=== PATIENT | male | born 1935 | race Caucasian/White ===

== ENCOUNTER 2016-09-28 10:00 | Observation (INO) ==
[2016-09-28] MEDS ORDERED: Ipratropium/Albuterol Neb 3 ML IH ONE (10:07)
[2016-09-28] MEDS ORDERED: methylPREDNISolone 125 MG/2 ML VIAL IVP ONE (10:07)
--- NOTE | 2016-09-28 10:34 | Emergency Department Note ---
Disposition Clinical Impression: Fall Qualifiers: Encounter type: initial encounter Qualified Code(s): W19.XXXA - Unspecified fall, initial encounter COPD (chronic obstructive pulmonary disease) Qualifiers: COPD type: COPD with acute exacerbation Qualified Code(s): J44.1 - Chronic obstructive pulmonary disease with (acute) exacerbation Disposition: Admitted As Inpatient Condition: Good Forms: ED Satisfaction Letter Fall HPI - General Chief Complaint: ED Fall Stated Complaint: Fall-Right Side Injuries Time Seen by Provider: 09/28/16 10:06 Source: patient, EMS Mode of arrival: EMS Limitations: no limitations Nursing Notes Reviewed: Yes Vital Signs Reviewed: Yes - History of Present Illness HPI Narrative: Patient presents emergency room after having mechanical fall at outside provider 's office. He was going in to be seen by his PCP Dr. Santos today. While walking into the office he fell and hit his head and right shoulder. He is a chronic pain in his right hip over the last several months after a fall previously. Family is concerned because he has had increased work of breathing productive cough and increasing falls at home. That is whether going into the office today. Patient denies any chest pain shortness of breath headache vision changes nausea vomiting or diarrhea, fevers or chills prior to the event today. He was just walking and and tripped over his own feet Pt Subjective Complaint: fall Onset (ago): Just [employer] HELPER Fall From: standing Fall Witnessed: yes Place Fall Occurred: street Loss of Consciousness: none Prolonged Down Time?: no Symptoms Prior to Fall: none Context: tripped/slipped Location of injury: head Location of injury - extremities: Right: shoulder Severity: moderate Severity scale (1-10): 6 Quality: aching Associated symptoms (after fall): Reports: denies - Related Data Previous Rx's Medication Instructions Recorded Amoxicillin/Clavulanate [Augmentin] 875 mg PO BIDWM #14 tablet 07/14/16 Allergies Allergy/AdvReac Type Severity Reaction Status Date / Time Erythromycin Base Allergy Hives Verified 04/19/15 13:35 All systems ED: reviewed and negative except as stated. Constitutional: Denies: fever, chills Cardiovascular: Reports: dyspnea on exertion. Denies: chest pain, palpitations , orthopnea Respiratory: Denies: cough Gastrointestinal: Denies: abdominal pain, nausea, vomiting, diarrhea Genitourinary: Denies: frequency Musculoskeletal: Reports: neck pain. Denies: back pain, joint swelling Integumentary: Denies: rash, abrasion, lesions Psychiatric: Denies: anxiety Fall PMH - Past Medical History Medical history: Reports: arthritis, COPD, diabetes, GERD, seizures, TIA Surgical history: Reports: other Psychiatric history: Reports: no psych history - Social History Smoking Status: Former smoker Alcohol use: Reports: none Drug use: Reports: none Physical Exam - General Limitations: no limitations General appearance: alert, in distress - Head Head exam: atraumatic, normocephalic, normal inspection - Neck Neck exam: Present: normal inspection, full ROM, trachea midline. Absent: tenderness, meningismus, lymphadenopathy - Chest Chest inspection: Present: normal inspection, symmetric chest wall rise. Absent : tenderness - Respiratory Respiratory exam: Present: normal lung sounds bilaterally, wheezes. Absent: respiratory distress - Cardiovascular Cardiovascular exam: Present: regular rate, normal rhythm, normal heart sounds - Abdominal Exam Abdominal exam: Present: soft, Non-Tender. Absent: tenderness, distention, guarding, rebound, rigidity, Escalera's sign, Rovsing's sign, tenderness at McBurney's Point, mass, bruit, pulsatile mass - Extremities Exam Extremities exam: Present: normal inspection, full ROM. Absent: tenderness, pedal edema - Back Exam Back exam: Present: normal inspection, full ROM. Absent: tenderness, CVA tenderness (R), CVA tenderness (L) - Neurological Exam Neurological exam: Present: alert, oriented X3, CN II-XII intact. Absent: normal gait (Limping gait no ataxia) - Psychiatric Psychiatric exam: Present: normal affect, normal mood - Skin Skin exam: Present: warm, dry, intact, normal color Course Course Narrative: Patient seen and examined the time of arrival. See history of present illness. 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 Patient was walking into his primary care office today for evaluation of increasing falls at home cough congestion and COPD exacerbation. While walking and he tripped over his own feet falling forward hitting his head right shoulder and right hip on the ground. Patient is on aspirin. Patient was brought over by EMS in a c-collar. Appropriate ATLS protocol was followed on presentation secondary to the fall. The head is atraumatic on presentation. His c-collar removed he has no midline tenderness is alert oriented 3 is no distractible injuries. Patient moves his neck without any difficulty side to side and up and down. Patient is nexus criteria negative. There is no gross deformity to the bilateral shoulders or upper extremities. Lungs are clear heart is regular patient speaking in full sentences. Abdomen soft nontender nondistended. No guarding or rigidity no peritoneal symptoms. Patient is good palpable pulses in the radial DP and PT distributions. There is no gross deformity to the pelvis. Patient has tenderness on the right hip over the greater trochanter. He does have appropriate straight leg raising at this time. Patient's lungs do have an adnexal Tory wheezing and poor aeration posteriorly. 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 He has had a productive cough over the last week and half. Family said that he was treated for an upper respiratory infection approximately month and half ago and never felt like he got better. Patient does use 3 L of oxygen at home as well as inhalers for symptom control. Family is concerned for decompensation secondary to COPD emphysema and hospital pneumonia. Patient also has mechanical fall today from standing height and is on aspirin. CT of the head and cervical spine ordered. Imaging of the right shoulder as well as a chest x-ray and pelvic plain films to address any right- sided hip pain. Patient does not require any pain medications time. Glucola evaluation and possible admission process to be completed for COPD exacerbation - Reevaluation(s) Reevaluation #1: Patient has stable laboratory workup. Mild elevation in his creatinine. No other acute findings at this time. Patient's chest x-ray and pelvis films are negative for acute pathology. CT of the right hip will be over this time for definitive evaluation of his chronic hip pain. CT head is negative for acute pathology. Cervical spine is also negative for bony abnormality. Patient and I has was the family discussed in great detail his medical history and presentation here. There are concerned about progression of his COPD along with persistently worsening inability to take care of himself at home. Family' s been trying to take care of him but is having increasing falls and increasing weakness. Patient was to be evaluated by his PCP today. Because of the recent fall as well as the chronic underlying medical conditions and what appears to be failed outpatient treatment course patient will be discussed with the hospitalist for admission and physical therapy evaluation as possible placement into a rehabilitation facility. Patient's family part of this in a comfortable this plan. Admission process to be completed at this time. Time: 12:11 Reevaluation #2: Patient discussed with the hospitalist Dr. Doran. Detailed review the patient 's presentation symptoms most likely progression of poorly controlled outpatient medical conditions. Patient to be brought to the hospital for evaluation of physical exam and rehabilitation evaluation. Patient has no clinical distress at this time. A 1.5 cm superficial laceration was closed with skin glue on the right elbow no gross signs of 4 measured no gross contamination at this time. See procedure note tetanus booster ordered at this time as well skin glue applied to the superficial surface after detailed evaluation copious irrigation of the right elbow. Time: 12:29 Vital Signs Temperature 97.4 F L 09/28/16 10:01 Pulse Rate 97 09/28/16 10:01 Respiratory Rate 20 09/28/16 10:01 Blood Pressure 109/66 09/28/16 10:01 O2 Sat by Pulse Oximetry 100 09/28/16 10:01 Temperature 97.4 F L 09/28/16 10:01 Pulse Rate 97 09/28/16 10:01 Respiratory Rate 20 09/28/16 10:01 Blood Pressure 109/66 09/28/16 10:01 O2 Sat by Pulse Oximetry 100 09/28/16 10:10 Oxygen Delivery Oxygen Delivery Nasal Cannula Procedures - Laceration Laceration 1 Site: upper extremity Side (If applicable): right Description: linear Depth: simple, single layer Pre-repair: wound explored, irrigated extensively, deep structures intact Skin layer closed with: karli Number of sutures/karli: 3 Fall - MDM Narrative Medical decision making narrative: Mechanical fall, COPD, - Medical Records Medical records reviewed: Yes I reviewed the patient's medical records. - Lab Data Lab results reviewed: Yes I reviewed the patient's lab results. - Radiology Data Radiology results reviewed: Yes I reviewed the patient's radiology results. - EKG Data EKG attestation: Yes I reviewed and interpreted this EKG. EKG shows normal: sinus rhythm, axis, intervals, QRS complexes, ST-T waves Rate: normal Rhythm: NSR Lannon/QRS: normal When compared to previous EKG there are: no significant changes Critical Care Time Critical Care Time: Yes Total Critical Care Time: 45 Attestation: Independent of procedures and other medical management.
--- NOTE | 2016-09-28 10:37 | Emergency Department Note ---
START Narrative - START START: I examined this patient and my medical decision-making was reviewed with the VARNISH FILTERER/PA/Advanced Practice Nurse/Resident Physician. I agree with the documented findings, disposition and treatment plan as described except to the extent set forth below. ED attending: Patient's emergency medicine resident Dr. VASQUEZ. Please see copy of this note for H&P evaluation and management and ED disposition. We both had independent [id number] time in contact with this patient. Briefly: 81-year-old male medical assist by EMS mechanical fall. History of falls. Patient injured his right shoulder and right hip. History of prior hip replacement. He also hit his head. Is not on any blood thinners however he is on aspirin. He has been having cough and some weakness as well. Patient is getting CT the head neck is getting an x-ray the shoulder and hip pinning a chest x-ray EKG and blood work. Disposition pending. Patient stable.
[2016-09-28 10:41] LABS: Hematocrit 33.9 % (37.5-50.1); Hemoglobin 11.4 g/dL (12.9-16.9); Mean Corpuscular HGB Conc 33.6 g/dL (31.6-35.5); Mean Corpuscular Hemoglobin 29.4 pg (28.0-33.3); Mean Corpuscular Volume 87.4 fL (83.0-100.0); Mean Platelet Volume 9.6 fL (9.4-12.4); Platelet Count 104 K/mcL (140-400); Red Blood Count 3.88 M/mcL (4.19-5.50); Red Cell Distribution Width 12.8 % (11.5-14.5)
[2016-09-28 10:46] LABS: INR 1.2; Prothrombin Time 12.7 Seconds (9.4-12.1)
[2016-09-28 10:48] LABS: Activated Partial Thrombo Time 31.3 Seconds (26.0-36.0)
[2016-09-28 10:53] LABS: Calcium 8.2 mg/dL (8.6-10.8)
[2016-09-28 10:54] LABS: Potassium 5.1 mEq/L (3.5-4.5)
[2016-09-28 11:02] LABS: Lymphocytes # 1.5 K/mcL (0.6-4.6); Monocytes # 0.1 K/mcL (0.0-1.3); Neutrophils # 1.3 K/mcL (1.6-8.9); Reactive Lymphocytes Present (Not Present)
[2016-09-28 11:03] LABS: Platelet Estimate Decreased (Normal)
[2016-09-28] MEDS ORDERED: Naloxone 0.4 MG/ML INJ IVP ONE (11:42)
[2016-09-28] MEDS ORDERED: Tdap (Boostrix) Vaccine 0.5 ML SYRINGE IM ONE (12:26)
[2016-09-28] MEDS ORDERED: Naloxone 0.4 MG/ML INJ IVP PRN (14:34)
[2016-09-28] MEDS ORDERED: Ondansetron 4 MG/2 ML VIAL IVP PRN (14:37)
[2016-09-28] MEDS ORDERED: MOM Conc 10 ML UD.LIQ PO PRN (14:37)
[2016-09-28] MEDS ORDERED: Acetaminophen 325 MG TABLET PO PRN (14:37)
[2016-09-28] MEDS ORDERED: Albuterol 2.5 MG/3 ML NEBULIZER IH PRN (14:39)
[2016-09-28] MEDS ORDERED: ALPRAZolam 0.5 MG TABLET PO PRN (14:39)
--- NOTE | 2016-09-28 14:48 | Internal Med History&Physical ---
<Rhianna Bone - Last Filed: 09/28/16 17:23> Date of Encounter: 09/28/16 Time of Encounter: 14:20 Assessment and Plan (1) Dehydration Current visit: Yes Status: Acute Pt reports poor oral intake over the last few days and states that he hasn't been drinking enough water because he hasn't felt well x 4 days. Given his history of Alzheimer's for the last 7 years this could be the cause of his poor oral intake. Oral mucosa dry, conjunctiva pale, sodium 134, potassium 5.2, BUN 27 and creatinine 1.41. Pt has not been here for labs since 2014, but renal function was WNL at that time. Fall today most likely from dizziness from hypovolemia/ dehydration. IVF 0.9NS at 75ml/hour Increase po intake Consult nutrition to assist with increasing po fluid/nutrition intake Repeat labs in a.m Monitor labs (2) Dizziness Current visit: Yes Status: Acute PT has been dizzy for last [address] in ER negative for intracranial abnormality. Will keep pt on fall precautions and up with assistance. (3) Frequent falls Current visit: Yes Pt has had increasing falls over the last day. Today's fall is of unknown origin. Pt denies cp, sob, but states that he has been dizzy for 24 hours Reverse dehydration Monitor labs Fall precautions pt/ot (4) Decreased oral intake Current visit: Yes Status: Chronic could be secondary to progression of alzheimer speech therapy consult. nutrition cx (5) Diabetes mellitus Current visit: Yes Status: Chronic Type II DM controlled with diet and sliding scale coverage. Will continue. Accucheck [facility] Qualifiers: Diabetes mellitus type: type 2 Diabetes mellitus complication status: with neurologic complications Diabetes mellitus complication detail: with unspecified neuropathy Diabetes mellitus terminal gauger insulin use: without skilled nursing use Qualified Code(s): E11.40 - Type 2 diabetes mellitus with diabetic neuropathy, unspecified (6) COPD (chronic obstructive pulmonary disease) Current visit: Yes Status: Chronic Pt has had increased wheezing this week. REports dry, hacky cough, but is not worse than normal. He is using his inhalers appropriately. Afebrile, Chest xray today shows no acute pulmonary disease identified, but chronic bronchial wall thickening is noted, no fracture or pneumothorax. Pt did expel some dk maroon colored sputum while he has been here. Pt has wheezing anteriorly, lungs diminished posteriorly. Sputum specimen/culture Duoneb q4hr Albuterol nebulizer q2h prn Continue Symbicort Qualifiers: COPD type: COPD with acute exacerbation Qualified Code(s): J44.1 - Chronic obstructive pulmonary disease with (acute) exacerbation (7) HTN (hypertension) Current visit: Yes Status: Suspected Pt has been hypotensive, most likely due to dehydration. Will hold home bp meds until normotensive and dehydration corrected. Qualifiers: Hypertension type: essential hypertension Qualified Code(s): I10 - Essential (primary) hypertension (8) Alzheimer's dementia Current visit: Yes Status: Chronic Pt diagnosed with Alzheimer's. Will start on Namenda 5mg po bid. Pt did answer questions appropriately, but slowly and attempted to cover up his slight confusion, but did get questions answered correctly. Qualifiers: Alzheimer's disease onset: unspecified onset Dementia behavioral disturbance: without behavioral disturbance Qualified Code(s): G30.9 - Alzheimer's disease, unspecified; F02.80 - Dementia in other diseases classified elsewhere without behavioral disturbance (9) Chronic respiratory failure Current visit: Yes Status: Chronic Stable at this time. Pt wears 3L 02 via n/c at home all day, will continue here. Qualifiers: Respiratory failure complication: unspecified whether with hypoxia or hypercapnia Qualified Code(s): J96.10 - Chronic respiratory failure, unspecified whether with hypoxia or hypercapnia Internal Medicine - H&P: HPI Chief complaint: Fall today, wheezing x 2 days Admitted From: Home Plans for Post Hospital Care: Home History of present illness: Mr. Quinn is a 81 year old male with history of COPD, HTN, DM, Alzheimer's and anxiety. Pt was going to Dr Santos's office and fell before getting into the office, injuring R shoulder and R hip. R hip pain is chronic and began hurting worse on Saturday, so pt was being seen for that today, as well as increased wheezing and dizziness. Family reports dizziness and increased falls over the last 24 hours. No chest pain, sob, dizziness, or syncope. All imaging in the ED negative for fractures. Chest xray negtive for acute pulmonary disease, but showed chronic bronchial wall thickening, no rib fractures or pneumothorax. Pt has no visible injury to either area, however did have a lac to R elbow that was closed with karli in the ED. Family noted that pt's feet become discolored when he is seated with his knees bent and feet on the floor. Pt resting in bed during exam and feet are pink and warm with +1 pedal pulses manjinder. Pt reports poor oral intake recently and states that he is to see Dr Jain for evaluation and possible dilation of the esophagus. Pt uses home 02 at 3L and he did have somewhat of a productive cough with dk brown/maroon colored sputum while here. Past Med Surg Social Fam HX - Past Medical History Medical history: arthritis, COPD, diabetes, GERD, seizures, TIA Psychiatric history: no psych history - Past Surgical History Surgical History: other - Social History Smoking Status: Former smoker Smokeless Tobacco Status: No Alcohol use: none Drug use: none - Family History Mother History Unknown: Yes Father Living Status: Age at : 68 Cause of : Leukemia Internal Medicine - H&P: Meds Albuterol Sulfate [Ventolin Hfa] 2 puff IH Q4H PRN 09/28/16 [History] Alprazolam [Xanax 0.5 MG Tablet] 0.5 mg PO QID PRN 09/28/16 [History] Amitriptyline [Elavil] 100 mg PO HS 09/28/16 [History] Aspirin [Lo-Dose Aspirin EC] 81 mg PO DAILY 09/28/16 [History] Fluticasone/Salmeterol [Advair Hfa 230-21 Mcg Inhaler] 1 puff IH BID 09/28/16 [ History] Gabapentin [Gabapentin] 600 mg PO QID 09/28/16 [History] Ipratropium/Albuterol Neb [Duoneb] 3 ml IH Q6HR 09/28/16 [History] Lisinopril [Zestril] 10 mg PO BID 09/28/16 [History] Oxycodone HCl/Acetaminophen [Endocet 5-325 Tablet] 1 tab PO Q4H PRN 09/28/16 [ History] PredniSONE [PredniSONE] 5 mg PO DAILY 09/28/16 [History] Pregabalin [Lyrica] 75 mg PO BID 09/28/16 [History] Allergies Erythromycin Base Allergy (Verified 04/19/15 13:35) Hives All Systems PM: A 10-system review of systems was performed and is negative for pertinent findings except as documented above in the HPI. - Constitutional Constitutional: falls, no chills, no fever(s), no weakness - Cardiovascular Cardiovascular ROS IM: no chest pain, no diaphoresis, no edema, no lightheadedness, no palpitations, no syncope - Respiratory Respiratory: cough, wheezing, no chest congestion, no pain with cough - Gastrointestinal Gastrointestinal: early satiety, no diarrhea, no nausea, no vomiting Additional comments: states "If he eats too much he can't drink, if he drinks too much he can't eat." This is why they are seeing Dr Jain. - Genitourinary Genitourinary ROS male: no dysuria, no urinary frequency, no urinary hesitancy, no urinary urgency - Musculoskeletal Musculoskeletal ROS IM: back pain, numbness, tingling - Integumentary Additional comments: lac to R elbow, closed with karli, covered with kerlix and non-adherent dressing. - Neurological Neurological ROS: dizziness - Constitutional Vitals: Temp Pulse Resp BP Pulse Ox 97.4 F L 85 20 110/70 92 L 09/28/16 14:31 09/28/16 14:31 09/28/16 14:31 09/28/16 14:31 09/28/16 14:31 General appearance: Present: A&O X 3, no acute distress - Head Head exam: Present: atraumatic, normal inspection - Eye Eye exam: Present: conjuntiva pink Pupils: Present: PERRL - ENT ENT exam: Present: mucous membranes dry - Neck Neck exam general surgery: Absent: lymphadenopathy, tenderness - Respiratory Respiratory exam: Present: decreased breath sounds, wheezes. Absent: respiratory distress Additional comments: Lungs clear posteriorly, exp wheezing heard ant in upper lung gustafson. - Cardiovascular Cardiovascular exam: Present: RRR, +S1, +S2 - GI/Abdominal GI/Abdominal exam: Present: normal bowel sounds, soft. Absent: tenderness - Rectal Rectal exam: Present: deferred - Extremities Exam Extremities exam: Present: cyanotic, full ROM, warm, radial pulses palpable and symetrical. Absent: pedal edema, tenderness Additional comments: Pt BLE pink and warm while extended in front of him in the bed, however when he has feet on floor, feet become cyanotic. - Back Exam Back exam: Present: full ROM, paraspinal tenderness - Neurological Exam Neurological exam: Present: alert, oriented X3, no focal deficits, strengths equal and symetr throughout Internal Med - H&P Results - Labs CBC & Chem 7: 09/28/16 10:24 09/28/16 10:24 <Leslie Maharaj - Last Filed: 09/28/16 17:47> Date of Encounter: 09/28/16 Internal Medicine - H&P: HPI History of present illness: Mr. Quinn is a 81 year old male All Systems PM: A 10-system review of systems was performed and is negative for pertinent findings except as documented above in the HPI. - Constitutional Vitals: Temp Pulse Resp BP Pulse Ox 97.4 F L 85 20 110/70 92 L 09/28/16 14:31 09/28/16 14:31 09/28/16 14:31 09/28/16 14:31 09/28/16 14:31 Internal Med - H&P Results - Labs CBC & Chem 7: 09/28/16 10:24 09/28/16 10:24 Labs: Cardiac Enzymes 09/28/16 Range/Units 16:13 Troponin I 0.02 (0-0.03) ng/mL Urine 09/28/16 Range/Units 16:40 Urine Color Yellow (Yellow) Urine Clarity Clear (Clear) Urine pH 6.0 (5.0-8.0) pH Units Ur Specific [place] 1.017 (1.010-1.025) Urine Protein Trace (Neg-Trace) mg/dL Urine Glucose (UA) Normal (Normal) mg/dL - Attending Attestation I examined this patient and reviewed laboratory, imaging and all diagnostic data. My medical decision-making was reviewed with DELROY Bone. I agree with the documented findings, disposition and treatment plan as described above. 81- year-old male who comes after falling at our parking lot, on his way to his PCP office. Patient seems to have showed no internal memory problems during my history taking and upon questioning he and his family reports being diagnosed of Alzheimer's dementia 7 years ago. She has a bracelet monitor that triggers when he leaves house for more than 20 minutes. She reports having poor oral intake on and off for the past months and that once he was told that he might need a PEG tube which he refuses. Examination: pt looks dehydrated, chest is CTAB, dry skin and oral mucosa. a/p 1. Dehydration from poor oral intake. 2. Decrease oral intake likely from progression of Alzheimer. 3. frequent falls 4. [place] dementia Speech, PT and OT consults. IV fluid hydration.
[2016-09-28] MEDS ORDERED: D5% in Water 1,000 ML IV PRN (14:49)
[2016-09-28] MEDS ORDERED: *HR* Dextrose 50 % in Water (Syg) 50 ML SYRINGE IVP PRN (14:49)
[2016-09-28] MEDS ORDERED: Dextrose Gel 15 GM PO PRN ×2 (14:49)
[2016-09-28] MEDS: Ipratropium/Albuterol Neb 3 ML IH SCH ×2 (16:00→20:01)
[2016-09-28] MEDS: GuaiFENesin/Dextromethorphan TABLET PO SCH ×2 (16:13→20:07)
[2016-09-28] MEDS: Gabapentin 300 MG CAPSULE PO SCH ×2 (16:13→20:08)
[2016-09-28] MEDS: 0.9 % Sodium Chloride 1,000 ML IVC SCH (16:13)
[2016-09-28 16:59] LABS: Bilirubin,Urine Negative (Negative); Blood,Urine Negative (Negative); Clarity,Urine Clear (Clear); Color,Urine Yellow (Yellow); Glucose,Urine (UA) Normal (Normal); Ketones,Urine Negative (Negative); Leukocyte Esterase,Urine Negative (Negative); Nitrite,Urine Negative (Negative); Protein,Urine Trace mg/dL (Neg-Trace); Specific Gravity,Urine 1.017 (1.010-1.025); Urobilinogen,Urine Normal (Normal)
[2016-09-28 17:00] LABS: Bacteria,Urine None Seen per hpf (None-Few); Hyaline Casts,Urine None Seen per lpf (None-Few); RBC,Urine 0-3 per hpf (0-3); Squamous Epithelial Cell,Urine Many per lpf (None-Few); WBC,Urine 0-3 per hpf (0-3)
[2016-09-28] MEDS: Insulin LISPRO 300 UNITS/3 ML VIAL SQ SCH (17:49)
[2016-09-28] MEDS: Budesonide/Formoterol 160/4.5 MDI IH SCH (20:01)
[2016-09-28] MEDS: *HR* OxyCODONE/APAP 5/325 TABLET PO PRN (20:07)
[2016-09-28] MEDS ORDERED: Insulin LISPRO 300 UNITS/3 ML VIAL SQ SCH (21:00)
[2016-09-29] MEDS: Ipratropium/Albuterol Neb 3 ML IH SCH ×5 (00:42→12:02)
[2016-09-29 04:14] LABS: Hemoglobin 10.6 g/dL (12.9-16.9); Immature Granulocytes % 0.8 % (0-4)
[2016-09-29 04:15] LABS: Hematocrit 31.9 % (37.5-50.1); Lymphocytes # 0.3 K/mcL (0.6-4.6); Lymphocytes % 24.1 %; Mean Corpuscular HGB Conc 33.2 g/dL (31.6-35.5); Mean Corpuscular Hemoglobin 29.2 pg (28.0-33.3); Mean Corpuscular Volume 87.9 fL (83.0-100.0); Mean Platelet Volume 9.8 fL (9.4-12.4); Monocytes # 0.1 K/mcL (0.0-1.3); Monocytes % 7.5 %; Neutrophils # 0.9 K/mcL (1.6-8.9); Red Blood Count 3.63 M/mcL (4.19-5.50); Red Cell Distribution Width 12.6 % (11.5-14.5); Segmented Neutrophils % 67.6 %
[2016-09-29 04:18] LABS: Platelet Count 99 K/mcL (140-400)
[2016-09-29 04:27] LABS: BUN/Creatinine Ratio 26 (6-26); Blood Urea Nitrogen 25 mg/dL (8-26); Calcium 8.3 mg/dL (8.6-10.8); Carbon Dioxide 24 mEq/L (19-29); Chloride 101 mEq/L (98-109); Glucose 214 mg/dL (70-99); Osmolality,Calculated 293 (280-300); Potassium 4.8 mEq/L (3.5-4.5); Sodium 136 mEq/L (136-145); eGFR For African Americans > 60 (> 60); eGFR For Non-African Americans > 60 (> 60)
[2016-09-29 04:48] LABS: Platelet Estimate Slight Decrease (Normal)
[2016-09-29] MEDS: 0.9 % Sodium Chloride 1,000 ML IVC SCH (05:30)
[2016-09-29] MEDS: GuaiFENesin/Dextromethorphan TABLET PO SCH (07:34)
[2016-09-29] MEDS: *HR* OxyCODONE/APAP 5/325 TABLET PO PRN ×4 (07:34→15:45)
[2016-09-29] MEDS: Insulin LISPRO 300 UNITS/3 ML VIAL SQ SCH ×2 (07:34→12:12)
[2016-09-29] MEDS: Gabapentin 300 MG CAPSULE PO SCH ×2 (07:34→12:11)
[2016-09-29] MEDS: Budesonide/Formoterol 160/4.5 MDI IH SCH (08:00)
[2016-09-29] MEDS ORDERED: Pantoprazole 40 MG VIAL IVP SCH (09:00)
[2016-09-29] MEDS ORDERED: predniSONE 5 MG TABLET PO SCH (09:00)
[2016-09-29] MEDS ORDERED: Aspirin Enteric Coated 81 MG Tablet PO SCH (09:00)
[2016-09-29 11:51] VITALS: BP 133/67
--- NOTE | 2016-09-29 13:31 | Arterial Study Report ---
LE Arterial Physiologic Study Patient Name:Declan Quinn Order Number:[id number] Procedure Date:09/28/2016 Date:1935ge:81 yrs Gender:Male Lt BP:145 / mmHg Rt.BP:148 / mmHgHeart Rate: Location:[facility] Room #: 3B12 [employer] Supervisor:Vijaya Jara Referring MD:Rhianna Bone CNP graphic manager:Toney Santos MD Reading MD:Kj Bernardo MD Primary Indications:Cyanosis of feet Risk Factors Yes/No Hypertension Diabetes Hx of TIA Smoker Previous Impressions: 1) Bilateral lower extremities waveform demonstrates normal hemodynamics. 2) bilateral Ankle Brachial Index is normal. 3) Overall Impression: Arterial hemodynamics are well maintained at rest. Findings LE Arterial Physiologic Exam: PVR: Right: The PVR waveforms are normal in the right ankle. Left: The PVR waveforms are normal in the left ankle. Segmental Pressures Side Location Pressure Index Result Right Posterior Tibial 150 1.01 Normal Right Dorsalis Pedis 168 1.14 Normal Left Posterior Tibial 186 1.26 Normal Left Dorsalis Pedis 176 1.19 Normal Ankle Brachial Index Right Systolic Diastolic GAYATRI Brachial 148 1.14 Dorsalis Pedis 168 1.14 Posterior Tibial 150 1.01 Left Systolic Diastolic GAYATRI Brachial 145 1.26 Dorsalis Pedis 176 1.19 Posterior Tibial 186 1.26 Updated by Kj Bernardo MD on 09/29/2016 1:26:17 PM with Status of Final electronically signed on 09/29/2016 1:26:29 PM with status of Final
--- NOTE | 2016-09-29 15:00 | Discharge Summary ---
Date of Encounter: 09/29/16 Time of Encounter: 14:52 - Discharge Diagnosis (1) Fall Priority: Primary Status: Acute Qualifiers: Encounter type: initial encounter Qualified Code(s): W19.XXXA - Unspecified fall, initial encounter (2) Alzheimer's dementia Priority: Secondary Status: Chronic Qualifiers: Alzheimer's disease onset: late-onset Dementia behavioral disturbance: without behavioral disturbance Qualified Code(s): G30.1 - Alzheimer's disease with late onset; F02.80 - Dementia in other diseases classified elsewhere without behavioral disturbance (3) COPD (chronic obstructive pulmonary disease) Priority: Secondary Status: Chronic Qualifiers: COPD type: COPD with acute exacerbation Qualified Code(s): J44.1 - Chronic obstructive pulmonary disease with (acute) exacerbation (4) Chronic respiratory failure Priority: Secondary Status: Chronic Qualifiers: Respiratory failure complication: hypoxia Qualified Code(s): J96.11 - Chronic respiratory failure with hypoxia (5) Diabetes mellitus Priority: Secondary Status: Chronic Qualifiers: Diabetes mellitus type: type 2 Diabetes mellitus complication status: with neurologic complications Diabetes mellitus complication detail: with unspecified neuropathy Diabetes mellitus ferry terminal agent insulin use: without half-way use Qualified Code(s): E11.40 - Type 2 diabetes mellitus with diabetic neuropathy, unspecified (6) HTN (hypertension) Priority: Secondary Status: Chronic Qualifiers: Hypertension type: essential hypertension Qualified Code(s): I10 - Essential (primary) hypertension - Discharge Medications Home Medications: Albuterol Sulfate [Ventolin Hfa] 2 puff IH Q4H PRN 09/28/16 [History] Alprazolam [Xanax 0.5 MG Tablet] 0.5 mg PO QID PRN 09/28/16 [History] Aspirin [Lo-Dose Aspirin EC] 81 mg PO DAILY 09/28/16 [History] Fluticasone/Salmeterol [Advair Hfa 230-21 Mcg Inhaler] 1 puff IH BID 09/28/16 [ History] Gabapentin 600 mg PO QID 09/28/16 [History] Ipratropium/Albuterol Neb [Duoneb] 3 ml IH Q6HR 09/28/16 [History] PredniSONE 5 mg PO DAILY 09/28/16 [History] Pregabalin [Lyrica] 75 mg PO BID 09/28/16 [History] Amitriptyline [Elavil] 50 mg PO HS #20 09/29/16 [Rx] Lisinopril [Zestril] 10 mg PO DAILY #20 09/29/16 [Rx] Oxycodone HCl/Acetaminophen [Endocet 5-325 Tablet] 1 tab PO Q6H PRN #20 [Rx] Allergies/Adverse Reactions: Allergies Erythromycin Base Allergy (Verified 04/19/15 13:35) Hives Procedures/tests Complete & Pending: Procedures Performed prior 72 hours Category Date Time Status GAYATRI [EV ankle brachial index] Routine Y 09/28/16 15:42 Completed Date of admission: 09/28/16 12:19 Primary care physician: Toney Santos Jr, MD Consults: 09/28/16 15:34 Consult to Nutrition [CONS] Routine Comment: Consulting Provider: NUTRITION Reason for Dietary Consult: Supplemental Nutrition Consult to Occupational Therapy [CONS] Routine Comment: Evaluate, develop and implement POC Consult to Physical Therapy [CONS] Routine Comment: Evaluate, develop and implement POC 09/28/16 15:39 Consult to Heavy Mobile Equipment Operator [CONS] Routine Reason for SW Consult: planning discharge Consult to Speech Therapy [CONS] Routine Comment: Evaluate, develop and implement POC Reason for Consult: swallow eval, difficulty swallowing Call Completed: No 09/28/16 15:45 Consult to Heavy Mobile Equipment Operator [CONS] Routine Reason for SW Consult: discharge planning Discharging clinician: Jess Lindsay Anticipated date of discharge: 09/29/16 - Patient Status Disposition: Home Health Service Condition: Good Functional capacity at discharge: uses cane/walker Overall status at discharge: patient is progressing back to baseline - Discharge Instructions Instructions: Fall Prevention (DC) Follow Up With: Toney Santso Jr, MD [Primary Care Provider] - Additional Instructions: F/up with Pulmonology as scheduled - Diet and Activity Activity: as per physical therapy, wear oxygen at all times Diet: diabetic diet, low fat, low cholesterol, low salt diet Hospital course: Mr. Quinn is a 81 year old male with history of dementia and COPD was admitted after sustaining a fall at his doctor's office yesterday morning. On speaking with the patient and his family, patient apparently felt slightly dizzy and was about to fall down while at the doctor's office as he was not wearing his oxygen as he was supposed to. He reported right elbow and right hip pain and imaging studies done in the emergency room showed no injury/trauma/ fracture stools,, right elbow or right hip. He had a minor laceration on his right elbow, and received karli for this. He was noted to have some dehydration and acute kidney injury and was started on IV hydration and his serum creatinine returned back to normal today. Patient voices no complaints today and is wanting to be discharged home. I had an extensive discussion with his daughter Enoch, with who patient and his reside, and patient has everything in place for safe return back home. Physical therapy evaluation recommended placement in extended care facility, however patient and family are totally against the idea due to previous bad experiences with other family members and his daughter insists that she can appropriately care for him at home. A referral is being made for home health services and patient is otherwise medically stable for discharge home at this time. - Time Spent with Patient Total time spent providing and/or coordinating discharge services: Greater than 30 minutes (45 min) - Constitutional Vitals: Temp Pulse Resp BP Pulse Ox 97.4 F L 89 18 133/67 98 09/29/16 11:49 09/29/16 11:49 09/29/16 12:03 09/29/16 11:49 09/29/16 12:03 General appearance: Present: A&O X 2, answers questions appropriately ( stuttered speech, some confusion at baseline) - Respiratory Respiratory exam: Present: decreased breath sounds (slightly decreased air entry B/L), CTAB. Absent: accessory muscle use, rales, rhonchi, wheezes - Cardiovascular Cardiovascular exam: Present: RRR, +S1, +S2. Absent: diastolic murmur, gallop, rubs, systolic murmur
--- NOTE | 2016-09-29 15:12 | Physician Discharge Referral ---
Home Health/Hosp Referral Info Transfer to: Home Health Attending Provider: Jess Lindsay Provider in Charge Post Discharge: PCP - Diagnosis (1) Fall Priority: Primary Status: Acute (2) Alzheimer's dementia Priority: Secondary Status: Chronic (3) COPD (chronic obstructive pulmonary disease) Priority: Secondary Status: Chronic (4) Chronic respiratory failure Priority: Secondary Status: Chronic (5) Diabetes mellitus Priority: Secondary Status: Chronic (6) HTN (hypertension) Priority: Secondary Status: Chronic - Respiratory Orders Oxygen / L per min (2-3L/min) Smoking Cessation: Smoking cessation has been advised. For more information, call the [place] Tobacco Quit Line at 5-980-NKIT-NOW. - Diet/Nutrition Diet/Nutrition Orders: Cardiac, No Concentrated Sweets (diabetic) - Activity Activity Orders: Ambulate - Services Needed Following services are medically necessary services: Nursing, Physical Therapy, Occupational Therapy - Transfer Medications Home Medications: Albuterol Sulfate [Ventolin Hfa] 2 puff IH Q4H PRN 09/28/16 [History] Alprazolam [Xanax 0.5 MG Tablet] 0.5 mg PO QID PRN 09/28/16 [History] Aspirin [Lo-Dose Aspirin EC] 81 mg PO DAILY 09/28/16 [History] Fluticasone/Salmeterol [Advair Hfa 230-21 Mcg Inhaler] 1 puff IH BID 09/28/16 [ History] Gabapentin 600 mg PO QID 09/28/16 [History] Ipratropium/Albuterol Neb [Duoneb] 3 ml IH Q6HR 09/28/16 [History] PredniSONE 5 mg PO DAILY 09/28/16 [History] Pregabalin [Lyrica] 75 mg PO BID 09/28/16 [History] Amitriptyline [Elavil] 50 mg PO HS #20 09/29/16 [Rx] Lisinopril [Zestril] 10 mg PO DAILY #20 09/29/16 [Rx] Oxycodone HCl/Acetaminophen [Endocet 5-325 Tablet] 1 tab PO Q6H PRN #20 [Rx] Allergies/Adverse Reactions: Allergies Erythromycin Base Allergy (Verified 04/19/15 13:35) Hives Certification: Further, I certify that my clinical findings support that this patient is homebound (i.e. absences from home require considerable and taxing effort and are for medical reasons or catholic services or infrequently or short duration when for other reasons) because: Homebound Reason: Patient requires assistance of a person or device to safely leave home, Severity of cardiac or pulmonary status limits activity tolerance Attestation: My signature below is to certify that this patient is under my care and that I, or nurse practitioner, or a physician's household personal assistant working with me, has a face-to -face encounter with this patient.
--- NOTE | 2016-10-01 13:01 | Electrocardiograph Report ---
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
== END 2016-09-29 15:46 | disposition home health service (06) ==
LOC: 3BNU 10:00 → EMEROO 10:00 → SUATTDRO 12:19 → 3BNU 13:55
PROVIDERS: ADMIT Internal Medicine; ATTEND Internal Medicine

== ENCOUNTER 2017-06-27 08:17 | Inpatient (IN) ==
--- NOTE | 2017-06-27 08:30 | Emergency Department Note ---
Disposition Clinical Impression: Pneumonia Qualifiers: Pneumonia type: due to unspecified organism Laterality: left Lung location: unspecified part of lung Qualified Code(s): J18.9 - Pneumonia, unspecified organism Fatigue Qualifiers: Fatigue type: unspecified Qualified Code(s): R53.83 - Other fatigue Closed head injury Qualifiers: Encounter type: initial encounter Qualified Code(s): S09.90XA - Unspecified injury of head, initial encounter Leukocytosis Qualifiers: Leukocytosis type: unspecified Qualified Code(s): D72.829 - Elevated white blood cell count, unspecified Disposition: Admitted As Inpatient Condition: Good Referrals: Toney Santos Jr, MD [Primary Care Provider] - Forms: ED Satisfaction Letter General Adult HPI - General Chief complaint: ED Weakness Stated complaint: fall, gen. weakness Time Seen by Provider: 06/27/17 08:27 Source: patient, family Limitations: no limitations Nursing Notes Reviewed: Yes Vital Signs Reviewed: Yes - History of Present Illness HPI Narrative: 81-year-old male with a past medical history of COPD, Alzheimer's dementia, diabetes, hypertension. He presents with generalized fatigue over the last week. He also presents with numerous falls. 3 of the falls were this morning. He does report hitting his head. He says that he is falling because he is so weak. He denies syncope. He reports that he remembers the entire incident. Said the first one his legs got tangled up in his blankets and he rolled off the bed. The second one he was sitting on the commode and try to get off and just was too weak and fell. He also reports during a another time this morning he did develop left-sided chest pain in his left shoulder. It lasted for approximately 1 minute and then went away. He denies a history of cardiac disease and denies any current symptoms aside from generalized fatigue. He denies any blood in his stool. He denies any change in his bowel or bladder habits. He has had a chronic cough for the last few weeks and has been on antibiotics for bronchitis. Radiation: non-radiation Pain Scale: 0 Improves with: nothing Worsens with: nothing Associated symptoms: Reports: denies other symptoms Treatments Prior to Arrival: none - Related Data Home Medications Medication Instructions Recorded Confirmed ALPRAZolam [Xanax 0.5 MG Tablet] 0.5 mg PO QID PRN 09/28/16 09/28/16 Albuterol Sulfate [Ventolin Hfa] 2 puff IH Q4H PRN 09/28/16 09/28/16 Aspirin [Lo-Dose Aspirin EC] 81 mg PO DAILY 09/28/16 09/28/16 Fluticasone/Salmeterol [Advair Hfa 1 puff IH BID 09/28/16 09/28/16 230-21 Mcg Inhaler] Gabapentin 600 mg PO QID 09/28/16 09/28/16 Ipratropium/Albuterol Neb [Duoneb] 3 ml IH Q6HR 09/28/16 09/28/16 Pregabalin [Lyrica] 75 mg PO BID 09/28/16 09/28/16 predniSONE [PredniSONE] 5 mg PO DAILY 09/28/16 09/28/16 Insulin DETEMIR [Levemir Flextouch] 15 - 20 unit SQ HS PRN 06/27/17 06/27/17 Insulin LISPRO [Humalog Kwikpen 0 unit SQ TID PRN 06/27/17 06/27/17 U-100] Levalbuterol Neb [Xopenex Neb] 0.63 mg IH Q4H PRN 06/27/17 06/27/17 Lisinopril [Zestril] 10 mg PO BID 06/27/17 06/27/17 Previous Rx's Medication Instructions Recorded Amitriptyline [Elavil] 50 mg PO HS #20 09/29/16 Oxycodone HCl/Acetaminophen 1 tab PO Q6H PRN #20 09/29/16 [Endocet 5-325 Tablet] Allergies Allergy/AdvReac Type Severity Reaction Status Date / Time Erythromycin Base Allergy Hives Verified 06/27/17 10:46 All systems ED: reviewed and negative except as stated. Constitutional: Denies: fever ENT ED: Denies: throat pain Cardiovascular: Reports: chest pain Respiratory: Reports: cough Gastrointestinal: Reports: abdominal pain, nausea Musculoskeletal: Denies: back pain Integumentary: Denies: rash Neurological: Denies: headache Endocrine: Reports: fatigue Hematological/Lymphatic: Denies: easy bleeding Past Medical History - Past Medical History Medical history: Reports: diabetes, GERD, arthritis, seizures, TIA, COPD Surgical history: Reports: other Psychiatric history: Reports: no psych history - Social History Smoking Status: Former smoker Smokeless Tobacco Status: No Alcohol use: Reports: none Drug use: Reports: none Physical Exam - General Limitations: no limitations General appearance: alert, in no apparent distress - Head Head exam: atraumatic - Eye Eye exam: Present: normal appearance, PERRL - ENT ENT exam: normal exam, other (Edentulous) - Neck Neck exam: Present: normal inspection. Absent: tenderness - Chest Chest inspection: Present: normal inspection - Respiratory Respiratory exam: Present: normal lung sounds bilaterally. Absent: respiratory distress - Cardiovascular Cardiovascular exam: Present: regular rate, normal rhythm - Abdominal Exam Abdominal exam: Present: soft, Non-Tender - Extremities Exam Extremities exam: Present: normal inspection - Back Exam Back exam: Present: normal inspection - Neurological Exam Neurological exam: Present: alert, other (Oriented to place and self.). Absent : motor sensory deficit - Psychiatric Psychiatric exam: Present: normal affect, normal mood - Skin Skin exam: Present: warm, dry Course Course Narrative: D-dimer initially elevated so obtained a CTA. It did not demonstrate a pulmonary embolism or dissection but it did show a left sided upper and lower lobe pneumonia. His white blood cell count is elevated. He is chronically on oxygen at home. He is not febrile. He will be admitted with IV antibiotics Vital Signs Temperature 97.5 F L 06/27/17 08:20 Pulse Rate 82 06/27/17 08:20 Respiratory Rate 20 06/27/17 08:20 Blood Pressure 173/95 06/27/17 08:20 O2 Sat by Pulse Oximetry 95 06/27/17 08:20 Temperature 97.5 F L 06/27/17 08:20 Pulse Rate 105 06/27/17 11:28 Respiratory Rate 18 06/27/17 11:28 Blood Pressure 174/92 06/27/17 11:28 O2 Sat by Pulse Oximetry 95 06/27/17 11:28 Oxygen Delivery Oxygen Delivery Nasal Cannula Medical Decision Making - Medical Records Medical records reviewed: Yes I reviewed the patient's medical records. - Lab Data Lab results reviewed: Yes I reviewed the patient's lab results. Result diagrams: 06/27/17 08:58 06/27/17 08:58 Lab Results 06/27/17 06/27/17 06/27/17 Range/Units 08:58 08:58 08:58 WBC 12.4 H (4.3-11.1) K/mcL RBC 3.97 L (4.19-5.50) M/mcL Hgb 10.7 L (12.9-16.9) g/dL Hct 33.1 L (37.5-50.1) % MCV 83.4 (83.0-100.0) fL MCH 27.0 L (28.0-33.3) pg MCHC 32.3 (31.6-35.5) g/dL RDW 13.4 (11.5-14.5) % Plt Count 301 (140-400) K/mcL MPV 8.3 L (9.4-12.4) fL Immature Gran % 0.2 (0-4) % Seg Neutrophils % 78.6 % Lymphocytes % 13.4 % Monocytes % 7.0 % Eosinophils % 0.6 % Basophils % 0.2 % Neutrophils # 9.8 H (1.6-8.9) K/mcL Lymphocytes # 1.7 (0.6-4.6) K/mcL Monocytes # 0.9 (0.0-1.3) K/mcL Eosinophils # 0.1 (0.0-0.6) K/mcL Basophils # 0.0 (0.0-0.2) K/mcL D-Dimer 1993 H (0-500) ng/mLFEU Sodium 144 (136-145) mEq/L Potassium 3.5 (3.5-4.5) mEq/L Chloride 101 (98-109) mEq/L Carbon Dioxide 34 H (19-29) mEq/L BUN 14 (8-26) mg/dL Creatinine 0.87 (0.72-1.25) mg/dL Est GFR ( Amer) > 60 (> 60) Est GFR (Non-Af Amer) > 60 (> 60) BUN/Creatinine Ratio 16 (6-26) Glucose 92 (70-99) mg/dL Calculated Osmolality 298 (280-300) Lactic Acid (0.5-2.2) mmol/L Calcium 9.3 (8.6-10.8) mg/dL Total Bilirubin 0.4 (0.2-1.2) mg/dL Direct Bilirubin 0.2 (0.0-0.5) mg/dL Indirect Bilirubin 0.2 (0.0-1.2) mg/dL AST 19 (5-34) Units/L ALT 22 (0-55) Units/L Alkaline Phosphatase 169 H (38-126) Units/L Troponin I (0-0.03) ng/mL Serum Total Protein 7.8 (6.0-8.3) g/dL Albumin 2.6 L (3.5-5.0) g/dL Globulin 5.2 H (2.4-3.5) g/dL Albumin/Globulin Ratio 0.5 L (1.1-2.2) TSH 0.741 (0.350-4.840) mcIU/mL Urine Color (Yellow) Urine Clarity (Clear) Urine pH (5.0-8.0) pH Units Ur Specific Vincent (1.010-1.025) Urine Protein (Neg-Trace) mg/dL Urine Glucose (UA) (Normal) mg/dL Urine Ketones (Negative) mg/dL Urine Blood (Negative) Urine Nitrite (Negative) Urine Bilirubin (Negative) Urine Urobilinogen (Normal) mg/dL Ur Leukocyte Esterase (Negative) Urine Microscopic RBC (0-3) per hpf Urine Microscopic WBC (0-3) per hpf Ur Squamous Epith Cells (None-Few) per lpf Urine Bacteria (None-Few) per hpf Hyaline Casts (None-Few) per lpf Ur Culture Indicated? (NO) 06/27/17 06/27/17 06/27/17 Range/Units 08:58 08:58 12:00 WBC (4.3-11.1) K/mcL RBC (4.19-5.50) M/mcL Hgb (12.9-16.9) g/dL Hct (37.5-50.1) % MCV (83.0-100.0) fL MCH (28.0-33.3) pg MCHC (31.6-35.5) g/dL RDW (11.5-14.5) % Plt Count (140-400) K/mcL MPV (9.4-12.4) fL Immature Gran % (0-4) % Seg Neutrophils % % Lymphocytes % % Monocytes % % Eosinophils % % Basophils % % Neutrophils # (1.6-8.9) K/mcL Lymphocytes # (0.6-4.6) K/mcL Monocytes # (0.0-1.3) K/mcL Eosinophils # (0.0-0.6) K/mcL Basophils # (0.0-0.2) K/mcL D-Dimer (0-500) ng/mLFEU Sodium (136-145) mEq/L Potassium (3.5-4.5) mEq/L Chloride (98-109) mEq/L Carbon Dioxide (19-29) mEq/L BUN (8-26) mg/dL Creatinine (0.72-1.25) mg/dL Est GFR ( Amer) (> 60) Est GFR (Non-Af Amer) (> 60) BUN/Creatinine Ratio (6-26) Glucose (70-99) mg/dL Calculated Osmolality (280-300) Lactic Acid 1.0 (0.5-2.2) mmol/L Calcium (8.6-10.8) mg/dL Total Bilirubin (0.2-1.2) mg/dL Direct Bilirubin (0.0-0.5) mg/dL Indirect Bilirubin (0.0-1.2) mg/dL AST (5-34) Units/L ALT (0-55) Units/L Alkaline Phosphatase (38-126) Units/L Troponin I 0.05 H* (0-0.03) ng/mL Serum Total Protein (6.0-8.3) g/dL Albumin (3.5-5.0) g/dL Globulin (2.4-3.5) g/dL Albumin/Globulin Ratio (1.1-2.2) TSH (0.350-4.840) mcIU/mL Urine Color Yellow (Yellow) Urine Clarity Clear (Clear) Urine pH 6.5 (5.0-8.0) pH Units Ur Specific Vincent 1.021 (1.010-1.025) Urine Protein Trace (Neg-Trace) mg/dL Urine Glucose (UA) 250 H (Normal) mg/dL Urine Ketones Negative (Negative) mg/dL Urine Blood Negative (Negative) Urine Nitrite Negative (Negative) Urine Bilirubin Negative (Negative) Urine Urobilinogen Normal (Normal) mg/dL Ur Leukocyte Esterase Negative (Negative) Urine Microscopic RBC 0-3 (0-3) per hpf Urine Microscopic WBC 0-3 (0-3) per hpf Ur Squamous Epith Cells Moderate H (None-Few) per lpf Urine Bacteria None Seen (None-Few) per hpf Hyaline Casts None Seen (None-Few) per lpf Ur Culture Indicated? NO (NO) - Radiology Data Radiology results reviewed: Yes I reviewed the patient's radiology results. - EKG Data EKG #1 EKG attestation: Yes I reviewed and interpreted this EKG. EKG shows normal: sinus rhythm Rate: normal Rhythm: NSR Ione/QRS: normal When compared to previous EKG there are: no significant changes Interpretation: no acute changes
[2017-06-27 09:03] LABS: Basophils % 0.2 %; Eosinophils # 0.1 K/mcL (0.0-0.6); Eosinophils % 0.6 %; Hematocrit 33.1 % (37.5-50.1); Hemoglobin 10.7 g/dL (12.9-16.9); Immature Granulocytes % 0.2 % (0-4); Lymphocytes # 1.7 K/mcL (0.6-4.6); Lymphocytes % 13.4 %; Mean Corpuscular HGB Conc 32.3 g/dL (31.6-35.5); Mean Corpuscular Volume 83.4 fL (83.0-100.0); Mean Platelet Volume 8.3 fL (9.4-12.4); Monocytes # 0.9 K/mcL (0.0-1.3); Neutrophils # 9.8 K/mcL (1.6-8.9); Platelet Count 301 K/mcL (140-400); Red Blood Count 3.97 M/mcL (4.19-5.50); Red Cell Distribution Width 13.4 % (11.5-14.5); Segmented Neutrophils % 78.6 %
--- NOTE | 2017-06-27 09:14 | Emergency Department Note ---
START Narrative - START START: I examined this patient and my medical decision-making was reviewed with the emergency medicine resident. I agree with the documented findings, disposition and treatment plan as described except to the extent set forth below. Patient seen with emergency medicine resident Dr. Agus Olivarez, Please see a copy of his note for details of the H&P, ED evaluation, management and disposition. I have independently evaluated the patient and confirmed appropriate portions of the history and physical exam. Briefly: 81-year-old male history of Alzheimer's presents with 3 what appears to be mechanical falls this morning once getting out of bed once getting a commode and the other just walking. He spell and weaker than usual per family members. He is not on blood thinners. Patient does have a tender abdomen but no external signs of trauma. He is afebrile with stable vital signs. CBC is within normal limits no anemia. Patient had screening labs EKG CT of the head C -spine and noncontrast the abdominal pelvic area. Admission anticipated, 30 minutes of critical care services provided for this patient, disposition pending.
[2017-06-27 09:21] LABS: Alanine Aminotransferase 22 Units/L (0-55); Albumin 2.6 g/dL (3.5-5.0); Albumin/Globulin Ratio 0.5 (1.1-2.2); Alkaline Phosphatase 169 Units/L (38-126); Aspartate Amino Transferase 19 Units/L (5-34); BUN/Creatinine Ratio 16 (6-26); Bilirubin,Direct 0.2 mg/dL (0.0-0.5); Bilirubin,Indirect 0.2 mg/dL (0.0-1.2); Bilirubin,Total 0.4 mg/dL (0.2-1.2); Blood Urea Nitrogen 14 mg/dL (8-26); Calcium 9.3 mg/dL (8.6-10.8); Carbon Dioxide 34 mEq/L (19-29); Chloride 101 mEq/L (98-109); Globulin 5.2 g/dL (2.4-3.5); Glucose 92 mg/dL (70-99); Osmolality,Calculated 298 (280-300); Potassium 3.5 mEq/L (3.5-4.5); Sodium 144 mEq/L (136-145); Total Protein 7.8 g/dL (6.0-8.3); eGFR For African Americans > 60 (> 60); eGFR For Non-African Americans > 60 (> 60)
[2017-06-27 09:42] LABS: Thyroid Stimulating Hormone 0.741 mcIU/mL (0.350-4.840)
[2017-06-27] MEDS ORDERED: Aspirin 325 MG TABLET PO ONE (12:09)
[2017-06-27] MEDS ORDERED: Vancomycin (wt based) 1,000 MG VIAL IV ONE (12:10)
[2017-06-27] MEDS ORDERED: Piperacillin/Tazobactam 3.375 GM in D5% in Water (Mini-Bag+) 100 ML IVPB ONE (12:10)
[2017-06-27 12:13] LABS: Bilirubin,Urine Negative (Negative); Blood,Urine Negative (Negative); Clarity,Urine Clear (Clear); Color,Urine Yellow (Yellow); Glucose,Urine (UA) 250 mg/dL (Normal); Ketones,Urine Negative (Negative); Leukocyte Esterase,Urine Negative (Negative); Nitrite,Urine Negative (Negative); PH,Urine 6.5 pH Units (5.0-8.0); Protein,Urine Trace mg/dL (Neg-Trace); Specific Gravity,Urine 1.021 (1.010-1.025); Urobilinogen,Urine Normal (Normal)
[2017-06-27 12:14] LABS: Bacteria,Urine None Seen per hpf (None-Few); Hyaline Casts,Urine None Seen per lpf (None-Few); RBC,Urine 0-3 per hpf (0-3); Squamous Epithelial Cell,Urine Moderate per lpf (None-Few); WBC,Urine 0-3 per hpf (0-3)
[2017-06-27] MEDS ORDERED: Vancomycin 1,000 MG in D5% in Water 250 ML IVPB ONE (13:00)
[2017-06-27] MEDS ORDERED: *HR* OxyCODONE/APAP 5/325 TABLET PO ONE (13:33)
[2017-06-27] MEDS ORDERED: Gabapentin 400 MG CAPSULE PO ONE (13:33)
[2017-06-27] MEDS ORDERED: Cyanocobalamin (B-12) 1,000 MCG/ML VIAL IM ONE (14:37)
--- NOTE | 2017-06-27 14:50 | Event Note ---
Date of Encounter: 06/27/17 Time of Encounter: 14:48 Patient seen and examined with nurse practitioner. Patient has been having cough and shortness of breath and fever for the past 2 weeks. Imaging shows evidence of pneumonia. Patient has been on antibiotics for 2 weeks which was started 3 weeks ago for acute bronchitis. Suspect drug resistance. No recent hospitalization within the past 3 months. We will start the patient on Zosyn and Levaquin. Check sputum culture. Oxygen requirements are the same as baseline. Full code
[2017-06-27] MEDS: Levofloxacin 750 MG/150 ML 750 MG/150 ML BAG IVPB SCH (15:57)
[2017-06-27] MEDS: Folic Acid 1 MG TABLET PO SCH (16:00)
[2017-06-27] MEDS ORDERED: Naloxone 0.4 MG/ML INJ IVP PRN (16:25)
[2017-06-27] MEDS ORDERED: Acetaminophen 325 MG TABLET PO PRN (16:25)
[2017-06-27] MEDS ORDERED: *HR* HYDROcodone/Acet 5/325 mg TABLET PO PRN (16:25)
[2017-06-27] MEDS ORDERED: Ondansetron 4 MG/2 ML VIAL IVP PRN (16:25)
[2017-06-27] MEDS ORDERED: Levalbuterol Neb 0.63 MG/3 ML IH PRN (16:41)
[2017-06-27] MEDS ORDERED: *HR* Dextrose 50 % in Water (Syg) 50 ML SYRINGE IVP PRN (16:42)
[2017-06-27] MEDS ORDERED: D5% in Water 1,000 ML IVC PRN (16:42)
[2017-06-27] MEDS ORDERED: Dextrose Gel 15 GM PO PRN ×2 (16:42)
--- NOTE | 2017-06-27 16:48 | Internal Med History&Physical ---
Date of Encounter: 06/27/17 Time of Encounter: 14:00 Assessment and Plan (1) Sepsis Current visit: Yes Status: Acute Pt. meets sepsis protocol with WBC of 12.4, HR of 11 bpm, and unresolved pneumonia. 1L fluid bolus of 0.9 NS to be followed by 100 mL/HR. Blood cultures x 2. Sputum culture. IVPB Zosyn 3.375 gm Q8 daily and IVPB levaquin 750 mg daily for infection coverage. Continuous cardiac telemetry. Supplemental O2 w/ titration and SpO2 monitoring. Initial lactic acid 1.0. Legionella and strep pneumoniae antigens ordered. Will add routine lactic acid. Monitor f/u labs and patient for signs of increasing infection, cardiac, and/or respiratory distress. Will adjust abx based on culture results if necessary. Pt. at high risk for further morbidity and infection based on unresolved pneumonia, current sx, and risk factors. Inpatient. Qualifiers: Sepsis type: sepsis due to unspecified organism Qualified Code(s): A41.9 - Sepsis, unspecified organism (2) Pneumonia Current visit: Yes Status: Acute Acute, unresolved pneumonia. Pt reports dx 3-4 weeks ago as outpatient and was placed on PO abx with no resolve. IVPB vancomycin and Zosyn administered in the ED. Will continue IVPB Zosyn 3.375 gm Q8 and add levaquin 750 mg daily. Discontinue vancomycin. Will add Diflucan 100 mg by mouth daily due to patient' s report of yeast infection in his lungs when he takes Levaquin. Blood cultures x2. Sputum culture ordered. Legionella and strep pneumoniae antigens ordered. Supplemental O2 w/titration and SpO2 monitoring. DuoNeb every 6 scheduled. Solu-Medrol 40 mg every 8. Will adjust abx coverage if necessary based on culture results. Qualifiers: Pneumonia type: due to unspecified organism Laterality: left Lung location: unspecified part of lung Qualified Code(s): J18.9 - Pneumonia, unspecified organism (3) Elevated troponin Current visit: Yes Status: Acute Acutely elevated initial troponin of 0.05 most likely reactive d/t current unresolved pneumonia. Will trend troponins x2. Continuous cardiac telemetry. Monitor pt. closely for signs of increasing cardiac and/or respiratory distress. (4) Fatigue Current visit: Yes Status: Acute Pt. reports acute fatigue and weakness over the past three weeks most likely r/ t unresolved pneumonia status. Falls/safety precautions. Qualifiers: Fatigue type: unspecified Qualified Code(s): R53.83 - Other fatigue (5) Dehydration Current visit: Yes Status: Acute Acute dehydration d/t current unresolved pneumonia status. Pt. reports reduction in appetite. 1L bolus of 0.9 NS to be followed by 100 mL/HR. Monitor f /u labs. (6) Diabetes Current visit: Yes Status: Chronic Hx of chronic diabetes controlled with insulin. BG checks ACHS. Low-dose correction insulin sliding scale with hypoglycemic protocol. A1c in a.m. labs. ADA diet. 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 IVP Zofran Q6 PRN for nausea. IVP Protonix 40 mg BID. Qualifiers: Esophagitis presence: esophagitis presence not specified Qualified Code(s) : K21.9 - Gastro-esophageal reflux disease without esophagitis (8) COPD (chronic obstructive pulmonary disease) Current visit: Yes Status: Chronic Hx of chronic COPD. Stable. Will continue patient's inhalers. Add DuoNebs Q6 scheduled. Solu-Medrol IVP 40 mg every 8. Supplemental O2 with titration and SpO2 monitoring. Qualifiers: COPD type: emphysema Emphysema type: unspecified Qualified Code(s): J43.9 - Emphysema, unspecified (9) HTN (hypertension) Current visit: Yes Status: Chronic Hx of chronic HTN. Monitor pt. and VS. Continue lisinopril. Qualifiers: Hypertension type: essential hypertension Qualified Code(s): I10 - Essential (primary) hypertension (10) DVT prophylaxis Current visit: Yes Status: Acute Bilateral SCDs on LEs for DVT prophylaxis. Pharmacologic DVT prophylaxis contraindicated d/t current drop in Hgb/Hct. Will assess for bleeding w/fecal hemoccult. Internal Medicine - H&P: HPI Chief complaint: Pneumonia Admitted From: Emergency Dept Plans for Post Hospital Care: Home History of present illness: Mr. Quinn is a 81 year old male with medical hx of COPD, Alzheimer's, diabetes controlled with insulin, hypertension, GERD, arthritis, and TIAs presents from the ED with chief complaint of unresolved pneumonia and falls and weakness. States he has been experiencing generalized weakness for 1 week which has led to several falls, to which were last night and to of which were this morning. Denies syncope. Also reports left-sided chest pain today for less than 1 minute which resolved. Patient states he was seen on outpatient basis for diagnosis of pneumonia 3-4 weeks ago and prescribed by mouth antibiotics which have not worked. Patient also reports gastric pain and diarrhea over this time period. She reports cough, weakness, diarrhea, chest pain, abdominal pain, shortness of breath, and falls but denies fever, chills, nausea, vomiting, headache, palpitations, unusual bleeding, changes in vision, numbness, tingling, pre-syncope, or syncope. Past Med Surg Social Fam HX - Past Medical History Source: patient, old records reviewed, obtained from family Medical history: arthritis, COPD, diabetes, GERD, seizures (Many years ago), TIA (Many years ago) Psychiatric history: no psych history - Past Surgical History Surgical History: other - Social History Smoking Status: Former smoker Packs per day: 1 PPD - Quit 60 years ago Smokeless Tobacco Status: No Alcohol use: none Drug use: none Current living situation: Home, With Family Activity Level: Independent ambulation, Uses cane/walker Recent Out of Country Travel Within the Last 8 Weeks: No Exposure or Possible Exposure to Illness During Travel: No - Family History Father Race: Family Member Ethnicity: Non- Living Status: Age at : 78 Cause of : Leukemia Hx Family Cancer: Yes (Leukemia) Mother Race: Family Member Ethnicity: Non- Living Status: Age at : 79 Cause of : Gangrene/Sepsis Brother Race: Family Member Ethnicity: Non- Living Status: Age at : 72 Cause of : Esophageal cancer Hx Family Cancer: Yes (Esophageal) Sister Race: Family Member Ethnicity: Non- Living Status: Age at : 79 Cause of : Pancreatic cancer Hx Family Cancer: Yes (Pancreatic) Internal Medicine - H&P: Meds ALPRAZolam [Xanax 0.5 MG Tablet] 0.5 mg PO QID PRN 09/28/16 [History] Albuterol Sulfate [Ventolin Hfa] 2 puff IH Q4H PRN 09/28/16 [History] Aspirin [Lo-Dose Aspirin EC] 81 mg PO DAILY 09/28/16 [History] Fluticasone/Salmeterol [Advair Hfa 230-21 Mcg Inhaler] 1 puff IH BID 09/28/16 [ History] Gabapentin 600 mg PO QID 09/28/16 [History] Ipratropium/Albuterol Neb [Duoneb] 3 ml IH Q6HR 09/28/16 [History] Pregabalin [Lyrica] 75 mg PO BID 09/28/16 [History] predniSONE [PredniSONE] 5 mg PO DAILY 09/28/16 [History] Amitriptyline [Elavil] 50 mg PO HS #20 09/29/16 [Rx] Oxycodone HCl/Acetaminophen [Endocet 5-325 Tablet] 1 tab PO Q6H PRN #20 [Rx] Insulin DETEMIR [Levemir Flextouch] 15 - 20 unit SQ HS PRN 06/27/17 [History] Insulin LISPRO [Humalog Kwikpen U-100] 0 unit SQ TID PRN 06/27/17 [History] Levalbuterol Neb [Xopenex Neb] 0.63 mg IH Q4H PRN 06/27/17 [History] Lisinopril [Zestril] 10 mg PO BID 06/27/17 [History] 3 Allergy/AdvReac Type Severity Reaction Status Date / Time Erythromycin Base Allergy Hives Verified 06/27/17 10:46 All Systems PM: A 10-system review of systems was performed and is negative for pertinent findings except as documented above in the HPI. - Constitutional Constitutional: as per HPI, weakness, no chills, no fever(s), no night sweats - EENT Eyes: no change in vision, no discharge, no pain, no photophobia Ears: no ear discharge, no ear pain, no tinnitus Nose, mouth and throat: no dysphagia, no nasal discharge, no neck pain, no sore throat - Breasts Breasts: as per HPI - Cardiovascular Cardiovascular ROS IM: as per HPI, chest pain, dyspnea, dyspnea on exertion - Respiratory Respiratory: as per HPI, cough, dyspnea, dyspnea on exertion - Gastrointestinal Gastrointestinal: as per HPI, abdominal pain, diarrhea - Genitourinary Genitourinary ROS male: as per HPI - Musculoskeletal Musculoskeletal ROS IM: no numbness, no tingling - Integumentary Integumentary IM: no rash, no unusual bruising - Neurological Neurological ROS: no confusion, no convulsions, no focal weakness, no numbness, no tingling, no tremor(s) - Psychiatric Psychiatric: as per HPI - Endocrine Endocrine IM: as per HPI - Hematologic/Lymphatic Hematologic/Lymphatic: no easy bruising - Allergic/Immunologic Allergic/Immunologic: as per HPI - Constitutional Vitals: Temp Pulse Resp BP Pulse Ox 97.9 F 111 19 144/99 93 06/27/17 15:03 06/27/17 15:03 06/27/17 15:03 06/27/17 15:03 06/27/17 15:03 General appearance: Present: cooperative, A&O X 3, pleasant, no acute distress, answers questions appropriately - Head Head exam: Present: atraumatic, normal inspection, normocephalic - Eye Eye exam: Present: PERRL, conjuntiva pink, sclera anicteric Pupils: Present: PERRL - ENT ENT exam: Present: normal exam, normal external ear exam - Neck Neck exam general surgery: Present: normal inspection, supple, trachea midline. Absent: lymphadenopathy - Respiratory Respiratory exam: Present: CTAB. Absent: accessory muscle use, rales, rhonchi, wheezes - Cardiovascular Cardiovascular exam: Present: tachycardia - GI/Abdominal GI/Abdominal exam: Present: normal bowel sounds, soft, no peritoneal signs. Absent: distended, tenderness - Rectal Rectal exam: Present: deferred - Additional comments: exam deferred. - Extremities Exam Extremities exam: Present: warm, radial pulses palpable and symmetrical. Absent : calf tenderness, cyanotic, pedal edema - Back Exam Back exam: Present: normal inspection - Neurological Exam Neurological exam: Present: CN II-XII intact, oriented X3, no focal deficits. Absent: pronater drift, facial droop, speech deficit - Psychiatric Psychiatric exam: Present: normal affect, normal mood - Skin Skin exam: Present: dry, intact Internal Med - H&P Results - Labs CBC & Chem 7: 06/27/17 08:58 06/27/17 08:58 - EKG Data EKG shows normal: sinus rhythm Rate: tachycardia - EKG Data Prior EKG available for review: yes EKG comments: 06/27/17 16:56 EKG dated 09/28/16 shows sinus rhythm with occasional ventricular premature complexes. EKG dated 06/27/17 sinus tachycardia with occasional ventricular premature complexes, minimal voltage criteria for LVH (consider normal variant), nonspecific ST and T-wave abnormality. - Diagnostic Studies Chest x-ray Additional comments: Impressions Chest X-Ray 06/27/17 08:40 IMPRESSION: Diffuse interstitial lung disease, with basilar predominance. Though these changes may all be chronic in nature, it is difficult to exclude superimposed bronchiolitis or interstitial pneumonitis. No focal consolidation, pneumothorax or overt edema. D/ / Elia Bo MD / Elia Bo MD Interpreting Provider: Elia Bo MD CT scan - abdomen Additional comments: Impressions Abdomen/Pelvis CT 06/27/17 08:40 IMPRESSION: No acute findings are seen to the abdomen or pelvis. Small bilateral pleural effusions. Mild patchy airspace opacities predominately dependently to the lower lobes bilaterally may be on the basis of atelectasis or multifocal infiltrates. Aspiration pneumonitis could have a similar appearance. Mild colonic diverticulosis without evidence for diverticulitis. D/ / 06/27/2017 09:44:52 Chase Manuel MD / yasmine Interpreting Provider: Chase Manuel MD CT scan - head Additional comments: Impressions Head CT 06/27/17 08:41 IMPRESSION: No acute intracranial hemorrhage. No CT evidence of acute cortical infarct. 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 Multiple chronic lacunar infarcts within bilateral basal ganglia, and left cerebellum. D/ / 06/27/2017 09:39:04 Ranjit Johnson MD / yasmine Interpreting Provider: aRnjit Johnson MD Other Images Additional comments: Impressions Cervical Spine CT 06/27/17 08:44 IMPRESSION: 1. No acute fracture or subluxation of the cervical spine. 2. Multilevel degenerative change and solid bony fusion at C5, C6, and C7. 3. Airspace opacity in the left upper lobe is new since the prior CT scan and could represent pneumonia. D/ / Juan R Dupree MD / Juan R Dupree MD Interpreting Provider: Juan R Dupree MD Chest CTA 06/27/17 10:05 IMPRESSION: New pulmonary opacities within left upper lobe and left lower lobe, with scattered nonspecific pulmonary nodules bilaterally. Findings could represent pneumonia and infectious process, and background of extensive emphysema. However, follow-up chest CT is recommended in 6 weeks after treatment to ensure resolution, exclude pulmonary malignancy as pulmonary neoplasm could have similar appearance. Moderate bilateral pleural effusions. Reflux of contrast into the IVC and hepatic veins suggestive of component of heart failure. Mediastinal lymphadenopathy, which can be re-evaluated with follow-up chest CT. D/ / 06/27/2017 11:52:46 Ranjit Johnson MD / hardeep Interpreting Provider: Ranjit Johnson MD
[2017-06-27] MEDS: Insulin LISPRO 300 UNITS/3 ML VIAL SQ SCH ×2 (17:05→21:10)
[2017-06-27] MEDS ORDERED: 0.9 % Sodium Chloride 1,000 ML IVC ONE (17:10)
[2017-06-27] MEDS: Fluconazole 100 MG TABLET PO SCH (17:55)
[2017-06-27] MEDS: Piperacillin/Tazobactam 3.375 GM in D5% in Water (Mini-Bag+) 100 ML IVPB SCH ×2 (17:55→23:53)
[2017-06-27] MEDS: 0.9 % Sodium Chloride 1,000 ML IVC SCH (19:04)
[2017-06-27] MEDS: ALPRAZolam 0.5 MG TABLET PO PRN ×2 (19:47→23:53)
[2017-06-27] MEDS ORDERED: Pregabalin 75 MG CAPSULE PO SCH (21:00)
[2017-06-27] MEDS ORDERED: Pantoprazole 40 MG VIAL IVP SCH (21:00)
[2017-06-27] MEDS: Gabapentin 300 MG CAPSULE PO SCH (21:09)
[2017-06-27] MEDS ORDERED: Budesonide/Formoterol 160/4.5 MDI IH SCH (22:00)
[2017-06-27] MEDS ORDERED: Ipratropium/Albuterol Neb 3 ML IH SCH (22:00)
[2017-06-27] MEDS: *HR* OxyCODONE/APAP 5/325 TABLET PO PRN (22:01)
[2017-06-27] MEDS: MethylPREDNISolone 40 MG/ML VIAL IVP SCH (23:53)
[2017-06-28] MEDS ORDERED: Albuterol 2.5 MG/3 ML NEBULIZER IH SCH (04:00)
[2017-06-28] MEDS: 0.9 % Sodium Chloride 1,000 ML IVC SCH ×2 (04:23→15:33)
[2017-06-28 05:42] LABS: Basophils % 0.2 %; Eosinophils % 0.2 %; Hematocrit 31.8 % (37.5-50.1); Immature Granulocytes % 0.6 % (0-4); Lymphocytes # 0.5 K/mcL (0.6-4.6); Lymphocytes % 6.6 %; Mean Corpuscular HGB Conc 31.4 g/dL (31.6-35.5); Mean Corpuscular Hemoglobin 26.8 pg (28.0-33.3); Mean Corpuscular Volume 85.3 fL (83.0-100.0); Mean Platelet Volume 8.5 fL (9.4-12.4); Monocytes # 0.1 K/mcL (0.0-1.3); Monocytes % 1.2 %; Neutrophils # 7.5 K/mcL (1.6-8.9); Platelet Count 303 K/mcL (140-400); Red Blood Count 3.73 M/mcL (4.19-5.50); Red Cell Distribution Width 13.3 % (11.5-14.5); Segmented Neutrophils % 91.2 %
[2017-06-28 05:47] LABS: INR 1.4; Prothrombin Time 15.5 Seconds (9.4-12.1)
[2017-06-28] MEDS: *HR* OxyCODONE/APAP 5/325 TABLET PO PRN ×3 (05:49→22:29)
[2017-06-28 05:50] LABS: Activated Partial Thrombo Time 28.5 Seconds (26.0-36.0)
[2017-06-28 05:51] LABS: Hemoglobin A1C 5.8 %
[2017-06-28 05:55] LABS: Alanine Aminotransferase 19 Units/L (0-55); Albumin 2.3 g/dL (3.5-5.0); Albumin/Globulin Ratio 0.5 (1.1-2.2); Alkaline Phosphatase 132 Units/L (38-126); Aspartate Amino Transferase 17 Units/L (5-34); BUN/Creatinine Ratio 12 (6-26); Bilirubin,Total 0.5 mg/dL (0.2-1.2); Blood Urea Nitrogen 10 mg/dL (8-26); Calcium 8.6 mg/dL (8.6-10.8); Carbon Dioxide 31 mEq/L (19-29); Chloride 101 mEq/L (98-109); Chol/HDL Ratio 4.5 (0-4.9); Cholesterol 126 mg/dL (< 200); Globulin 4.7 g/dL (2.4-3.5); Glucose 197 mg/dL (70-99); HDL Cholesterol 28 mg/dL (40-59); LDL Cholesterol,Calculated 78 mg/dL (0-99); Magnesium 1.2 mg/dL (1.6-2.6); Osmolality,Calculated 297 (280-300); Potassium 4.2 mEq/L (3.5-4.5); Sodium 141 mEq/L (136-145); Triglycerides 98 mg/dL (< 150); eGFR For African Americans > 60 (> 60); eGFR For Non-African Americans > 60 (> 60)
[2017-06-28] MEDS ORDERED: *HR* OxyCODONE/APAP 5/325 TABLET PO PRN (08:01)
[2017-06-28] MEDS: Insulin LISPRO 300 UNITS/3 ML VIAL SQ SCH ×4 (08:14→21:05)
[2017-06-28] MEDS: MethylPREDNISolone 40 MG/ML VIAL IVP SCH ×2 (08:15→15:34)
[2017-06-28] MEDS ORDERED: Piperacillin/Tazobactam 3.375 GM in D5% in Water 100 ML IVPB ONE (08:30)
[2017-06-28] MEDS: Piperacillin/Tazobactam 3.375 GM in D5% in Water (Mini-Bag+) 100 ML IVPB SCH (08:35)
[2017-06-28] MEDS ORDERED: Piperacillin/Tazobactam 3.375 GM in D5% in Water (Mini-Bag+) 100 ML IVPB ONE (09:00)
--- NOTE | 2017-06-28 09:31 | Internal Med Progress Note ---
Date of Encounter: 06/28/17 Time of Encounter: 09:15 - Assessment and plan (1) COPD (chronic obstructive pulmonary disease) Current Visit: Yes Status: Acute Assessment and plan: COPDE Possibly secondary to pneumonia. Wheezing at time of review Continue solumedrol, duonebs, antibiotics Change to prednisone from a.m O2 at home dose Qualifiers: COPD type: emphysema Emphysema type: unspecified Qualified Code(s): J43.9 - Emphysema, unspecified (2) Diabetes mellitus Current Visit: Yes Status: Chronic Assessment and plan: Controlled. A1c 5.8. Continue current insulin regimen. FingerSticks before meals at bedtime. Qualifiers: Diabetes mellitus type: type 2 Diabetes mellitus complication status: with neurologic complications Diabetes mellitus complication detail: with unspecified neuropathy Diabetes mellitus shelter insulin use: without supervisor intermediates use Qualified Code(s): E11.40 - Type 2 diabetes mellitus with diabetic neuropathy, unspecified (3) HTN (hypertension) Current Visit: Yes Status: Chronic Assessment and plan: Controlled. Continue home medications. Qualifiers: Hypertension type: essential hypertension Qualified Code(s): I10 - Essential (primary) hypertension (4) Alzheimer's dementia Current Visit: Yes Status: Chronic Assessment and plan: PTOT recommends home health Continue home meds High risk for delirium Qualifiers: Alzheimer's disease onset: late-onset Dementia behavioral disturbance: without behavioral disturbance Qualified Code(s): G30.1 - Alzheimer's disease with late onset; F02.80 - Dementia in other diseases classified elsewhere without behavioral disturbance (5) Chronic respiratory failure Current Visit: Yes Status: Chronic Assessment and plan: Continue O2 by MI Qualifiers: Respiratory failure complication: hypoxia Qualified Code(s): J96.11 - Chronic respiratory failure with hypoxia (6) Pneumonia Current Visit: Yes Status: Acute Assessment and plan: Follow sputum culture Legionella and strep negative Continue Levaquin and Zosyn NO recent hospitalization, low risk for MRSA Continue duonebs Qualifiers: Pneumonia type: due to unspecified organism Laterality: left Lung location: unspecified part of lung Qualified Code(s): J18.9 - Pneumonia, unspecified organism (7) GERD (gastroesophageal reflux disease) Current Visit: Yes Status: Chronic Assessment and plan: Continue home meds Qualifiers: Esophagitis presence: esophagitis presence not specified Qualified Code(s) : K21.9 - Gastro-esophageal reflux disease without esophagitis (8) Sepsis Current Visit: Yes Status: Acute Assessment and plan: Afebrile, tachycardia improved, leukocytosis resolved Continue management as in pneumonia Qualifiers: Sepsis type: sepsis due to unspecified organism Qualified Code(s): A41.9 - Sepsis, unspecified organism (9) Elevated troponin Current Visit: Yes Status: Acute Assessment and plan: Adynamic - Subjective Interval history: Seen and evaluated at bedside He is fixated on having his medications certain way He otherwise reports that he is feeling some clinical improvement. - Constitutional Vitals: Temp Pulse Resp BP Pulse Ox 98.4 F 103 16 163/76 93 06/28/17 07:11 06/28/17 07:11 06/28/17 07:11 06/28/17 07:11 06/28/17 07:11 General appearance: Present: cooperative, A&O X 3, pleasant, no acute distress, answers questions appropriately - Head Head exam: Present: atraumatic, normocephalic - Eye Eye exam: Present: PERRL, conjuntiva pink, sclera anicteric Pupils: Present: PERRL - Neck Neck exam general surgery: Present: supple, trachea midline. Absent: lymphadenopathy - Respiratory Respiratory exam: Present: wheezes. Absent: accessory muscle use, rales, rhonchi - Cardiovascular Cardiovascular exam: Present: RRR, +S1, +S2. Absent: diastolic murmur, gallop, rubs, systolic murmur - GI/Abdominal GI/Abdominal exam: Present: normal bowel sounds, soft, no peritoneal signs. Absent: distended, tenderness - Extremities Exam Extremities exam: Present: warm, radial pulses palpable and symmetrical. Absent : calf tenderness, cyanotic, pedal edema - Neurological Exam Neurological exam: Present: alert, CN II-XII intact, oriented X3, no focal deficits. Absent: pronater drift, facial droop, speech deficit - Skin Skin exam: Present: dry, intact Internal Medicine: Result - Labs CBC & Chem 7: 06/28/17 05:29 06/28/17 05:29 Labs: Short CBC 06/28/17 Range/Units 05:29 WBC 8.2 (4.3-11.1) K/mcL Hgb 10.0 L (12.9-16.9) g/dL Hct 31.8 L (37.5-50.1) % Plt Count 303 (140-400) K/mcL Neutrophils # 7.5 (1.6-8.9) K/mcL BMP 06/28/17 05:29 Sodium 141 Potassium 4.2 Chloride 101 Carbon Dioxide 31 H BUN 10 Creatinine 0.86 Glucose 197 H Calcium 8.6 Cardiac Enzymes 06/27/17 06/27/17 06/28/17 Range/Units 17:23 23:05 05:29 Troponin I 0.06 H* 0.04 H* 0.04 H* (0-0.03) ng/mL Liver Function 06/28/17 Range/Units 05:29 Total Bilirubin 0.5 (0.2-1.2) mg/dL AST 17 (5-34) Units/L ALT 19 (0-55) Units/L Alkaline Phosphatase 132 H (38-126) Units/L Albumin 2.3 L (3.5-5.0) g/dL - ABG Interpretation ABG results: PT/INR, D-dimer PT 15.5 Seconds (9.4-12.1) H 06/28/17 05:29 D-Dimer 1993 ng/mLFEU (0-500) H 06/27/17 08:58 Consult Discharge Plan - Plan Referrals: Toney Santos Jr, MD [Primary Care Provider] -
[2017-06-28] MEDS: Ipratropium/Albuterol Neb 3 ML IH SCH ×3 (10:40→21:54)
[2017-06-28] MEDS: Folic Acid 1 MG TABLET PO SCH (11:07)
[2017-06-28] MEDS: Fluconazole 100 MG TABLET PO SCH (11:07)
[2017-06-28] MEDS: Aspirin Enteric Coated 81 MG Tablet PO SCH (11:07)
[2017-06-28] MEDS: Gabapentin 300 MG CAPSULE PO SCH ×3 (11:50→22:29)
[2017-06-28] MEDS: ALPRAZolam 0.5 MG TABLET PO PRN ×2 (13:15→22:39)
[2017-06-28] MEDS ORDERED: Piperacillin/Tazobactam 3.375 GM in D5% in Water 50 ML IVPB SCH (16:00)
[2017-06-28] MEDS: Levofloxacin 750 MG/150 ML 750 MG/150 ML BAG IVPB SCH (17:10)
[2017-06-28] MEDS: Insulin DETEMIR 100 UNIT/ML X5UNITS SQ SCH (21:02)
[2017-06-28] MEDS: Piperacillin/Tazobactam 3.375 GM in D5% in Water 50 ML IVPB SCH (21:04)
[2017-06-29] MEDS: MethylPREDNISolone 40 MG/ML VIAL IVP SCH ×2 (00:22→07:59)
[2017-06-29] MEDS: 0.9 % Sodium Chloride 1,000 ML IVC SCH (00:24)
[2017-06-29] MEDS: Ipratropium/Albuterol Neb 3 ML IH SCH ×4 (03:42→21:08)
[2017-06-29 04:38] LABS: Hemoglobin 8.6 g/dL (12.9-16.9); Immature Granulocytes % 0.8 % (0-4); Lymphocytes # 0.5 K/mcL (0.6-4.6); Lymphocytes % 5.1 %; Mean Corpuscular HGB Conc 31.9 g/dL (31.6-35.5); Mean Corpuscular Hemoglobin 26.7 pg (28.0-33.3); Mean Corpuscular Volume 83.9 fL (83.0-100.0); Monocytes # 0.2 K/mcL (0.0-1.3); Monocytes % 1.9 %; Neutrophils # 8.4 K/mcL (1.6-8.9); Platelet Count 286 K/mcL (140-400); Red Blood Count 3.22 M/mcL (4.19-5.50); Red Cell Distribution Width 13.2 % (11.5-14.5); Segmented Neutrophils % 92.2 %
[2017-06-29 04:53] LABS: Alanine Aminotransferase 19 Units/L (0-55); Albumin 2.1 g/dL (3.5-5.0); Albumin/Globulin Ratio 0.5 (1.1-2.2); Alkaline Phosphatase 103 Units/L (38-126); Aspartate Amino Transferase 17 Units/L (5-34); BUN/Creatinine Ratio 17 (6-26); Bilirubin,Total 0.3 mg/dL (0.2-1.2); Blood Urea Nitrogen 15 mg/dL (8-26); Calcium 8.4 mg/dL (8.6-10.8); Carbon Dioxide 29 mEq/L (19-29); Chloride 101 mEq/L (98-109); Glucose 169 mg/dL (70-99); Osmolality,Calculated 289 (280-300); Potassium 3.5 mEq/L (3.5-4.5); Sodium 137 mEq/L (136-145); Total Protein 6.1 g/dL (6.0-8.3); eGFR For African Americans > 60 (> 60); eGFR For Non-African Americans > 60 (> 60)
[2017-06-29] MEDS: Piperacillin/Tazobactam 3.375 GM in D5% in Water 50 ML IVPB SCH ×3 (05:21→20:16)
[2017-06-29] MEDS: *HR* Enoxaparin 40 MG/0.4 ML SYRINGE SQ SCH (05:25)
[2017-06-29] MEDS: Insulin LISPRO 300 UNITS/3 ML VIAL SQ SCH ×5 (07:58→22:34)
[2017-06-29] MEDS: Gabapentin 300 MG CAPSULE PO SCH ×4 (07:59→22:34)
[2017-06-29] MEDS: *HR* OxyCODONE/APAP 5/325 TABLET PO PRN ×3 (07:59→22:33)
[2017-06-29] MEDS: Aspirin Enteric Coated 81 MG Tablet PO SCH (08:00)
[2017-06-29] MEDS: Folic Acid 1 MG TABLET PO SCH (08:00)
--- NOTE | 2017-06-29 11:06 | Electrocardiograph Report ---
[place] [id number] Test Date: 2017-06-27 Pat Name: Declan Quinn Department: 103 Room: 2A12 Gender: M [employer]: : 1935 Requested By: Agus Olivarez Order Number: [id number] Reading MD: Jimena Lincoln Measurements Intervals [place] Rate: 105 P: 73 IN: 150 QRS: 46 QRSD: 97 T: 92 QT: 299 QTc: 360 Interpretive Statements SINUS TACHYCARDIA WITH OCCASIONAL VENTRICULAR PREMATURE COMPLEXES MINIMAL VOLTAGE CRITERIA FOR LVH, CONSIDER NORMAL VARIANT NONSPECIFIC ST & T-WAVE ABNORMALITY ABNORMAL RHYTHM ECG Electronically Signed On 06-29-2017 11:05:17 EDT by Jimena Lincoln
--- NOTE | 2017-06-29 11:23 | Internal Med Progress Note ---
Date of Encounter: 06/29/17 Time of Encounter: 11:23 - Assessment and plan (1) COPD (chronic obstructive pulmonary disease) Current Visit: Yes Status: Acute Assessment and plan: COPDE Possibly secondary to pneumonia. Wheezing at time of review Continue prednisone po O2 at home dose Qualifiers: COPD type: emphysema Emphysema type: unspecified Qualified Code(s): J43.9 - Emphysema, unspecified (2) Diabetes mellitus Current Visit: Yes Status: Chronic Assessment and plan: Controlled. A1c 5.8. Continue current insulin regimen. FingerSticks before meals at bedtime. Qualifiers: Diabetes mellitus type: type 2 Diabetes mellitus complication status: with neurologic complications Diabetes mellitus complication detail: with unspecified neuropathy Diabetes mellitus manager terminal insulin use: without long-term use Qualified Code(s): E11.40 - Type 2 diabetes mellitus with diabetic neuropathy, unspecified (3) HTN (hypertension) Current Visit: Yes Status: Chronic Assessment and plan: Controlled. Continue home medications. Qualifiers: Hypertension type: essential hypertension Qualified Code(s): I10 - Essential (primary) hypertension (4) Alzheimer's dementia Current Visit: Yes Status: Chronic Assessment and plan: PTOT recommends home health Continue home meds High risk for delirium Qualifiers: Alzheimer's disease onset: late-onset Dementia behavioral disturbance: without behavioral disturbance Qualified Code(s): G30.1 - Alzheimer's disease with late onset; F02.80 - Dementia in other diseases classified elsewhere without behavioral disturbance; F02.80 - Dementia in other diseases classified elsewhere without behavioral disturbance; F02.80 - Dementia in other diseases classified elsewhere without behavioral disturbance (5) Chronic respiratory failure Current Visit: Yes Status: Chronic Assessment and plan: Continue O2 by [place] Qualifiers: Respiratory failure complication: hypoxia Qualified Code(s): J96.11 - Chronic respiratory failure with hypoxia (6) Pneumonia Current Visit: Yes Status: Acute Assessment and plan: Follow sputum culture Legionella and strep negative Continue Levaquin and Zosyn NO recent hospitalization, low risk for MRSA Continue duonebs Qualifiers: Pneumonia type: due to unspecified organism Laterality: left Lung location: unspecified part of lung Qualified Code(s): J18.9 - Pneumonia, unspecified organism (7) GERD (gastroesophageal reflux disease) Current Visit: Yes Status: Chronic Assessment and plan: Continue home meds Qualifiers: Esophagitis presence: esophagitis presence not specified Qualified Code(s) : K21.9 - Gastro-esophageal reflux disease without esophagitis (8) Sepsis Current Visit: Yes Status: Acute Assessment and plan: Afebrile, tachycardia improved, leukocytosis resolved Continue management as in pneumonia Qualifiers: Sepsis type: sepsis due to unspecified organism Qualified Code(s): A41.9 - Sepsis, unspecified organism (9) Elevated troponin Current Visit: Yes Status: Acute Assessment and plan: Adynamic (10) Anemia Current Visit: Yes Status: Chronic Assessment and plan: chronic, Hb down-trending, possibly due to IVF D/C IVF Rpt HB a.m Possible D/C if stable Qualifiers: Anemia type: unspecified type Qualified Code(s): D64.9 - Anemia, unspecified - Subjective Interval history: Seen and evaluated at bedside No new complains Clinically improving, PTOT eval noted - Constitutional Vitals: Temp Pulse Resp BP Pulse Ox 97.7 F 103 18 158/82 92 06/29/17 10:36 06/29/17 10:36 06/29/17 10:36 06/29/17 10:36 06/29/17 10:36 General appearance: Present: cooperative, A&O X 3, pleasant, no acute distress, answers questions appropriately - Head Head exam: Present: atraumatic, normocephalic - Eye Eye exam: Present: PERRL, conjuntiva pink, sclera anicteric Pupils: Present: PERRL - Neck Neck exam general surgery: Present: supple, trachea midline. Absent: lymphadenopathy - Respiratory Respiratory exam: Present: CTAB. Absent: accessory muscle use, rales, rhonchi, wheezes - Cardiovascular Cardiovascular exam: Present: RRR, +S1, +S2. Absent: diastolic murmur, gallop, rubs, systolic murmur - GI/Abdominal GI/Abdominal exam: Present: normal bowel sounds, soft, no peritoneal signs. Absent: distended, tenderness - Extremities Exam Extremities exam: Present: warm, radial pulses palpable and symmetrical. Absent : calf tenderness, cyanotic, pedal edema - Neurological Exam Neurological exam: Present: alert, CN II-XII intact, oriented X3, no focal deficits. Absent: pronater drift, facial droop, speech deficit - Skin Skin exam: Present: dry, intact Internal Medicine: Result - Labs CBC & Chem 7: 06/29/17 04:06 06/29/17 04:06 Labs: Short CBC 06/29/17 Range/Units 04:06 WBC 9.2 (4.3-11.1) K/mcL Hgb 8.6 L (12.9-16.9) g/dL Hct 27.0 L (37.5-50.1) % Plt Count 286 (140-400) K/mcL Neutrophils # 8.4 (1.6-8.9) K/mcL BMP 06/29/17 04:06 Sodium 137 Potassium 3.5 Chloride 101 Carbon Dioxide 29 BUN 15 Creatinine 0.90 Glucose 169 H Calcium 8.4 L Cardiac Enzymes 06/28/17 Range/Units 12:52 Troponin I 0.02 (0-0.03) ng/mL Liver Function 06/29/17 Range/Units 04:06 Total Bilirubin 0.3 (0.2-1.2) mg/dL AST 17 (5-34) Units/L ALT 19 (0-55) Units/L Alkaline Phosphatase 103 (38-126) Units/L Albumin 2.1 L (3.5-5.0) g/dL - ABG Interpretation ABG results: PT/INR, D-dimer PT 15.5 Seconds (9.4-12.1) H 06/28/17 05:29 D-Dimer 1993 ng/mLFEU (0-500) H 06/27/17 08:58 - VTE Documentation of Mechanical Device: Intermittent pneumatic compression device Consult Discharge Plan - Plan Referrals: Toney Santos Jr, MD [Primary Care Provider] - (web request....)
[2017-06-29] MEDS: ALPRAZolam 0.5 MG TABLET PO PRN ×2 (14:33→22:33)
[2017-06-29] MEDS: Levofloxacin 750 MG/150 ML 750 MG/150 ML BAG IVPB SCH (15:45)
[2017-06-29] MEDS: Insulin DETEMIR 100 UNIT/ML X5UNITS SQ SCH (22:35)
[2017-06-30 03:44] LABS: Basophils % 0.1 %; Hematocrit 28.4 % (37.5-50.1); Immature Granulocytes % 1.1 % (0-4); Lymphocytes # 1.2 K/mcL (0.6-4.6); Mean Corpuscular HGB Conc 31.7 g/dL (31.6-35.5); Mean Corpuscular Hemoglobin 26.9 pg (28.0-33.3); Mean Platelet Volume 8.7 fL (9.4-12.4); Monocytes # 0.5 K/mcL (0.0-1.3); Monocytes % 4.5 %; Neutrophils # 10.2 K/mcL (1.6-8.9); Platelet Count 327 K/mcL (140-400); Red Blood Count 3.34 M/mcL (4.19-5.50); Red Cell Distribution Width 13.7 % (11.5-14.5); Segmented Neutrophils % 84.3 %
[2017-06-30 03:55] LABS: Alanine Aminotransferase 21 Units/L (0-55); Albumin 2.3 g/dL (3.5-5.0); Albumin/Globulin Ratio 0.6 (1.1-2.2); Alkaline Phosphatase 95 Units/L (38-126); Aspartate Amino Transferase 19 Units/L (5-34); BUN/Creatinine Ratio 24 (6-26); Bilirubin,Total 0.3 mg/dL (0.2-1.2); Blood Urea Nitrogen 22 mg/dL (8-26); Calcium 8.5 mg/dL (8.6-10.8); Carbon Dioxide 31 mEq/L (19-29); Chloride 102 mEq/L (98-109); Globulin 3.9 g/dL (2.4-3.5); Glucose 139 mg/dL (70-99); Osmolality,Calculated 296 (280-300); Potassium 3.7 mEq/L (3.5-4.5); Sodium 140 mEq/L (136-145); Total Protein 6.2 g/dL (6.0-8.3); eGFR For African Americans > 60 (> 60); eGFR For Non-African Americans > 60 (> 60)
[2017-06-30] MEDS: Ipratropium/Albuterol Neb 3 ML IH SCH ×2 (04:29→10:35)
[2017-06-30] MEDS: Piperacillin/Tazobactam 3.375 GM in D5% in Water 50 ML IVPB SCH (05:13)
[2017-06-30] MEDS: *HR* Enoxaparin 40 MG/0.4 ML SYRINGE SQ SCH (05:16)
[2017-06-30] MEDS ORDERED: 0.9 % Sodium Chloride 500 ML ONE (05:57)
[2017-06-30] MEDS: *HR* OxyCODONE/APAP 5/325 TABLET PO PRN ×2 (06:05→13:13)
[2017-06-30] MEDS: Aspirin Enteric Coated 81 MG Tablet PO SCH (07:55)
[2017-06-30] MEDS: Gabapentin 300 MG CAPSULE PO SCH ×2 (07:55→12:02)
[2017-06-30] MEDS: Folic Acid 1 MG TABLET PO SCH (07:55)
[2017-06-30] MEDS: Insulin LISPRO 300 UNITS/3 ML VIAL SQ SCH ×2 (07:56→12:02)
[2017-06-30] MEDS ORDERED: predniSONE 20 MG TABLET PO SCH (09:00)
--- NOTE | 2017-06-30 09:36 | Internal Med Progress Note ---
Date of Encounter: 06/30/17 Time of Encounter: 09:15 - Assessment and plan (1) COPD (chronic obstructive pulmonary disease) Current Visit: Yes Status: Acute Assessment and plan: COPDE Possibly secondary to pneumonia. Wheezing at time of review Continue prednisone po O2 at home dose Qualifiers: COPD type: emphysema Emphysema type: unspecified Qualified Code(s): J43.9 - Emphysema, unspecified (2) Diabetes mellitus Current Visit: Yes Status: Chronic Assessment and plan: Controlled. A1c 5.8. Continue current insulin regimen. FingerSticks before meals at bedtime. Qualifiers: Diabetes mellitus type: type 2 Diabetes mellitus complication status: with neurologic complications Diabetes mellitus complication detail: with unspecified neuropathy Diabetes mellitus terminologist insulin use: without fdc use Qualified Code(s): E11.40 - Type 2 diabetes mellitus with diabetic neuropathy, unspecified (3) HTN (hypertension) Current Visit: Yes Status: Chronic Assessment and plan: Controlled. Continue home medications. Qualifiers: Hypertension type: essential hypertension Qualified Code(s): I10 - Essential (primary) hypertension (4) Alzheimer's dementia Current Visit: Yes Status: Chronic Assessment and plan: PTOT recommends home health Continue home meds High risk for delirium Qualifiers: Alzheimer's disease onset: late-onset Dementia behavioral disturbance: without behavioral disturbance Qualified Code(s): G30.1 - Alzheimer's disease with late onset; F02.80 - Dementia in other diseases classified elsewhere without behavioral disturbance; F02.80 - Dementia in other diseases classified elsewhere without behavioral disturbance; F02.80 - Dementia in other diseases classified elsewhere without behavioral disturbance (5) Chronic respiratory failure Current Visit: Yes Status: Chronic Assessment and plan: Continue O2 by [place] Qualifiers: Respiratory failure complication: hypoxia Qualified Code(s): J96.11 - Chronic respiratory failure with hypoxia (6) Pneumonia Current Visit: Yes Status: Acute Assessment and plan: Follow sputum culture Legionella and strep negative change to po levaquin NO recent hospitalization, low risk for MRSA Continue duonebs Qualifiers: Pneumonia type: due to unspecified organism Laterality: left Lung location: unspecified part of lung Qualified Code(s): J18.9 - Pneumonia, unspecified organism (7) GERD (gastroesophageal reflux disease) Current Visit: Yes Status: Chronic Assessment and plan: Continue home meds Qualifiers: Esophagitis presence: esophagitis presence not specified Qualified Code(s) : K21.9 - Gastro-esophageal reflux disease without esophagitis (8) Sepsis Current Visit: Yes Status: Resolved Assessment and plan: Afebrile, tachycardia improved, leukocytosis resolved Continue management as in pneumonia Qualifiers: Sepsis type: sepsis due to unspecified organism Qualified Code(s): A41.9 - Sepsis, unspecified organism (9) Elevated troponin Current Visit: Yes Status: Acute Assessment and plan: Adynamic (10) Anemia Current Visit: Yes Status: Chronic Assessment and plan: chronic, Hb down-trending, possibly due to IVF Hb stable Qualifiers: Anemia type: unspecified type Qualified Code(s): D64.9 - Anemia, unspecified (11) Leukocytosis Current Visit: Yes Status: Acute Assessment and plan: Possibly due to steroids Repeat CBC am Qualifiers: Leukocytosis type: unspecified Qualified Code(s): D72.829 - Elevated white blood cell count, unspecified - Subjective Interval history: Seen and evaluated at bedside No new complains Clinically improving, PTOT eval noted, for HH He has some leukocytosis this a.m, possibly due to steroids - Constitutional Vitals: Temp Pulse Resp BP Pulse Ox 99.4 F 96 17 155/80 96 06/30/17 06:49 06/30/17 06:49 06/30/17 06:49 06/30/17 06:49 06/30/17 06:49 General appearance: Present: cooperative, A&O X 3, pleasant, no acute distress, answers questions appropriately - Head Head exam: Present: atraumatic, normocephalic - Eye Eye exam: Present: PERRL, conjuntiva pink, sclera anicteric Pupils: Present: PERRL - Neck Neck exam general surgery: Present: supple, trachea midline. Absent: lymphadenopathy - Respiratory Respiratory exam: Present: CTAB. Absent: accessory muscle use, rales, rhonchi, wheezes - Cardiovascular Cardiovascular exam: Present: RRR, +S1, +S2. Absent: diastolic murmur, gallop, rubs, systolic murmur - GI/Abdominal GI/Abdominal exam: Present: normal bowel sounds, soft, no peritoneal signs. Absent: distended, tenderness - Extremities Exam Extremities exam: Present: warm, radial pulses palpable and symmetrical. Absent : calf tenderness, cyanotic, pedal edema - Neurological Exam Neurological exam: Present: alert, CN II-XII intact, oriented X3, no focal deficits. Absent: pronater drift, facial droop, speech deficit - Skin Skin exam: Present: dry, intact Internal Medicine: Result - Labs CBC & Chem 7: 06/30/17 03:10 06/30/17 03:10 Labs: Short CBC 06/30/17 Range/Units 03:10 WBC 12.1 H (4.3-11.1) K/mcL Hgb 9.0 L (12.9-16.9) g/dL Hct 28.4 L (37.5-50.1) % Plt Count 327 (140-400) K/mcL Neutrophils # 10.2 H (1.6-8.9) K/mcL BMP 06/30/17 03:10 Sodium 140 Potassium 3.7 Chloride 102 Carbon Dioxide 31 H BUN 22 Creatinine 0.93 Glucose 139 H Calcium 8.5 L Liver Function 06/30/17 Range/Units 03:10 Total Bilirubin 0.3 (0.2-1.2) mg/dL AST 19 (5-34) Units/L ALT 21 (0-55) Units/L Alkaline Phosphatase 95 (38-126) Units/L Albumin 2.3 L (3.5-5.0) g/dL - ABG Interpretation ABG results: PT/INR, D-dimer PT 15.5 Seconds (9.4-12.1) H 06/28/17 05:29 D-Dimer 1993 ng/mLFEU (0-500) H 06/27/17 08:58 - VTE Documentation of Mechanical Device: Intermittent pneumatic compression device Consult Discharge Plan - Plan Referrals: Toney Santos Jr, MD [Primary Care Provider] - (web request....)
[2017-06-30 10:51] VITALS: BP 171/89
--- NOTE | 2017-06-30 14:20 | Discharge Summary ---
Date of Encounter: 06/30/17 Time of Encounter: 14:16 - Discharge Diagnosis (1) COPD (chronic obstructive pulmonary disease) Priority: Primary Status: Acute Qualifiers: COPD type: emphysema Emphysema type: unspecified Qualified Code(s): J43.9 - Emphysema, unspecified (2) Diabetes mellitus Priority: Secondary Status: Chronic Qualifiers: Diabetes mellitus type: type 2 Diabetes mellitus complication status: with neurologic complications Diabetes mellitus complication detail: with unspecified neuropathy Diabetes mellitus senior living insulin use: without senior living use Qualified Code(s): E11.40 - Type 2 diabetes mellitus with diabetic neuropathy, unspecified (3) HTN (hypertension) Priority: Secondary Status: Chronic Qualifiers: Hypertension type: essential hypertension Qualified Code(s): I10 - Essential (primary) hypertension (4) Alzheimer's dementia Priority: Secondary Status: Chronic Qualifiers: Alzheimer's disease onset: late-onset Dementia behavioral disturbance: without behavioral disturbance Qualified Code(s): G30.1 - Alzheimer's disease with late onset; F02.80 - Dementia in other diseases classified elsewhere without behavioral disturbance; F02.80 - Dementia in other diseases classified elsewhere without behavioral disturbance; F02.80 - Dementia in other diseases classified elsewhere without behavioral disturbance (5) Chronic respiratory failure Priority: Secondary Status: Chronic Qualifiers: Respiratory failure complication: hypoxia Qualified Code(s): J96.11 - Chronic respiratory failure with hypoxia (6) Pneumonia Priority: Primary Status: Acute Qualifiers: Pneumonia type: due to unspecified organism Laterality: left Lung location: unspecified part of lung Qualified Code(s): J18.9 - Pneumonia, unspecified organism (7) GERD (gastroesophageal reflux disease) Priority: Secondary Status: Chronic Qualifiers: Esophagitis presence: esophagitis presence not specified Qualified Code(s) : K21.9 - Gastro-esophageal reflux disease without esophagitis (8) Sepsis Priority: Primary Status: Resolved Qualifiers: Sepsis type: sepsis due to unspecified organism Qualified Code(s): A41.9 - Sepsis, unspecified organism (9) Elevated troponin Priority: Primary Status: Acute (10) Anemia Priority: Secondary Status: Chronic Qualifiers: Anemia type: unspecified type Qualified Code(s): D64.9 - Anemia, unspecified (11) Leukocytosis Priority: Primary Status: Acute Qualifiers: Leukocytosis type: unspecified Qualified Code(s): D72.829 - Elevated white blood cell count, unspecified - Discharge Medications Prescriptions: levoFLOXacin [Levaquin] 750 mg PO DAILY #4 tablet predniSONE [PredniSONE] See Taper PO DAILY #20 tablet Home Medications: ALPRAZolam [Xanax 0.5 MG Tablet] 0.5 mg PO QID PRN 09/28/16 [History] Albuterol Sulfate [Ventolin Hfa] 2 puff IH Q4H PRN 09/28/16 [History] Aspirin [Lo-Dose Aspirin EC] 81 mg PO DAILY 09/28/16 [History] Fluticasone/Salmeterol [Advair Hfa 230-21 Mcg Inhaler] 1 puff IH BID 09/28/16 [ History] Gabapentin 600 mg PO QID 09/28/16 [History] Ipratropium/Albuterol Neb [Duoneb] 3 ml IH Q6HR 09/28/16 [History] Pregabalin [Lyrica] 75 mg PO BID 09/28/16 [History] Amitriptyline [Elavil] 50 mg PO HS #20 09/29/16 [Rx] Oxycodone HCl/Acetaminophen [Endocet 5-325 Tablet] 1 tab PO Q6H PRN #20 [Rx] Insulin DETEMIR [Levemir Flextouch] 15 - 20 unit SQ HS PRN 06/27/17 [History] Insulin LISPRO [Humalog Kwikpen U-100] 0 unit SQ TID PRN 06/27/17 [History] Levalbuterol Neb [Xopenex Neb] 0.63 mg IH Q4H PRN 06/27/17 [History] Lisinopril [Zestril] 10 mg PO BID 06/27/17 [History] levoFLOXacin [Levaquin] 750 mg PO DAILY #4 tablet 06/30/17 [Rx] predniSONE [PredniSONE] See Taper PO DAILY #20 tablet 06/30/17 [Rx] Allergies/Adverse Reactions: 3 Allergy/AdvReac Type Severity Reaction Status Date / Time Erythromycin Base Allergy Hives Verified 06/27/17 10:46 Date of admission: 06/27/17 13:27 Primary care physician: Toney Santos Jr, MD Consults: 06/27/17 16:29 Consult to Occupational Therapy [CONS] Routine Comment: Evaluate, develop and implement POC Reason for Consult: Patient reports some weakness and has a hx of falls (4 within the past 24 hours). Please assess for strength, stability, safety, ambulation, and assistive needs for post-discharge planning. Consult to Staff Air Tactical Officer [CONS] Routine Reason for SW Consult: Please assess patient for possible home needs for post -discharge planning. 06/27/17 16:30 Consult to Physical Therapy [CONS] Routine Comment: Evaluate, develop and implement POC Reason for Consult: Patient reports some weakness and has a hx of falls (4 within the past 24 hours). Please assess for strength, stability, safety, ambulation, and assistive needs for post-discharge planning. 06/27/17 17:23 Consult to Nutrition [CONS] Routine Comment: Consulting Provider: NUTRITION Reason for Dietary Consult: PO Supplementation Discharging clinician: Grayson Iglesias Anticipated date of discharge: 06/30/17 - Patient Status Disposition: Home Health Service Condition: Good Functional capacity at discharge: independent ambulation Overall status at discharge: patient is progressing back to baseline - Discharge Instructions Follow Up With: Toney Santos Jr, MD [Primary Care Provider] - (web request....) - Diet and Activity Activity: resume usual activities as tolerated, wear oxygen at all times Diet: diabetic diet, low fat, low cholesterol, low salt diet Interval History: See below Hospital course: Mr. Quinn is a 81 year old male admitted for sepsis secondary to pneumonia, initial lactic acid 1.0. Legionella and strep pneumoniae antigens negative He has made clinical improvement and is clinically stable to be discharged home Blood and sputum cultures were negative He received Zosyn and Levaquin for 4 days He is discharged on oral levaquin and prednisone taper Patient was also deconditioned on arrival, PTO recommends home PT via home health, will refer HTN and DM are well controlled, continue home meds WBC initially resolved. but recurred possibl due to steroids, Follow up with PCP for repeat CBC to ensure leukocytosis resolution Patient is discharged with family - Time Spent with Patient Total time spent providing and/or coordinating discharge services: Greater than 30 minutes - Constitutional Vitals: Temp Pulse Resp BP Pulse Ox 97.5 F L 108 16 171/89 97 06/30/17 10:46 06/30/17 10:46 06/30/17 10:48 06/30/17 10:46 06/30/17 10:48 General appearance: Present: cooperative, A&O X 3, pleasant, no acute distress, answers questions appropriately - Head Head exam: Present: atraumatic, normocephalic - Eye Eye exam: Present: PERRL, conjuntiva pink, sclera anicteric Pupils: Present: PERRL - Neck Neck exam general surgery: Present: supple, trachea midline. Absent: lymphadenopathy - Respiratory Respiratory exam: Present: CTAB. Absent: accessory muscle use, rales, rhonchi, wheezes - Cardiovascular Cardiovascular exam: Present: RRR, +S1, +S2. Absent: diastolic murmur, gallop, rubs, systolic murmur - GI/Abdominal GI/Abdominal exam: Present: normal bowel sounds, soft, no peritoneal signs. Absent: distended, tenderness - Extremities Exam Extremities exam: Present: warm, radial pulses palpable and symmetrical. Absent : calf tenderness, cyanotic, pedal edema - Neurological Exam Neurological exam: Present: alert, CN II-XII intact, oriented X3, no focal deficits. Absent: pronater drift, facial droop, speech deficit - Skin Skin exam: Present: dry, intact - VTE Documentation of Mechanical Device: Intermittent pneumatic compression device
--- NOTE | 2017-06-30 14:25 | Physician Discharge Referral ---
Home Health/Hosp Referral Info Transfer to: Home Health Attending Provider: Kenyetta Iglesias Provider in Charge Post Discharge: PCP - Diagnosis (1) COPD (chronic obstructive pulmonary disease) Priority: Primary Status: Acute (2) Diabetes mellitus Priority: Secondary Status: Chronic (3) HTN (hypertension) Priority: Secondary Status: Chronic (4) Alzheimer's dementia Priority: Secondary Status: Chronic (5) Chronic respiratory failure Priority: Secondary Status: Chronic (6) Pneumonia Priority: Primary Status: Acute (7) GERD (gastroesophageal reflux disease) Priority: Secondary Status: Chronic (8) Sepsis Priority: Primary Status: Resolved (9) Elevated troponin Priority: Primary Status: Acute (10) Anemia Priority: Secondary Status: Chronic (11) Leukocytosis Priority: Primary Status: Acute - Respiratory Orders Oxygen / L per min (continuous) Smoking Cessation: Smoking cessation has been advised. For more information, call the [place] Tobacco Quit Line at 5-347-CCKR-NOW. - Diet/Nutrition Diet/Nutrition Orders: Cardiac, No Concentrated Sweets - Activity Activity Orders: Up ad toyin - Services Needed Following services are medically necessary services: Physical Therapy, Occupational Therapy - Transfer Medications Prescriptions: levoFLOXacin [Levaquin] 750 mg PO DAILY #4 tablet predniSONE [PredniSONE] See Taper PO DAILY #20 tablet Home Medications: ALPRAZolam [Xanax 0.5 MG Tablet] 0.5 mg PO QID PRN 09/28/16 [History] Albuterol Sulfate [Ventolin Hfa] 2 puff IH Q4H PRN 09/28/16 [History] Aspirin [Lo-Dose Aspirin EC] 81 mg PO DAILY 09/28/16 [History] Fluticasone/Salmeterol [Advair Hfa 230-21 Mcg Inhaler] 1 puff IH BID 09/28/16 [ History] Gabapentin 600 mg PO QID 09/28/16 [History] Ipratropium/Albuterol Neb [Duoneb] 3 ml IH Q6HR 09/28/16 [History] Pregabalin [Lyrica] 75 mg PO BID 09/28/16 [History] Amitriptyline [Elavil] 50 mg PO HS #20 09/29/16 [Rx] Oxycodone HCl/Acetaminophen [Endocet 5-325 Tablet] 1 tab PO Q6H PRN #20 [Rx] Insulin DETEMIR [Levemir Flextouch] 15 - 20 unit SQ HS PRN 06/27/17 [History] Insulin LISPRO [Humalog Kwikpen U-100] 0 unit SQ TID PRN 06/27/17 [History] Levalbuterol Neb [Xopenex Neb] 0.63 mg IH Q4H PRN 06/27/17 [History] Lisinopril [Zestril] 10 mg PO BID 06/27/17 [History] levoFLOXacin [Levaquin] 750 mg PO DAILY #4 tablet 06/30/17 [Rx] predniSONE [PredniSONE] See Taper PO DAILY #20 tablet 06/30/17 [Rx] Allergies/Adverse Reactions: 3 Allergy/AdvReac Type Severity Reaction Status Date / Time Erythromycin Base Allergy Hives Verified 06/27/17 10:46 Certification: Further, I certify that my clinical findings support that this patient is homebound (i.e. absences from home require considerable and taxing effort and are for medical reasons or synagogue services or infrequently or short duration when for other reasons) because: Homebound Reason: Severity of cardiac or pulmonary status limits activity tolerance Attestation: My signature below is to certify that this patient is under my care and that I, or nurse practitioner, or a physician's biology laboratory assistant working with me, has a face-to -face encounter with this patient.
[2017-06-30] MEDS ORDERED: levoFLOXacin 750 MG TABLET PO SCH (15:00)
== END 2017-06-30 15:04 | disposition home health service (06) | DRG 871 ==
LOC: EMEROO 08:17 → 2ANU 13:27
PROVIDERS: ADMIT Hospitalist; ATTEND Internal Medicine

== ENCOUNTER 2017-10-22 10:14 | Inpatient (IN) ==
[2017-10-22] MEDS ORDERED: methylPREDNISolone 125 MG/2 ML VIAL IVP ONE (10:38)
[2017-10-22] MEDS ORDERED: Ipratropium/Albuterol Neb 3 ML IH ONE (10:38)
[2017-10-22] MEDS ORDERED: Ipratropium/Albuterol Neb 3 ML ONE (10:40)
--- NOTE | 2017-10-22 10:51 | Emergency Department Note ---
Disposition Clinical Impression: COPD exacerbation Pneumonia Qualifiers: Pneumonia type: due to unspecified organism Laterality: left Lung location: lower lobe of lung Qualified Code(s): J18.1 - Lobar pneumonia, unspecified organism Sepsis Qualifiers: Sepsis type: sepsis due to unspecified organism Qualified Code(s): A41.9 - Sepsis, unspecified organism Disposition: Admitted As Inpatient Condition: Fair Time of Disposition: 12:11 SOB HPI - General Chief Complaint: ED Shortness of Breath/Dyspnea Stated Complaint: SOB Time Seen by Provider: 10/22/17 10:35 Source: patient, family Mode of arrival: wheelchair Limitations: no limitations Nursing Notes Reviewed: Yes Vital Signs Reviewed: Yes - History of Present Illness 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 No fevers. Pt Subjective Complaint: shortness of breath Onset (ago): day(s) Severity: severe Consistency/Duration: constant Improves with: bronchodilators Worsens with: coughing Known history of: COPD Associated symptoms: Reports: chest pain, cough, wheezing, sputum production Cough present: Yes Cough Description: Productive Cough Frequency: Intermittent - Related Data Home oxygen amount: 2 liters Home Medications Medication Instructions Recorded Confirmed ALPRAZolam [Xanax 0.5 MG Tablet] 0.5 mg PO QID PRN 09/28/16 10/22/17 Albuterol Sulfate [Ventolin Hfa] 2 puff IH Q4H PRN 09/28/16 10/22/17 Aspirin [Lo-Dose Aspirin EC] 81 mg PO DAILY 09/28/16 10/22/17 Gabapentin 600 mg PO QID 09/28/16 10/22/17 Ipratropium/Albuterol Neb [Duoneb] 3 ml IH Q6HR 09/28/16 10/22/17 Insulin DETEMIR [Levemir Flextouch] 15 - 20 unit SQ HS PRN 06/27/17 10/22/17 Insulin LISPRO [Humalog Kwikpen 0 unit SQ TID PRN 06/27/17 10/22/17 U-100] Levalbuterol Neb [Xopenex Neb] 0.63 mg IH Q4H PRN 06/27/17 10/22/17 Lisinopril [Zestril] 10 mg PO BID 06/27/17 10/22/17 Amitriptyline [Elavil] 100 mg PO HS 10/22/17 10/22/17 Previous Rx's Medication Instructions Recorded Oxycodone HCl/Acetaminophen 1 tab PO Q6H PRN #20 09/29/16 [Endocet 5-325 Tablet] Allergies Allergy/AdvReac Type Severity Reaction Status Date / Time Erythromycin Base Allergy Hives Verified 06/27/17 10:46 All systems ED: reviewed and negative except as stated. Constitutional: Reports: as per HPI Eyes: Reports: as per HPI ENT ED: Reports: as per HPI Cardiovascular: Reports: chest pain Respiratory: Reports: cough, dyspnea, wheezes, sputum production Gastrointestinal: Reports: as per HPI Genitourinary: Reports: as per HPI Musculoskeletal: Reports: other (Left lower extremity swelling, states this is chronic) Integumentary: Reports: as per HPI Neurological: Reports: as per HPI Psychiatric: Reports: as per HPI Endocrine: Reports: as per HPI Hematological/Lymphatic: Reports: as per HPI Allergic/Immunologic: Reports: as per HPI Past Medical History - Past Medical History Source: patient Medical history: Reports: arthritis, COPD, diabetes, GERD, seizures, TIA Surgical history: Reports: other Psychiatric history: Reports: no psych history - Social History Smoking Status: Former smoker Smokeless Tobacco Status: No Alcohol use: Reports: none Drug use: Reports: none Physical Exam - General Limitations: no limitations General appearance: alert, in distress - Head Head exam: atraumatic - Eye Eye exam: Present: normal appearance - ENT ENT exam: normal exam - Neck Neck exam: Present: normal inspection, full ROM - Chest Chest inspection: Present: normal inspection, symmetric chest wall rise - Respiratory Respiratory exam: Present: respiratory distress, wheezes, accessory muscle use, prolonged expiratory phase - Cardiovascular Cardiovascular exam: Present: tachycardia, normal heart sounds - Rectal Exam Rectal exam: Present: deferred - Extremities Exam Extremities exam: Present: other (Asymmetric left lower extremity swelling) - Neurological Exam Neurological exam: Present: alert, oriented X3, CN II-XII intact - Psychiatric Psychiatric exam: Present: normal affect, normal mood - Skin Skin exam: Present: warm, dry, intact Course Course Narrative: Patient with a known history of COPD presents with dyspnea. He appears in respiratory distress upon arrival. He is protecting his airway. Negative therapy and IV steroids initiated. He will be closely observed - Reevaluation(s) Reevaluation #1: Patient has a leukocytosis. He was initially tachycardic and tachypneic as well as hypoxic. He meets SIRS criteria. Additional sepsis pathway orders including timed lactate and blood cultures ordered at 11:55 Reevaluation #2: Patient has a mildly elevated troponin already taken aspirin today Vital Signs Temperature 98.9 F 10/22/17 10:29 Pulse Rate 127 10/22/17 10:29 Respiratory Rate 24 10/22/17 10:29 Blood Pressure 178/100 10/22/17 10:29 O2 Sat by Pulse Oximetry 85 10/22/17 10:29 Temperature 98.9 F 10/22/17 10:29 Pulse Rate 124 10/22/17 11:19 Respiratory Rate 20 10/22/17 11:19 Blood Pressure 112/70 10/22/17 11:19 O2 Sat by Pulse Oximetry 97 10/22/17 11:19 Oxygen Delivery Oxygen Delivery Nasal Cannula Shortness of Breath/Dyspnea - Lab Data Lab results reviewed: Yes I reviewed the patient's lab results. Result diagrams: 10/22/17 10:50 10/22/17 10:50 Lab Results 10/22/17 10/22/17 10/22/17 Range/Units 10:50 10:50 10:50 WBC 16.1 H (4.3-11.1) K/mcL RBC 4.21 (4.19-5.50) M/mcL Hgb 11.7 L (12.9-16.9) g/dL Hct 36.5 L (37.5-50.1) % MCV 86.7 (83.0-100.0) fL MCH 27.8 L (28.0-33.3) pg MCHC 32.1 (31.6-35.5) g/dL RDW 13.2 (11.5-14.5) % Plt Count 245 (140-400) K/mcL MPV 8.4 L (9.4-12.4) fL Immature Gran % 0.9 (0-4) % Seg Neutrophils % 77.1 % Lymphocytes % 12.2 % Monocytes % 5.7 % Eosinophils % 3.9 % Basophils % 0.2 % Neutrophils # 12.4 H (1.6-8.9) K/mcL Lymphocytes # 2.0 (0.6-4.6) K/mcL Monocytes # 0.9 (0.0-1.3) K/mcL Eosinophils # 0.6 (0.0-0.6) K/mcL Basophils # 0.0 (0.0-0.2) K/mcL PT 12.2 H (9.4-12.1) Seconds INR 1.1 Sodium 135 L (136-145) mEq/L Potassium 4.0 (3.5-5.1) mEq/L Chloride 99 (98-107) mEq/L Carbon Dioxide 32 H (23-29) mEq/L BUN 17 (8-23) mg/dL Creatinine 0.83 (0.70-1.30) mg/dL Est GFR ( Amer) > 60 (> 60) Est GFR (Non-Af Amer) > 60 (> 60) BUN/Creatinine Ratio 20 (6-26) Glucose 116 H (70-105) mg/dL Calculated Osmolality 283 (280-300) Lactic Acid (0.5-2.2) mmol/L Calcium 9.2 (8.6-10.3) mg/dL Total Bilirubin 0.4 (0.3-1.0) mg/dL Direct Bilirubin 0.1 (0.0-0.2) mg/dL Indirect Bilirubin 0.3 (0.0-1.2) mg/dL AST 10 L (13-39) Units/L ALT 12 (7-52) Units/L Alkaline Phosphatase 58 (34-104) Units/L Troponin I (< 0.04) ng/mL B-Natriuretic Peptide (Less than 100) pg/mL Serum Total Protein 7.0 (6.4-8.9) g/dL Albumin 3.5 (3.5-5.7) g/dL Globulin 3.5 (2.4-3.5) g/dL Albumin/Globulin Ratio 1.0 L (1.1-2.2) 10/22/17 10/22/17 10/22/17 Range/Units 10:50 10:50 12:16 WBC (4.3-11.1) K/mcL RBC (4.19-5.50) M/mcL Hgb (12.9-16.9) g/dL Hct (37.5-50.1) % MCV (83.0-100.0) fL MCH (28.0-33.3) pg MCHC (31.6-35.5) g/dL RDW (11.5-14.5) % Plt Count (140-400) K/mcL MPV (9.4-12.4) fL Immature Gran % (0-4) % Seg Neutrophils % % Lymphocytes % % Monocytes % % Eosinophils % % Basophils % % Neutrophils # (1.6-8.9) K/mcL Lymphocytes # (0.6-4.6) K/mcL Monocytes # (0.0-1.3) K/mcL Eosinophils # (0.0-0.6) K/mcL Basophils # (0.0-0.2) K/mcL PT (9.4-12.1) Seconds INR Sodium (136-145) mEq/L Potassium (3.5-5.1) mEq/L Chloride (98-107) mEq/L Carbon Dioxide (23-29) mEq/L BUN (8-23) mg/dL Creatinine (0.70-1.30) mg/dL Est GFR ( Amer) (> 60) Est GFR (Non-Af Amer) (> 60) BUN/Creatinine Ratio (6-26) Glucose (70-105) mg/dL Calculated Osmolality (280-300) Lactic Acid 1.9 (0.5-2.2) mmol/L Calcium (8.6-10.3) mg/dL Total Bilirubin (0.3-1.0) mg/dL Direct Bilirubin (0.0-0.2) mg/dL Indirect Bilirubin (0.0-1.2) mg/dL AST (13-39) Units/L ALT (7-52) Units/L Alkaline Phosphatase (34-104) Units/L Troponin I 0.05 H* (< 0.04) ng/mL B-Natriuretic Peptide 447 H (Less than 100) pg/mL Serum Total Protein (6.4-8.9) g/dL Albumin (3.5-5.7) g/dL Globulin (2.4-3.5) g/dL Albumin/Globulin Ratio (1.1-2.2) - Radiology Data Radiology results reviewed: Yes I reviewed the patient's radiology results. - EKG Data EKG attestation: Yes I reviewed and interpreted this EKG. EKG results narrative: Sinus tachycardia with short AR interval and PVCs left ventricular hypertrophy rate 126 AR 112 QRS 95 QT/QTC 276/350 study compared to previous dated 06/27/17 Critical Care Time Critical Care Time: Yes Total Critical Care Time: 30 Attestation: The high probability of a clinically significant, sudden or life threatening deterioration of the [] system(s) required my full and direct attention, intervention and personal management. The aggregate critical care time was [] minutes. This time is in addition to time spent performing reported procedures but includes the following: [] Data Review and interpretation [] Patient assessment and monitoring of vital signs [] Documentation [] Medication orders and management
[2017-10-22 11:00] LABS: Basophils % 0.2 %; Eosinophils # 0.6 K/mcL (0.0-0.6); Eosinophils % 3.9 %; Hematocrit 36.5 % (37.5-50.1); Hemoglobin 11.7 g/dL (12.9-16.9); Immature Granulocytes % 0.9 % (0-4); Lymphocytes % 12.2 %; Mean Corpuscular HGB Conc 32.1 g/dL (31.6-35.5); Mean Corpuscular Hemoglobin 27.8 pg (28.0-33.3); Mean Corpuscular Volume 86.7 fL (83.0-100.0); Mean Platelet Volume 8.4 fL (9.4-12.4); Monocytes # 0.9 K/mcL (0.0-1.3); Monocytes % 5.7 %; Neutrophils # 12.4 K/mcL (1.6-8.9); Platelet Count 245 K/mcL (140-400); Red Blood Count 4.21 M/mcL (4.19-5.50); Red Cell Distribution Width 13.2 % (11.5-14.5); Segmented Neutrophils % 77.1 %
[2017-10-22 11:14] LABS: Alanine Aminotransferase 12 Units/L (7-52); Albumin 3.5 g/dL (3.5-5.7); Alkaline Phosphatase 58 Units/L (34-104); Aspartate Amino Transferase 10 Units/L (13-39); BUN/Creatinine Ratio 20 (6-26); Bilirubin,Direct 0.1 mg/dL (0.0-0.2); Bilirubin,Indirect 0.3 mg/dL (0.0-1.2); Bilirubin,Total 0.4 mg/dL (0.3-1.0); Blood Urea Nitrogen 17 mg/dL (8-23); Calcium 9.2 mg/dL (8.6-10.3); Carbon Dioxide 32 mEq/L (23-29); Chloride 99 mEq/L (98-107); Globulin 3.5 g/dL (2.4-3.5); Glucose 116 mg/dL (70-105); INR 1.1; Osmolality,Calculated 283 (280-300); Prothrombin Time 12.2 Seconds (9.4-12.1); Sodium 135 mEq/L (136-145); eGFR For African Americans > 60 (> 60); eGFR For Non-African Americans > 60 (> 60)
[2017-10-22] MEDS ORDERED: cefTRIAXone 1,000 MG in Water for inj. (sterile) 20 ML 10 ML IVP ONE (12:06)
[2017-10-22] MEDS ORDERED: Azithromycin 500 MG in D5% in Water 250 ML IVPB ONE (12:06)
[2017-10-22] MEDS ORDERED: *HR* HYDROcodone/Acet 5/325 mg TABLET PO ONE (12:56)
[2017-10-22] MEDS ORDERED: *HR* OxyCODONE/APAP 5/325 TABLET PO PRN (14:29)
[2017-10-22] MEDS ORDERED: NON-FORMULARY MEDICATION 1 EACH EACH (Insulin Detemir [Levemir Flextouch] 15 UNIT) SQ PRN (14:29)
[2017-10-22] MEDS ORDERED: Levalbuterol Neb 0.63 MG/3 ML IH PRN (14:29)
[2017-10-22] MEDS ORDERED: *HR* Dextrose 50 % in Water (Syg) 50 ML SYRINGE IVP PRN (14:49)
[2017-10-22] MEDS ORDERED: D5% in Water 1,000 ML IVC PRN (14:49)
[2017-10-22] MEDS ORDERED: Dextrose Gel 15 GM/37.5 ML TUBE PO PRN ×2 (14:49)
[2017-10-22] MEDS ORDERED: Acetaminophen 325 MG TABLET PO PRN (14:50)
[2017-10-22] MEDS ORDERED: Naloxone 0.4 MG/ML INJ IVP PRN (14:50)
--- NOTE | 2017-10-22 15:35 | Internal Med History&Physical ---
<Grayson Copeland - Last Filed: 10/22/17 22:11> Date of Encounter: 10/22/17 Time of Encounter: 14:00 Assessment and Plan (1) Pneumonia Current visit: Yes Status: Acute Acute CAP. WBC 16.1 on admission. 1-V CXR today shows new small left pleural effusion with increasing basilar opacity reflecting atelectasis or pneumonia. CTA of chest shows persistent basilar subpleural opacity within the left lower lobe with new subpleural tree-in-bud opacities also noted within left lower lobe. This likely reflects an infectious or inflammatory process to include possibly aspiration pneumonia. IVPB azithromycin 500 mg daily and ceftriaxone 2,000 mg daily for infection coverage. Blood cultures 2. Sputum culture. Legionella and strep pneumoniae antigens ordered. Will adjust abx coverage based on culture results. Supplemental O2 w/titration and SpO2 monitoring. Xopenex IH Q4 PRN. Pt. discussed w/Dr. Mcdonald who agrees w/plan of care. Pt. is high risk for further morbidity d/t current sepsis criteria, pneumonia dx, current exacerbation of CHF and SOB/dyspnea, hx, and risk factors. Inpatient. Qualifiers: Pneumonia type: due to unspecified organism Laterality: left Lung location: lower lobe of lung Qualified Code(s): J18.1 - Lobar pneumonia, unspecified organism (2) Sepsis Current visit: Yes Status: Acute Acute sepsis criteria w/WBC of 16.1, HR of 127, RR of 24. Initial lactic acid 3.3. Pt. has small left pleural effusion on imaging, so fluid boluses contraindicated. 0.9 IV NS @ 100 mL/HR ordered. Timed lactic acids ordered. IVPB azithromycin and ceftriaxone ordered for infection coverage. Blood cultures x2 ordered. Sputum culture ordered. Continuous telemetry. Supplemental O2 w/titration and SpO2 monitoring. Pt., VS, and f/u labs to be monitored closely. Qualifiers: Sepsis type: sepsis due to unspecified organism Qualified Code(s): A41.9 - Sepsis, unspecified organism (3) Acute exacerbation of CHF (congestive heart failure) Current visit: Yes Status: Acute Acute exacerbation of CHF w/BNP of 447 on admission. Pt. 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 Denies use of lasix in past. 20 mg IVP lasix 20 mg BID ordered. Echocardiogram ordered. Continuous telemetry. Supplemental O2 w/titration and SpO2 monitoring. Monitor I&O and daily weight. Qualifiers: Heart failure type: unspecified Qualified Code(s): I50.9 - Heart failure, unspecified (4) SOB (shortness of breath) Current visit: Yes Status: Acute Acute on chronic SOB associated w/pts. COPD and emphysema. Supplemental O2 w/ titration and SpO2 monitoring. Prednisone PO 20 mg BIDWM for COPD. Continue pts. inhalers and Xopenex nebulizer tx Q4HR PRN. Concern for possible PE d/t rapid onset of worsening SOB. D-dimer ordered and was 1162. CTA of chest ordered to r/o PE which showed no CT evidence of PE. (5) Elevated troponin Current visit: Yes Status: Acute Acute on chronic elevated troponin. Pt. has hx of elevated troponins in 06/2017 ranging from 0.04 to 0.06. Currently 0.05 on admission, most likely reactive in nature d/t current combination of pneumonia complicated by acute exacerbation of CHF. Pt. reports chest pain w/cough or sneezing but denies CP at rest or w/ exertion. Will trend x2. Continuous cardiac telemetry. (6) COPD (chronic obstructive pulmonary disease) Current visit: Yes Status: Chronic Hx of chronic COPD. Stable. Supplemental O2 w/titration and SpO2 monitoring. Prednisone PO 20 mg BIDWM. Qualifiers: COPD type: emphysema Emphysema type: unspecified Qualified Code(s): J43.9 - Emphysema, unspecified (7) Diabetes Current visit: Yes Status: Chronic Hx of chronic DM controlled w/insulin. BG checks ACHS. A1c in a.m. labs. Will hold pts. PRN insulin and administer low-dose correction insulin sliding sacle w /hypoglycemic protocol. 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 IVP Protonix 40 mg daily. IVP Zofran 4 mg Q8 for N/V. Qualifiers: Esophagitis presence: esophagitis presence not specified Qualified Code(s) : K21.9 - Gastro-esophageal reflux disease without esophagitis (9) Arthritis Current visit: Yes Status: Chronic Hx of chronic arthritis. Stair-step pain medications for pain mgmt. (10) HTN (hypertension) Current visit: Yes Status: Chronic Hx of chronic HTN. Monitor pt. and VS. Continue pts. lisinopril. Qualifiers: Hypertension type: essential hypertension Qualified Code(s): I10 - Essential (primary) hypertension (11) Anemia Current visit: Yes Status: Chronic Hx of chronic anemia w/current Hgb of 11.7 and Hct of 36.5 on admission which is higher than pts. recent baseline. Pt. denies unusual bleeding. H/H in a.m. labs. Monitor pt. for signs of bleeding. Qualifiers: Anemia type: unspecified type Qualified Code(s): D64.9 - Anemia, unspecified (12) DVT prophylaxis Current visit: Yes Status: Acute Heparin 5,000 units SQ Q8 for DVT prophylaxis. Monitor pt. for signs of bleeding. Internal Medicine - H&P: HPI Chief complaint: SOB/Dyspnea Admitted From: Emergency Dept Plans for Post Hospital Care: Home History of present illness: Mr. Quinn is a 82 year old male with PMH of arthritis, emphysema/COPD, diabetes controlled with insulin, GERD, seizures, and TIAs presents from the ED with chief complaint of shortness of breath and dyspnea that became worse this morning. States pain began in right chest and moved to left chest. States he has cough w/sputum production but experiences chest pain w/coughing or sneezing. No alleviating factors. Pt. reports hx of COPD/emphysema w/chronic SOB. Pt. also reports hx of septal defect discovered at age 71. Pt. reports SOB/ dyspnea, cough, and weakness but denies recent illness or hospitalization, fever , chills, nausea, vomiting, palpitations, headache, changes in vision, unusual bleeding, abdominal pain, diarrhea, constipation, numbness, tingling, dizziness , lightheadedness, pre-syncope, or syncope. Past Med Surg Social Fam HX - Past Medical History Source: patient, old records reviewed, obtained from family Medical history: arthritis, COPD, diabetes, GERD, seizures, TIA Psychiatric history: no psych history - Past Surgical History Surgical History: orthopedic, other (Disc surgeries in neck and back), other ( Hemorrhoidectomy) - Social History Smoking Status: Former smoker Packs per day: 3 PPD - Reports quitting in 2004 Smokeless Tobacco Status: No Alcohol use: none Drug use: none Occupational status: retired Current living situation: Home, With Family Activity Level: Independent ambulation, Uses cane/walker Recent Out of Country Travel Within the Last 8 Weeks: No Exposure or Possible Exposure to Illness During Travel: No - Family History Father Adopted: No Race: Family Member Ethnicity: Non- Living Status: Age at : 68 Cause of : Leukemia Hx Family Cancer: Yes (Leukemia, Prostate) Mother Adopted: No Race: Family Member Ethnicity: Non- Living Status: Age at : 84 Cause of : Gas gangrene Hx Family Musculoskeletal Disorders: Yes (Gas gangrene) Brother Race: Family Member Ethnicity: Non- Living Status: Age at : 65 Cause of : Esophageal cancer Hx Family Cancer: Yes (Esophageal) Sister Race: Family Member Ethnicity: Non- Living Status: Age at : 70 Cause of : Kidney cancer Hx Family Cancer: Yes (Kidney) Hx Family Endocrine Disorder: Yes (Type 2 diabetes) Internal Medicine - H&P: Meds ALPRAZolam [Xanax 0.5 MG Tablet] 0.5 mg PO QID PRN 09/28/16 [History] Albuterol Sulfate [Ventolin Hfa] 2 puff IH Q4H PRN 09/28/16 [History] Aspirin [Lo-Dose Aspirin EC] 81 mg PO DAILY 09/28/16 [History] Gabapentin 600 mg PO QID 09/28/16 [History] Ipratropium/Albuterol Neb [Duoneb] 3 ml IH Q6HR 09/28/16 [History] Oxycodone HCl/Acetaminophen [Endocet 5-325 Tablet] 1 tab PO Q6H PRN #20 [Rx] Insulin DETEMIR [Levemir Flextouch] 15 - 20 unit SQ HS PRN 06/27/17 [History] Insulin LISPRO [Humalog Kwikpen U-100] 0 unit SQ TID PRN 06/27/17 [History] Levalbuterol Neb [Xopenex Neb] 0.63 mg IH Q4H PRN 06/27/17 [History] Lisinopril [Zestril] 10 mg PO BID 06/27/17 [History] Amitriptyline [Elavil] 100 mg PO HS 10/22/17 [History] 3 Allergy/AdvReac Type Severity Reaction Status Date / Time Erythromycin Base Allergy Hives Verified 06/27/17 10:46 All Systems PM: A 10-system review of systems was performed and is negative for pertinent findings except as documented above in the HPI. - Constitutional Constitutional: as per HPI, weakness, no chills, no fever(s), no night sweats - EENT Eyes: no change in vision, no discharge, no pain, no photophobia Ears: no ear discharge, no ear pain, no tinnitus Nose, mouth and throat: no dysphagia, no nasal discharge, no neck pain, no sore throat - Breasts Breasts: as per HPI - Cardiovascular Cardiovascular ROS IM: as per HPI, chest pain, dyspnea, dyspnea on exertion, no diaphoresis, no lightheadedness, no palpitations, no syncope - Respiratory Respiratory: as per HPI, cough, dyspnea, dyspnea on exertion, pain with cough, no wheezing, no excessive phlegm production - Gastrointestinal Gastrointestinal: no abdominal pain, no diarrhea, no hematemesis, no hematochezia, no melena, no nausea, no vomiting - Genitourinary Genitourinary ROS male: as per HPI - Musculoskeletal Musculoskeletal ROS IM: as per HPI, arthralgias, no numbness, no tingling - Integumentary Integumentary IM: no rash, no unusual bruising - Neurological Neurological ROS: no confusion, no convulsions, no focal weakness, no numbness, no tingling, no tremor(s) - Psychiatric Psychiatric: as per HPI - Endocrine Endocrine IM: as per HPI - Hematologic/Lymphatic Hematologic/Lymphatic: no easy bruising - Allergic/Immunologic Allergic/Immunologic: as per HPI - Constitutional Vitals: Temp Pulse Resp BP Pulse Ox 98.9 F 109 16 125/60 92 10/22/17 15:04 10/22/17 15:04 10/22/17 15:04 10/22/17 15:04 10/22/17 15:04 General appearance: Present: cooperative, A&O X 3, pleasant, no acute distress, answers questions appropriately - Head Head exam: Present: atraumatic, normocephalic - Eye Eye exam: Present: PERRL, conjuntiva pink, sclera anicteric Pupils: Present: PERRL - ENT ENT exam: Present: normal exam - Neck Neck exam general surgery: Present: supple, trachea midline. Absent: lymphadenopathy - Respiratory Respiratory exam: Present: decreased breath sounds - Cardiovascular Cardiovascular exam: Present: RRR, +S1, +S2. Absent: diastolic murmur, gallop, rubs, systolic murmur - GI/Abdominal GI/Abdominal exam: Present: normal bowel sounds, soft, no peritoneal signs. Absent: distended, tenderness - Rectal Rectal exam: Present: deferred - Additional comments: exam deferred. - Extremities Exam Extremities exam: Present: warm, radial pulses palpable and symmetrical. Absent : calf tenderness, cyanotic, pedal edema - Back Exam Back exam: Present: normal inspection - Neurological Exam Neurological exam: Present: CN II-XII intact, oriented X3, no focal deficits. Absent: pronater drift, facial droop, speech deficit - Psychiatric Psychiatric exam: Present: normal affect, normal mood - Skin Skin exam: Present: dry, intact Internal Med - H&P Results - Labs CBC & Chem 7: 10/22/17 10:50 10/22/17 10:50 - Diagnostic Studies Chest x-ray Additional comments: Impressions Chest X-Ray 10/22/17 10:38 IMPRESSION: New small left pleural effusion with increasing left basilar opacity either reflecting atelectasis or pneumonia. D/ / Latha Johnson MD / Latha Johnson MD Interpreting Provider: Latha Johnson MD <Ashley Mcdonald - Last Filed: 10/23/17 11:32> Date of Encounter: 10/23/17 Internal Medicine - H&P: HPI History of present illness: Mr. Quinn is a 82 year old male All Systems PM: A 10-system review of systems was performed and is negative for pertinent findings except as documented above in the HPI. - Constitutional Vitals: Temp Pulse Resp BP Pulse Ox 97.6 F 94 16 125/75 92 10/23/17 08:03 10/23/17 08:03 10/23/17 08:03 10/23/17 08:03 10/23/17 08:03 Internal Med - H&P Results - Labs CBC & Chem 7: 10/23/17 00:41 10/23/17 00:41 Labs: Short CBC 10/23/17 Range/Units 00:41 WBC 11.0 (4.3-11.1) K/mcL Hgb 10.5 L (12.9-16.9) g/dL Hct 33.0 L (37.5-50.1) % Plt Count 221 (140-400) K/mcL Neutrophils # 10.2 H (1.6-8.9) K/mcL BMP 10/23/17 00:41 Sodium 135 L Potassium 4.0 Chloride 97 L Carbon Dioxide 30 H BUN 24 H Creatinine 0.91 Glucose 284 H Calcium 8.9 Cardiac Enzymes 10/22/17 10/23/17 Range/Units 19:10 00:41 Troponin I 0.03 0.03 (< 0.04) ng/mL Liver Function 10/23/17 Range/Units 00:41 Total Bilirubin 0.2 L (0.3-1.0) mg/dL AST 7 L (13-39) Units/L ALT 10 (7-52) Units/L Alkaline Phosphatase 51 (34-104) Units/L Albumin 3.3 L (3.5-5.7) g/dL - Impressions ITS Impressions Chest CTA 10/22/17 19:05 IMPRESSION: 1. No CT evidence of a pulmonary embolism. 2. Atherosclerotic disease of the thoracic aorta, without evidence of aneurysm or dissection. 3. Interval improvement in appearance of bilateral pleural effusions with a small left pleural effusion remaining. 4. Complete interval resolution of previously identified left upper lobe pneumonia. 5. Persistent basilar subpleural opacity within the left lower lobe, with new subpleural tree-in-bud opacities also noted within the left lower lobe. This likely reflects an infectious or inflammatory process to include possible aspiration pneumonia. Suggest appropriate clinical treatment and short-term chest CT follow-up in 6-8 weeks to ensure resolution of these opacities and to exclude underlying pulmonary malignancy. 6. Stable mild subpleural atelectasis within the right lung. 7. Chronic severe emphysema. 8. Stable mild mediastinal and bilateral hilar lymphadenopathy. D/ / 10/22/2017 20:26:32 Refugio Toussaint MD / [facility] Interpreting Provider: Refugio Toussaint MD Echocardiogram 10/23/17 15:33 Impressions: LVEF 25%. Mildly dilated left ventricle. Severe global left ventricular systolic dysfunction. Mild left ventricular diastolic dysfunction. Normal right ventricular structure and function. Mild mitral regurgitation. Mild pulmonary hypertension. Left Ventricular Wall Motion: Rest Echo Findings The apex, apical inferior, mid inferior, basal inferior, apical anterior, mid anterior, basal anterior, apical septal, mid inferior septal, basal inferior septal, apical lateral, mid anterior lateral, basal anterior lateral, mid anterior septal, mid inferior lateral, basal anterior septal and basal inferior lateral otero were hypokinetic. Findings: Study Quality * Technically adequate exam. ECG Findings * Normal sinus rhythm. Left Ventricle * LVEF 25%. * Mildly dilated left ventricle. * Severe global left ventricular systolic dysfunction. * Mild left ventricular diastolic dysfunction. Right Ventricle * Normal right ventricular structure and function. Left Atrium * Mildly dilated left atrium. Right Atrium * Moderately dilated right atrium. Interatrial Septum * Interatrial septum not well evaluated. Aortic Valve * Aortic valve not well visualized. * No aortic regurgitation. * No aortic stenosis. Mitral Valve * Normal mitral valve structure. * Mild mitral regurgitation. * No mitral stenosis. Tricuspid Valve * Normal tricuspid valve structure and function. * Trace tricuspid regurgitation. * Mild pulmonary hypertension. Pulmonic Valve * Pulmonic valve is not well visualized. * No pulmonic regurgitation. Aorta * Normally sized aortic root. Pericardium * The pericardium appears normal. IVC * Normal IVC dimensions and inspiratory collapse. Pulmonary Artery * Normal visualized portions of the main pulmonary artery. - Attending Attestation I examined this patient and my medical decision-making was reviewed with the Resident Physician. I agree with the documented findings, disposition and treatment plan as described except to the extent set forth below.
[2017-10-22] MEDS: *HR* OxyCODONE/APAP 5/325 TABLET PO PRN (15:43)
[2017-10-22] MEDS ORDERED: Ondansetron 4 MG/2 ML VIAL IVP PRN (15:57)
[2017-10-22] MEDS ORDERED: Ipratropium/Albuterol Neb 3 ML IH SCH (16:00)
[2017-10-22] MEDS: predniSONE 20 MG TABLET PO SCH (17:43)
[2017-10-22] MEDS: Pantoprazole 40 MG VIAL IVP SCH (17:43)
[2017-10-22] MEDS: Gabapentin 300 MG CAPSULE PO SCH ×2 (17:43→22:29)
[2017-10-22] MEDS: Insulin LISPRO 300 UNITS/3 ML VIAL SQ SCH ×2 (17:43→22:30)
[2017-10-22] MEDS ORDERED: 0.9 % Sodium Chloride 1,000 ML IVC SCH (19:45)
--- NOTE | 2017-10-22 20:26 | Electrocardiograph Report ---
[facility] Test Date: 2017-10-22 Pat Name: Declan Quinn Department: 104 Room: 3B47 Gender: M Book Packer: : [id number] Requested By: Shade Brooks Order Number: [id number] Reading MD: Gina Obrien DO Measurements Intervals [place] Rate: 126 P: 58 CO: 112 QRS: 50 QRSD: 95 T: 92 QT: 276 QTc: 350 Interpretive Statements SINUS TACHYCARDIA WITH SHORT CO INTERVAL WITH FREQUENT VENTRICULAR PREMATURE COMPLEXES MINIMAL VOLTAGE CRITERIA FOR LVH, CONSIDER NORMAL VARIANT [MEETS CRITERIA IN ONE OF: R(aVL), S(V1), R(V5), R(V5/V6)+S(V1)] NONSPECIFIC ST & T-WAVE ABNORMALITY ABNORMAL RHYTHM ECG Electronically Signed On 10-22-2017 20:24:38 EST by Gina Obrien DO
[2017-10-22] MEDS: *HR* Heparin 5,000 UNIT/ML VIAL SQ SCH (22:30)
[2017-10-22] MEDS: Furosemide 20 MG/2 ML VIAL IVP SCH (22:30)
[2017-10-23] MEDS: 0.9 % Sodium Chloride 1,000 ML IVC SCH
[2017-10-23 01:14] LABS: Basophils % 0.1 %; Eosinophils % 0.1 %; Hemoglobin 10.5 g/dL (12.9-16.9); Immature Granulocytes % 0.7 % (0-4); Lymphocytes # 0.6 K/mcL (0.6-4.6); Mean Corpuscular HGB Conc 31.8 g/dL (31.6-35.5); Mean Corpuscular Hemoglobin 27.1 pg (28.0-33.3); Mean Corpuscular Volume 85.1 fL (83.0-100.0); Mean Platelet Volume 8.7 fL (9.4-12.4); Monocytes # 0.2 K/mcL (0.0-1.3); Monocytes % 1.5 %; Neutrophils # 10.2 K/mcL (1.6-8.9); Platelet Count 221 K/mcL (140-400); Red Blood Count 3.88 M/mcL (4.19-5.50); Segmented Neutrophils % 92.6 %
[2017-10-23 01:38] LABS: Alanine Aminotransferase 10 Units/L (7-52); Albumin 3.3 g/dL (3.5-5.7); Alkaline Phosphatase 51 Units/L (34-104); Aspartate Amino Transferase 7 Units/L (13-39); BUN/Creatinine Ratio 26 (6-26); Bilirubin,Total 0.2 mg/dL (0.3-1.0); Blood Urea Nitrogen 24 mg/dL (8-23); Calcium 8.9 mg/dL (8.6-10.3); Carbon Dioxide 30 mEq/L (23-29); Chloride 97 mEq/L (98-107); Chol/HDL Ratio 2.6 (0-4.9); Cholesterol 139 mg/dL (< 200); Globulin 3.2 g/dL (2.4-3.5); Glucose 284 mg/dL (70-105); HDL Cholesterol 53 mg/dL (40-59); LDL Cholesterol,Calculated 73 mg/dL (0-99); Magnesium 1.7 mg/dL (1.6-2.6); Osmolality,Calculated 294 (280-300); Sodium 135 mEq/L (136-145); Total Protein 6.5 g/dL (6.4-8.9); Triglycerides 63 mg/dL (< 150); eGFR For African Americans > 60 (> 60); eGFR For Non-African Americans > 60 (> 60)
[2017-10-23] MEDS: *HR* Heparin 5,000 UNIT/ML VIAL SQ SCH ×3 (05:47→21:12)
[2017-10-23] MEDS ORDERED: Perflutren Lipid Microsphere 2 ML VIAL ONE (07:43)
[2017-10-23] MEDS ORDERED: Perflutren Lipid Microsphere 1.3 ML in 0.9 % Sodium Chloride 8.7 ML IVP ONE (07:58)
[2017-10-23] MEDS: Insulin LISPRO 300 UNITS/3 ML VIAL SQ SCH ×4 (09:01→21:19)
[2017-10-23] MEDS: Furosemide 20 MG/2 ML VIAL IVP SCH ×2 (09:01→21:12)
[2017-10-23] MEDS: predniSONE 20 MG TABLET PO SCH ×2 (09:01→18:14)
[2017-10-23] MEDS: Gabapentin 300 MG CAPSULE PO SCH ×4 (09:01→21:11)
[2017-10-23] MEDS: Aspirin Enteric Coated 81 MG Tablet PO SCH (09:01)
[2017-10-23] MEDS: Pantoprazole 40 MG VIAL IVP SCH (09:02)
[2017-10-23 11:06] LABS: Hemoglobin A1C 6.3 %
[2017-10-23] MEDS: *HR* HYDROcodone/Acet 5/325 mg TABLET PO PRN ×2 (12:50→21:12)
[2017-10-23] MEDS: Azithromycin 500 MG in D5% in Water 250 ML IVPB SCH (15:40)
[2017-10-23] MEDS: cefTRIAXone 2,000 MG in Water for inj. (sterile) 20 ML 20 ML IVP SCH (15:40)
--- NOTE | 2017-10-23 23:38 | Internal Med Progress Note ---
Date of Encounter: 10/23/17 Time of Encounter: 17:00 - Assessment and plan (1) Pneumonia Current Visit: Yes Status: Acute Assessment and plan: Patient's white count was 16.1 on admission chest x-ray did show new left pleural effusion with increasing basal pacer the reflecting adequate ectasis or pneumonia. CTA chest shows persistent basilar subpleural pacer the within the left lower lobe with new subpleural tree-in-bud opacities also noted within the left lower lobe this likely reflects an infectious or inflammatory process to include possibly aspiration pneumonia. Continue with IV azithromycin and Rocephin blood cultures have been obtained we will obtain sputum culture lesion on strep pneumoniae antigens ordered awaiting results. Continue with oxygen Xopenex when necessary Qualifiers: Pneumonia type: due to unspecified organism Laterality: left Lung location: lower lobe of lung Qualified Code(s): J18.1 - Lobar pneumonia, unspecified organism (2) Acute exacerbation of CHF (congestive heart failure) Current Visit: Yes Status: Acute Assessment and plan: Patient denies any past history of CHF echo completed which does show an EF of 25%-initial BNP was 447-patient initiated on Lasix 20 mg IV twice a day Continuous telemetry monitoring Failure to maintain SPO2 greater than 92% Monitor intake and output daily weights Consult cardiology Qualifiers: Heart failure type: unspecified Qualified Code(s): I50.9 - Heart failure, unspecified (3) COPD exacerbation Current Visit: Yes Status: Acute Assessment and plan: Continuous with oxygen titrated maintain SPO2 greater than 92% [place] sewn 20 mg twice a day (4) Anemia Current Visit: Yes Status: Chronic Assessment and plan: History of chronic anemia hemoglobin stable at this time we will continue to monitor Qualifiers: Anemia type: unspecified type Qualified Code(s): D64.9 - Anemia, unspecified (5) Diabetes Current Visit: Yes Status: Chronic Assessment and plan: Accu-Cheks before meals at bedtime with sliding scale insulin-A she is on steroids Qualifiers: Diabetes mellitus type: type 2 Diabetes mellitus complication status: with unspecified complications Diabetes mellitus terminal operations manager insulin use: with senior care use Qualified Code(s): E11.8 - Type 2 diabetes mellitus with unspecified complications; Z79.4 - terminal operations manager (current) use of insulin; Z79.4 - terminal operations manager ( current) use of insulin; Z79.4 - terminal operations manager (current) use of insulin; Z79.4 - shelter (current) use of insulin (6) HTN (hypertension) Current Visit: Yes Status: Chronic Assessment and plan: Presently stable continue with home medications Qualifiers: Hypertension type: essential hypertension Qualified Code(s): I10 - Essential (primary) hypertension (7) Elevated troponin Current Visit: No Status: Acute Assessment and plan: Most likely demand ischemia from CHF exacerbation. We will continue to monitor (8) DVT prophylaxis Current Visit: Yes Status: Acute Assessment and plan: Heparin subcutaneous - Subjective Interval history: Patient examined and seen at bedside Patient denies any shortness of breath however this complaining of some pleuritic pain. Denies any cough or sputum production - Constitutional Vitals: Temp Pulse Resp BP Pulse Ox 97.6 F 91 14 128/76 99 10/23/17 20:16 10/23/17 20:16 10/23/17 20:16 10/23/17 20:16 10/23/17 20:16 General appearance: Present: cooperative, A&O X 3, pleasant, no acute distress, answers questions appropriately - Head Head exam: Present: atraumatic, normocephalic - Eye Eye exam: Present: PERRL, conjuntiva pink, sclera anicteric Pupils: Present: PERRL - Neck Neck exam general surgery: Present: supple, trachea midline. Absent: lymphadenopathy - Respiratory Respiratory exam: Present: CTAB. Absent: accessory muscle use, rales, rhonchi, wheezes - Cardiovascular Cardiovascular exam: Present: RRR, +S1, +S2. Absent: diastolic murmur, gallop, rubs, systolic murmur - GI/Abdominal GI/Abdominal exam: Present: normal bowel sounds, soft, no peritoneal signs. Absent: distended, tenderness - Extremities Exam Extremities exam: Present: warm, radial pulses palpable and symmetrical. Absent : calf tenderness, cyanotic, pedal edema - Neurological Exam Neurological exam: Present: CN II-XII intact, oriented X3, no focal deficits. Absent: pronater drift, facial droop, speech deficit - Skin Skin exam: Present: dry, intact Internal Medicine: Result - Labs CBC & Chem 7: 10/23/17 00:41 10/23/17 00:41 Labs: Short CBC 10/23/17 Range/Units 00:41 WBC 11.0 (4.3-11.1) K/mcL Hgb 10.5 L (12.9-16.9) g/dL Hct 33.0 L (37.5-50.1) % Plt Count 221 (140-400) K/mcL Neutrophils # 10.2 H (1.6-8.9) K/mcL BMP 10/23/17 00:41 Sodium 135 L Potassium 4.0 Chloride 97 L Carbon Dioxide 30 H BUN 24 H Creatinine 0.91 Glucose 284 H Calcium 8.9 Cardiac Enzymes 10/23/17 Range/Units 00:41 Troponin I 0.03 (< 0.04) ng/mL Liver Function 10/23/17 Range/Units 00:41 Total Bilirubin 0.2 L (0.3-1.0) mg/dL AST 7 L (13-39) Units/L ALT 10 (7-52) Units/L Alkaline Phosphatase 51 (34-104) Units/L Albumin 3.3 L (3.5-5.7) g/dL - ABG Interpretation ABG results: PT/INR, D-dimer PT 12.2 Seconds (9.4-12.1) H 10/22/17 10:50 D-Dimer 1162 ng/mLFEU (0-500) H 10/22/17 15:53 - Impressions Impressions Chest CTA 10/22/17 19:05 IMPRESSION: 1. No CT evidence of a pulmonary embolism. 2. Atherosclerotic disease of the thoracic aorta, without evidence of aneurysm or dissection. 3. Interval improvement in appearance of bilateral pleural effusions with a small left pleural effusion remaining. 4. Complete interval resolution of previously identified left upper lobe pneumonia. 5. Persistent basilar subpleural opacity within the left lower lobe, with new subpleural tree-in-bud opacities also noted within the left lower lobe. This likely reflects an infectious or inflammatory process to include possible aspiration pneumonia. Suggest appropriate clinical treatment and short-term chest CT follow-up in 6-8 weeks to ensure resolution of these opacities and to exclude underlying pulmonary malignancy. 6. Stable mild subpleural atelectasis within the right lung. 7. Chronic severe emphysema. 8. Stable mild mediastinal and bilateral hilar lymphadenopathy. D/ / 10/22/2017 20:26:32 Refugio Toussaint MD / [place] Interpreting Provider: Refugio Toussaint MD Echocardiogram 10/23/17 15:33 Impressions: LVEF 25%. Mildly dilated left ventricle. Severe global left ventricular systolic dysfunction. Mild left ventricular diastolic dysfunction. Normal right ventricular structure and function. Mild mitral regurgitation. Mild pulmonary hypertension. Left Ventricular Wall Motion: Rest Echo Findings The apex, apical inferior, mid inferior, basal inferior, apical anterior, mid anterior, basal anterior, apical septal, mid inferior septal, basal inferior septal, apical lateral, mid anterior lateral, basal anterior lateral, mid anterior septal, mid inferior lateral, basal anterior septal and basal inferior lateral otero were hypokinetic. Findings: Study Quality * Technically adequate exam. ECG Findings * Normal sinus rhythm. Left Ventricle * LVEF 25%. * Mildly dilated left ventricle. * Severe global left ventricular systolic dysfunction. * Mild left ventricular diastolic dysfunction. Right Ventricle * Normal right ventricular structure and function. Left Atrium * Mildly dilated left atrium. Right Atrium * Moderately dilated right atrium. Interatrial Septum * Interatrial septum not well evaluated. Aortic Valve * Aortic valve not well visualized. * No aortic regurgitation. * No aortic stenosis. Mitral Valve * Normal mitral valve structure. * Mild mitral regurgitation. * No mitral stenosis. Tricuspid Valve * Normal tricuspid valve structure and function. * Trace tricuspid regurgitation. * Mild pulmonary hypertension. Pulmonic Valve * Pulmonic valve is not well visualized. * No pulmonic regurgitation. Aorta * Normally sized aortic root. Pericardium * The pericardium appears normal. IVC * Normal IVC dimensions and inspiratory collapse. Pulmonary Artery * Normal visualized portions of the main pulmonary artery. Consult Discharge Plan - Plan Referrals: Toney Santos Jr, MD [Primary Care Provider] -
[2017-10-24] MEDS: *HR* HYDROcodone/Acet 5/325 mg TABLET PO PRN ×2 (05:05→14:29)
[2017-10-24] MEDS: *HR* Heparin 5,000 UNIT/ML VIAL SQ SCH ×3 (05:05→20:56)
[2017-10-24 05:59] LABS: Basophils % 0.2 %; Hematocrit 36.7 % (37.5-50.1); Immature Granulocytes % 1.1 % (0-4); Lymphocytes # 1.6 K/mcL (0.6-4.6); Lymphocytes % 8.5 %; Mean Corpuscular HGB Conc 32.7 g/dL (31.6-35.5); Mean Corpuscular Volume 85.5 fL (83.0-100.0); Mean Platelet Volume 8.9 fL (9.4-12.4); Monocytes # 0.8 K/mcL (0.0-1.3); Monocytes % 4.2 %; Platelet Count 259 K/mcL (140-400); Red Blood Count 4.29 M/mcL (4.19-5.50); Red Cell Distribution Width 13.2 % (11.5-14.5)
[2017-10-24 06:00] LABS: Neutrophils # 16.5 K/mcL (1.6-8.9)
[2017-10-24 06:25] LABS: Alanine Aminotransferase 12 Units/L (7-52); Albumin 3.6 g/dL (3.5-5.7); Alkaline Phosphatase 53 Units/L (34-104); Aspartate Amino Transferase 11 Units/L (13-39); BUN/Creatinine Ratio 40 (6-26); Bilirubin,Total 0.2 mg/dL (0.3-1.0); Blood Urea Nitrogen 31 mg/dL (8-23); Calcium 9.3 mg/dL (8.6-10.3); Carbon Dioxide 29 mEq/L (23-29); Chloride 100 mEq/L (98-107); Globulin 3.6 g/dL (2.4-3.5); Glucose 150 mg/dL (70-105); Osmolality,Calculated 295 (280-300); Potassium 4.3 mEq/L (3.5-5.1); Sodium 138 mEq/L (136-145); Total Protein 7.2 g/dL (6.4-8.9); eGFR For African Americans > 60 (> 60); eGFR For Non-African Americans > 60 (> 60)
[2017-10-24] MEDS: 0.9 % Sodium Chloride 1,000 ML IVC SCH (07:35)
[2017-10-24] MEDS: Insulin LISPRO 300 UNITS/3 ML VIAL SQ SCH ×4 (07:58→20:52)
[2017-10-24] MEDS: predniSONE 20 MG TABLET PO SCH ×2 (08:47→17:47)
[2017-10-24] MEDS: *HR* OxyCODONE/APAP 5/325 TABLET PO PRN ×2 (08:47→20:53)
[2017-10-24] MEDS: Gabapentin 300 MG CAPSULE PO SCH ×4 (08:47→20:52)
[2017-10-24] MEDS: Aspirin Enteric Coated 81 MG Tablet PO SCH (08:47)
[2017-10-24] MEDS: Pantoprazole 40 MG VIAL IVP SCH (08:48)
[2017-10-24] MEDS: Furosemide 20 MG/2 ML VIAL IVP SCH ×2 (08:48→20:53)
--- NOTE | 2017-10-24 09:02 | Cardiology Consult Note ---
<Cass Florentino Marilee - Last Filed: 10/24/17 09:35> Date of Encounter: 10/24/17 Time of Encounter: 08:30 Assessment and Plan (1) Cardiomyopathy Current Visit: Yes Status: Acute Chronicity and etiology unclear; family reports worsening shortness of breath/ activity intolerance for the past month. TTE 10/23/17: LVEF 25%, severe global LV systolic dysfunction, mild LVDD, mild MR , mild PH Last EF assessment 2014--poor quality study. Low normal EF (2009) on dobutamine stress echo, 45-50%--was found to be negative for ischemia. Risk factors for CAD: age, HTN, HLD, DMII, former tobacco use. Appears nearly euvolemic upon exam, also found to have CAP with leukocytosis upon admission. Continue ACEi, diuretic. Will add low dose BB. I&O's not accurate. Recommend LHC with possible PCI; alternatives, risks, and benefits discussed. At this time, he is unsure if he wants to proceed; however family wants to proceed with LHC. Will further discuss and review with Dr. Schmitz. Qualifiers: Cardiomyopathy type: unspecified Qualified Code(s): I42.9 - Cardiomyopathy , unspecified (2) Pneumonia Current Visit: Yes Status: Acute WBC trending up today, 19.2. On ATB for CAP. Mgmt per primary service. Qualifiers: Pneumonia type: due to unspecified organism Laterality: left Lung location: lower lobe of lung Qualified Code(s): J18.1 - Lobar pneumonia, unspecified organism Discussion w patient/family: The assessment and plan as outlined above was discussed with the patient and/or family members who expressed understanding and agreement. All questions were answered. Thank you for involving us in the care of your patient. Please call with any questions. History of Present Illness Consult date: 10/24/17 Requesting physician: Caryn Alegre Consult reason: Cardiomyopathy Chief complaint: Shortness of breath History of present illness: Mr. Quinn is a 82 year old male with PMHx significant for COPD on home o2, DMII, GERD, seizures, and TIA who presented to the ED with worsening shortness of breath. He was found to have PNA and started on IV ATB; leukocytosis and tachycardia also present upon admission. Cardiology consulted today for new cardiomyopathy, EF 25% per TTE. Past Med Surg Social Fam HX - Past Medical History Medical history: arthritis, COPD, diabetes, GERD, seizures, TIA Psychiatric history: no psych history - Past Surgical History Surgical History: orthopedic, other (Disc surgeries in neck and back), other ( Hemorrhoidectomy) - Social History Smoking Status: Former smoker Packs per day: 3 PPD - Reports quitting in 2004 Smokeless Tobacco Status: No Alcohol use: none Drug use: none - Family History Father Adopted: No Race: Family Member Ethnicity: Non- Living Status: Age at : 68 Cause of : Leukemia Hx Family Cardiac Disorders: No Hx Family Respiratory Disorders: No Hx Family Cancer: Yes (Leukemia, Prostate) Hx Family GI Disorders: No Hx Family Genitourinary Disorders: No Hx Family Endocrine Disorder: No Hx Family Musculoskeletal Disorders: No Hx Family Neuromuscular Disorders: No Hx Family Neurologic Disorders: No Hx Family HEENT Disorders: No Hx Family Autoimmune Disorders: No Hx Family Reproductive Disorders: No Hx Family Psychosocial Disorders: No Hx Family Medical Disorders: No Mother Adopted: No Race: Family Member Ethnicity: Non- Living Status: Age at : 84 Cause of : Gas gangrene Hx Family Cardiac Disorders: No Hx Family Respiratory Disorders: No Hx Family Cancer: No Hx Family GI Disorders: No Hx Family Genitourinary Disorders: Yes (gas gangrene) Hx Family Endocrine Disorder: No Hx Family Musculoskeletal Disorders: Yes (Gas gangrene) Hx Family Neuromuscular Disorders: No Hx Family Neurologic Disorders: No Hx Family HEENT Disorders: No Hx Family Autoimmune Disorders: No Hx Family Reproductive Disorders: No Hx Family Psychosocial Disorders: No Hx Family Medical Disorders: No Brother Race: Family Member Ethnicity: Non- Living Status: Age at : 65 Cause of : Esophageal cancer Hx Family Cardiac Disorders: No Hx Family Respiratory Disorders: No Hx Family Cancer: Yes (Esophageal) Hx Family GI Disorders: No Hx Family Genitourinary Disorders: No Hx Family Endocrine Disorder: No Hx Family Musculoskeletal Disorders: No Hx Family Neuromuscular Disorders: No Hx Family Neurologic Disorders: No Hx Family HEENT Disorders: No Hx Family Autoimmune Disorders: No Hx Family Reproductive Disorders: No Hx Family Psychosocial Disorders: No Hx Family Medical Disorders: No Sister Race: Family Member Ethnicity: Non- Living Status: Age at : 70 Cause of : Kidney cancer Hx Family Cardiac Disorders: No Hx Family Cancer: Yes (Kidney) Hx Family GI Disorders: No Hx Family Genitourinary Disorders: No Hx Family Endocrine Disorder: Yes (Type 2 diabetes) Hx Family Musculoskeletal Disorders: No Hx Family Neuromuscular Disorders: No Hx Family Neurologic Disorders: No Hx Family HEENT Disorders: No Hx Family Autoimmune Disorders: No Hx Family Reproductive Disorders: No Hx Family Psychosocial Disorders: No Hx Family Medical Disorders: No Medications and Allergies ALPRAZolam [Xanax 0.5 MG Tablet] 0.5 mg PO QID PRN 09/28/16 [History] Albuterol Sulfate [Ventolin Hfa] 2 puff IH Q4H PRN 09/28/16 [History] Aspirin [Lo-Dose Aspirin EC] 81 mg PO DAILY 09/28/16 [History] Gabapentin 600 mg PO QID 09/28/16 [History] Ipratropium/Albuterol Neb [Duoneb] 3 ml IH Q6HR 09/28/16 [History] Oxycodone HCl/Acetaminophen [Endocet 5-325 Tablet] 1 tab PO Q6H PRN #20 [Rx] Insulin DETEMIR [Levemir Flextouch] 15 - 20 unit SQ HS PRN 06/27/17 [History] Insulin LISPRO [Humalog Kwikpen U-100] 0 unit SQ TID PRN 06/27/17 [History] Levalbuterol Neb [Xopenex Neb] 0.63 mg IH Q4H PRN 06/27/17 [History] Lisinopril [Zestril] 10 mg PO BID 06/27/17 [History] Amitriptyline [Elavil] 100 mg PO HS 10/22/17 [History] 3 Allergy/AdvReac Type Severity Reaction Status Date / Time Erythromycin Base Allergy Hives Verified 06/27/17 10:46 All Systems Review: The remainder of the systems were reviewed and are negative - Cardiovascular Cardiovascular: as per HPI Physical Examination Vital Signs, Last 4 Hours Temp Pulse Resp BP Pulse Ox 10/24/17 07:37 97.9 F 82 16 147/73 97 General: Conversant HEENT: Atraumatic, Normocephaly Cardiac: Reg Rate and Rhythm Lungs: Other (Decreased, wheezing. ) Neuro: Alert and responsive Abdomen: Soft Skin: No rashes noted on visualized skin Musculoskeletal: No Chest Wall Tenderness Extremities: Other (bilateral LE discoloration, mild BLE edema. ) Results 10/24/17 05:30 10/24/17 05:30 Lab Results 10/24/17 10/24/17 05:30 05:30 WBC 19.2 H D Hgb 12.0 L D Hct 36.7 L Plt Count 259 Sodium 138 Potassium 4.3 Chloride 100 Carbon Dioxide 29 BUN 31 H Creatinine 0.77 Glucose 150 H Calcium 9.3 Total Bilirubin 0.2 L AST 11 L ALT 12 Alkaline Phosphatase 53 Active Medications Acetaminophen (Tylenol) 650 mg PO Q6HR PRN PRN Reason: Mild Pain/Fever Stop: 04/23/18 14:51 Hydrocodone Bitart/Acetaminophen ([place] 5-325 Mg) 1 tab PO Q6HR PRN PRN Reason: Moderate Pain Stop: 04/23/18 14:51 Last Admin: 10/24/17 05:05 Dose: 1 tab Alprazolam (Xanax) 0.5 mg PO QID PRN; Protocol PRN Reason: Anxiety Stop: 04/23/18 14:30 Amitriptyline HCl (Elavil) 100 mg PO HS TEO Stop: 04/23/18 21:01 Last Admin: 10/23/17 21:11 Dose: 100 mg Aspirin (Aspirin Ec) 81 mg PO DAILY TEO Stop: 04/24/18 09:01 Last Admin: 10/24/17 08:47 Dose: 81 mg Dextrose/Water (Dextrose 50% (Syg)) 25 ml IVP AD PRN PRN Reason: Hypoglycemia Stop: 04/23/18 14:50 Diphenhydramine HCl (Benadryl) 25 mg IVP Q6HR PRN PRN Reason: Itching Stop: 04/23/18 14:59 Furosemide (Lasix) 20 mg IVP BID TEO Stop: 04/23/18 21:01 Last Admin: 10/24/17 08:48 Dose: 20 mg Gabapentin (Neurontin) 600 mg PO QID TEO Stop: 04/23/18 17:01 Last Admin: 10/24/17 08:47 Dose: 600 mg Glucagon (Glucagen) 1 mg IM ONCE PRN PRN Reason: Hypoglycemia Stop: 04/23/18 14:50 Glucose (Gluctose) 15 gm PO ONCE PRN PRN Reason: Hypoglycemia Stop: 04/23/18 14:50 Glucose (Gluctose) 30 gm PO ONCE PRN PRN Reason: Hypoglycemia Stop: 04/23/18 14:50 Heparin Sodium (Porcine) (Heparin) 5,000 unit SQ Q8HCO [facility] Stop: 04/23/18 22:01 Last Admin: 10/24/17 05:05 Dose: 5,000 unit Dextrose (Dextrose 5%) 1,000 mls @ 100 mls/hr IVC .Q10H PRN PRN Reason: HYPOGLYCEMIA Stop: 04/23/18 14:50 Azithromycin 500 mg/ Dextrose 250 mls @ 252 mls/hr IVPB Q24H [facility] Stop: 04/24/18 15:01 Last Admin: 10/23/17 15:40 Dose: 252 mls/hr Ceftriaxone Sodium 2,000 mg/ (Sterile Water) 20 mls @ 600 mls/hr IVP Q24H [facility] Stop: 04/24/18 15:01 Last Admin: 10/23/17 15:40 Dose: 600 mls/hr Insulin Human Lispro (Humalog) 0 units SQ TIDAC [facility] PRN Reason: Protocol Stop: 04/23/18 16:31 Last Admin: 10/24/17 07:58 Dose: Not Given Insulin Human Lispro (Humalog) 0 units SQ HS [facility] PRN Reason: Protocol Stop: 04/23/18 21:01 Last Admin: 10/23/17 21:19 Dose: Not Given Levalbuterol HCl (Xopenex) 0.63 mg IH Q4H PRN PRN Reason: Dyspnea Stop: 04/23/18 14:30 Lisinopril (Zestril) 10 mg PO BID [facility] PRN Reason: Protocol Stop: 04/23/18 21:01 Last Admin: 10/24/17 08:48 Dose: 10 mg Naloxone HCl (Narcan) 0.4 mg IVP Q2MIN PRN PRN Reason: SEE COMMENTS Stop: 04/23/18 14:51 Ondansetron HCl (Zofran) 4 mg IVP Q8HR PRN; Protocol PRN Reason: Nausea And Vomiting Stop: 04/23/18 15:58 Oxycodone/Acetaminophen (Percocet 5/325) 1 each PO Q6H PRN PRN Reason: Severe Pain Stop: 04/23/18 14:30 Last Admin: 10/24/17 08:47 Dose: 1 each Pantoprazole Sodium (Protonix) 40 mg IVP DAILY TEO Stop: 04/23/18 16:01 Last Admin: 10/24/17 08:48 Dose: 40 mg Prednisone (Prednisone) 20 mg PO BIDWM TEO Stop: 04/23/18 17:01 Last Admin: 10/24/17 08:47 Dose: 20 mg - Imaging and Cardiology Echo: report reviewed Other Results: 12 hour tele: avg [id number]=[id number] ST. - EKG Interpretation EKG results cardiology: personally reviewed Consult Discharge Plan - Plan Referrals: Toney Santos Jr, MD [Primary Care Provider] - <Marin Schmitz - Last Filed: 10/24/17 15:20> Date of Encounter: 10/24/17 - Attending Attestation 82 YOM with severe COPD, on home oxygent presents with severe LV systolic dysfunction (EF 25%) with worsening MAZA, and exertional angina. He was found also to have signs of pneumonia which are improving. I have discussed with him and his family R/B/A of a [facility] and they agree to proceed. Describes having chest pain and worsening SOB over the last few years. Assessment and Plan Discussion w patient/family: The assessment and plan as outlined above was discussed with the patient and/or family members who expressed understanding and agreement. All questions were answered. Thank you for involving us in the care of your patient. Please call with any questions. History of Present Illness History of present illness: Mr. Quinn is a 82 year old male All Systems Review: The remainder of the systems were reviewed and are negative Physical Examination Vital Signs, Last 4 Hours Temp Pulse Resp BP Pulse Ox 10/24/17 15:02 98.4 F 99 18 123/70 100 10/24/17 14:23 88 18 146/78 99 10/24/17 14:08 88 18 136/78 96 10/24/17 13:53 84 18 138/77 100 10/24/17 13:41 98.0 F 89 17 144/78 99 Results 10/24/17 05:30 10/24/17 05:30 Lab Results 10/24/17 10/24/17 05:30 05:30 WBC 19.2 H D Hgb 12.0 L D Hct 36.7 L Plt Count 259 Sodium 138 Potassium 4.3 Chloride 100 Carbon Dioxide 29 BUN 31 H Creatinine 0.77 Glucose 150 H Calcium 9.3 Total Bilirubin 0.2 L AST 11 L ALT 12 Alkaline Phosphatase 53
[2017-10-24] MEDS ORDERED: Nitroglycerin 1,000 MCG/10 ML VIAL IV ONE (12:21)
[2017-10-24] MEDS ORDERED: Heparin 1,000 UNITS/500 mL 500 ML ONE (12:21)
[2017-10-24] MEDS ORDERED: *HR* Heparin 10,000 UNIT/10 ML VIAL ONE (12:21)
[2017-10-24] MEDS ORDERED: ISOVUE-370 200 ML INFUS..BTL IV ONE (12:21)
[2017-10-24] MEDS ORDERED: 0.9 % Sodium Chloride 1,000 ML ONE ×2 (12:21→12:25)
--- NOTE | 2017-10-24 12:48 | Pre-Sedation Evaluation ---
Pre-sedation evaluation - Pre-sedation checklist Date of procedure: 10/24/17 Procedure: [facility] Recent Vitals: Last Vital Signs Temp 98.0 F 10/24/17 11:07 Pulse 109 10/24/17 11:07 Resp 16 10/24/17 11:07 BP 137/69 10/24/17 11:07 Pulse Ox 95 10/24/17 11:07 H&P (including ROS) documented in medical record: Yes Previous reaction to sedatives/anesthetics: No Dietary Status: NPO after Midnight Airway Assessment: Patient can open mouth completely, TMJ function normal Dentition: dentures removed Possible difficult airway: No Plan of Care: Pt appropriate candidate for procedure/moderate/conscious sedation , Risks/benefits of procedure/sedation discussed w/ patient/family, If not NPO; Risk of intake outweiged by necessity to perform procedure
[2017-10-24] MEDS ORDERED: *HR* Midazolam HCl 2 MG/2 ML VIAL ONE (12:52)
--- NOTE | 2017-10-24 13:28 | Invasive Diagnostic Lab Proc ---
Name: Declan Quinn Date of Study: 10/24/2017 Date: 1935 Ht: 68.1in Medical Record#: [id number] Age: 82 Wt: 169.76lb Gender: Male BSA: 1.91 Order #: [id number] BMI: 25.73 Physicians Procedure Physician: Andrés Easton DO Referring MD: Referring MD: Staff Name Position Time In Shane Hernandez RT (R) Scrub 12:51 PM Les Roe RN Firmware Manager 12:51 PM Indications Indication Cardiomyopathy Procedures Performed Procedure L HRT ARTERY/VENTRICLE ANGIO Pre-Procedure Checklist Informed consent is complete signed and on chart. H&P is on chart. ID band is on and ID verified with patient. Patient NPO for procedure The procedure was described for the patient and questions were answered. Blood Pressure: 145/88 ECG is on chart. Rhythm: NSR Plan of Care Patient will tolerate the procedure without complications. Adequate level of comfort will be maintained. Hemodynamics will remain stable Patient will recover from procedure without complications. Respiratory function will be maintained. Cardiac rhythm will remain stable. Patient temperature will be maintained. Patient and/or family have verbalized understanding of the procedure. Patient Education Chief Complaint/Reason for Test: Cardiac Cath Developmental Category: Geriatric (65+ years) Developmentally Appropriate for Age: Yes Learning Barriers: None Education Needs: Procedure Education Method: Verbal Information Taught: Cardiac Cath Educational Evaluation: Able to repeat information Intravenous Access Time IV Size Location DC'd Fluid/Drip Rate Units RN 12:57 PM 20g 1 08/29" Patent On Arrival Rt Antecubital 0.9NaCl 25 ml/hr Lse Roe RN Allergies Erythromycin MACROLIDE ANTIBIOTIC Erythromycin Base ERYTHROMYICIN Macrolide (Erythromycin-Related) Vital Signs Time BP (mmHg) HR (bpm) O2 Sat. RR (bpm) LOC 12:44 PM / % 5 = Fully awake and oriented or at pre-proc level 12:44 PM / % 4 = Oriented but drowsy 01:00 PM / % 4 = Oriented but drowsy 12:50 PM 138 / 89 99 % 20 12:54 PM 145 / 88 95 100 % 23 01:00 PM 142 / 84 92 100 % 18 01:04 PM 140 / 82 93 100 % 17 01:09 PM 137 / 84 93 100 % 15 01:14 PM 139 / 82 92 100 % 19 Procedural Medications Time Medication Dose Units Method Given By 12:52 PM Oxygen 3 L/min nasal cannula Les Roe RN 12:53 PM Versed 1 mg Intravenous Les Roe RN 01:02 PM Lidocaine 2% 10 ml Subcutaneous Andrés Easton DO Norma Score Preprocedure Postprocedure Activity 2- Moves 4 extremities sustained head lift Activity 2- Moves 4 extremities sustained head lift Circulation 2- SBP +/= 20 points of pre-anesthetic level Circulation 2- SBP +/= 20 points of pre-anesthetic level Consciousness 2- Awake and alert oriented x 3 Consciousness 2- Awake and alert oriented x 3 O2 Saturation 2- Able to maintain O2 satruation of 92% on room air O2 Saturation 2- Able to maintain O2 satruation of 92% on room air Respiratory 2- Able to deep breathe and cough well Respiratory 2- Able to deep breathe and cough well Total Score 10 Total Score 10 Contrast Agent: Isovue Diagnostic Contrast: 60 ml Total Contrast: 60 ml Fluoro Dose: 176 mGy Procedure Log Time Note Enter By 12:44 PM Pt arrived to computer lab para professional 2 at 12:44 scoates 12:44 PM Physician arrived 12:44 scoates 12:44 PM Meet and greet completed scoates 12:44 PM Sign in performed according to hospital policy. scoates 12:44 PM Procedure start 12:44 scoates 12:44 PM Time: 12:44 Patient comfortable and pain free: Yes scoates 12:44 PM Time: 12:44LOC: 5 = Fully awake and oriented or at pre-proc level scoates 12:48 PM Vitals capture started with the following parameters, Patient=Adult, Interval=5 min, Initial Skfcvgdo=905 mmHg, Deflation Rate=5 mmHg, Cuff placed on Right Arm 12:50 PM HR=99 bpm, SDTJ=263/89 mmhg, Resp=20 B/min, Comment=sr 12:51 PM Case Delayed No, inpatient scoates 12:51 PM Hair removed from procedure site in procedure lab using clippers. Bilateral groin prepped with Chloraprep by Les Roe RN, then patient was draped. Skin intact. scoates 12:51 PM Patient charges- Angio tray pack, Navilyst 3mm J, Pulse Oximetry and ACIST tubing and transducer scoates 12:51 PM David, Shane RT (R) Position: Scrub Time in: 12:51 scoates 12:51 PM Les Roe RN Position: Firmware Manager Time in: 12:51 scoates 12:52 PM Time: 12:52 Oxygen on at 3 L/min per nasal cannula by Les Roe RN scoates 12:53 PM Clinical Presentation: No symptoms, no angina scoates 12:53 PM Time: 12:53 Versed 1 mg Intravenous Given by Les Roe RN scoates 12:54 PM HR=95 bpm, STZJ=992/88 mmhg, KeM3=015.0 %, Resp=23 B/min 12:56 PM Pressure channel 2 zeroed. 12:57 PM Clinical Presentation: No symptoms, no angina scoates 01:00 PM Time: 12:44LOC: 4 = Oriented but drowsy scoates 01:00 PM Time: 12:44 Patient comfortable and pain free: Yes scoates 01:00 PM HR=92 bpm, ICKH=287/84 mmhg, EeW8=206.0 %, Resp=18 B/min, Comment=sr 01:02 PM Time out performed according to hospital policy scoates 01:02 PM Time: 13:02 10 ml Lidocaine 2% to right groin Subcutaneous Given by Andrés Easton DO scoates 01:04 PM Micro-Introducer Kit utilized for sheath placement scoates 01:04 PM Access obtained by percutaneous puncture. 6Fr 10cm Terumo [place] sheath placed in right Femoral artery. [id number] scoates 01:04 PM 6Fr FR 4 catheter inserted over the wire DNC scoates 01:04 PM HR=93 bpm, MSWN=320/82 mmhg, EfJ3=857.0 %, Resp=17 B/min, Comment=sr 01:05 PM Catheter selectively placed in left ventricle scoates 01:05 PM Bolus angiogram of left Ventricle complete: hand injected for a total of 10 mls scoates 01:05 PM Recorded Pressure: LV, HR=93, Condition=Condition 1 (Left Ventricle) LV 137/6/10 01:06 PM Recorded Pressure: LV, Ao, HR=96, Condition=Condition 1 (Left Ventricle) LV 131/61/73, (Aorta) Ao 127/60/89 01:06 PM RCA angiography performed in multiple views. scoates 01:06 PM Catheter removed scoates 01:06 PM 6Fr FL 4 catheter inserted over the wire DNC scoates 01:07 PM Recorded Pressure: Ao, HR=94, Condition=Condition 1 (Aorta) Ao 126/61/86 01:07 PM Recorded Pressure: Ao, HR=96, Condition=Condition 1 (Aorta) Ao 135/69/97 01:08 PM LCA angiography performed in multiple views. scoates 01:09 PM HR=93 bpm, SHOM=399/84 mmhg, IkV3=945.0 %, Resp=15 B/min, Comment=sr 01:10 PM Bolus angiogram of right Femoral complete: hand injected for a total of 5 mls scoates 01:10 PM Procedure completed at 13:10 scoates 01:11 PM Did you address ARLEEN flow and Dominance? Yes scoates 01:11 PM Sign out completed: Radiation Dose 176 mGy Fluoro Time: 1.9 Isovue 370 - 200ml contrast 60 ml given by Andrés Easton DO. Complications: NoneCardiac Rehab Consult needed: NoConfirmed administered medications: Yes scoates 01:11 PM Isovue 370 - 200ml,1 Bottle(s) used. scoates 01:11 PM What is the NYHA Class? Class 2 scoates 01:14 PM Arterial sheath pulled, Angio-seal closure device used and was Successful [id number] S/N. scoates 01:14 PM Estimated Blood Loss: minimal scoates 01:14 PM Post ECG NSR scoates 01:14 PM HR=92 bpm, STRO=031/82 mmhg, HgZ4=277.0 %, Resp=19 B/min 01:14 PM Post Blood Pressure 137/84 scoates 01:14 PM 13:14 Post Pulses Bilateral DP & PT 1+ scoates 01:14 PM Information taught Cardiac Cath scoates 01:14 PM Education needs Procedure, Plan of Care, and Responsibilities of Patient in Care scoates 01:15 PM Time: 13:00LOC: 4 = Oriented but drowsy scoates 01:15 PM Learning barriers :None scoates 01:15 PM Education Methods Verbal scoates 01:15 PM Education evaluation Able to repeat information scoates 01:15 PM Site status No bleeding/hematoma - Rt Groin as reported by Shane Hernandez RT (R) at 13:15 scoates 01:15 PM Opsite applied scoates 01:15 PM Plavix, Effient or Brilinta given No scoates 01:17 PM Delay to floor No scoates 01:17 PM Family placed in consult room. scoates 01:17 PM Patient out of room: 13:17 scoates 01:18 PM Complications: None scoates 01:18 PM Fluoro Time: 1.9 scoates 01:18 PM Isovue 370 - 200ml contrast 60 ml given by Andrés Easton DO. scoates 01:18 PM Radiation Dose 176 mGy scoates 01:21 PM Report given to Renate LOPEZ Pt taken to 3B Room #47. 13:21 scoates 01:23 PM Coronary Dominance: right scoates Complications Complication None None Hemodynamics Pressures Site Systolic/A Wave Diastolic/V Wave Mean LV 137 6 10 LV 131 61 73 AO 127 60 89 AO 126 61 86 AO 135 69 97 Post Procedure Information Blood Pressure: 137/84 mmHg Rhythm: NSR Post procedural instructions were given Closure Device Time Device Success/Fail 10/24/2017 1:16:00 PM Angio-seal Evolution Successful Site Checks Time Location Status Staff Sheath In? Note 01:15 PM Rt Groin No bleeding/hematoma Shane Hernandez RT (R) Pulses Time Site Pre-Procedure Post-Procedure Note 10/24/2017 12:58:00 PM Bilateral DP & PT 1+ 1:14:00 PM Bilateral DP & PT 1+ Updated by Jill Craven RN on 10/24/2017 1:23:17 PM electronically signed on 10/24/2017 1:23:45 PM with status of Final
[2017-10-24] MEDS: cefTRIAXone 2,000 MG in Water for inj. (sterile) 20 ML 20 ML IVP SCH (14:29)
[2017-10-24] MEDS: Azithromycin 500 MG in D5% in Water 250 ML IVPB SCH (14:30)
--- NOTE | 2017-10-24 14:59 | Internal Med Progress Note ---
Date of Encounter: 10/24/17 Time of Encounter: 14:51 - Assessment and plan (1) Pneumonia Current Visit: Yes Status: Acute Assessment and plan: Patient's white count was 16.1 on admission chest x-ray did show new left pleural effusion with increasing basal opacity the reflecting atelectasis or pneumonia. CTA chest shows persistent basilar subpleural opacity within the left lower lobe with new subpleural tree-in-bud opacities also noted within the left lower lobe this likely reflects an infectious or inflammatory process to include possibly aspiration pneumonia. Continue with IV azithromycin and Rocephin blood cultures have been obtained we will obtain sputum culture lesion - strep pneumoniae antigens ordered awaiting results. Continue with oxygen Xopenex when necessary Oxygen as needed Qualifiers: Pneumonia type: due to unspecified organism Laterality: left Lung location: lower lobe of lung Qualified Code(s): J18.1 - Lobar pneumonia, unspecified organism (2) Acute exacerbation of CHF (congestive heart failure) Current Visit: Yes Status: Acute Assessment and plan: Patient denies any past history of CHF echo completed which does show an EF of 25%-initial BNP was 447-patient initiated on Lasix 20 mg IV twice a day Continuous telemetry monitoring Continue beta danielle and daisy oxygen to maintain SPO2 greater than 92% Monitor intake and output daily weights Consult cardiology- recommends cardiac catheterization-awaiting results Qualifiers: Heart failure type: unspecified Qualified Code(s): I50.9 - Heart failure, unspecified (3) COPD exacerbation Current Visit: Yes Status: Acute Assessment and plan: Continuous with oxygen titrated maintain SPO2 greater than 92% Prednisone 20 mg twice a day Bronchodilators (4) Anemia Current Visit: Yes Status: Chronic Assessment and plan: History of chronic anemia hemoglobin stable at this time we will continue to monitor Qualifiers: Anemia type: unspecified type Qualified Code(s): D64.9 - Anemia, unspecified (5) Diabetes Current Visit: Yes Status: Chronic Assessment and plan: Accu-Cheks before meals at bedtime with sliding scale insulin- on steroids-we will need to monitor and adjust insulin accordingly Qualifiers: Diabetes mellitus type: type 2 Diabetes mellitus complication status: with unspecified complications Diabetes mellitus fpc insulin use: with terminologist use Qualified Code(s): E11.8 - Type 2 diabetes mellitus with unspecified complications; Z79.4 - terminal computer operator (current) use of insulin; Z79.4 - terminal computer operator ( current) use of insulin; Z79.4 - terminal computer operator (current) use of insulin; Z79.4 - senior living (current) use of insulin (6) HTN (hypertension) Current Visit: Yes Status: Chronic Assessment and plan: Presently stable continue with home medications Qualifiers: Hypertension type: essential hypertension Qualified Code(s): I10 - Essential (primary) hypertension (7) Elevated troponin Current Visit: No Status: Acute Assessment and plan: Most likely demand ischemia from CHF exacerbation. -Evaluated by cardiology patient will undergo cardiac catheterization (8) DVT prophylaxis Current Visit: Yes Status: Acute Assessment and plan: Heparin subcutaneous - Time Spent With Patient less than 15 minutes - Subjective Interval history: Patient examined and seen at bedside Patient denies any shortness of breath however this complaining of some pleuritic pain. Denies any cough or sputum production. Seen by cardiology he is waiting to go for cardiac catheterization - Constitutional Vitals: Temp Pulse Resp BP Pulse Ox 98.0 F 89 17 144/78 99 10/24/17 13:41 10/24/17 13:41 10/24/17 13:41 10/24/17 13:41 10/24/17 13:41 General appearance: Present: cooperative, A&O X 3, pleasant, no acute distress, answers questions appropriately - Head Head exam: Present: atraumatic, normocephalic - Eye Eye exam: Present: PERRL, conjuntiva pink, sclera anicteric Pupils: Present: PERRL - Neck Neck exam general surgery: Present: supple, trachea midline. Absent: lymphadenopathy - Respiratory Respiratory exam: Present: CTAB. Absent: accessory muscle use, rales, rhonchi, wheezes - Cardiovascular Cardiovascular exam: Present: RRR, +S1, +S2. Absent: diastolic murmur, gallop, rubs, systolic murmur - GI/Abdominal GI/Abdominal exam: Present: normal bowel sounds, soft, no peritoneal signs. Absent: distended, tenderness - Extremities Exam Extremities exam: Present: warm, radial pulses palpable and symmetrical. Absent : calf tenderness, cyanotic, pedal edema - Neurological Exam Neurological exam: Present: CN II-XII intact, oriented X3, no focal deficits. Absent: pronater drift, facial droop, speech deficit - Skin Skin exam: Present: dry, intact Internal Medicine: Result - Labs CBC & Chem 7: 10/24/17 05:30 10/24/17 05:30 Labs: Short CBC 10/24/17 Range/Units 05:30 WBC 19.2 H D (4.3-11.1) K/mcL Hgb 12.0 L D (12.9-16.9) g/dL Hct 36.7 L (37.5-50.1) % Plt Count 259 (140-400) K/mcL Neutrophils # 16.5 H (1.6-8.9) K/mcL BMP 10/24/17 05:30 Sodium 138 Potassium 4.3 Chloride 100 Carbon Dioxide 29 BUN 31 H Creatinine 0.77 Glucose 150 H Calcium 9.3 Liver Function 10/24/17 Range/Units 05:30 Total Bilirubin 0.2 L (0.3-1.0) mg/dL AST 11 L (13-39) Units/L ALT 12 (7-52) Units/L Alkaline Phosphatase 53 (34-104) Units/L Albumin 3.6 (3.5-5.7) g/dL - ABG Interpretation ABG results: PT/INR, D-dimer PT 12.2 Seconds (9.4-12.1) H 10/22/17 10:50 D-Dimer 1162 ng/mLFEU (0-500) H 10/22/17 15:53 Consult Discharge Plan - Plan Referrals: Toney Santos Jr, MD [Primary Care Provider] -
[2017-10-25 05:13] LABS: Basophils % 0.2 %; Hematocrit 35.7 % (37.5-50.1); Hemoglobin 11.4 g/dL (12.9-16.9); Immature Granulocytes % 0.9 % (0-4); Lymphocytes # 1.8 K/mcL (0.6-4.6); Lymphocytes % 13.8 %; Mean Corpuscular HGB Conc 31.9 g/dL (31.6-35.5); Mean Corpuscular Hemoglobin 27.7 pg (28.0-33.3); Mean Corpuscular Volume 86.7 fL (83.0-100.0); Mean Platelet Volume 9.5 fL (9.4-12.4); Monocytes # 0.7 K/mcL (0.0-1.3); Monocytes % 5.7 %; Neutrophils # 10.1 K/mcL (1.6-8.9); Nucleated Red Blood Cells 0.2 /100 WBC (0); Platelet Count 279 K/mcL (140-400); Red Blood Count 4.12 M/mcL (4.19-5.50); Red Cell Distribution Width 13.2 % (11.5-14.5); Segmented Neutrophils % 79.4 %
[2017-10-25] MEDS: *HR* Heparin 5,000 UNIT/ML VIAL SQ SCH ×3 (05:24→22:09)
[2017-10-25 05:37] LABS: Alanine Aminotransferase 11 Units/L (7-52); Albumin 3.6 g/dL (3.5-5.7); Albumin/Globulin Ratio 1.1 (1.1-2.2); Alkaline Phosphatase 47 Units/L (34-104); Aspartate Amino Transferase 11 Units/L (13-39); BUN/Creatinine Ratio 37 (6-26); Bilirubin,Total 0.2 mg/dL (0.3-1.0); Blood Urea Nitrogen 34 mg/dL (8-23); Calcium 9.2 mg/dL (8.6-10.3); Carbon Dioxide 32 mEq/L (23-29); Chloride 97 mEq/L (98-107); Globulin 3.3 g/dL (2.4-3.5); Glucose 163 mg/dL (70-105); Osmolality,Calculated 293 (280-300); Potassium 3.9 mEq/L (3.5-5.1); Sodium 136 mEq/L (136-145); Total Protein 6.9 g/dL (6.4-8.9); eGFR For African Americans > 60 (> 60); eGFR For Non-African Americans > 60 (> 60)
[2017-10-25] MEDS: Insulin LISPRO 300 UNITS/3 ML VIAL SQ SCH ×4 (07:54→22:09)
[2017-10-25] MEDS: predniSONE 20 MG TABLET PO SCH ×2 (09:20→17:03)
[2017-10-25] MEDS: Pantoprazole 40 MG VIAL IVP SCH (09:20)
[2017-10-25] MEDS: Gabapentin 300 MG CAPSULE PO SCH ×4 (09:20→22:08)
[2017-10-25] MEDS: Aspirin Enteric Coated 81 MG Tablet PO SCH (09:20)
[2017-10-25] MEDS: Furosemide 20 MG/2 ML VIAL IVP SCH ×2 (09:20→22:09)
[2017-10-25] MEDS: *HR* OxyCODONE/APAP 5/325 TABLET PO PRN (09:24)
--- NOTE | 2017-10-25 11:03 | Cardiology Progress Note ---
Date of Encounter: 10/25/17 Time of Encounter: 10:30 Assessment and Plan (1) Cardiomyopathy Current Visit: Yes Status: Acute Non-ischemic cardiomyopathy, NYHA class III symptoms. TTE 10/23/17: LVEF 25%, severe global LV systolic dysfunction, mild LVDD, mild MR , mild PH LHC 10/24/17: coronary arteries are angiographically normal. Appears nearly euvolemic upon exam, also found to have CAP with leukocytosis upon admission. Continue ACEi, diuretic, will increase BB to improve BP/HR control. I&O's not accurate. Strict I&O's, daily weight. CHF guidelines discussed including importance of Na/ fluid restriction diet. No further inpatient recommendations from cardiology, will sign-off and coordinate outpt follow-up. Plan for 3 months of GDMT and repeat TTE, if remains reduced will need evaluation for ICD. Qualifiers: Cardiomyopathy type: other Qualified Code(s): I42.8 - Other cardiomyopathies (2) Pneumonia Current Visit: Yes Status: Acute WBC trending up today, 19.2. On ATB for CAP. Mgmt per primary service. Qualifiers: Pneumonia type: due to unspecified organism Laterality: left Lung location: lower lobe of lung Qualified Code(s): J18.1 - Lobar pneumonia, unspecified organism Discussion w patient/family: The assessment and plan as outlined above was discussed with the patient and/or family members who expressed understanding and agreement. All questions were answered. Thank you for involving us in the care of your patient. Please call with any questions. The patient was discussed and reviewed with Dr. Schmitz, Cardiology will sign- off. Subjective Principal diagnosis: PNA Interval history: Seen and examined. Denies any new symptoms overnight, denies chest pain. No issues with cath site. Objective Vital Signs, Last 4 Hours Temp Pulse Resp BP Pulse Ox 10/25/17 07:19 98.6 F 97 17 152/79 98 General: Conversant, No Apparent Distress HEENT: Atraumatic, Normocephaly, Mucus Membranes Moist Cardiac: Reg Rate and Rhythm, Normal S1 and S2 Lungs: Other (decreased) Neuro: Alert and responsive Abdomen: Soft Skin: No rashes noted on visualized skin Musculoskeletal: No Chest Wall Tenderness Extremities: No Edema, Normal Pulses Results 10/25/17 04:06 10/25/17 04:06 Lab Results 10/25/17 10/25/17 04:06 04:06 WBC 12.7 H Hgb 11.4 L Hct 35.7 L Plt Count 279 Sodium 136 Potassium 3.9 Chloride 97 L Carbon Dioxide 32 H BUN 34 H Creatinine 0.93 Glucose 163 H Calcium 9.2 Total Bilirubin 0.2 L AST 11 L ALT 11 Alkaline Phosphatase 47 Active Medications Acetaminophen (Tylenol) 650 mg PO Q6HR PRN PRN Reason: Mild Pain/Fever Stop: 04/23/18 14:51 Hydrocodone Bitart/Acetaminophen ([place] 5-325 Mg) 1 tab PO Q6HR PRN PRN Reason: Moderate Pain Stop: 04/23/18 14:51 Last Admin: 10/24/17 14:29 Dose: 1 tab Alprazolam (Xanax) 0.5 mg PO QID PRN; Protocol PRN Reason: Anxiety Stop: 04/23/18 14:30 Amitriptyline HCl (Elavil) 100 mg PO HS TEO Stop: 04/23/18 21:01 Last Admin: 10/24/17 20:53 Dose: 100 mg Aspirin (Aspirin Ec) 81 mg PO DAILY TEO Stop: 04/24/18 09:01 Last Admin: 10/25/17 09:20 Dose: 81 mg Carvedilol (Coreg) 3.125 mg PO BIDWM TEO PRN Reason: Protocol Stop: 04/25/18 10:01 Last Admin: 10/25/17 09:20 Dose: 3.125 mg Dextrose/Water (Dextrose 50% (Syg)) 25 ml IVP AD PRN PRN Reason: Hypoglycemia Stop: 04/23/18 14:50 Diphenhydramine HCl (Benadryl) 25 mg IVP Q6HR PRN PRN Reason: Itching Stop: 04/23/18 14:59 Furosemide (Lasix) 20 mg IVP BID TEO Stop: 04/23/18 21:01 Last Admin: 10/25/17 09:20 Dose: 20 mg Gabapentin (Neurontin) 600 mg PO QID TEO Stop: 04/23/18 17:01 Last Admin: 10/25/17 09:20 Dose: 600 mg Glucagon (Glucagen) 1 mg IM ONCE PRN PRN Reason: Hypoglycemia Stop: 04/23/18 14:50 Glucose (Gluctose) 15 gm PO ONCE PRN PRN Reason: Hypoglycemia Stop: 04/23/18 14:50 Glucose (Gluctose) 30 gm PO ONCE PRN PRN Reason: Hypoglycemia Stop: 04/23/18 14:50 Heparin Sodium (Porcine) (Heparin) 5,000 unit SQ Q8HCO [facility] Stop: 04/23/18 22:01 Last Admin: 10/25/17 05:24 Dose: Not Given Dextrose (Dextrose 5%) 1,000 mls @ 100 mls/hr IVC .Q10H PRN PRN Reason: HYPOGLYCEMIA Stop: 04/23/18 14:50 Azithromycin 500 mg/ Dextrose 250 mls @ 252 mls/hr IVPB Q24H [facility] Stop: 04/24/18 15:01 Last Infusion: 10/24/17 15:30 Dose: Infused Ceftriaxone Sodium 2,000 mg/ (Sterile Water) 20 mls @ 600 mls/hr IVP Q24H [facility] Stop: 04/24/18 15:01 Last Infusion: 10/24/17 14:35 Dose: Infused Insulin Human Lispro (Humalog) 0 units SQ TIDAC [facility] PRN Reason: Protocol Stop: 04/23/18 16:31 Last Admin: 10/25/17 07:54 Dose: Not Given Insulin Human Lispro (Humalog) 0 units SQ HS [facility] PRN Reason: Protocol Stop: 04/23/18 21:01 Last Admin: 10/24/17 20:52 Dose: Not Given Levalbuterol HCl (Xopenex) 0.63 mg IH Q4H PRN PRN Reason: Dyspnea Stop: 04/23/18 14:30 Lisinopril (Zestril) 10 mg PO BID [facility] PRN Reason: Protocol Stop: 04/23/18 21:01 Last Admin: 10/25/17 09:20 Dose: 10 mg Naloxone HCl (Narcan) 0.4 mg IVP Q2MIN PRN PRN Reason: SEE COMMENTS Stop: 04/23/18 14:51 Ondansetron HCl (Zofran) 4 mg IVP Q8HR PRN; Protocol PRN Reason: Nausea And Vomiting Stop: 04/23/18 15:58 Oxycodone/Acetaminophen (Percocet 5/325) 1 each PO Q6H PRN PRN Reason: Severe Pain Stop: 04/23/18 14:30 Last Admin: 10/25/17 09:24 Dose: 1 each Pantoprazole Sodium (Protonix) 40 mg IVP DAILY TEO Stop: 04/23/18 16:01 Last Admin: 10/25/17 09:20 Dose: 40 mg Prednisone (Prednisone) 20 mg PO BIDWM TEO Stop: 04/23/18 17:01 Last Admin: 10/25/17 09:20 Dose: 20 mg - Imaging and Cardiology Echo: report reviewed Cardiac cath: report reviewed Other Results: 12 hour tele: avg HR=98 SR. - EKG Interpretation EKG results cardiology: personally reviewed Consult Discharge Plan - Plan Referrals: Toney Santos Jr, MD [Primary Care Provider] -
[2017-10-25] MEDS: cefTRIAXone 2,000 MG in Water for inj. (sterile) 20 ML 20 ML IVP SCH (14:53)
[2017-10-25] MEDS: Azithromycin 500 MG in D5% in Water 250 ML IVPB SCH (14:54)
[2017-10-25 18:19] LABS: Bilirubin,Urine Negative (Negative); Blood,Urine Negative (Negative); Clarity,Urine Clear (Clear); Color,Urine Yellow (Yellow); Glucose,Urine (UA) 500 mg/dL (Normal); Ketones,Urine Negative (Negative); Leukocyte Esterase,Urine Negative (Negative); Nitrite,Urine Negative (Negative); PH,Urine 6.5 pH Units (5.0-8.0); Protein,Urine Negative (Neg-Trace); Specific Gravity,Urine 1.009 (1.010-1.025); Urobilinogen,Urine Normal (Normal)
--- NOTE | 2017-10-25 18:38 | Internal Med Progress Note ---
Date of Encounter: 10/25/17 Time of Encounter: 18:36 - Assessment and plan (1) Pneumonia Current Visit: Yes Status: Acute Assessment and plan: Patient's white count was 16.1 on admission chest x-ray did show new left pleural effusion with increasing basal opacity the reflecting atelectasis or pneumonia. CTA chest shows persistent basilar subpleural opacity within the left lower lobe with new subpleural tree-in-bud opacities also noted within the left lower lobe this likely reflects an infectious or inflammatory process to include possibly aspiration pneumonia. Continue with IV azithromycin and Rocephin blood cultures have been obtained we will obtain sputum culture negative - strep pneumoniae antigens are negative. Continue with oxygen Xopenex when necessary Oxygen as needed Qualifiers: Pneumonia type: due to unspecified organism Laterality: left Lung location: lower lobe of lung Qualified Code(s): J18.1 - Lobar pneumonia, unspecified organism (2) Acute exacerbation of CHF (congestive heart failure) Current Visit: Yes Status: Acute Assessment and plan: Patient denies any past history of CHF echo completed which does show an EF of 25%-initial BNP was 447-patient initiated on Lasix 20 mg IV twice a day Continuous telemetry monitoring Continue beta danielle and daisy oxygen to maintain SPO2 greater than 92% Monitor intake and output daily weights Consult cardiology- per cardiology note left heart catheter 10/24/17 coronary arteries are angiographically normal-cardiology recommends CHF teaching and the importance of sodium and fluid restriction diet Qualifiers: Heart failure type: unspecified Qualified Code(s): I50.9 - Heart failure, unspecified (3) COPD exacerbation Current Visit: Yes Status: Acute Assessment and plan: Presently stable -no wheezing Continuous with oxygen titrated maintain SPO2 greater than 92% Prednisone 20 mg twice a day Bronchodilators (4) Anemia Current Visit: Yes Status: Chronic Assessment and plan: History of chronic anemia hemoglobin stable at this time we will continue to monitor Qualifiers: Anemia type: unspecified type Qualified Code(s): D64.9 - Anemia, unspecified (5) Diabetes Current Visit: Yes Status: Chronic Assessment and plan: Accu-Cheks before meals at bedtime with sliding scale insulin- on steroids-we will need to monitor and adjust insulin accordingly Qualifiers: Diabetes mellitus type: type 2 Diabetes mellitus complication status: with unspecified complications Diabetes mellitus [facility] insulin use: with [facility] use Qualified Code(s): E11.8 - Type 2 diabetes mellitus with unspecified complications; Z79.4 - snf (current) use of insulin; Z79.4 - snf ( current) use of insulin; Z79.4 - snf (current) use of insulin; Z79.4 - snf (current) use of insulin (6) HTN (hypertension) Current Visit: Yes Status: Chronic Assessment and plan: Presently stable continue with home medications Qualifiers: Hypertension type: essential hypertension Qualified Code(s): I10 - Essential (primary) hypertension (7) Elevated troponin Current Visit: No Status: Acute Assessment and plan: Most likely demand ischemia from CHF exacerbation. (8) DVT prophylaxis Current Visit: Yes Status: Acute Assessment and plan: Heparin subcutaneous - Time Spent With Patient less than 15 minutes - Subjective Interval history: 1 patient having some difficulty speaking this morning he is stuttering and stumbling over his words. Nursing staff state that they did give him some pain medication which they think that has affected his speech. He also has been hallucinating , he thought he saw a mouse in his room. Obtained a stat CT which was negative, speech has been improving throughout the day however he continues to stumbling over words. He has no focal deficits cranial nerves II through XII are intact. I did check a urine which was negative for any UTI he is already on antibiotics. I will obtain a stat MRI rule out CVA - Constitutional Vitals: Temp Pulse Resp BP Pulse Ox 97.5 F L 113 20 145/91 97 10/25/17 16:19 10/25/17 16:19 10/25/17 16:19 10/25/17 16:19 10/25/17 16:19 General appearance: Present: cooperative, A&O X 3, pleasant, no acute distress, answers questions appropriately - Head Head exam: Present: atraumatic, normocephalic - Eye Eye exam: Present: PERRL, conjuntiva pink, sclera anicteric Pupils: Present: PERRL - Neck Neck exam general surgery: Present: supple, trachea midline. Absent: lymphadenopathy - Respiratory Respiratory exam: Present: CTAB. Absent: accessory muscle use, rales, rhonchi, wheezes - Cardiovascular Cardiovascular exam: Present: RRR, +S1, +S2. Absent: diastolic murmur, gallop, rubs, systolic murmur - GI/Abdominal GI/Abdominal exam: Present: normal bowel sounds, soft, no peritoneal signs. Absent: distended, tenderness - Extremities Exam Extremities exam: Present: warm, radial pulses palpable and symmetrical. Absent : calf tenderness, cyanotic, pedal edema - Neurological Exam Neurological exam: Present: CN II-XII intact, oriented X3, no focal deficits, speech deficit. Absent: pronater drift, facial droop - Expanded Neurological Exam Patient oriented to: Present: person, place, time Speech: Present: stutter Cranial Nerves: EOM's intact PM: Normal, gag reflex PM: Normal, nystagmus PM: Normal, tongue deviation PM: Normal Cerebellar function: finger to nose: Normal, heel to perez: Normal Neuro motor strength exam: LUE: 5, RUE: 5, LLE: 5, RLE: 5 Coma Scale Eye Opening: Spontaneous Coma Scale Motor Response: Obeys Commands Coma Scale Verbal Response: Oriented Coma Scale Total: 15 - Skin Skin exam: Present: dry, intact Internal Medicine: Result - Labs CBC & Chem 7: 10/25/17 04:06 10/25/17 04:06 Labs: Short CBC 10/25/17 Range/Units 04:06 WBC 12.7 H (4.3-11.1) K/mcL Hgb 11.4 L (12.9-16.9) g/dL Hct 35.7 L (37.5-50.1) % Plt Count 279 (140-400) K/mcL Neutrophils # 10.1 H (1.6-8.9) K/mcL BMP 10/25/17 04:06 Sodium 136 Potassium 3.9 Chloride 97 L Carbon Dioxide 32 H BUN 34 H Creatinine 0.93 Glucose 163 H Calcium 9.2 Liver Function 10/25/17 Range/Units 04:06 Total Bilirubin 0.2 L (0.3-1.0) mg/dL AST 11 L (13-39) Units/L ALT 11 (7-52) Units/L Alkaline Phosphatase 47 (34-104) Units/L Albumin 3.6 (3.5-5.7) g/dL Urine 10/25/17 Range/Units 16:23 Urine Color Yellow (Yellow) Urine Clarity Clear (Clear) Urine pH 6.5 (5.0-8.0) pH Units Ur Specific [place] 1.009 L (1.010-1.025) Urine Protein Negative (Neg-Trace) mg/dL Urine Glucose (UA) 500 H (Normal) mg/dL - ABG Interpretation ABG results: PT/INR, D-dimer PT 12.2 Seconds (9.4-12.1) H 10/22/17 10:50 D-Dimer 1162 ng/mLFEU (0-500) H 10/22/17 15:53 - Impressions Impressions Head CT 10/25/17 11:26 IMPRESSION: No acute intracranial abnormality. D/ / Alber Mckinley / Alber Mckinley Interpreting Provider: Alber Mckinley Consult Discharge Plan - Plan Referrals: Toney Santos Jr, MD [Primary Care Provider] -
[2017-10-25] MEDS ORDERED: *HR* Heparin 5,000 UNIT/ML VIAL IVP PRN ×2 (22:24)
[2017-10-25 22:47] LABS: INR 1.1; Prothrombin Time 11.8 Seconds (9.4-12.1)
[2017-10-25 22:50] LABS: Activated Partial Thrombo Time 25.4 Seconds (26.0-36.0)
[2017-10-25 22:55] LABS: Hematocrit 37.5 % (37.5-50.1); Mean Corpuscular Hemoglobin 27.2 pg (28.0-33.3); Mean Platelet Volume 8.7 fL (9.4-12.4); Platelet Count 319 K/mcL (140-400); Red Blood Count 4.41 M/mcL (4.19-5.50); Red Cell Distribution Width 13.1 % (11.5-14.5)
[2017-10-25] MEDS: Heparin 25,000 UNIT/500 ML D5W 25,000 UNIT/500 ML BAG IVC SCH (23:34)
--- NOTE | 2017-10-26 00:43 | Event Note ---
Date of Encounter: 10/25/17 Time of Encounter: 21:45 Notified by patient's nurse of ordered MRI results. MR of head/brain without/ with contrast resulted at 21:01 showed punctate foci of diffusion restriction in the high right frontal lobe and left occipital lobe consistent with punctate acute infarctions. Given bilateral distribution, findings raise the possibility for thromboembolic etiology. Parenchymal volume loss and sequela of mild chronic microvascular ischemic changes. Multiple bilateral lacunar infarctions. Since the previous MRI, there has been interval development of a chronic right frontal lobe infarction. Patient was assessed and found to have aphasia w/o left or right-sided neurological deficits. Pt. was able to communicate with some words and appeared to understand questions but was unable to provide full or coherent answers. Patient's daughter was upset at MRI results and wanted to discuss the findings with her mother who is currently taking daily cancer treatments here. Dr. Fish and myself went to discuss options for care with the family. Daughter's wishes were for transfer to [place], but her mother said no d/t the fact she would not be able to take the trips d/t chemotherapy. Decision was made by family to keep patient here at [facility]. Pt. had heart catheterization performed yesterday. Earlier in day, patient's daughter expressed concern in mentation changes in her father and asked if UA could be done to see if he had a UTI. UA results were negative. MRI was ordered d/t patient's AMS. Neurology consult ordered and discussed w/Dr. Oliveira w/recommendation for heparin drip to be started. Cardiology consult ordered and discussed w/Dr. Schmitz. NIHSS scale ordered w/timed neurological and neurovascular checks. KEREN ordered. Lipitor 80 mg PO ordered stat w/aspirin. NPO status ordered. Falls/safety precautions from earlier admission still to be followed. We will await recommendations from Neurology and Cardiology regarding the direction of care. Patient hemodynamically stable and was resting comfortably with family following our discussion to which they voiced their understanding and agreement with. Will continue to monitor patient closely for signs of neurological decline or distress.
[2017-10-26 06:15] LABS: Basophils % 0.1 %; Eosinophils % 0.2 %; Hematocrit 34.8 % (37.5-50.1); Hemoglobin 11.4 g/dL (12.9-16.9); Immature Granulocytes % 0.8 % (0-4); Lymphocytes # 2.8 K/mcL (0.6-4.6); Lymphocytes % 20.1 %; Mean Corpuscular HGB Conc 32.8 g/dL (31.6-35.5); Mean Corpuscular Hemoglobin 27.5 pg (28.0-33.3); Mean Corpuscular Volume 84.1 fL (83.0-100.0); Mean Platelet Volume 9.2 fL (9.4-12.4); Monocytes # 1.1 K/mcL (0.0-1.3); Monocytes % 7.8 %; Neutrophils # 9.9 K/mcL (1.6-8.9); Platelet Count 271 K/mcL (140-400); Red Blood Count 4.14 M/mcL (4.19-5.50); Red Cell Distribution Width 13.2 % (11.5-14.5)
[2017-10-26 06:32] LABS: Alanine Aminotransferase 13 Units/L (7-52); Albumin 3.4 g/dL (3.5-5.7); Alkaline Phosphatase 45 Units/L (34-104); Aspartate Amino Transferase 11 Units/L (13-39); BUN/Creatinine Ratio 33 (6-26); Bilirubin,Total 0.3 mg/dL (0.3-1.0); Blood Urea Nitrogen 27 mg/dL (8-23); Calcium 9.3 mg/dL (8.6-10.3); Carbon Dioxide 35 mEq/L (23-29); Chloride 98 mEq/L (98-107); Globulin 3.3 g/dL (2.4-3.5); Glucose 139 mg/dL (70-105); Magnesium 1.9 mg/dL (1.6-2.6); Osmolality,Calculated 295 (280-300); Potassium 3.6 mEq/L (3.5-5.1); Sodium 139 mEq/L (136-145); Total Protein 6.7 g/dL (6.4-8.9); eGFR For African Americans > 60 (> 60); eGFR For Non-African Americans > 60 (> 60)
[2017-10-26] MEDS: predniSONE 20 MG TABLET PO SCH ×2 (09:03→17:38)
[2017-10-26] MEDS: Insulin LISPRO 300 UNITS/3 ML VIAL SQ SCH ×4 (09:03→20:23)
[2017-10-26] MEDS: Gabapentin 300 MG CAPSULE PO SCH ×4 (09:04→20:20)
[2017-10-26] MEDS: Aspirin Enteric Coated 81 MG Tablet PO SCH (09:04)
--- NOTE | 2017-10-26 09:11 | Internal Med Progress Note ---
Date of Encounter: 10/26/17 Time of Encounter: 09:07 - Assessment and plan (1) Pneumonia Current Visit: Yes Status: Acute Qualifiers: Pneumonia type: due to unspecified organism Laterality: left Lung location: lower lobe of lung Qualified Code(s): J18.1 - Lobar pneumonia, unspecified organism (2) Acute exacerbation of CHF (congestive heart failure) Current Visit: Yes Status: Acute Qualifiers: Heart failure type: unspecified Qualified Code(s): I50.9 - Heart failure, unspecified (3) COPD exacerbation Current Visit: Yes Status: Acute (4) Anemia Current Visit: Yes Status: Chronic Qualifiers: Anemia type: unspecified type Qualified Code(s): D64.9 - Anemia, unspecified (5) Diabetes Current Visit: Yes Status: Chronic Qualifiers: Diabetes mellitus type: type 2 Diabetes mellitus complication status: with unspecified complications Diabetes mellitus [facility] use: with [facility] use Qualified Code(s): E11.8 - Type 2 diabetes mellitus with unspecified complications; Z79.4 - correction (current) use of insulin; Z79.4 - correction ( current) use of insulin; Z79.4 - correction (current) use of insulin; Z79.4 - correction (current) use of insulin (6) HTN (hypertension) Current Visit: Yes Status: Chronic Qualifiers: Hypertension type: essential hypertension Qualified Code(s): I10 - Essential (primary) hypertension (7) Elevated troponin Current Visit: No Status: Acute (8) DVT prophylaxis Current Visit: Yes Status: Acute - Subjective Interval history: 1 patient having some difficulty speaking this morning he is stuttering and stumbling over his words. Nursing staff state that they did give him some pain medication which they think that has affected his speech. He also has been hallucinating , he thought he saw a mouse in his room. Obtained a stat CT which was negative, speech has been improving throughout the day however he continues to stumbling over words. He has no focal deficits cranial nerves II through XII are intact. I did check a urine which was negative for any UTI he is already on antibiotics. I will obtain a stat MRI rule out CVA - Constitutional Vitals: Temp Pulse Resp BP Pulse Ox 98.7 F 91 16 156/76 98 10/26/17 08:15 10/26/17 08:15 10/26/17 08:15 10/26/17 08:15 10/26/17 08:15 General appearance: Present: cooperative, A&O X 3, pleasant, no acute distress, answers questions appropriately Internal Medicine: Result - Labs CBC & Chem 7: 10/26/17 05:31 10/26/17 05:31 Labs: Short CBC 10/25/17 10/26/17 Range/Units 22:49 05:31 WBC 15.4 H 13.9 H (4.3-11.1) K/mcL Hgb 12.0 L 11.4 L (12.9-16.9) g/dL Hct 37.5 34.8 L (37.5-50.1) % Plt Count 319 271 (140-400) K/mcL Neutrophils # 9.9 H (1.6-8.9) K/mcL BMP 10/26/17 05:31 Sodium 139 Potassium 3.6 Chloride 98 Carbon Dioxide 35 H BUN 27 H Creatinine 0.81 Glucose 139 H Calcium 9.3 Liver Function 10/26/17 Range/Units 05:31 Total Bilirubin 0.3 (0.3-1.0) mg/dL AST 11 L (13-39) Units/L ALT 13 (7-52) Units/L Alkaline Phosphatase 45 (34-104) Units/L Albumin 3.4 L (3.5-5.7) g/dL Urine 10/25/17 Range/Units 16:23 Urine Color Yellow (Yellow) Urine Clarity Clear (Clear) Urine pH 6.5 (5.0-8.0) pH Units Ur Specific [place] 1.009 L (1.010-1.025) Urine Protein Negative (Neg-Trace) mg/dL Urine Glucose (UA) 500 H (Normal) mg/dL - ABG Interpretation ABG results: PT/INR, D-dimer PT 11.8 Seconds (9.4-12.1) 10/25/17 22:35 D-Dimer 1162 ng/mLFEU (0-500) H 10/22/17 15:53 - Impressions Impressions Head CT 10/25/17 11:26 IMPRESSION: No acute intracranial abnormality. D/ / Alber Mckinley / Alber Mckinley Interpreting Provider: Alber Mckinley Brain MRI 10/25/17 18:00 IMPRESSION: 1. Punctate foci of diffusion restriction in the high right frontal lobe and left occipital lobe consistent with punctate acute infarctions. Given bilateral distribution, findings raise the possibility for thromboembolic etiology. 2. Parenchymal volume loss and sequela of mild chronic microvascular ischemic changes. Multiple bilateral old lacunar infarctions. 3. Since the previous MRI, there has been interval development of a chronic right frontal lobe infarction. The findings were sent to the [facility]iology [facility] at 8:56 pm on 10/25/2017to be communicated to a licensed caregiver. D/ / 10/25/2017 21:01:24 Kash Garcia MD / nelson Interpreting Provider: Kash Garcia MD Consult Discharge Plan - Plan Referrals: Toney Santos Jr, MD [Primary Care Provider] -
--- NOTE | 2017-10-26 10:05 | Neurology - Consult Note ---
Date of Encounter: 10/26/17 Time of Encounter: 09:49 Assessment and Plan (1) CVA (cerebral vascular accident) Current Visit: Yes Status: Acute Patient is an 82 year old man with DM, ASD, COPD, history of CVA, CHF who developed acute embolic events after cardiac catheterization procedure. MRI of brain showed presence of two acute punctate ischemic infarct at different sides of brain indicating embolic nature of the cerebral infarcts. Likely related to cardiac catheterization procedure but due to significantly reduced LVEF at 25% and severe global left ventricular systolic dysfunction, would recommend TTE which can be done on Saturday to assess possible source of emboli that require anticoagulation therapy, especially those involving ventricles, aortic arch or atrial appendage. Agree with continuing him on heparin drip per stroke protocol while work up is being completed. Eventually he may benefit from anticoagulation therapy due to severely depressed LVEF and increased risk associated with such finding. Appreciate drawer in jacquard loom input. Case discussed with Dr. Bullard and Dr. Moreland and medical team. Please continue medical and supportive care. Total time spent on this patient is approximately 50 minutes. 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 Quinn is a 82 year old male with PMH significant for CHF, COPD, ASD, history of CVA, DM, polyneuropathy who is consulted regarding due to acute onset of speech difficulty after cardiac cath. The patient initially was admitted on 10/22/2016 due to SOB and pneumonia. he had cardiac cath two days ago and yesterday morning he started having difficulty with speech, slurred and hard to get words out. No focal deficits. Initial CT of head was normal. MRI of brain however, showed presence of two small ischemic infarcts at different sides of brain concerning for embolic phenomenon. Clinically the patient's speech is getting better but he is still dysphasic and unable to repeat complex sentences. No focal weakness or sensory deficits. Mental status appears intact. Patient has history of 'mini stroke' but always told 'chronic' he has had similar speech difficulty in the past few years, again without focal neurological deficits. Has history of irregular heart beat but no definitive history of atrial fibrillation. echocardiography done three days ago showed LVEF 25% Past Med Surg Social Fam HX - Past Medical History Medical history: arthritis, COPD, diabetes, GERD, seizures, TIA Psychiatric history: no psych history - Past Surgical History Surgical History: orthopedic, other (Disc surgeries in neck and back), other ( Hemorrhoidectomy) - Social History Smoking Status: Former smoker Packs per day: 3 PPD - Reports quitting in 2004 Smokeless Tobacco Status: No Alcohol use: none Drug use: none - Family History Father Adopted: No Race: Family Member Ethnicity: Non- Living Status: Age at : 68 Cause of : Leukemia Hx Family Cardiac Disorders: No Hx Family Respiratory Disorders: No Hx Family Cancer: Yes (Leukemia, Prostate) Hx Family GI Disorders: No Hx Family Genitourinary Disorders: No Hx Family Endocrine Disorder: No Hx Family Musculoskeletal Disorders: No Hx Family Neuromuscular Disorders: No Hx Family Neurologic Disorders: No Hx Family HEENT Disorders: No Hx Family Autoimmune Disorders: No Hx Family Reproductive Disorders: No Hx Family Psychosocial Disorders: No Hx Family Medical Disorders: No Mother Adopted: No Race: Family Member Ethnicity: Non- Living Status: Age at : 84 Cause of : Gas gangrene Hx Family Cardiac Disorders: No Hx Family Respiratory Disorders: No Hx Family Cancer: No Hx Family GI Disorders: No Hx Family Genitourinary Disorders: Yes (gas gangrene) Hx Family Endocrine Disorder: No Hx Family Musculoskeletal Disorders: Yes (Gas gangrene) Hx Family Neuromuscular Disorders: No Hx Family Neurologic Disorders: No Hx Family HEENT Disorders: No Hx Family Autoimmune Disorders: No Hx Family Reproductive Disorders: No Hx Family Psychosocial Disorders: No Hx Family Medical Disorders: No Brother Race: Family Member Ethnicity: Non- Living Status: Age at : 65 Cause of : Esophageal cancer Hx Family Cardiac Disorders: No Hx Family Respiratory Disorders: No Hx Family Cancer: Yes (Esophageal) Hx Family GI Disorders: No Hx Family Genitourinary Disorders: No Hx Family Endocrine Disorder: No Hx Family Musculoskeletal Disorders: No Hx Family Neuromuscular Disorders: No Hx Family Neurologic Disorders: No Hx Family HEENT Disorders: No Hx Family Autoimmune Disorders: No Hx Family Reproductive Disorders: No Hx Family Psychosocial Disorders: No Hx Family Medical Disorders: No Sister Race: Family Member Ethnicity: Non- Living Status: Age at : 70 Cause of : Kidney cancer Hx Family Cardiac Disorders: No Hx Family Cancer: Yes (Kidney) Hx Family GI Disorders: No Hx Family Genitourinary Disorders: No Hx Family Endocrine Disorder: Yes (Type 2 diabetes) Hx Family Musculoskeletal Disorders: No Hx Family Neuromuscular Disorders: No Hx Family Neurologic Disorders: No Hx Family HEENT Disorders: No Hx Family Autoimmune Disorders: No Hx Family Reproductive Disorders: No Hx Family Psychosocial Disorders: No Hx Family Medical Disorders: No Medications and Allergies ALPRAZolam [Xanax 0.5 MG Tablet] 0.5 mg PO QID PRN 09/28/16 [History] Albuterol Sulfate [Ventolin Hfa] 2 puff IH Q4H PRN 09/28/16 [History] Aspirin [Lo-Dose Aspirin EC] 81 mg PO DAILY 09/28/16 [History] Gabapentin 600 mg PO QID 09/28/16 [History] Ipratropium/Albuterol Neb [Duoneb] 3 ml IH Q6HR 09/28/16 [History] Oxycodone HCl/Acetaminophen [Endocet 5-325 Tablet] 1 tab PO Q6H PRN #20 [Rx] Insulin DETEMIR [Levemir Flextouch] 15 - 20 unit SQ HS PRN 06/27/17 [History] Insulin LISPRO [Humalog Kwikpen U-100] 0 unit SQ TID PRN 06/27/17 [History] Levalbuterol Neb [Xopenex Neb] 0.63 mg IH Q4H PRN 06/27/17 [History] Lisinopril [Zestril] 10 mg PO BID 06/27/17 [History] Amitriptyline [Elavil] 100 mg PO HS 10/22/17 [History] 3 Allergy/AdvReac Type Severity Reaction Status Date / Time Erythromycin Base Allergy Hives Verified 06/27/17 10:46 All Systems: The remainder of the systems were reviewed and are negative Physical Examination - Vital Signs Vital Signs: Initial Vital Signs Temp Pulse Resp BP Pulse Ox 98.9 F 127 24 178/100 85 10/22/17 10:29 10/22/17 10:29 10/22/17 10:29 10/22/17 10:29 10/22/17 10:29 - Constitutional General appearance: comfortable - Neurologic Sensorimotor examination: intact (Grossly intact) Motor examination - right side: 5/5: deltoids, biceps, triceps, wrist flexion, wrist extension, neonatal critical care nurse, hip flexors, tibialis Anterior, quadriceps, toe extension (EHL), plantarflexion Motor examination - left side: 5: deltoids, biceps, triceps, wrist flexion, wrist extension, hip flexors, neonatal critical care nurse, quadriceps, tibialis Anterior, toe extension (EHL), plantarflexion Detailed sensory examination: intact (Grossly intact) Posture: other (None) Reflex and gait examination: intact Reflexes: Biceps: 2+, Triceps: 2+, Brachioradialis: 2+, Patella: 2+, Achilles: 2 + Mental Status Examination: awake, alert, oriented to person, follows commands appropriately, expressive aphasia (Unable to repeat complex sentences) Cranial nerve examination: PERRL, EOMI, visual gustafson intact, corneal reflexes brisk symmetrically, sensory to face intact, mastication intact, no facial asymmetry is present, no dysarthria (unable to repeat complex sentence), hearing is intact symmetrically, soft palate elevates bilaterally upon phonation , gag reflex intact, flexes SCM and trapezius muscles symmetrically with full power, tongue protrudes midline, no atrophy or facial fasiculations present Cerebellar examination: no dysmetria, no gait ataxia, no truncal ataxia, no difficulty with rapid alternating movements Results - Laboratory Findings CBC and BMP: 10/26/17 05:31 10/26/17 05:31 Abnormal lab findings: Abnormal lab results WBC 13.9 K/mcL (4.3-11.1) H 10/26/17 05:31 RBC 4.14 M/mcL (4.19-5.50) L 10/26/17 05:31 Hgb 11.4 g/dL (12.9-16.9) L 10/26/17 05:31 Hct 34.8 % (37.5-50.1) L 10/26/17 05:31 MCH 27.5 pg (28.0-33.3) L 10/26/17 05:31 MPV 9.2 fL (9.4-12.4) L 10/26/17 05:31 Neutrophils # 9.9 K/mcL (1.6-8.9) H 10/26/17 05:31 Nucleated RBCs/100 WBC 0.2 /100 WBC (0) H 10/25/17 04:06 APTT 76.6 Seconds (26.0-36.0) H D 10/26/17 05:31 D-Dimer 1162 ng/mLFEU (0-500) H 10/22/17 15:53 Carbon Dioxide 35 mEq/L (23-29) H 10/26/17 05:31 BUN 27 mg/dL (8-23) H 10/26/17 05:31 BUN/Creatinine Ratio 33 (6-26) H 10/26/17 05:31 Glucose 139 mg/dL (70-105) H 10/26/17 05:31 POC Glucose 131 (58-89) H 10/25/17 21:24 Hemoglobin A1c 6.3 % (-5.6) H 10/23/17 00:41 AST 11 Units/L (13-39) L 10/26/17 05:31 B-Natriuretic Peptide 447 pg/mL (Less than 100) H 10/22/17 10:50 Albumin 3.4 g/dL (3.5-5.7) L 10/26/17 05:31 Albumin/Globulin Ratio 1.0 (1.1-2.2) L 10/26/17 05:31 Ur Specific [place] 1.009 (1.010-1.025) L 10/25/17 16:23 Urine Glucose (UA) 500 mg/dL (Normal) H 10/25/17 16:23 - Diagnostic Findings Additional findings: echocardiogram w enhance Impressions: LVEF 25%. Mildly dilated left ventricle. Severe global left ventricular systolic dysfunction. Mild left ventricular diastolic dysfunction. Normal right ventricular structure and function. Mild mitral regurgitation. Mild pulmonary hypertension. Consult Discharge Plan - Plan Referrals: Toney Santos Jr, MD [Primary Care Provider] -
--- NOTE | 2017-10-26 11:00 | Event Note ---
Date of Encounter: 10/26/17 Time of Encounter: 10:56 - Cardiology Event Note 82 YOM s/p LHC x 2 days ago with new TIA/CVA and subacute findings on MRI of the brain. Apparently patient has had many previous embolic events also. Baseline difficulty with speech for many years according to daughter. Soome concerns of remote irregular rhythm stated the daughter > 5years ago. Will pull old records and EKGs. KEREN to be obtained saturday as patient is continuing to show improvement in his speech and has no current motor deficits. Neurology to evaluate further. No apparent LV clot on TTE.
[2017-10-26] MEDS: Furosemide 20 MG/2 ML VIAL IVP SCH ×2 (11:15→20:25)
[2017-10-26] MEDS: Pantoprazole 40 MG VIAL IVP SCH (11:15)
[2017-10-26] MEDS: cefTRIAXone 2,000 MG in Water for inj. (sterile) 20 ML 20 ML IVP SCH (17:36)
[2017-10-26] MEDS: Azithromycin 500 MG in D5% in Water 250 ML IVPB SCH (17:37)
--- NOTE | 2017-10-26 18:59 | Internal Med Progress Note ---
Date of Encounter: 10/26/17 Time of Encounter: 09:00 - Assessment and plan (1) CVA (cerebral vascular accident) Current Visit: Yes Status: Acute Assessment and plan: Patient developed acute embolic event after cardiac catheterization. MRI brain showed presence of 2 acute punctate ischemic infarct. Neurology was notified and patient was initiated on aspirin and heparin. Patient will undergo TTE on Saturday-which can assess the source of the emboli, he was also seen by cardiology there is some concerns of remote irregular rhythm-per daughter history-> 5 years ago. 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 We will continue with IV antibiotics Blood cultures and sputum cultures are negative-strep pneumonia antigens are negative Xopenex as needed Oxygen as needed Qualifiers: Pneumonia type: due to unspecified organism Laterality: left Lung location: lower lobe of lung Qualified Code(s): J18.1 - Lobar pneumonia, unspecified organism (3) Acute exacerbation of CHF (congestive heart failure) Current Visit: Yes Status: Acute Assessment and plan: Patient denies any past history of CHF echo completed which does show an EF of 25%-initial BNP was 447-patient initiated on Lasix 20 mg IV twice a day Continuous telemetry monitoring Continue beta danielle and daisy oxygen to maintain SPO2 greater than 92% Monitor intake and output daily weights Consult cardiology- per cardiology note left heart catheter 10/24/17 coronary arteries are angiographically normal-cardiology recommends CHF teaching and the importance of sodium and fluid restriction diet Qualifiers: Heart failure type: unspecified Qualified Code(s): I50.9 - Heart failure, unspecified (4) COPD exacerbation Current Visit: Yes Status: Acute Assessment and plan: Presently stable -no wheezing Continuous with oxygen titrated maintain SPO2 greater than 92% Prednisone 20 mg twice a day Bronchodilators (5) Anemia Current Visit: Yes Status: Chronic Assessment and plan: History of chronic anemia hemoglobin stable at this time we will continue to monitor Qualifiers: Anemia type: unspecified type Qualified Code(s): D64.9 - Anemia, unspecified (6) Diabetes Current Visit: Yes Status: Chronic Assessment and plan: Accu-Cheks before meals at bedtime with sliding scale insulin- on steroids-we will need to monitor and adjust insulin accordingly Qualifiers: Diabetes mellitus type: type 2 Diabetes mellitus complication status: with unspecified complications Diabetes mellitus retirement insulin use: with retirement use Qualified Code(s): E11.8 - Type 2 diabetes mellitus with unspecified complications; Z79.4 - artist agent (current) use of insulin; Z79.4 - detention ( current) use of insulin; Z79.4 - detention (current) use of insulin; Z79.4 - artist agent (current) use of insulin (7) HTN (hypertension) Current Visit: Yes Status: Chronic Assessment and plan: Presently stable continue with home medications Qualifiers: Hypertension type: essential hypertension Qualified Code(s): I10 - Essential (primary) hypertension (8) Elevated troponin Current Visit: No Status: Acute Assessment and plan: Most likely demand ischemia from CHF exacerbation. (9) DVT prophylaxis Current Visit: Yes Status: Acute Assessment and plan: On heparin drip - Subjective Interval history: Overnight -MRI of the brain showed presence of 2 acute punctate ischemic infarct. Neurology did see patient most likely embolic in nature. He does not have any focal deficits however he does have difficulty speaking. At times stuttering, word searching. He was anticoagulated on heparin-presently he is alert and able to state his name however words are jumbled, and his stuttering. Rest of neuro exam is intact . - Constitutional Vitals: Temp Pulse Resp BP Pulse Ox 98.2 F 103 16 131/63 98 10/26/17 15:40 10/26/17 15:40 10/26/17 15:40 10/26/17 15:40 10/26/17 15:40 General appearance: Present: cooperative, pleasant, no acute distress - Head Head exam: Present: atraumatic, normocephalic - Eye Eye exam: Present: PERRL, conjuntiva pink, sclera anicteric Pupils: Present: PERRL - Neck Neck exam general surgery: Present: supple, trachea midline. Absent: lymphadenopathy - Respiratory Respiratory exam: Present: CTAB. Absent: accessory muscle use, rales, rhonchi, wheezes - Cardiovascular Cardiovascular exam: Present: RRR, +S1, +S2. Absent: diastolic murmur, gallop, rubs, systolic murmur - GI/Abdominal GI/Abdominal exam: Present: normal bowel sounds, soft, no peritoneal signs. Absent: distended, tenderness - Extremities Exam Extremities exam: Present: warm, radial pulses palpable and symmetrical. Absent : calf tenderness, cyanotic, pedal edema - Neurological Exam Neurological exam: Present: CN II-XII intact, no focal deficits, strengths equal and symetr throughout, speech deficit. Absent: pronater drift, facial droop - Expanded Neurological Exam Neurological exam expanded: Present: expressive aphasia Speech: Present: expressive aphasia, garbled Internal Medicine: Result - Labs CBC & Chem 7: 10/26/17 05:31 10/26/17 05:31 Labs: Short CBC 10/25/17 10/26/17 Range/Units 22:49 05:31 WBC 15.4 H 13.9 H (4.3-11.1) K/mcL Hgb 12.0 L 11.4 L (12.9-16.9) g/dL Hct 37.5 34.8 L (37.5-50.1) % Plt Count 319 271 (140-400) K/mcL Neutrophils # 9.9 H (1.6-8.9) K/mcL BMP 10/26/17 05:31 Sodium 139 Potassium 3.6 Chloride 98 Carbon Dioxide 35 H BUN 27 H Creatinine 0.81 Glucose 139 H Calcium 9.3 Liver Function 10/26/17 Range/Units 05:31 Total Bilirubin 0.3 (0.3-1.0) mg/dL AST 11 L (13-39) Units/L ALT 13 (7-52) Units/L Alkaline Phosphatase 45 (34-104) Units/L Albumin 3.4 L (3.5-5.7) g/dL - ABG Interpretation ABG results: PT/INR, D-dimer PT 11.8 Seconds (9.4-12.1) 10/25/17 22:35 D-Dimer 1162 ng/mLFEU (0-500) H 10/22/17 15:53 - Impressions Impressions Brain MRI 10/25/17 18:00 IMPRESSION: 1. Punctate foci of diffusion restriction in the high right frontal lobe and left occipital lobe consistent with punctate acute infarctions. Given bilateral distribution, findings raise the possibility for thromboembolic process. 2. Parenchymal volume loss and sequela of mild chronic microvascular ischemic changes. Multiple bilateral old lacunar infarctions. 3. Since the previous MRI, there has been interval development of a chronic right frontal lobe infarction. The findings were sent to the Radiology Results Communication [facility] at 8:56 pm on 10/25/2017to be communicated to a licensed caregiver. D/ / 10/25/2017 21:01:24 Kash Garcia MD / [email or web address] Interpreting Provider: Kash Garcia MD Head CT 10/26/17 12:28 IMPRESSION: No evidence of acute intracranial abnormality. Evidence of remote basal ganglial and right frontal infarcts. Chronic microvascular changes. D/ / 10/26/2017 14:07:19 Angelica Rocha MD / mark Interpreting Provider: Angelica Rocha MD Abdomen/Pelvis CT 10/26/17 12:29 IMPRESSION: 1. No acute findings in the abdomen or pelvis. 2. Persistent though improved infectious or inflammatory bronchiolitis and associated pneumonitis in the left lower lobe. D/ / Josh Bethea MD / Josh Bethea MD Interpreting Provider: Josh Bethea MD Consult Discharge Plan - Plan Referrals: Toney Santos Jr, MD [Primary Care Provider] -
[2017-10-26] MEDS: *HR* OxyCODONE/APAP 5/325 TABLET PO PRN (20:21)
[2017-10-26] MEDS: Heparin 25,000 UNIT/500 ML D5W 25,000 UNIT/500 ML BAG IVC SCH (22:03)
--- NOTE | 2017-10-27 01:16 | Event Note ---
<Arthur Aleman - Last Filed: 10/27/17 01:49> Date of Encounter: 10/27/17 Time of Encounter: 01:11 82 M admitted for PNA and CHF exacerbation who suffered stroke after cardiac catheterization. Rapid response called at 1:09. Patient had unwitnessed fall in room. Patient was on fall/safety precautions but bed alarm was not turned back on after last assisted trip out of bed. CT scan of head ordered. Heparin drip placed on hold. CT head showed no signs of acute bleeding. Patient's medical treatment was resumed. <Gigi Fish - Last Filed: 10/28/17 05:47> Date of Encounter: 10/28/17 I examined this patient and my medical decision-making was reviewed with the Resident Physician. I agree with the documented findings, disposition and treatment plan as described except to the extent set forth below. I was personally present during this episode. Patient was monitored as per the protocol. Family was updated
[2017-10-27 06:51] LABS: Basophils % 0.2 %; Eosinophils % 0.2 %; Hematocrit 34.5 % (37.5-50.1); Hemoglobin 11.3 g/dL (12.9-16.9); Immature Granulocytes % 1.5 % (0-4); Lymphocytes # 1.8 K/mcL (0.6-4.6); Lymphocytes % 14.3 %; Mean Corpuscular HGB Conc 32.8 g/dL (31.6-35.5); Mean Corpuscular Hemoglobin 27.8 pg (28.0-33.3); Mean Corpuscular Volume 84.8 fL (83.0-100.0); Mean Platelet Volume 9.2 fL (9.4-12.4); Monocytes # 0.7 K/mcL (0.0-1.3); Monocytes % 5.7 %; Neutrophils # 9.7 K/mcL (1.6-8.9); Platelet Count 254 K/mcL (140-400); Red Blood Count 4.07 M/mcL (4.19-5.50); Red Cell Distribution Width 12.9 % (11.5-14.5); Segmented Neutrophils % 78.1 %
[2017-10-27 07:02] LABS: Alanine Aminotransferase 14 Units/L (7-52); Albumin 3.2 g/dL (3.5-5.7); Alkaline Phosphatase 43 Units/L (34-104); Aspartate Amino Transferase 14 Units/L (13-39); BUN/Creatinine Ratio 28 (6-26); Bilirubin,Total 0.4 mg/dL (0.3-1.0); Blood Urea Nitrogen 29 mg/dL (8-23); Calcium 8.9 mg/dL (8.6-10.3); Carbon Dioxide 33 mEq/L (23-29); Chloride 97 mEq/L (98-107); Globulin 3.1 g/dL (2.4-3.5); Glucose 121 mg/dL (70-105); Osmolality,Calculated 291 (280-300); Potassium 3.4 mEq/L (3.5-5.1); Sodium 137 mEq/L (136-145); Total Protein 6.3 g/dL (6.4-8.9); eGFR For African Americans > 60 (> 60); eGFR For Non-African Americans > 60 (> 60)
[2017-10-27] MEDS: Insulin LISPRO 300 UNITS/3 ML VIAL SQ SCH ×4 (08:34→22:39)
[2017-10-27] MEDS: Aspirin Enteric Coated 81 MG Tablet PO SCH (08:42)
[2017-10-27] MEDS: predniSONE 20 MG TABLET PO SCH (08:42)
[2017-10-27] MEDS: Furosemide 20 MG/2 ML VIAL IVP SCH (08:42)
[2017-10-27] MEDS: Gabapentin 300 MG CAPSULE PO SCH ×4 (08:43→20:21)
--- NOTE | 2017-10-27 11:04 | Internal Med Progress Note ---
Date of Encounter: 10/27/17 Time of Encounter: 09:00 - Assessment and plan (1) CVA (cerebral vascular accident) Current Visit: Yes Status: Acute Assessment and plan: Patient developed acute embolic event after cardiac catheterization. MRI brain showed presence of 2 acute punctate ischemic infarct. Neurology was notified and patient was initiated on aspirin and heparin. Patient will undergo KEREN on Saturday-which can assess the source of the emboli, he was also seen by cardiology there is some concerns of remote irregular rhythm-per daughter history-> 5 years ago. 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 He has completed 5 days of antibiotics we will stop today-no respiratory distress or changes no cough or fever Blood cultures and sputum cultures are negative-strep pneumonia antigens are negative Xopenex as needed Oxygen as needed Qualifiers: Pneumonia type: due to unspecified organism Laterality: left Lung location: lower lobe of lung Qualified Code(s): J18.1 - Lobar pneumonia, unspecified organism (3) Acute exacerbation of CHF (congestive heart failure) Current Visit: Yes Status: Acute Assessment and plan: Patient denies any past history of CHF echo completed which does show an EF of 25%-initial BNP was 447-patient initiated on IV Lasix we will change to oral Continuous telemetry monitoring Continue beta danielle and daisy oxygen to maintain SPO2 greater than 92% Monitor intake and output daily weights Consult cardiology- per cardiology note left heart catheter 10/24/17 coronary arteries are angiographically normal-cardiology recommends CHF teaching and the importance of sodium and fluid restriction diet Qualifiers: Heart failure type: unspecified Qualified Code(s): I50.9 - Heart failure, unspecified (4) COPD exacerbation Current Visit: Yes Status: Acute Assessment and plan: Presently stable -no wheezing Continuous with oxygen titrated maintain SPO2 greater than 92% He received 4 days of prednisone 40 mg we will stop now Bronchodilators (5) Anemia Current Visit: Yes Status: Chronic Assessment and plan: History of chronic anemia-we will closely watch for bleeding patient has been initiated on heparin drip Monitor CBC Qualifiers: Anemia type: unspecified type Qualified Code(s): D64.9 - Anemia, unspecified (6) Diabetes Current Visit: Yes Status: Chronic Assessment and plan: Accu-Cheks before meals at bedtime with sliding scale insulin- Qualifiers: Diabetes mellitus type: type 2 Diabetes mellitus complication status: with unspecified complications Diabetes mellitus shelter insulin use: with long term care social worker use Qualified Code(s): E11.8 - Type 2 diabetes mellitus with unspecified complications; Z79.4 - long term care social worker (current) use of insulin; Z79.4 - [facility] ( current) use of insulin; Z79.4 - long term care social worker (current) use of insulin; Z79.4 - [facility] (current) use of insulin (7) HTN (hypertension) Current Visit: Yes Status: Chronic Assessment and plan: Presently stable continue with home medications Qualifiers: Hypertension type: essential hypertension Qualified Code(s): I10 - Essential (primary) hypertension (8) Elevated troponin Current Visit: No Status: Acute Assessment and plan: Most likely demand ischemia from CHF exacerbation. (9) DVT prophylaxis Current Visit: Yes Status: Acute Assessment and plan: On heparin drip (10) Falls Current Visit: Yes Status: Acute Assessment and plan: Patient has high risk for falls due to recent stroke. Patient was placed on fall precautions however bed alarm was not sent and patient did have a fall overnight. CT of head was negative. He is on heparin for previous CVA -follow- up CT was placed for Saturday at 8AM however it was inadvertently completed this morning at 8AM-patient will require a Head CT in 24 hours to rule out any possible bleeding Qualifiers: Encounter type: initial encounter Qualified Code(s): W19.XXXA - Unspecified fall, initial encounter - Time Spent With Patient less than 15 minutes - Subjective Interval history: Overnight -apparently patient had a fall overnight-he has been on fall precautions apparently bed alarm was not set patient attempted to get out of bed to go the bathroom and fell. No loss of consciousness patient was taken to CAT scan which was negative heparin has been resumed. Neurochecks have been unchanged we will continue with neuro checks as well as vital signs every 2 hours. This morning patient has no complaints speech is still incomprehensible at times however he will occasionally have clear sentences. There are no focal deficits he is able to follow commands - Constitutional Vitals: Temp Pulse Resp BP Pulse Ox 97.9 F 92 17 167/77 95 10/27/17 07:25 10/27/17 07:25 10/27/17 07:25 10/27/17 09:22 10/27/17 07:25 General appearance: Present: cooperative, A&O X 1, pleasant, no acute distress - Head Head exam: Present: atraumatic, normocephalic - Eye Eye exam: Present: PERRL, conjuntiva pink, sclera anicteric Pupils: Present: PERRL - Neck Neck exam general surgery: Present: supple, trachea midline. Absent: lymphadenopathy - Respiratory Respiratory exam: Present: CTAB. Absent: accessory muscle use, rales, rhonchi, wheezes - Cardiovascular Cardiovascular exam: Present: RRR, +S1, +S2. Absent: diastolic murmur, gallop, rubs, systolic murmur - GI/Abdominal GI/Abdominal exam: Present: normal bowel sounds, soft, no peritoneal signs. Absent: distended, tenderness - Extremities Exam Extremities exam: Present: warm, radial pulses palpable and symmetrical. Absent : calf tenderness, cyanotic, pedal edema - Neurological Exam Neurological exam: Present: CN II-XII intact, no focal deficits, strengths equal and symetr throughout, speech deficit. Absent: pronater drift, facial droop - Skin Skin exam: Present: dry, intact Internal Medicine: Result - Labs CBC & Chem 7: 10/27/17 05:10 10/27/17 05:10 Labs: Short CBC 10/27/17 Range/Units 05:10 WBC 12.4 H (4.3-11.1) K/mcL Hgb 11.3 L (12.9-16.9) g/dL Hct 34.5 L (37.5-50.1) % Plt Count 254 (140-400) K/mcL Neutrophils # 9.7 H (1.6-8.9) K/mcL BMP 10/27/17 05:10 Sodium 137 Potassium 3.4 L Chloride 97 L Carbon Dioxide 33 H BUN 29 H Creatinine 1.03 Glucose 121 H Calcium 8.9 Liver Function 10/27/17 Range/Units 05:10 Total Bilirubin 0.4 (0.3-1.0) mg/dL AST 14 (13-39) Units/L ALT 14 (7-52) Units/L Alkaline Phosphatase 43 (34-104) Units/L Albumin 3.2 L (3.5-5.7) g/dL - ABG Interpretation ABG results: PT/INR, D-dimer PT 11.8 Seconds (9.4-12.1) 10/25/17 22:35 D-Dimer 1162 ng/mLFEU (0-500) H 10/22/17 15:53 - Impressions Impressions Brain MRI 10/25/17 18:00 IMPRESSION: 1. Punctate foci of diffusion restriction in the high right frontal lobe and left occipital lobe consistent with punctate acute infarctions. Given bilateral distribution, findings raise the possibility for thromboembolic process. 2. Parenchymal volume loss and sequela of mild chronic microvascular ischemic changes. Multiple bilateral old lacunar infarctions. 3. Since the previous MRI, there has been interval development of a chronic right frontal lobe infarction. The findings were sent to the Radiology Results Communication Center at 8:56 pm on 10/25/2017to be communicated to a licensed caregiver. D/ / 10/25/2017 21:01:24 Kash Garcia MD / [email or web address] Interpreting Provider: Kash Garcia MD Head CT 10/26/17 12:28 IMPRESSION: No evidence of acute intracranial abnormality. Evidence of remote basal ganglial and right frontal infarcts. Chronic microvascular changes. D/ : / 10/26/2017 14:07:19 Angelica Rocha MD / [email or web address] Interpreting Provider: Angelica Rocha MD Abdomen/Pelvis CT 10/26/17 12:29 IMPRESSION: 1. No acute findings in the abdomen or pelvis. 2. Persistent though improved infectious or inflammatory bronchiolitis and associated pneumonitis in the left lower lobe. D/ / Josh Bethea MD / Josh Bethea MD Interpreting Provider: Josh Bethea MD Head CT 10/27/17 01:19 IMPRESSION: 1. No acute intracranial abnormality. D/ / Juan R Dupree MD / Juan R Dupree MD Interpreting Provider: Juan R Dupree MD Consult Discharge Plan - Plan Referrals: Toney Santos Jr, MD [Primary Care Provider] -
--- NOTE | 2017-10-27 13:22 | Neurology Progress Note ---
Date of Encounter: 10/27/17 Time of Encounter: 13:19 Assessment and Plan (1) CVA (cerebral vascular accident) Current Visit: Yes Status: Acute Again, small punctate embolic infarcts likely secondary to cardiac catheterization procedure and/or history of CHF with LVEF 25%. Await KEREN. does appear to be increased risk of falling due to current confusion and balance difficulty. Will keep on aspirin and haperin while waiting for KEREN. if KEREN shows no definitive source of emboli or other indications for anticoagulation i would suggest to keep him on full aspirin 325mg daily and not to anticoagulate solely based on reduced LVEF. If KEREN shows source of emboli or other indications for anticoagulation then will consider initiation of anticoagulation therapy. 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 Per his daughter patient had a fall last night and this morning because he was still confused and and un-balanced and the bed had no guarding rail on, he was trying to go to bathroom and then fell. no injuries reported. Patient is still somewhat confused per his daughter but is sitting at the edge of bed comfortably. He seemed sleepy. Waiting KEREN to be done tomorrow. No focal neurological deficits. Objective - Constitutional Vitals: Temp Pulse Resp BP Pulse Ox 98.5 F 92 15 138/75 96 10/27/17 11:55 10/27/17 07:25 10/27/17 11:55 10/27/17 11:55 10/27/17 11:55 - Neurological Exam Sensorimotor examination: Present: intact (Grossly intact) Motor examination - left side: 5/5: deltoids, biceps, triceps, wrist flexion, wrist extension, hip flexors, roll repairer, quadriceps, tibialis Anterior, toe extension (EHL), plantarflexion Sensation intact: Present: intact (Grossly intact) Posture: Present: other (None) Reflex and gait examination: intact Mental Status Examination: Present: awake, alert, oriented to person, follows commands appropriately, expressive aphasia (Unable to repeat complex sentences) Cranial nerve examination: Present: PERRL, EOMI, visual gustafson intact, corneal reflexes brisk symmetrically, sensory to face intact, mastication intact, no facial asymmetry is present, no dysarthria (unable to repeat complex sentence), hearing is intact symmetrically, soft palate elevates bilaterally upon phonation , gag reflex intact, flexes SCM and trapezius muscles symmetrically with full power, tongue protrudes midline, no atrophy or facial fasiculations present Cerebellar examination: Present: no dysmetria, no gait ataxia, no truncal ataxia , no difficulty with rapid alternating movements Results - Laboratory Findings CBC and BMP: 10/27/17 05:10 10/27/17 05:10 Abnormal lab findings: Abnormal lab results WBC 12.4 K/mcL (4.3-11.1) H 10/27/17 05:10 RBC 4.07 M/mcL (4.19-5.50) L 10/27/17 05:10 Hgb 11.3 g/dL (12.9-16.9) L 10/27/17 05:10 Hct 34.5 % (37.5-50.1) L 10/27/17 05:10 MCH 27.8 pg (28.0-33.3) L 10/27/17 05:10 MPV 9.2 fL (9.4-12.4) L 10/27/17 05:10 Neutrophils # 9.7 K/mcL (1.6-8.9) H 10/27/17 05:10 Nucleated RBCs/100 WBC 0.2 /100 WBC (0) H 10/25/17 04:06 APTT 64.3 Seconds (26.0-36.0) H 10/27/17 09:50 D-Dimer 1162 ng/mLFEU (0-500) H 10/22/17 15:53 Potassium 3.4 mEq/L (3.5-5.1) L 10/27/17 05:10 Chloride 97 mEq/L (98-107) L 10/27/17 05:10 Carbon Dioxide 33 mEq/L (23-29) H 10/27/17 05:10 BUN 29 mg/dL (8-23) H 10/27/17 05:10 BUN/Creatinine Ratio 28 (6-26) H 10/27/17 05:10 Glucose 121 mg/dL (70-105) H 10/27/17 05:10 POC Glucose 167 (58-89) H 10/27/17 11:57 Hemoglobin A1c 6.3 % (-5.6) H 10/23/17 00:41 B-Natriuretic Peptide 447 pg/mL (Less than 100) H 10/22/17 10:50 Serum Total Protein 6.3 g/dL (6.4-8.9) L 10/27/17 05:10 Albumin 3.2 g/dL (3.5-5.7) L 10/27/17 05:10 Albumin/Globulin Ratio 1.0 (1.1-2.2) L 10/27/17 05:10 Ur Specific [place] 1.009 (1.010-1.025) L 10/25/17 16:23 Urine Glucose (UA) 500 mg/dL (Normal) H 10/25/17 16:23 Consult Discharge Plan - Plan Referrals: Toney Santos Jr, MD [Primary Care Provider] -
[2017-10-27] MEDS: Furosemide 20 MG TABLET PO SCH (17:06)
[2017-10-27] MEDS: cefTRIAXone 2,000 MG in Water for inj. (sterile) 20 ML 20 ML IVP SCH (17:07)
[2017-10-27] MEDS: Azithromycin 500 MG in D5% in Water 250 ML IVPB SCH (17:07)
[2017-10-27] MEDS: *HR* OxyCODONE/APAP 5/325 TABLET PO PRN (20:22)
[2017-10-28] MEDS ORDERED: Haloperidol Lactate 5 MG/ML VIAL ONE (00:09)
[2017-10-28] MEDS: Haloperidol Lactate 5 MG/ML VIAL IVP PRN ×2 (00:18→16:11)
[2017-10-28] MEDS: Heparin 25,000 UNIT/500 ML D5W 25,000 UNIT/500 ML BAG IVC SCH (00:19)
[2017-10-28] MEDS: Furosemide 20 MG TABLET PO SCH ×2 (05:52→18:03)
[2017-10-28] MEDS ORDERED: Lidocaine Viscous Oral Soln 15 ML SOLUTION MM PRN (07:20)
[2017-10-28] MEDS ORDERED: 0.9 % Sodium Chloride 500 ML IVC ONE (07:21)
[2017-10-28] MEDS ORDERED: Tetracaine/Benzocaine/Butamben 200MG/SPRAY (100SPY/BOT) MM ONE (07:21)
[2017-10-28] MEDS: *HR* Midazolam HCl 5 MG/5 ML VIAL IVP PRN ×2 (09:20→09:25)
[2017-10-28] MEDS: *HR* FentaNYL (PF) 100 MCG/2 ML VIAL IVP PRN ×2 (09:20→09:25)
[2017-10-28] MEDS: Insulin LISPRO 300 UNITS/3 ML VIAL SQ SCH ×4 (11:28→21:16)
[2017-10-28 11:34] LABS: Basophils # 0.1 K/mcL (0.0-0.2); Basophils % 0.4 %; Eosinophils # 0.2 K/mcL (0.0-0.6); Eosinophils % 1.5 %; Hematocrit 33.9 % (37.5-50.1); Hemoglobin 11.3 g/dL (12.9-16.9); Lymphocytes # 2.8 K/mcL (0.6-4.6); Lymphocytes % 20.5 %; Mean Corpuscular HGB Conc 33.3 g/dL (31.6-35.5); Mean Corpuscular Hemoglobin 27.9 pg (28.0-33.3); Mean Corpuscular Volume 83.7 fL (83.0-100.0); Monocytes # 0.8 K/mcL (0.0-1.3); Monocytes % 6.2 %; Neutrophils # 9.5 K/mcL (1.6-8.9); Platelet Count 254 K/mcL (140-400); Red Blood Count 4.05 M/mcL (4.19-5.50); Segmented Neutrophils % 70.4 %
--- NOTE | 2017-10-28 11:41 | Neurology Progress Note ---
<Grayson Jovel - Last Filed: 10/28/17 11:39> Date of Encounter: 10/28/17 Time of Encounter: 11:00 Assessment and Plan (1) CVA (cerebral vascular accident) Current Visit: Yes Status: Acute Mr. Quinn 82-year-old gentleman with multiple comorbid medical conditions including diabetes, ASD, COPD, previous CVA, systolic heart failure was evaluated post catheterization with new speech difficulties. MRI of brain showed presence of two acute punctate ischemic infarct at different sides of brain indicating embolic nature of the cerebral infarcts. He underwent KEREN, results pending. He is currently being seen by cardiology and would agree with potentially needing anticoagulation the future given his diminished left ventricular ejection fraction and increased risk of thrombotic development. Plan: - Awaiting final results from KEREN - Speech therapy and swallow evaluation - Continue antiplatelet therapy. - Atorvastatin 80 mg by mouth daily Qualifiers: CVA mechanism: embolism Precerebral and cerebral artery: unspecified cerebral artery Qualified Code(s): I63.40 - Cerebral infarction due to embolism of unspecified cerebral artery Subjective Principal diagnosis: CVA and confusion Interval history: Mr. Quinn has not seen evaluate a patient bedside this morning. Is alert awake interactive in no acute distress. He is alert and oriented to self but not time or place. He denies any pain other than where he fell on his knees. Denies any back pain, weakness in his lower extremities or any other concerns at this time. Objective - Constitutional Vitals: Temp Pulse Resp BP Pulse Ox 99.0 F 95 14 147/80 96 10/28/17 07:45 10/28/17 07:45 10/28/17 07:45 10/28/17 07:45 10/28/17 07:45 - Neurological Exam Sensorimotor examination: Present: intact (Grossly intact) Motor Examination: Present: grossly full strength in all extremities, full strength in all major muscle groups Motor examination - right side: 5/5: deltoids, biceps, triceps, wrist flexion, wrist extension, media relations associate, hip flexors, tibialis Anterior, quadriceps, toe extension (EHL), plantarflexion Motor examination - left side: 5/5: deltoids, biceps, triceps, wrist flexion, wrist extension, hip flexors, media relations associate, quadriceps, tibialis Anterior, toe extension (EHL), plantarflexion Sensation intact: Present: intact (Grossly intact) Posture: Present: other (None) Reflex and gait examination: intact Reflexes: Biceps: 2+, Triceps: 2+, Brachioradialis: 2+, Patella: 2+, Achilles: 2 + Mental Status Examination: Present: awake, alert, oriented to person, follows commands appropriately, answers questions appropriately, expressive aphasia ( Unable to repeat complex sentences) Cranial nerve examination: Present: PERRL, EOMI, visual gustafson intact, corneal reflexes brisk symmetrically, sensory to face intact, mastication intact, no facial asymmetry is present, no dysarthria (unable to repeat complex sentence), hearing is intact symmetrically, soft palate elevates bilaterally upon phonation , gag reflex intact, flexes SCM and trapezius muscles symmetrically with full power, tongue protrudes midline, no atrophy or facial fasiculations present Cerebellar examination: Present: no dysmetria, no gait ataxia, no truncal ataxia , no difficulty with rapid alternating movements Results - Laboratory Findings CBC and BMP: 10/28/17 10:58 10/27/17 05:10 Abnormal lab findings: Abnormal lab results WBC 13.4 K/mcL (4.3-11.1) H 10/28/17 10:58 RBC 4.05 M/mcL (4.19-5.50) L 10/28/17 10:58 Hgb 11.3 g/dL (12.9-16.9) L 10/28/17 10:58 Hct 33.9 % (37.5-50.1) L 10/28/17 10:58 MCH 27.9 pg (28.0-33.3) L 10/28/17 10:58 MPV 9.0 fL (9.4-12.4) L 10/28/17 10:58 Neutrophils # 9.5 K/mcL (1.6-8.9) H 10/28/17 10:58 Nucleated RBCs/100 WBC 0.2 /100 WBC (0) H 10/25/17 04:06 APTT 62.8 Seconds (26.0-36.0) H 10/27/17 16:06 D-Dimer 1162 ng/mLFEU (0-500) H 10/22/17 15:53 Potassium 3.4 mEq/L (3.5-5.1) L 10/27/17 05:10 Chloride 97 mEq/L (98-107) L 10/27/17 05:10 Carbon Dioxide 33 mEq/L (23-29) H 10/27/17 05:10 BUN 29 mg/dL (8-23) H 10/27/17 05:10 BUN/Creatinine Ratio 28 (6-26) H 10/27/17 05:10 Glucose 121 mg/dL (70-105) H 10/27/17 05:10 POC Glucose 126 (58-89) H 10/27/17 20:29 Hemoglobin A1c 6.3 % (-5.6) H 10/23/17 00:41 B-Natriuretic Peptide 447 pg/mL (Less than 100) H 10/22/17 10:50 Serum Total Protein 6.3 g/dL (6.4-8.9) L 10/27/17 05:10 Albumin 3.2 g/dL (3.5-5.7) L 10/27/17 05:10 Albumin/Globulin Ratio 1.0 (1.1-2.2) L 10/27/17 05:10 Ur Specific [place] 1.009 (1.010-1.025) L 10/25/17 16:23 Urine Glucose (UA) 500 mg/dL (Normal) H 10/25/17 16:23 Consult Discharge Plan - Plan Referrals: Toney Santos Jr, MD [Primary Care Provider] - <Elissa Garcia I - Last Filed: 10/28/17 17:25> Date of Encounter: 10/28/17 Assessment and Plan (1) CVA (cerebral vascular accident) Current Visit: Yes Status: Acute I examined this patient and my medical decision-making was reviewed with the Resident Physician, I agree with the documented findings, disposition and treatment plan as described except to the extent set forth below Elissa Garcia MD Qualifiers: CVA mechanism: embolism Precerebral and cerebral artery: unspecified cerebral artery Qualified Code(s): I63.40 - Cerebral infarction due to embolism of unspecified cerebral artery Objective - Constitutional Vitals: Temp Pulse Resp BP Pulse Ox 98.1 F 102 16 134/73 95 10/28/17 12:30 10/28/17 12:30 10/28/17 12:30 10/28/17 12:30 10/28/17 12:30 Results - Laboratory Findings CBC and BMP: 10/28/17 10:58 10/28/17 10:58 Abnormal lab findings: Abnormal lab results WBC 13.4 K/mcL (4.3-11.1) H 10/28/17 10:58 RBC 4.05 M/mcL (4.19-5.50) L 10/28/17 10:58 Hgb 11.3 g/dL (12.9-16.9) L 10/28/17 10:58 Hct 33.9 % (37.5-50.1) L 10/28/17 10:58 MCH 27.9 pg (28.0-33.3) L 10/28/17 10:58 MPV 9.0 fL (9.4-12.4) L 10/28/17 10:58 Neutrophils # 9.5 K/mcL (1.6-8.9) H 10/28/17 10:58 Nucleated RBCs/100 WBC 0.2 /100 WBC (0) H 10/25/17 04:06 APTT 62.8 Seconds (26.0-36.0) H 10/27/17 16:06 D-Dimer 1162 ng/mLFEU (0-500) H 10/22/17 15:53 Potassium 3.3 mEq/L (3.5-5.1) L 10/28/17 10:58 Carbon Dioxide 30 mEq/L (23-29) H 10/28/17 10:58 Glucose 109 mg/dL (70-105) H 10/28/17 10:58 POC Glucose 103 (58-89) H 10/28/17 10:41 Hemoglobin A1c 6.3 % (-5.6) H 10/23/17 00:41 B-Natriuretic Peptide 447 pg/mL (Less than 100) H 10/22/17 10:50 Serum Total Protein 5.9 g/dL (6.4-8.9) L 10/28/17 10:58 Albumin 3.1 g/dL (3.5-5.7) L 10/28/17 10:58 Ur Specific [place] 1.009 (1.010-1.025) L 10/25/17 16:23 Urine Glucose (UA) 500 mg/dL (Normal) H 10/25/17 16:23
[2017-10-28 11:45] LABS: Alanine Aminotransferase 14 Units/L (7-52); Albumin 3.1 g/dL (3.5-5.7); Albumin/Globulin Ratio 1.1 (1.1-2.2); Alkaline Phosphatase 44 Units/L (34-104); Aspartate Amino Transferase 17 Units/L (13-39); BUN/Creatinine Ratio 26 (6-26); Bilirubin,Total 0.4 mg/dL (0.3-1.0); Blood Urea Nitrogen 23 mg/dL (8-23); Calcium 8.8 mg/dL (8.6-10.3); Carbon Dioxide 30 mEq/L (23-29); Chloride 99 mEq/L (98-107); Globulin 2.8 g/dL (2.4-3.5); Glucose 109 mg/dL (70-105); Osmolality,Calculated 288 (280-300); Potassium 3.3 mEq/L (3.5-5.1); Sodium 137 mEq/L (136-145); Total Protein 5.9 g/dL (6.4-8.9); eGFR For African Americans > 60 (> 60); eGFR For Non-African Americans > 60 (> 60)
[2017-10-28] MEDS: Gabapentin 300 MG CAPSULE PO SCH ×4 (12:25→21:16)
[2017-10-28] MEDS: Aspirin Enteric Coated 81 MG Tablet PO SCH (12:25)
[2017-10-28] MEDS: ALPRAZolam 0.5 MG TABLET PO PRN (12:26)
--- NOTE | 2017-10-28 17:43 | Internal Med Progress Note ---
Date of Encounter: 10/28/17 Time of Encounter: 17:39 - Assessment and plan (1) Acute exacerbation of CHF (congestive heart failure) Current Visit: Yes Status: Acute Assessment and plan: Patient denies any past history of CHF, echo completed which does show an EF of 25%- initial BNP was 447- continue lasix Continuous telemetry monitoring Continue beta danielle and daisy oxygen to maintain SPO2 greater than 92% Monitor intake and output, daily weights Consult cardiology- per cardiology note left heart catheter 10/24/17 coronary arteries are angiographically normal-cardiology recommends CHF teaching and the importance of sodium and fluid restriction diet Qualifiers: Heart failure type: unspecified Qualified Code(s): I50.9 - Heart failure, unspecified (2) Anemia Current Visit: Yes Status: Chronic Assessment and plan: History of chronic anemia closely watch for bleeding patient as patient was on heparin drip which has been stopped 10/28/17 Will continue Plavix and aspirin per cardiology and neurology Monitor CBC, stable at 11.3 Qualifiers: Anemia type: unspecified type Qualified Code(s): D64.9 - Anemia, unspecified (3) COPD exacerbation Current Visit: Yes Status: Acute Assessment and plan: stable -no wheezing oxygen titrated to maintain SPO2 greater than 92% He received 4 days of prednisone 40 mg which has been stopped Continue Bronchodilators (4) CVA (cerebral vascular accident) Current Visit: Yes Status: Acute Assessment and plan: Patient developed acute embolic event after cardiac catheterization. MRI brain showed presence of 2 acute punctate ischemic infarct. Neurology was notified and patient was initiated on aspirin and heparin. Attempted KEREN to identify the source of the emboli cardiology spoke with the family and as the patient was combative and refusing a KEREN 2 attempts they have decided to do nothing more invasive, want medical management. Palliative team has been consulted PT and OT for evaluation Speech evaluation-patient was seen by speech therapy and is able to have regular diet Continue statin There will be no anticoagulation added, will continue aspirin and Plavix. 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 (5) Diabetes mellitus Current Visit: No Status: Chronic Assessment and plan: Accu-Cheks before meals and at bedtime with sliding scale insulin coverage Qualifiers: Diabetes mellitus type: type 2 Diabetes mellitus complication status: with neurologic complications Diabetes mellitus complication detail: with unspecified neuropathy Diabetes mellitus residential insulin use: without residential use Qualified Code(s): E11.40 - Type 2 diabetes mellitus with diabetic neuropathy, unspecified (6) DVT prophylaxis Current Visit: Yes Status: Acute Assessment and plan: ambulation (7) Elevated troponin Current Visit: No Status: Acute Assessment and plan: likely demand ischemia from CHF exacerbation. (8) HTN (hypertension) Current Visit: Yes Status: Chronic Assessment and plan: stable continue with home medications Qualifiers: Hypertension type: essential hypertension Qualified Code(s): I10 - Essential (primary) hypertension (9) Pneumonia Current Visit: Yes Status: Acute Assessment and plan: White count is stable, evaluated by speech therapy with no aspiration. He has completed 5 days of antibiotics -no respiratory distress or changes no cough or fever Blood cultures and sputum cultures are negative - strep pneumonia antigens are negative Xopenex as needed Oxygen as needed Qualifiers: Pneumonia type: due to unspecified organism Laterality: left Lung location: lower lobe of lung Qualified Code(s): J18.1 - Lobar pneumonia, unspecified organism (10) Agitation Current Visit: Yes Status: Acute Assessment and plan: We will start Seroquel 25 mg at at bedtime as per neurologist - Subjective Interval history: Patient is lying in bed. He is oriented to himself and the building. He does answer some questions correctly regarding the president and the year. He interacted pleasantly, had no complaints. Was talking about some visitors that were coming in. Then an hour later he was throwing things and acting out in the room. - Constitutional Vitals: Temp Pulse Resp BP Pulse Ox 98.1 F 102 16 134/73 95 10/28/17 12:30 10/28/17 12:30 10/28/17 12:30 10/28/17 12:30 10/28/17 12:30 General appearance: Present: A&O X 2 Exam: Patient is intermittently confused, pleasant versus agitated and combative. - Head Head exam: Present: atraumatic, normocephalic - Eye Eye exam: Present: PERRL, conjuntiva pink, sclera anicteric Pupils: Present: PERRL - Neck Neck exam general surgery: Present: supple, trachea midline. Absent: lymphadenopathy - Respiratory Respiratory exam: Present: CTAB. Absent: accessory muscle use, rales, rhonchi, wheezes - Cardiovascular Cardiovascular exam: Present: RRR, +S1, +S2. Absent: diastolic murmur, gallop, rubs, systolic murmur - GI/Abdominal GI/Abdominal exam: Present: normal bowel sounds, soft, no peritoneal signs. Absent: distended, tenderness - Extremities Exam Extremities exam: Present: warm, radial pulses palpable and symmetrical. Absent : calf tenderness, cyanotic, pedal edema - Neurological Exam Neurological exam: Present: CN II-XII intact, oriented X3, no focal deficits. Absent: pronater drift, facial droop, speech deficit - Skin Skin exam: Present: dry, normal color, warm Internal Medicine: Result - Labs CBC & Chem 7: 10/28/17 10:58 10/28/17 10:58 Labs: Short CBC 10/28/17 Range/Units 10:58 WBC 13.4 H (4.3-11.1) K/mcL Hgb 11.3 L (12.9-16.9) g/dL Hct 33.9 L (37.5-50.1) % Plt Count 254 (140-400) K/mcL Neutrophils # 9.5 H (1.6-8.9) K/mcL BMP 10/28/17 10:58 Sodium 137 Potassium 3.3 L Chloride 99 Carbon Dioxide 30 H BUN 23 Creatinine 0.89 Glucose 109 H Calcium 8.8 Liver Function 10/28/17 Range/Units 10:58 Total Bilirubin 0.4 (0.3-1.0) mg/dL AST 17 (13-39) Units/L ALT 14 (7-52) Units/L Alkaline Phosphatase 44 (34-104) Units/L Albumin 3.1 L (3.5-5.7) g/dL - ABG Interpretation ABG results: PT/INR, D-dimer PT 11.8 Seconds (9.4-12.1) 10/25/17 22:35 D-Dimer 1162 ng/mLFEU (0-500) H 10/22/17 15:53 - Impressions Impressions Head CT 10/27/17 08:00 IMPRESSION: No acute intracranial abnormality. Stable exam. D/ / 10/28/2017 11:27:03 Hema Gamez MD / nelson Interpreting Provider: Hema Gamez MD Consult Discharge Plan - Plan Referrals: Toney Santos Jr, MD [Primary Care Provider] -
[2017-10-29] MEDS: *HR* OxyCODONE/APAP 5/325 TABLET PO PRN ×2 (04:30→15:26)
[2017-10-29] MEDS: Furosemide 20 MG TABLET PO SCH ×2 (05:43→18:16)
[2017-10-29] MEDS: Insulin LISPRO 300 UNITS/3 ML VIAL SQ SCH ×4 (08:26→20:37)
[2017-10-29] MEDS: Gabapentin 300 MG CAPSULE PO SCH (08:32)
[2017-10-29] MEDS: ALPRAZolam 0.5 MG TABLET PO PRN (08:32)
[2017-10-29] MEDS: Aspirin Enteric Coated 81 MG Tablet PO SCH (08:32)
--- NOTE | 2017-10-29 09:37 | Neurology Progress Note ---
<Grayson Jovel - Last Filed: 10/29/17 10:26> Date of Encounter: 10/29/17 Time of Encounter: 09:37 Assessment and Plan (1) CVA (cerebral vascular accident) Current Visit: Yes Status: Acute Mr. Quinn 82-year-old gentleman with multiple comorbid medical conditions including diabetes, ASD, COPD, previous CVA, systolic heart failure was evaluated post catheterization with new speech difficulties. MRI of brain showed presence of two acute punctate ischemic infarct at different sides of brain indicating embolic nature of the cerebral infarcts. He underwent KEREN, results pending. He is currently being seen by cardiology, we will defer any further recommendations regarding anticoagulation to cardiology. He does have risk for falls at home and the risks versus benefits should be considered. 10/29/17: No changes compared to yesterday, CT scan performed this morning without any changes compared to previous imaging. No further CT scans of the head needed at this time unless there are acute changes. According the family continues to have increased agitation at night with a previous history of . May benefit from at bedtime Seroquel. Plan: - Continue antiplatelet therapy - Continue physical therapy and speech therapy - Continue Seroquel at bedtime 25 mg by mouth. Qualifiers: CVA mechanism: embolism Precerebral and cerebral artery: unspecified cerebral artery Qualified Code(s): I63.40 - Cerebral infarction due to embolism of unspecified cerebral artery Subjective Principal diagnosis: CVA and confusion Interval history: Mr. Quinn has not seen evaluate a patient bedside this morning. He is alert awake interactive in no acute distress. He has family at bedside who are supportive and have questions which have been answered. According to his daughter his confusion secondary in after his stroke on this admission. Prior to this admission she feels that his mental status has been stable but he has been wearing a Alzheimer's alarm bracelet for over a year. His family feels that his speech has improved significantly almost back to baseline but he continues to have confusion which is not improved for the past week. They deny any acute changes overnight or other concerning findings. The patient denies any discomforts, pains or concerns at this time. He is very pleasant and sitting up in his chair at bedside during this examination. Objective - Constitutional Vitals: Temp Pulse Resp BP Pulse Ox 97.6 F 93 16 119/63 95 10/29/17 07:58 10/29/17 07:58 10/29/17 07:58 10/29/17 07:58 10/29/17 08:30 General appearance: Present: cooperative, pleasant, answers questions appropriately - Neurological Exam Sensorimotor examination: Present: intact (Grossly intact) Motor Examination: Present: grossly full strength in all extremities, full strength in all major muscle groups Motor examination - right side: 5/5: deltoids, biceps, triceps, wrist flexion, wrist extension, spiral gear generator, hip flexors, tibialis Anterior, quadriceps, toe extension (EHL), plantarflexion Motor examination - left side: 5/5: deltoids, biceps, triceps, wrist flexion, wrist extension, hip flexors, spiral gear generator, quadriceps, tibialis Anterior, toe extension (EHL), plantarflexion Sensation intact: Present: intact (Grossly intact) Posture: Present: other (None) Reflex and gait examination: intact Reflexes: Biceps: 2+, Triceps: 2+, Brachioradialis: 2+, Patella: 2+, Achilles: 2 + Mental Status Examination: Present: awake, alert, oriented to person, follows commands appropriately, answers questions appropriately Cranial nerve examination: Present: PERRL, EOMI, visual gustafson intact, corneal reflexes brisk symmetrically, sensory to face intact, mastication intact, no facial asymmetry is present, no dysarthria, hearing is intact symmetrically, soft palate elevates bilaterally upon phonation, gag reflex intact, flexes SCM and trapezius muscles symmetrically with full power, tongue protrudes midline, no atrophy or facial fasiculations present Cerebellar examination: Present: no dysmetria, no gait ataxia, no truncal ataxia , no difficulty with rapid alternating movements Results - Laboratory Findings CBC and BMP: 10/28/17 10:58 10/28/17 10:58 Abnormal lab findings: Abnormal lab results WBC 13.4 K/mcL (4.3-11.1) H 10/28/17 10:58 RBC 4.05 M/mcL (4.19-5.50) L 10/28/17 10:58 Hgb 11.3 g/dL (12.9-16.9) L 10/28/17 10:58 Hct 33.9 % (37.5-50.1) L 10/28/17 10:58 MCH 27.9 pg (28.0-33.3) L 10/28/17 10:58 MPV 9.0 fL (9.4-12.4) L 10/28/17 10:58 Neutrophils # 9.5 K/mcL (1.6-8.9) H 10/28/17 10:58 Nucleated RBCs/100 WBC 0.2 /100 WBC (0) H 10/25/17 04:06 APTT 62.8 Seconds (26.0-36.0) H 10/27/17 16:06 D-Dimer 1162 ng/mLFEU (0-500) H 10/22/17 15:53 Potassium 3.3 mEq/L (3.5-5.1) L 10/28/17 10:58 Carbon Dioxide 30 mEq/L (23-29) H 10/28/17 10:58 Glucose 109 mg/dL (70-105) H 10/28/17 10:58 POC Glucose 160 (58-89) H 10/28/17 19:17 Hemoglobin A1c 6.3 % (-5.6) H 10/23/17 00:41 B-Natriuretic Peptide 447 pg/mL (Less than 100) H 10/22/17 10:50 Serum Total Protein 5.9 g/dL (6.4-8.9) L 10/28/17 10:58 Albumin 3.1 g/dL (3.5-5.7) L 10/28/17 10:58 Ur Specific [place] 1.009 (1.010-1.025) L 10/25/17 16:23 Urine Glucose (UA) 500 mg/dL (Normal) H 10/25/17 16:23 Consult Discharge Plan - Plan Referrals: Toney Santos Jr, MD [Primary Care Provider] - <Elissa Garcia I - Last Filed: 10/29/17 15:35> Date of Encounter: 10/29/17 Assessment and Plan (1) CVA (cerebral vascular accident) Current Visit: Yes Status: Acute Pt was seen and examined, my medical decision was reviewed with the Resident Physician, I agree with the documented findings, disposition and treatment plas as described except to the extent set forth below. pt seem to be stable, discussed with family, agree with the plan Elissa Garcia MD Qualifiers: CVA mechanism: embolism Precerebral and cerebral artery: unspecified cerebral artery Qualified Code(s): I63.40 - Cerebral infarction due to embolism of unspecified cerebral artery Objective - Constitutional Vitals: Temp Pulse Resp BP Pulse Ox 97.5 F L 84 14 103/62 97 10/29/17 12:30 10/29/17 12:30 10/29/17 12:30 10/29/17 12:30 10/29/17 12:30 Results - Laboratory Findings CBC and BMP: 10/28/17 10:58 10/28/17 10:58 Abnormal lab findings: Abnormal lab results WBC 13.4 K/mcL (4.3-11.1) H 10/28/17 10:58 RBC 4.05 M/mcL (4.19-5.50) L 10/28/17 10:58 Hgb 11.3 g/dL (12.9-16.9) L 10/28/17 10:58 Hct 33.9 % (37.5-50.1) L 10/28/17 10:58 MCH 27.9 pg (28.0-33.3) L 10/28/17 10:58 MPV 9.0 fL (9.4-12.4) L 10/28/17 10:58 Neutrophils # 9.5 K/mcL (1.6-8.9) H 10/28/17 10:58 Nucleated RBCs/100 WBC 0.2 /100 WBC (0) H 10/25/17 04:06 APTT 62.8 Seconds (26.0-36.0) H 10/27/17 16:06 D-Dimer 1162 ng/mLFEU (0-500) H 10/22/17 15:53 Potassium 3.3 mEq/L (3.5-5.1) L 10/28/17 10:58 Carbon Dioxide 30 mEq/L (23-29) H 10/28/17 10:58 Glucose 109 mg/dL (70-105) H 10/28/17 10:58 Hemoglobin A1c 6.3 % (-5.6) H 10/23/17 00:41 B-Natriuretic Peptide 447 pg/mL (Less than 100) H 10/22/17 10:50 Serum Total Protein 5.9 g/dL (6.4-8.9) L 10/28/17 10:58 Albumin 3.1 g/dL (3.5-5.7) L 10/28/17 10:58 Ur Specific [place] 1.009 (1.010-1.025) L 10/25/17 16:23 Urine Glucose (UA) 500 mg/dL (Normal) H 10/25/17 16:23
--- NOTE | 2017-10-29 11:16 | Palliative - Consult Note ---
Date of Encounter: 10/29/17 Time of Encounter: 11:10 - Assessment and Plan (1) Agitation Current Visit: Yes Status: Acute Assessment and plan: Patient exhibiting acute change in increased agitation level, as reported by family. Seroquel started yesterday evening. Patient has continued home dose of Elavil and Xanax. Consulted with Dr. Martines regarding altering psychiatric medications, whom reported discussing medications with psychiatry and will alter regimen of medications to manage symptoms. (2) Goals of care, counseling/discussion Current Visit: Yes Status: Acute Assessment and plan: Family asked to meet away from patient as patient increasing in irritability. Meeting with family, 2 daughters (approved to discuss care per patient's ), to discuss goals of care. Patient's wished to stay at bedside. Daughters explained that patient repetitively explained no wishes for intubation/ ventilation; explained options in that of [place] for DNR status. Daughters agreed that patient would want DNR CC, state form completed. Patient continues to be confused and agitated at times, demanding to leave hospital today by 3 pm. Reports previous history of confusion and sundowning behavior, but behavior is now worsening. Daughter has apartment still place built onto house to care for patient and patient's ; feels unsafe situation to bring home at this time. Plan to discharge patient to [facility]; however, patient is unaware of planning at this time. Patient's daughter requests hospital personnel to inform patient of [facility]; family wants to be present at meeting and wishes meeting to be completed on last day of admission. Family reports patient has been working to "get affairs in order" (asking about grave lots, if owes anyone money, and making children promise to care for patient's ). (3) Debility Current Visit: Yes Status: Acute Assessment and plan: Continue working with PT/OT. Requiring continued assistance with ADLs. (4) Back pain Current Visit: Yes Status: Chronic Assessment and plan: Denies pain at present time. Chronic pain in back reported by family. Will continue Percocet as ordered, will address changes in medication regimen as needed. Qualifiers: Back pain location: back pain in unspecified location Qualified Code(s): M54.9 - Dorsalgia, unspecified; G89.29 - Other chronic pain; G89.29 - Other chronic pain (5) CVA (cerebral vascular accident) Current Visit: Yes Status: Acute Assessment and plan: Neurology following. 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 History of present illness: Mr. Quinn is a 82 year old male presenting to [facility] for shortness of breath and altered mental status. Current stay at [facility] initially began with treatment of Pneumonia, Sepsis, CVA, and new diagnosis of CHF. New diagnosis cardiomyopathy with EF 25%. Cardiology consult completed. KEREN attempted to be completed twice, but unable to be performed due to patients agitation/anxiety level; family refused further attempts. Initial CTA ruled out PE. In regards to new CVA, neurology consulted and MRI of head performed results showed: Punctate foci of diffusion restriction in the high right frontal lobe and left occipital lobe consistent with punctate acute infarctions, Parenchymal volume loss and sequela of mild chronic microvascular ischemic, multiple bilateral old lacunar infarctions, and interval development of a chronic right frontal lobe infarction. Internal med consulted Palliative Care for request of medical management/goals of care discussion. Upon entry to room, patient is sitting in bed with one-to-one staff at bedside. No complaints at present time of pain. Does report continued anxiety, chronic condition. During initial assessment no family at bedside, reconvened later for meeting with family. Upon entry to room for meeting with family, multiple family members at bedside. Patient appears to be alert, disoriented to details. Patient asking when he will be discharged. Irritability in behavior noted. CC: Liliana Martines Past Med Surg Social Fam HX - Past Medical History Medical history: arthritis, COPD, diabetes, GERD, seizures, TIA Psychiatric history: no psych history - Past Surgical History Surgical History: orthopedic, other, other - Social History Smoking Status: Former smoker Packs per day: 3 PPD - Reports quitting in 2004 Smokeless Tobacco Status: No Alcohol use: none Drug use: none - Family History Father Adopted: No Race: Family Member Ethnicity: Non- Living Status: Age at : 68 Cause of : Leukemia Hx Family Cardiac Disorders: No Hx Family Respiratory Disorders: No Hx Family Cancer: Yes (Leukemia, Prostate) Hx Family GI Disorders: No Hx Family Genitourinary Disorders: No Hx Family Endocrine Disorder: No Hx Family Musculoskeletal Disorders: No Hx Family Neuromuscular Disorders: No Hx Family Neurologic Disorders: No Hx Family HEENT Disorders: No Hx Family Autoimmune Disorders: No Hx Family Reproductive Disorders: No Hx Family Psychosocial Disorders: No Hx Family Medical Disorders: No Mother Adopted: No Race: Family Member Ethnicity: Non- Living Status: Age at : 84 Cause of : Gas gangrene Hx Family Cardiac Disorders: No Hx Family Respiratory Disorders: No Hx Family Cancer: No Hx Family GI Disorders: No Hx Family Genitourinary Disorders: Yes (gas gangrene) Hx Family Endocrine Disorder: No Hx Family Musculoskeletal Disorders: Yes (Gas gangrene) Hx Family Neuromuscular Disorders: No Hx Family Neurologic Disorders: No Hx Family HEENT Disorders: No Hx Family Autoimmune Disorders: No Hx Family Reproductive Disorders: No Hx Family Psychosocial Disorders: No Hx Family Medical Disorders: No Brother Race: Family Member Ethnicity: Non- Living Status: Age at : 65 Cause of : Esophageal cancer Hx Family Cardiac Disorders: No Hx Family Respiratory Disorders: No Hx Family Cancer: Yes (Esophageal) Hx Family GI Disorders: No Hx Family Genitourinary Disorders: No Hx Family Endocrine Disorder: No Hx Family Musculoskeletal Disorders: No Hx Family Neuromuscular Disorders: No Hx Family Neurologic Disorders: No Hx Family HEENT Disorders: No Hx Family Autoimmune Disorders: No Hx Family Reproductive Disorders: No Hx Family Psychosocial Disorders: No Hx Family Medical Disorders: No Sister Race: Family Member Ethnicity: Non- Living Status: Age at : 70 Cause of : Kidney cancer Hx Family Cardiac Disorders: No Hx Family Cancer: Yes (Kidney) Hx Family GI Disorders: No Hx Family Genitourinary Disorders: No Hx Family Endocrine Disorder: Yes (Type 2 diabetes) Hx Family Musculoskeletal Disorders: No Hx Family Neuromuscular Disorders: No Hx Family Neurologic Disorders: No Hx Family HEENT Disorders: No Hx Family Autoimmune Disorders: No Hx Family Reproductive Disorders: No Hx Family Psychosocial Disorders: No Hx Family Medical Disorders: No Medications and Allergies ALPRAZolam [Xanax 0.5 MG Tablet] 0.5 mg PO QID PRN 09/28/16 [History] Albuterol Sulfate [Ventolin Hfa] 2 puff IH Q4H PRN 09/28/16 [History] Aspirin [Lo-Dose Aspirin EC] 81 mg PO DAILY 09/28/16 [History] Gabapentin 600 mg PO QID 09/28/16 [History] Ipratropium/Albuterol Neb [Duoneb] 3 ml IH Q6HR 09/28/16 [History] Oxycodone HCl/Acetaminophen [Endocet 5-325 Tablet] 1 tab PO Q6H PRN #20 [Rx] Insulin DETEMIR [Levemir Flextouch] 15 - 20 unit SQ HS PRN 06/27/17 [History] Insulin LISPRO [Humalog Kwikpen U-100] 0 unit SQ TID PRN 06/27/17 [History] Levalbuterol Neb [Xopenex Neb] 0.63 mg IH Q4H PRN 06/27/17 [History] Lisinopril [Zestril] 10 mg PO BID 06/27/17 [History] Amitriptyline [Elavil] 100 mg PO HS 10/22/17 [History] 3 Allergy/AdvReac Type Severity Reaction Status Date / Time Erythromycin Base Allergy Hives Verified 06/27/17 10:46 All systems: reviewed and no additional remarkable complaints except as stated ( continued chronic anxiety. Patient intermittently confused, but is able to report symptoms.) Palliative Care-Exam - Constitutional Vitals: Temp Pulse Resp BP Pulse Ox 97.6 F 93 16 119/63 95 10/29/17 07:58 10/29/17 07:58 10/29/17 07:58 10/29/17 07:58 10/29/17 08:30 General appearance: Present: cooperative - Head Head Exam: Present: normocephalic - Eye Eye exam: Present: normal appearance, PERRL Pupils: Present: normal accommodation, PERRL - ENT ENT exam: Present: mucous membranes dry - Neck Neck exam: Present: full ROM, normal inspection - Respiratory Respiratory exam: Present: CTAB. Absent: accessory muscle use - Cardiovascular Cardiovascular exam: Present: +S1, +S2 - GI/Abdominal Exam GI/Abdominal exam: Present: hyperactive bowel sounds, soft. Absent: tenderness - Rectal Rectal Exam: Present: deferred - Extremities Exam Extremities exam: Present: full ROM, normal capillary refill, normal inspection. Absent: calf tenderness, joint swelling, pedal edema - Neurological Exam Neurological exam: Present: alert, oriented X3 - Psychiatric Psychiatric exam: Present: anxious - Skin Skin exam: Present: dry, normal color. Absent: rash Internal Medicine - CN: Reslt - Labs CBC & Chem 7: 10/28/17 10:58 10/28/17 10:58 Labs: Short CBC 10/28/17 Range/Units 10:58 WBC 13.4 H (4.3-11.1) K/mcL Hgb 11.3 L (12.9-16.9) g/dL Hct 33.9 L (37.5-50.1) % Plt Count 254 (140-400) K/mcL Neutrophils # 9.5 H (1.6-8.9) K/mcL BMP 10/28/17 10:58 Sodium 137 Potassium 3.3 L Chloride 99 Carbon Dioxide 30 H BUN 23 Creatinine 0.89 Glucose 109 H Calcium 8.8 Liver Function 10/28/17 Range/Units 10:58 Total Bilirubin 0.4 (0.3-1.0) mg/dL AST 17 (13-39) Units/L ALT 14 (7-52) Units/L Alkaline Phosphatase 44 (34-104) Units/L Albumin 3.1 L (3.5-5.7) g/dL - ABG Interpretation ABG results: PT/INR, D-dimer PT 11.8 Seconds (9.4-12.1) 10/25/17 22:35 D-Dimer 1162 ng/mLFEU (0-500) H 10/22/17 15:53 - Impressions Impressions Head CT 10/27/17 08:00 IMPRESSION: No acute intracranial abnormality. Stable exam. D/ / 10/28/2017 11:27:03 Hema Gamez MD / nelson Interpreting Provider: Hema Gamez MD Head CT 10/29/17 08:00 IMPRESSION: Stable exam without evidence for acute intracranial abnormality. D/ / 10/29/2017 09:07:15 Chase Manuel MD / nelson Interpreting Provider: Chase Manuel MD Consult Discharge Plan - Plan Referrals: Toney Santos Jr, MD [Primary Care Provider] - Palliative Quality Palliative Quality: Screen for Code Status: Yes, Screen for Goals of Care: Yes, Screen for Pain: Yes, If Pain Regimen Started, Initiate Bowel Regimen: NA, Screen for Nausea/Vomitting: Yes Code Status: 10/22/17 14:50 Resuscitation Status: Active [RES] Routine Comment: Resuscitation Status: Full Code
--- NOTE | 2017-10-29 11:55 | Internal Med Progress Note ---
Date of Encounter: 10/29/17 Time of Encounter: 11:13 - Assessment and plan (1) Acute exacerbation of CHF (congestive heart failure) Current Visit: Yes Status: Acute Assessment and plan: Patient denied any past history of CHF, echo completed which does show an EF of 25%- initial BNP was 447- continue lasix d/c monitoring Continue beta danielle and daisy oxygen to maintain SPO2 greater than 92% Monitor intake and output, daily weights Consult cardiology - per cardiology note left heart catheter 10/24/17 coronary arteries are angiographically normal-cardiology recommends CHF teaching and the importance of sodium and fluid restriction diet Unable to complete KEREN, recommend medical management with ASA and plavix Qualifiers: Heart failure type: unspecified Qualified Code(s): I50.9 - Heart failure, unspecified (2) Anemia Current Visit: Yes Status: Chronic Assessment and plan: History of chronic anemia closely watch for bleeding, heparin drip stopped 10/28/17 Will continue Plavix and aspirin per cardiology and neurology Monitor CBC, stable at 11.3 Qualifiers: Anemia type: unspecified type Qualified Code(s): D64.9 - Anemia, unspecified (3) COPD exacerbation Current Visit: Yes Status: Chronic Assessment and plan: stable -no wheezing oxygen titrated to maintain SPO2 greater than 92% He received 4 days of prednisone 40 mg Continue Bronchodilators (4) CVA (cerebral vascular accident) Current Visit: Yes Status: Acute Assessment and plan: Patient developed acute embolic event after cardiac catheterization. MRI brain showed presence of 2 acute punctate ischemic infarct. Neurology was notified and patient was initiated on aspirin and heparin. Attempted KEREN to identify the source of the emboli cardiology spoke with the family and as the patient was combative and refusing a KEREN 2 attempts they have decided to do nothing more invasive, want medical management. Palliative team has been consulted PT and OT Speech evaluation-patient was seen by speech therapy and is able to have regular diet Continue statin There will be no anticoagulation added, will continue aspirin and Plavix. 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 (5) Diabetes mellitus Current Visit: No Status: Chronic Assessment and plan: Accu-Cheks before meals and at bedtime and sliding scale insulin coverage Qualifiers: Diabetes mellitus type: type 2 Diabetes mellitus complication status: with neurologic complications Diabetes mellitus complication detail: with unspecified neuropathy Diabetes mellitus superintendent [employer] insulin use: without alf use Qualified Code(s): E11.40 - Type 2 diabetes mellitus with diabetic neuropathy, unspecified (6) DVT prophylaxis Current Visit: Yes Status: Acute Assessment and plan: ambulation fall and bleeding risk (7) Elevated troponin Current Visit: Yes Status: Acute Assessment and plan: demand ischemia from CHF exacerbation. (8) HTN (hypertension) Current Visit: Yes Status: Chronic Assessment and plan: stable, continue with home medications Qualifiers: Hypertension type: essential hypertension Qualified Code(s): I10 - Essential (primary) hypertension (9) Pneumonia Current Visit: Yes Status: Acute Assessment and plan: White count is stable, evaluated by speech therapy, no aspiration. He has completed 5 days of antibiotics -no respiratory distress or changes no cough or fever Blood cultures and sputum cultures are negative - strep pneumonia antigens are negative Xopenex as needed Oxygen as needed Qualifiers: Pneumonia type: due to unspecified organism Laterality: left Lung location: lower lobe of lung Qualified Code(s): J18.1 - Lobar pneumonia, unspecified organism (10) Agitation Current Visit: Yes Status: Acute Assessment and plan: Erratic impulsive behavior continues. He did sleep well on his Seroquel dose last night. Discussed with psychiatry and neurology will hold all Xanax and Ativan, no benzoids. Decrease Elavil to 50 mg at bedtime. Increase Seroquel to 25 mg twice a day. Add Depakote 125 mg twice a day. We will use Haldol and Benadryl when necessary for breakthrough agitation only. Will decrease Neurontin to 1 times a day and then stop after 1 day. - Subjective Interval history: Patient is sitting up in the chair with and daughter at the bedside, he is oriented to himself and the building. He does answer some questions correctly. He interacted pleasantly, c/o some knee pain. He is impulsive and volitile in mood. He is best when family is here. - Constitutional Vitals: Temp Pulse Resp BP Pulse Ox 97.6 F 93 16 119/63 95 10/29/17 07:58 10/29/17 07:58 10/29/17 07:58 10/29/17 07:58 10/29/17 08:30 General appearance: Present: cooperative, A&O X 1, pleasant, answers questions appropriately Exam: His moods and cooperation wax and wane. He is volatile - Head Head exam: Present: atraumatic, normocephalic - Eye Eye exam: Present: PERRL, conjuntiva pink, sclera anicteric Pupils: Present: PERRL - Neck Neck exam general surgery: Present: supple, trachea midline. Absent: lymphadenopathy - Respiratory Respiratory exam: Present: CTAB. Absent: accessory muscle use, rales, rhonchi, wheezes - Cardiovascular Cardiovascular exam: Present: RRR, +S1, +S2. Absent: diastolic murmur, gallop, rubs, systolic murmur - GI/Abdominal GI/Abdominal exam: Present: normal bowel sounds, soft, no peritoneal signs. Absent: distended, tenderness - Extremities Exam Extremities exam: Present: full ROM, normal inspection, warm, radial pulses palpable and symmetrical. Absent: calf tenderness, cyanotic, joint swelling, pedal edema - Neurological Exam Neurological exam: Present: alert, CN II-XII intact, no focal deficits. Absent : pronater drift, facial droop, speech deficit - Skin Skin exam: Present: dry, intact, warm Internal Medicine: Result - Labs CBC & Chem 7: 10/28/17 10:58 10/28/17 10:58 Labs: Short CBC 10/28/17 Range/Units 10:58 WBC 13.4 H (4.3-11.1) K/mcL Hgb 11.3 L (12.9-16.9) g/dL Hct 33.9 L (37.5-50.1) % Plt Count 254 (140-400) K/mcL Neutrophils # 9.5 H (1.6-8.9) K/mcL BMP 10/28/17 10:58 Sodium 137 Potassium 3.3 L Chloride 99 Carbon Dioxide 30 H BUN 23 Creatinine 0.89 Glucose 109 H Calcium 8.8 Liver Function 10/28/17 Range/Units 10:58 Total Bilirubin 0.4 (0.3-1.0) mg/dL AST 17 (13-39) Units/L ALT 14 (7-52) Units/L Alkaline Phosphatase 44 (34-104) Units/L Albumin 3.1 L (3.5-5.7) g/dL - ABG Interpretation ABG results: PT/INR, D-dimer PT 11.8 Seconds (9.4-12.1) 10/25/17 22:35 D-Dimer 1162 ng/mLFEU (0-500) H 10/22/17 15:53 - Impressions Impressions Head CT 10/27/17 08:00 IMPRESSION: No acute intracranial abnormality. Stable exam. D/ / 10/28/2017 11:27:03 Hema Gamez MD / nelson Interpreting Provider: Hema Gamez MD Head CT 10/29/17 08:00 IMPRESSION: Stable exam without evidence for acute intracranial abnormality. D/ / 10/29/2017 09:07:15 Chase Manuel MD / nelson Interpreting Provider: Chase Manuel MD Consult Discharge Plan - Plan Referrals: Toney Santos Jr, MD [Primary Care Provider] -
[2017-10-29] MEDS: Divalproex Sodium 125 MG CAPSULE PO SCH ×2 (11:56→20:30)
[2017-10-29] MEDS: Haloperidol Lactate 5 MG/ML VIAL IVP PRN (20:24)
[2017-10-29] MEDS ORDERED: Gabapentin 300 MG CAPSULE PO SCH (21:00)
[2017-10-30] MEDS: *HR* OxyCODONE/APAP 5/325 TABLET PO PRN ×3 (03:59→19:34)
[2017-10-30] MEDS: Furosemide 20 MG TABLET PO SCH ×2 (05:10→16:46)
[2017-10-30] MEDS: Haloperidol Lactate 5 MG/ML VIAL IVP PRN ×2 (05:10→15:30)
[2017-10-30] MEDS: Divalproex Sodium 125 MG CAPSULE PO SCH ×2 (07:46→19:35)
[2017-10-30] MEDS: Aspirin Enteric Coated 81 MG Tablet PO SCH (07:47)
[2017-10-30] MEDS: Insulin LISPRO 300 UNITS/3 ML VIAL SQ SCH ×4 (07:47→22:52)
--- NOTE | 2017-10-30 10:19 | Neurology Progress Note ---
<Grayson Jvoel - Last Filed: 10/30/17 10:17> Date of Encounter: 10/30/17 Time of Encounter: 10:17 Assessment and Plan (1) CVA (cerebral vascular accident) Current Visit: Yes Status: Acute Mr. Quinn 82-year-old gentleman with multiple comorbid medical conditions including diabetes, ASD, COPD, previous CVA, systolic heart failure was evaluated post catheterization with new speech difficulties. MRI of brain showed presence of two acute punctate ischemic infarct at different sides of brain indicating embolic nature of the cerebral infarcts. He underwent KEREN, results pending. He is currently being seen by cardiology, we will defer any further recommendations regarding anticoagulation to cardiology. He does have risk for falls at home and the risks versus benefits should be considered. 10/29/17: No changes compared to yesterday, CT scan performed this morning without any changes compared to previous imaging. No further CT scans of the head needed at this time unless there are acute changes. According the family continues to have increased agitation at night with a previous history of . May benefit from at bedtime Seroquel. 10/30/2017: No changes overnight, patient remained stable, continues to require a sitter due to agitation in the evening. Continue current dose of Seroquel. Plan: - Continue antiplatelet therapy - Continue physical therapy and speech therapy - Continue Seroquel at bedtime 25 mg by mouth. Qualifiers: CVA mechanism: embolism Precerebral and cerebral artery: unspecified cerebral artery Qualified Code(s): I63.40 - Cerebral infarction due to embolism of unspecified cerebral artery Subjective Principal diagnosis: CVA and confusion Interval history: Mr. Quinn has not seen evaluate a patient bedside this morning. He is alert awake interactive in no acute distress. He has family at bedside who are supportive and have questions which have been answered. No acute changes overnight, he continues to be confused at nighttime. Examination remains stable. Objective - Constitutional Vitals: Temp Pulse Resp BP Pulse Ox 97.8 F 90 16 106/58 97 10/30/17 07:07 10/30/17 07:07 10/30/17 07:07 10/30/17 07:07 10/30/17 07:07 General appearance: Present: cooperative, pleasant, answers questions appropriately - Neurological Exam Sensorimotor examination: Present: intact (Grossly intact) Motor Examination: Present: grossly full strength in all extremities, full strength in all major muscle groups Motor examination - right side: 12/28: deltoids, biceps, triceps, wrist flexion, wrist extension, railroad track inspector, hip flexors, tibialis Anterior, quadriceps, toe extension (EHL), plantarflexion Motor examination - left side: 12/28: deltoids, biceps, triceps, wrist flexion, wrist extension, hip flexors, railroad track inspector, quadriceps, tibialis Anterior, toe extension (EHL), plantarflexion Sensation intact: Present: intact (Grossly intact) Posture: Present: other (None) Reflex and gait examination: intact Reflexes: Biceps: 2+, Triceps: 2+, Brachioradialis: 2+, Patella: 2+, Achilles: 2 + Mental Status Examination: Present: awake, alert, oriented to person, follows commands appropriately, answers questions appropriately Cranial nerve examination: Present: PERRL, EOMI, visual gustafson intact, corneal reflexes brisk symmetrically, sensory to face intact, mastication intact, no facial asymmetry is present, no dysarthria, hearing is intact symmetrically, soft palate elevates bilaterally upon phonation, gag reflex intact, flexes SCM and trapezius muscles symmetrically with full power, tongue protrudes midline, no atrophy or facial fasiculations present Cerebellar examination: Present: no dysmetria, no gait ataxia, no truncal ataxia , no difficulty with rapid alternating movements Results - Laboratory Findings CBC and BMP: 10/28/17 10:58 10/28/17 10:58 Abnormal lab findings: Abnormal lab results WBC 13.4 K/mcL (4.3-11.1) H 10/28/17 10:58 RBC 4.05 M/mcL (4.19-5.50) L 10/28/17 10:58 Hgb 11.3 g/dL (12.9-16.9) L 10/28/17 10:58 Hct 33.9 % (37.5-50.1) L 10/28/17 10:58 MCH 27.9 pg (28.0-33.3) L 10/28/17 10:58 MPV 9.0 fL (9.4-12.4) L 10/28/17 10:58 Neutrophils # 9.5 K/mcL (1.6-8.9) H 10/28/17 10:58 Nucleated RBCs/100 WBC 0.2 /100 WBC (0) H 10/25/17 04:06 APTT 62.8 Seconds (26.0-36.0) H 10/27/17 16:06 D-Dimer 1162 ng/mLFEU (0-500) H 10/22/17 15:53 Potassium 3.3 mEq/L (3.5-5.1) L 10/28/17 10:58 Carbon Dioxide 30 mEq/L (23-29) H 10/28/17 10:58 Glucose 109 mg/dL (70-105) H 10/28/17 10:58 POC Glucose 146 (58-89) H 10/29/17 19:12 Hemoglobin A1c 6.3 % (-5.6) H 10/23/17 00:41 B-Natriuretic Peptide 447 pg/mL (Less than 100) H 10/22/17 10:50 Serum Total Protein 5.9 g/dL (6.4-8.9) L 10/28/17 10:58 Albumin 3.1 g/dL (3.5-5.7) L 10/28/17 10:58 Ur Specific [place] 1.009 (1.010-1.025) L 10/25/17 16:23 Urine Glucose (UA) 500 mg/dL (Normal) H 10/25/17 16:23 Consult Discharge Plan - Plan Referrals: Toney Santos Jr, MD [Primary Care Provider] - <Elissa Garcia I - Last Filed: 10/30/17 16:36> Date of Encounter: 10/30/17 Assessment and Plan (1) CVA (cerebral vascular accident) Current Visit: Yes Status: Acute Pt was seen and examined, my medical decision was reviewed with the Resident Physician, I agree with the documented findings, disposition and treatment plas as described except to the extent set forth below Elissa Garcia MD Qualifiers: CVA mechanism: embolism Precerebral and cerebral artery: unspecified cerebral artery Qualified Code(s): I63.40 - Cerebral infarction due to embolism of unspecified cerebral artery Objective - Constitutional Vitals: Temp Pulse Resp BP Pulse Ox 97.9 F 94 16 95/50 96 10/30/17 11:00 10/30/17 11:00 10/30/17 11:00 10/30/17 11:00 10/30/17 11:00 Results - Laboratory Findings CBC and BMP: 10/30/17 10:16 10/30/17 10:16 Abnormal lab findings: Abnormal lab results WBC 13.4 K/mcL (4.3-11.1) H 10/30/17 10:16 RBC 3.81 M/mcL (4.19-5.50) L 10/30/17 10:16 Hgb 10.6 g/dL (12.9-16.9) L 10/30/17 10:16 Hct 33.0 % (37.5-50.1) L 10/30/17 10:16 MCH 27.8 pg (28.0-33.3) L 10/30/17 10:16 Neutrophils # 9.5 K/mcL (1.6-8.9) H 10/28/17 10:58 Nucleated RBCs/100 WBC 0.2 /100 WBC (0) H 10/25/17 04:06 APTT 62.8 Seconds (26.0-36.0) H 10/27/17 16:06 D-Dimer 1162 ng/mLFEU (0-500) H 10/22/17 15:53 Carbon Dioxide 30 mEq/L (23-29) H 10/30/17 10:16 BUN 28 mg/dL (8-23) H 10/30/17 10:16 BUN/Creatinine Ratio 29 (6-26) H 10/30/17 10:16 Glucose 176 mg/dL (70-105) H 10/30/17 10:16 POC Glucose 146 (58-89) H 10/29/17 19:12 Hemoglobin A1c 6.3 % (-5.6) H 10/23/17 00:41 B-Natriuretic Peptide 447 pg/mL (Less than 100) H 10/22/17 10:50 Serum Total Protein 5.9 g/dL (6.4-8.9) L 10/28/17 10:58 Albumin 3.1 g/dL (3.5-5.7) L 10/28/17 10:58 Ur Specific [place] 1.009 (1.010-1.025) L 10/25/17 16:23 Urine Glucose (UA) 500 mg/dL (Normal) H 10/25/17 16:23
[2017-10-30 10:53] LABS: BUN/Creatinine Ratio 29 (6-26); Blood Urea Nitrogen 28 mg/dL (8-23); Calcium 8.7 mg/dL (8.6-10.3); Carbon Dioxide 30 mEq/L (23-29); Chloride 103 mEq/L (98-107); Glucose 176 mg/dL (70-105); Osmolality,Calculated 298 (280-300); Potassium 3.9 mEq/L (3.5-5.1); Sodium 139 mEq/L (136-145); eGFR For African Americans > 60 (> 60); eGFR For Non-African Americans > 60 (> 60)
[2017-10-30 11:05] LABS: Hemoglobin 10.6 g/dL (12.9-16.9); Mean Corpuscular HGB Conc 32.1 g/dL (31.6-35.5); Mean Corpuscular Hemoglobin 27.8 pg (28.0-33.3); Mean Corpuscular Volume 86.6 fL (83.0-100.0); Mean Platelet Volume 9.4 fL (9.4-12.4); Platelet Count 251 K/mcL (140-400); Red Blood Count 3.81 M/mcL (4.19-5.50); Red Cell Distribution Width 13.1 % (11.5-14.5)
--- NOTE | 2017-10-30 11:42 | Event Note ---
Date of Encounter: 10/30/17 Time of Encounter: 09:40 Arrived to patient's room for evaluation. Patient irate at family members, as family had informed patient of discharge plan for rehab facility. Patient refused to go to [facility] for skilled rehabilitation. Attempted to talk with patient , patient became irritated with documentation writer when asked how day was going and if there was anything that could be done for him. Started putting hand in front of family members faces to attempt to stop them from talking. Began grandiose conversation of willing to hire a maid and harris so he could go home. Elvira explained that patient and patient's lives with them to have care takers and financial situation. Patient's daughter explained she kicked sitter out of room and going to stay all night so that patient could be free of sitter to be transferred to F. Patient then told documentation writer it was time to leave, excused self will recheck on patient later.
--- NOTE | 2017-10-30 13:38 | Internal Med Progress Note ---
Date of Encounter: 10/30/17 Time of Encounter: 13:37 - Assessment and plan (1) Acute exacerbation of CHF (congestive heart failure) Current Visit: Yes Status: Acute Assessment and plan: Patient denied any past history of CHF, echo completed which does show an EF of 25%- initial BNP was 447- continue lasix d/c monitoring Continue beta danielle and daisy oxygen to maintain SPO2 greater than 92% Monitor intake and output, daily weights Consult cardiology - per cardiology note left heart catheter 10/24/17 coronary arteries are angiographically normal-cardiology recommends CHF teaching and the importance of sodium and fluid restriction diet Unable to complete KEREN, recommend medical management with ASA and plavix Qualifiers: Heart failure type: unspecified Qualified Code(s): I50.9 - Heart failure, unspecified (2) Anemia Current Visit: Yes Status: Chronic Assessment and plan: History of chronic anemia closely watch for bleeding, heparin drip stopped 10/28/17 Will continue Plavix and aspirin per cardiology and neurology Monitor CBC, slight drop in hgb today no signs of bleeding Qualifiers: Anemia type: unspecified type Qualified Code(s): D64.9 - Anemia, unspecified (3) COPD exacerbation Current Visit: Yes Status: Chronic Assessment and plan: stable -no wheezing oxygen titrated to maintain SPO2 greater than 92% completed 4 days of prednisone 40 mg Continue Bronchodilators (4) CVA (cerebral vascular accident) Current Visit: Yes Status: Acute Assessment and plan: Patient developed acute embolic event after cardiac catheterization. MRI brain showed presence of 2 acute punctate ischemic infarct. Neurology was notified and patient was initiated on aspirin and heparin. Attempted KEREN to identify the source of the emboli cardiology spoke with the family and as the patient was combative and refusing a KEREN 2 attempts they have decided to do nothing more invasive, want medical management. Palliative team has been consulted PT and OT Speech evaluation-patient was seen by speech therapy and is able to have regular diet Continue statin There will be no additional anticoagulation added, will continue aspirin and Plavix. 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 (5) Diabetes mellitus Current Visit: No Status: Chronic Assessment and plan: Accu-Cheks before meals, at bedtime and sliding scale insulin coverage Qualifiers: Diabetes mellitus type: type 2 Diabetes mellitus complication status: with neurologic complications Diabetes mellitus complication detail: with unspecified neuropathy Diabetes mellitus oysterman insulin use: without fpc use Qualified Code(s): E11.40 - Type 2 diabetes mellitus with diabetic neuropathy, unspecified (6) DVT prophylaxis Current Visit: Yes Status: Acute Assessment and plan: ambulation, fall and bleeding risk (7) Elevated troponin Current Visit: Yes Status: Acute Assessment and plan: demand ischemia likely from CHF exacerbation. (8) HTN (hypertension) Current Visit: Yes Status: Chronic Qualifiers: Hypertension type: essential hypertension Qualified Code(s): I10 - Essential (primary) hypertension (9) Pneumonia Current Visit: Yes Status: Acute Assessment and plan: White count is stable, evaluated by speech therapy, no aspiration. He has completed 5 days of antibiotics - no respiratory distress, cough, or fever Blood cultures and sputum cultures are negative - strep pneumonia antigens are negative Xopenex as needed Oxygen as needed Qualifiers: Pneumonia type: due to unspecified organism Laterality: left Lung location: lower lobe of lung Qualified Code(s): J18.1 - Lobar pneumonia, unspecified organism (10) Agitation Current Visit: Yes Status: Acute Assessment and plan: Spoke with psychiatrist and she recommends admission into a geriatric psychiatric unit. Erratic impulsive behavior continues. He did sleep well on his Seroquel dose last night. Discussed with psychiatry and neurology will hold all Xanax and Ativan, no benzoids. Decrease Elavil to 50 mg at bedtime. Increase Seroquel to 25 mg twice a day. Add Depakote 125 mg twice a day. We will use Haldol and Benadryl when necessary for breakthrough agitation only. Will decrease Neurontin to 1 times a day and then stop after 1 day. - Subjective Interval history: Patient is sitting up in the chair with and daughter at the bedside, he is oriented to himself and the building. He does answer some questions correctly. He is impulsive and volitile in mood. He is best when family is here. - Constitutional Vitals: Temp Pulse Resp BP Pulse Ox 97.9 F 94 16 95/50 96 10/30/17 11:00 10/30/17 11:00 10/30/17 11:00 10/30/17 11:00 10/30/17 11:00 General appearance: Present: A&O X 1, answers questions appropriately - Head Head exam: Present: atraumatic, normocephalic - Eye Eye exam: Present: PERRL, conjuntiva pink, sclera anicteric Pupils: Present: PERRL - Neck Neck exam general surgery: Present: supple, trachea midline. Absent: lymphadenopathy - Respiratory Respiratory exam: Present: CTAB. Absent: accessory muscle use, rales, rhonchi, wheezes - Cardiovascular Cardiovascular exam: Present: RRR, +S1, +S2. Absent: diastolic murmur, gallop, rubs, systolic murmur - GI/Abdominal GI/Abdominal exam: Present: normal bowel sounds, soft, no peritoneal signs. Absent: distended, tenderness - Extremities Exam Extremities exam: Present: warm, radial pulses palpable and symmetrical. Absent : calf tenderness, cyanotic, pedal edema - Neurological Exam Neurological exam: Present: alert, oriented X3, no focal deficits. Absent: pronater drift, facial droop, speech deficit - Skin Skin exam: Present: dry, intact, warm Internal Medicine: Result - Labs CBC & Chem 7: 10/30/17 10:16 10/30/17 10:16 Labs: Short CBC 10/30/17 Range/Units 10:16 WBC 13.4 H (4.3-11.1) K/mcL Hgb 10.6 L (12.9-16.9) g/dL Hct 33.0 L (37.5-50.1) % Plt Count 251 (140-400) K/mcL BMP 10/30/17 10:16 Sodium 139 Potassium 3.9 Chloride 103 Carbon Dioxide 30 H BUN 28 H Creatinine 0.97 Glucose 176 H Calcium 8.7 - ABG Interpretation ABG results: PT/INR, D-dimer PT 11.8 Seconds (9.4-12.1) 10/25/17 22:35 D-Dimer 1162 ng/mLFEU (0-500) H 10/22/17 15:53 Consult Discharge Plan - Plan Referrals: Toney Santos Jr, MD [Primary Care Provider] -
--- NOTE | 2017-10-30 15:39 | Palliative Progress Note ---
Date of Encounter: 10/30/17 Time of Encounter: 15:20 - Assessment and plan (1) Agitation Current Visit: Yes Status: Acute Assessment and plan: Continued agitation. Dr. Martines managing psychiatric medications with assistance from psychiatry. Social work making plan for discharge to ECF versus bobby-psych unit for medication adjustment. (2) Goals of care, counseling/discussion Current Visit: Yes Status: Acute Assessment and plan: SW managing discharge planning with patient's daughter, MISBAH Felix. COde status, with state form completion, has been established. Palliative care not currently needed to manage symptoms of patient; Will sign off, reconsult if needed. (3) Debility Current Visit: Yes Status: Acute (4) Back pain Current Visit: Yes Status: Chronic Assessment and plan: Patient complains of continued back pain, hospitalist managing pain with Percocet, continue as ordered. Qualifiers: Back pain location: back pain in unspecified location Qualified Code(s): M54.9 - Dorsalgia, unspecified; G89.29 - Other chronic pain; G89.29 - Other chronic pain (5) CVA (cerebral vascular accident) Current Visit: Yes Status: Acute Qualifiers: CVA mechanism: embolism Precerebral and cerebral artery: unspecified cerebral artery Qualified Code(s): I63.40 - Cerebral infarction due to embolism of unspecified cerebral artery - Time Spent With Patient Total time spent is greater than 50% in coordination of care (as documented) at patient's floor/unit and/or counseling patient: - Subjective Interval history: Patient sitting in room with family at bedside. Increasing some in irritability , as wishing to go home. Patient's family requested primary nurse to bring Haldol. Patient complaining of chronic back pain; family reports last percocet 2 hours ago. No complaints of anxiety at this time. Patient's family continues to request patient be sent to [facility] for rehab on discharge as unable to provide needed care in patient's current mental state. - Constitutional Vitals: Abnormal lab results WBC 13.4 K/mcL (4.3-11.1) H 10/30/17 10:16 RBC 3.81 M/mcL (4.19-5.50) L 10/30/17 10:16 Hgb 10.6 g/dL (12.9-16.9) L 10/30/17 10:16 Hct 33.0 % (37.5-50.1) L 10/30/17 10:16 MCH 27.8 pg (28.0-33.3) L 10/30/17 10:16 Neutrophils # 9.5 K/mcL (1.6-8.9) H 10/28/17 10:58 Nucleated RBCs/100 WBC 0.2 /100 WBC (0) H 10/25/17 04:06 APTT 62.8 Seconds (26.0-36.0) H 10/27/17 16:06 D-Dimer 1162 ng/mLFEU (0-500) H 10/22/17 15:53 Carbon Dioxide 30 mEq/L (23-29) H 10/30/17 10:16 BUN 28 mg/dL (8-23) H 10/30/17 10:16 BUN/Creatinine Ratio 29 (6-26) H 10/30/17 10:16 Glucose 176 mg/dL (70-105) H 10/30/17 10:16 POC Glucose 146 (58-89) H 10/29/17 19:12 Hemoglobin A1c 6.3 % (-5.6) H 10/23/17 00:41 B-Natriuretic Peptide 447 pg/mL (Less than 100) H 10/22/17 10:50 Serum Total Protein 5.9 g/dL (6.4-8.9) L 10/28/17 10:58 Albumin 3.1 g/dL (3.5-5.7) L 10/28/17 10:58 Ur Specific [place] 1.009 (1.010-1.025) L 10/25/17 16:23 Urine Glucose (UA) 500 mg/dL (Normal) H 10/25/17 16:23 - Head Head exam: Present: normal inspection - ENT ENT exam: Present: mucous membranes moist, normal exam - Neck Neck exam: Present: full ROM, normal inspection - Respiratory Respiratory exam: Present: CTAB. Absent: respiratory distress - Cardiovascular Cardiovascular exam: Present: +S1, +S2 - GI/Abdominal GI/Abdominal exam: Present: hyperactive bowel sounds, soft. Absent: tenderness - Rectal Rectal exam: Present: deferred - Neurological Exam Neurological exam: Present: alert, altered. Absent: oriented X3 - Psychiatric Psychiatric exam: Present: agitated. Absent: depressed Palliative Quality Palliative Quality: Screen for Code Status: Yes, Screen for Goals of Care: Yes, Screen for Pain: Yes, If Pain Regimen Started, Initiate Bowel Regimen: NA, Screen for Nausea/Vomitting: Yes Code Status: 10/22/17 14:50 Resuscitation Status: Active [RES] Routine Comment: Resuscitation Status: Full Code 10/29/17 15:08 DNR [Resuscitation Status: Active] [RES] Routine Comment: Resuscitation Status: DNR-Comfort Care - Labs CBC & Chem 7: 10/30/17 10:16 10/30/17 10:16 Labs: Laboratory Results - last 24 hr 10/29/17 10/29/17 10/30/17 08:19 19:12 10:16 WBC 13.4 H RBC 3.81 L Hgb 10.6 L Hct 33.0 L MCV 86.6 MCH 27.8 L MCHC 32.1 RDW 13.1 Plt Count 251 MPV 9.4 Sodium Potassium Chloride Carbon Dioxide BUN Creatinine Est GFR ( Amer) Est GFR (Non-Af Amer) BUN/Creatinine Ratio Glucose POC Glucose 82 146 H Calculated Osmolality Calcium 10/30/17 10:16 WBC RBC Hgb Hct MCV MCH MCHC RDW Plt Count MPV Sodium 139 Potassium 3.9 Chloride 103 Carbon Dioxide 30 H BUN 28 H Creatinine 0.97 Est GFR ( Amer) > 60 Est GFR (Non-Af Amer) > 60 BUN/Creatinine Ratio 29 H Glucose 176 H POC Glucose Calculated Osmolality 298 Calcium 8.7 - ABG Interpretation ABG results: PT/INR, D-dimer PT 11.8 Seconds (9.4-12.1) 10/25/17 22:35 D-Dimer 1162 ng/mLFEU (0-500) H 10/22/17 15:53 Consult Discharge Plan - Plan Referrals: Toney Santos Jr, MD [Primary Care Provider] -
[2017-10-31] MEDS: *HR* OxyCODONE/APAP 5/325 TABLET PO PRN ×4 (01:38→20:23)
[2017-10-31] MEDS: Furosemide 20 MG TABLET PO SCH ×2 (05:29→16:20)
[2017-10-31] MEDS: Divalproex Sodium 125 MG CAPSULE PO SCH ×2 (07:46→20:24)
[2017-10-31] MEDS: Aspirin Enteric Coated 81 MG Tablet PO SCH (07:46)
[2017-10-31] MEDS: Haloperidol Lactate 5 MG/ML VIAL IVP PRN (11:11)
[2017-10-31] MEDS ORDERED: Gabapentin 300 MG CAPSULE PO ONE (12:06)
[2017-10-31] MEDS: Insulin LISPRO 300 UNITS/3 ML VIAL SQ SCH ×3 (12:28→20:21)
--- NOTE | 2017-10-31 14:03 | Internal Med Progress Note ---
Date of Encounter: 10/31/17 Time of Encounter: 14:01 - Assessment and plan (1) Acute exacerbation of CHF (congestive heart failure) Current Visit: Yes Status: Acute Assessment and plan: Patient denied any past history of CHF, echo completed which showed an EF of 25% - initial BNP was 447- continue lasix Severe global left ventricular systolic dysfunction with mild left ventricular diastolic dysfunction resulting in systolic and diastolic CHF d/c cardiac monitoring Continue beta danielle and daisy oxygen to maintain SPO2 greater than 92% Monitor intake and output, daily weights Consulted cardiology - per cardiology note left heart catheter 10/24/17 coronary arteries are angiographically normal-cardiology recommends CHF teaching and the importance of sodium and fluid restriction diet Unable to complete KEREN, recommend medical management with ASA and plavix Qualifiers: Heart failure type: combined systolic and diastolic Qualified Code(s): I50.43 - Acute on chronic combined systolic (congestive) and diastolic ( congestive) heart failure (2) Anemia Current Visit: Yes Status: Chronic Assessment and plan: History of chronic anemia closely watch for bleeding, heparin drip stopped 10/28/17 Will continue Plavix and aspirin per cardiology and neurology Monitor CBC no signs of bleeding Qualifiers: Anemia type: unspecified type Qualified Code(s): D64.9 - Anemia, unspecified (3) COPD exacerbation Current Visit: Yes Status: Chronic Assessment and plan: stable with no wheezing oxygen titrated to maintain SPO2 greater than 92% completed 4 days of prednisone 40 mg Continue Bronchodilators (4) CVA (cerebral vascular accident) Current Visit: Yes Status: Acute Assessment and plan: Patient developed acute embolic event after cardiac catheterization. MRI brain showed presence of 2 acute punctate ischemic infarct. Neurology was initiated and patient was placed on aspirin and heparin. Attempted KEREN to identify the source of the emboli Cardiology spoke with the family and as the patient was combative and refusing a KEREN 2 attempts, they decided to do nothing more invasive, want medical management. Palliative team consulted PT and OT Speech evaluation and is able to have regular diet Continue statin There will be no additional anticoagulation added, will continue aspirin and Plavix. 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 (5) Diabetes mellitus Current Visit: No Status: Chronic Assessment and plan: Accu-Cheks before meals, at bedtime with sliding scale insulin coverage Qualifiers: Diabetes mellitus type: type 2 Diabetes mellitus complication status: with neurologic complications Diabetes mellitus complication detail: with unspecified neuropathy Diabetes mellitus jail insulin use: without intermediate teacher use Qualified Code(s): E11.40 - Type 2 diabetes mellitus with diabetic neuropathy, unspecified (6) DVT prophylaxis Current Visit: Yes Status: Acute Assessment and plan: continue ambulation, fall and bleeding risk (7) Elevated troponin Current Visit: Yes Status: Resolved Assessment and plan: demand ischemia likely from CHF exacerbation. (8) HTN (hypertension) Current Visit: Yes Status: Chronic Assessment and plan: stable, continue home medications Qualifiers: Hypertension type: essential hypertension Qualified Code(s): I10 - Essential (primary) hypertension (9) Pneumonia Current Visit: Yes Status: Resolved Assessment and plan: White count is stable, evaluated by speech therapy, no aspiration. He has completed 5 days of antibiotics - no respiratory distress, cough, or fever Blood cultures and sputum cultures are negative - strep pneumonia antigens are negative Xopenex as needed, Oxygen as needed Qualifiers: Pneumonia type: due to unspecified organism Laterality: left Lung location: lower lobe of lung Qualified Code(s): J18.1 - Lobar pneumonia, unspecified organism (10) Agitation Current Visit: Yes Status: Acute Assessment and plan: Spoke with psychiatrist and she recommends admission into a geriatric psychiatric unit. He was declined by [facility]. Psychiatry consult and will follow the patient. Erratic impulsive behavior continues. He did sleep well on his Seroquel dose last night. Discussed with psychiatry and neurology will hold all Xanax and Ativan, no benzoids. Decrease Elavil to 50 mg at bedtime. Increase Seroquel to 25 mg twice a day. Add Depakote 125 mg twice a day. We will use Haldol and Benadryl when necessary for breakthrough agitation only. Will decrease Neurontin to 1 times a day and then stop after 1 day. (11) Sepsis Current Visit: Yes Status: Resolved Assessment and plan: sepsis resolved Patient was admitted with pneumonia and see if at bedtime exacerbation with sepsis criteria of WBCs of 16.1, heart rate of 127, respiratory rate of 24 and initial lactic acid of 3.3 rechecked at 1.6 Blood cultures were negative. Patient was unable to receive full fluid bolus secondary to his CHF. Qualifiers: Sepsis type: sepsis due to unspecified organism Qualified Code(s): A41.9 - Sepsis, unspecified organism - Subjective Interval history: Patient has been sitting up in a chair. He is behavior remains volatile. He can be pleasant and become very irritated and aggressive. Family has agreed he may go to a psychiatric geriatric at [facility] but was denied by outside facility. Spoke with psychiatry at [facility] and they will see the patient and make recommendations. Spoke with the daughter. Social service is involved in the placement plan. - Constitutional Vitals: Temp Pulse Resp BP Pulse Ox 98.2 F 105 16 122/74 92 10/31/17 11:07 10/31/17 11:07 10/31/17 11:07 10/31/17 11:07 10/31/17 11:07 General appearance: Present: A&O X 1. Absent: cooperative, pleasant, answers questions appropriately Exam: Patient moods and behavior fluctuates. - Head Head exam: Present: atraumatic, normocephalic - Eye Eye exam: Present: PERRL, conjuntiva pink, sclera anicteric Pupils: Present: PERRL - Neck Neck exam general surgery: Present: supple, trachea midline. Absent: lymphadenopathy - Respiratory Respiratory exam: Present: CTAB. Absent: accessory muscle use, rales, rhonchi, wheezes - Cardiovascular Cardiovascular exam: Present: RRR, +S1, +S2. Absent: diastolic murmur, gallop, rubs, systolic murmur - GI/Abdominal GI/Abdominal exam: Present: normal bowel sounds, soft, no peritoneal signs. Absent: distended, tenderness - Extremities Exam Extremities exam: Present: warm, radial pulses palpable and symmetrical. Absent : calf tenderness, cyanotic, joint swelling, pedal edema - Neurological Exam Neurological exam: Present: alert, CN II-XII intact, no focal deficits. Absent : pronater drift, facial droop, speech deficit - Skin Skin exam: Present: dry, intact, normal color, warm Internal Medicine: Result - Labs CBC & Chem 7: 10/30/17 10:16 10/30/17 10:16 - ABG Interpretation ABG results: PT/INR, D-dimer PT 11.8 Seconds (9.4-12.1) 10/25/17 22:35 D-Dimer 1162 ng/mLFEU (0-500) H 10/22/17 15:53 Consult Discharge Plan - Plan Referrals: Toney Santos Jr, MD [Primary Care Provider] -
--- NOTE | 2017-10-31 16:42 | Consult Note ---
Date of Encounter: 10/31/17 Time of Encounter: 14:00 Assessment & Recommendation (1) Agitation Current visit: Yes Status: Acute Assessment & Recommendation: secondary to medical condition. (2) Acute exacerbation of CHF (congestive heart failure) Current visit: Yes Status: Acute Qualifiers: Heart failure type: combined systolic and diastolic Qualified Code(s): I50.43 - Acute on chronic combined systolic (congestive) and diastolic ( congestive) heart failure History of Present Illness Patient: new to practice Requesting Physician: Liliana Martines Reason for consult: behavior problem, agitation,volitile. History of present illness: Mr. Quinn is a 82 year old male consulted for agitation and behavioral problems. Patient seen today , chart reviewed he has multiple medical problems and had delirium and sundowning . Patient does not have any psychiatric history . MR. Carbajal WAS IRRITABLE AT FIRST BUT I CONTINUED TALKING HE WAS ABLE TO GIVE SOME history , stating I do not need psychiatrist , I just need to go home. States lives with his , daughter and son in law , when i get sick my takes care of me , when she is sick i take care of her. he was irritable intermittently but was easily redirected. he has cognitive impairment , does not remember time and what he ate for breakfast or lunch. he denied any depressive s/s, no psychosis while i interviewed him. A/P Delirium secondary to medical condition. Patient does not meet in patient psychiatric criteria at present. continue low dose seroquel no benzodiazepine and can go up on depakote 125 mg tid . social service involvement. Thank you for consult please call if any question CC: Liliana Martines Past Med Surg Social Fam HX - Past Medical History Medical history: arthritis, COPD, diabetes, GERD, seizures, TIA - Past Psychiatric History Psychiatric history: Reports: no psych history Family psychiatric history: Unknown Family History of Suicide: Unknown - Past Surgical History Surgical History: orthopedic, other, other - Social History Smoking Status: Former smoker Smokeless Tobacco Status: No Alcohol use: none Drug use: none - Family History Father Adopted: No Race: Family Member Ethnicity: Non- Living Status: Age at : 68 Cause of : Leukemia Hx Family Cardiac Disorders: No Hx Family Respiratory Disorders: No Hx Family Cancer: Yes (Leukemia, Prostate) Hx Family GI Disorders: No Hx Family Genitourinary Disorders: No Hx Family Endocrine Disorder: No Hx Family Musculoskeletal Disorders: No Hx Family Neuromuscular Disorders: No Hx Family Neurologic Disorders: No Hx Family HEENT Disorders: No Hx Family Autoimmune Disorders: No Hx Family Reproductive Disorders: No Hx Family Psychosocial Disorders: No Hx Family Medical Disorders: No Mother Adopted: No Race: Family Member Ethnicity: Non- Living Status: Age at : 84 Cause of : Gas gangrene Hx Family Cardiac Disorders: No Hx Family Respiratory Disorders: No Hx Family Cancer: No Hx Family GI Disorders: No Hx Family Genitourinary Disorders: Yes (gas gangrene) Hx Family Endocrine Disorder: No Hx Family Musculoskeletal Disorders: Yes (Gas gangrene) Hx Family Neuromuscular Disorders: No Hx Family Neurologic Disorders: No Hx Family HEENT Disorders: No Hx Family Autoimmune Disorders: No Hx Family Reproductive Disorders: No Hx Family Psychosocial Disorders: No Hx Family Medical Disorders: No Brother Race: Family Member Ethnicity: Non- Living Status: Age at : 65 Cause of : Esophageal cancer Hx Family Cardiac Disorders: No Hx Family Respiratory Disorders: No Hx Family Cancer: Yes (Esophageal) Hx Family GI Disorders: No Hx Family Genitourinary Disorders: No Hx Family Endocrine Disorder: No Hx Family Musculoskeletal Disorders: No Hx Family Neuromuscular Disorders: No Hx Family Neurologic Disorders: No Hx Family HEENT Disorders: No Hx Family Autoimmune Disorders: No Hx Family Reproductive Disorders: No Hx Family Psychosocial Disorders: No Hx Family Medical Disorders: No Sister Race: Family Member Ethnicity: Non- Living Status: Age at : 70 Cause of : Kidney cancer Hx Family Cardiac Disorders: No Hx Family Cancer: Yes (Kidney) Hx Family GI Disorders: No Hx Family Genitourinary Disorders: No Hx Family Endocrine Disorder: Yes (Type 2 diabetes) Hx Family Musculoskeletal Disorders: No Hx Family Neuromuscular Disorders: No Hx Family Neurologic Disorders: No Hx Family HEENT Disorders: No Hx Family Autoimmune Disorders: No Hx Family Reproductive Disorders: No Hx Family Psychosocial Disorders: No Hx Family Medical Disorders: No Medications & Allergies ALPRAZolam [Xanax 0.5 MG Tablet] 0.5 mg PO QID PRN 09/28/16 [History] Albuterol Sulfate [Ventolin Hfa] 2 puff IH Q4H PRN 09/28/16 [History] Aspirin [Lo-Dose Aspirin EC] 81 mg PO DAILY 09/28/16 [History] Gabapentin 600 mg PO QID 09/28/16 [History] Ipratropium/Albuterol Neb [Duoneb] 3 ml IH Q6HR 09/28/16 [History] Oxycodone HCl/Acetaminophen [Endocet 5-325 Tablet] 1 tab PO Q6H PRN #20 [Rx] Insulin DETEMIR [Levemir Flextouch] 15 - 20 unit SQ HS PRN 06/27/17 [History] Insulin LISPRO [Humalog Kwikpen U-100] 0 unit SQ TID PRN 06/27/17 [History] Levalbuterol Neb [Xopenex Neb] 0.63 mg IH Q4H PRN 06/27/17 [History] Lisinopril [Zestril] 10 mg PO BID 06/27/17 [History] Amitriptyline [Elavil] 100 mg PO HS 10/22/17 [History] 3 Allergy/AdvReac Type Severity Reaction Status Date / Time Erythromycin Base Allergy Hives Verified 06/27/17 10:46 Review of Systems Psychiatric: Reports: confusion, mood swings Mental Status Exam Patient orientation: Yes Place Level of alertness: Alert Patient appearance: Appropriate Behavior: agitated Psychomotor activity: Normal Eye contact: Minimal Contact Mood description: Irritable Affect description: congruent with mood Speech pattern: Normal rate Speech volume: Normal Thought process: Slowed Thinking Thought content: Yes Intact Attention span: Unable to Sustain Attention Memory description: Recent Impaired Patient reliability: Questionable Historian Judgment: Poor Insight: Minimal Results - Vital Signs Vital signs: Temp Pulse Resp BP Pulse Ox 97.9 F 91 16 151/86 99 10/31/17 16:13 10/31/17 16:13 10/31/17 16:13 10/31/17 16:13 10/31/17 16:13 - Labs Labs: Laboratory Last Values WBC 13.4 K/mcL (4.3-11.1) H 10/30/17 10:16 RBC 3.81 M/mcL (4.19-5.50) L 10/30/17 10:16 Hgb 10.6 g/dL (12.9-16.9) L 10/30/17 10:16 Hct 33.0 % (37.5-50.1) L 10/30/17 10:16 MCV 86.6 fL (83.0-100.0) 10/30/17 10:16 MCH 27.8 pg (28.0-33.3) L 10/30/17 10:16 MCHC 32.1 g/dL (31.6-35.5) 10/30/17 10:16 RDW 13.1 % (11.5-14.5) 10/30/17 10:16 Plt Count 251 K/mcL (140-400) 10/30/17 10:16 MPV 9.4 fL (9.4-12.4) 10/30/17 10:16 Immature Gran % 1.0 % (0-4) 10/28/17 10:58 Seg Neutrophils % 70.4 % 10/28/17 10:58 Lymphocytes % 20.5 % 10/28/17 10:58 Monocytes % 6.2 % 10/28/17 10:58 Eosinophils % 1.5 % 10/28/17 10:58 Basophils % 0.4 % 10/28/17 10:58 Neutrophils # 9.5 K/mcL (1.6-8.9) H 10/28/17 10:58 Lymphocytes # 2.8 K/mcL (0.6-4.6) 10/28/17 10:58 Monocytes # 0.8 K/mcL (0.0-1.3) 10/28/17 10:58 Eosinophils # 0.2 K/mcL (0.0-0.6) 10/28/17 10:58 Basophils # 0.1 K/mcL (0.0-0.2) 10/28/17 10:58 Nucleated RBCs/100 WBC 0.2 /100 WBC (0) H 10/25/17 04:06 PT 11.8 Seconds (9.4-12.1) 10/25/17 22:35 INR 1.1 10/25/17 22:35 APTT 62.8 Seconds (26.0-36.0) H 10/27/17 16:06 D-Dimer 1162 ng/mLFEU (0-500) H 10/22/17 15:53 Sodium 139 mEq/L (136-145) 10/30/17 10:16 Potassium 3.9 mEq/L (3.5-5.1) 10/30/17 10:16 Chloride 103 mEq/L (98-107) 10/30/17 10:16 Carbon Dioxide 30 mEq/L (23-29) H 10/30/17 10:16 BUN 28 mg/dL (8-23) H 10/30/17 10:16 Creatinine 0.97 mg/dL (0.70-1.30) 10/30/17 10:16 Est GFR ( Amer) > 60 (> 60) 10/30/17 10:16 Est GFR (Non-Af Amer) > 60 (> 60) 10/30/17 10:16 BUN/Creatinine Ratio 29 (6-26) H 10/30/17 10:16 Glucose 176 mg/dL (70-105) H 10/30/17 10:16 POC Glucose 113 (58-89) H 10/31/17 11:43 Est Mean Plasma Glucose 134 mg/dl 10/23/17 00:41 Hemoglobin A1c 6.3 % (-5.6) H 10/23/17 00:41 Calculated Osmolality 298 (280-300) 10/30/17 10:16 Lactic Acid 1.6 mmol/L (0.5-2.2) 10/23/17 12:19 Calcium 8.7 mg/dL (8.6-10.3) 10/30/17 10:16 Magnesium 1.9 mg/dL (1.6-2.6) 10/26/17 05:31 Total Bilirubin 0.4 mg/dL (0.3-1.0) 10/28/17 10:58 Direct Bilirubin 0.1 mg/dL (0.0-0.2) 10/22/17 10:50 Indirect Bilirubin 0.3 mg/dL (0.0-1.2) 10/22/17 10:50 AST 17 Units/L (13-39) 10/28/17 10:58 ALT 14 Units/L (7-52) 10/28/17 10:58 Alkaline Phosphatase 44 Units/L (34-104) 10/28/17 10:58 Troponin I 0.03 ng/mL (< 0.04) 10/23/17 00:41 B-Natriuretic Peptide 447 pg/mL (Less than 100) H 10/22/17 10:50 Serum Total Protein 5.9 g/dL (6.4-8.9) L 10/28/17 10:58 Albumin 3.1 g/dL (3.5-5.7) L 10/28/17 10:58 Globulin 2.8 g/dL (2.4-3.5) 10/28/17 10:58 Albumin/Globulin Ratio 1.1 (1.1-2.2) 10/28/17 10:58 Triglycerides 63 mg/dL (< 150) 10/23/17 00:41 Cholesterol 139 mg/dL (< 200) 10/23/17 00:41 LDL Cholesterol, Calc 73 mg/dL (0-99) 10/23/17 00:41 VLDL Cholesterol, Calc 13 mg/dL (< 31) 10/23/17 00:41 HDL Cholesterol 53 mg/dL (40-59) 10/23/17 00:41 Cholesterol/HDL Ratio 2.6 (0-4.9) 10/23/17 00:41 Urine Color Yellow (Yellow) 10/25/17 16:23 Urine Clarity Clear (Clear) 10/25/17 16:23 Urine pH 6.5 pH Units (5.0-8.0) 10/25/17 16:23 Ur Specific Fenton 1.009 (1.010-1.025) L 10/25/17 16:23 Urine Protein Negative mg/dL (Neg-Trace) 10/25/17 16:23 Urine Glucose (UA) 500 mg/dL (Normal) H 10/25/17 16:23 Urine Ketones Negative mg/dL (Negative) 10/25/17 16:23 Urine Blood Negative (Negative) 10/25/17 16:23 Urine Nitrite Negative (Negative) 10/25/17 16:23 Urine Bilirubin Negative (Negative) 10/25/17 16:23 Urine Urobilinogen Normal mg/dL (Normal) 10/25/17 16:23 Ur Leukocyte Esterase Negative (Negative) 10/25/17 16:23 Ur Culture Indicated? NO (NO) 10/25/17 16:23 - Impressions Impressions Head CT 10/27/17 08:00 IMPRESSION: No acute intracranial abnormality. Stable exam. D/ / 10/28/2017 11:27:03 Hema Gamez MD / nelson Interpreting Provider: Hema Gamez MD Consult Discharge Plan - Plan Referrals: Toney Santos Jr, MD [Primary Care Provider] -
[2017-11-01] MEDS: *HR* OxyCODONE/APAP 5/325 TABLET PO PRN ×4 (05:42→23:39)
[2017-11-01] MEDS: Furosemide 20 MG TABLET PO SCH ×2 (05:42→17:46)
[2017-11-01] MEDS: Aspirin Enteric Coated 81 MG Tablet PO SCH (08:13)
[2017-11-01] MEDS: Divalproex Sodium 125 MG CAPSULE PO SCH ×4 (08:13→23:38)
[2017-11-01] MEDS: Insulin LISPRO 300 UNITS/3 ML VIAL SQ SCH ×4 (08:15→20:32)
--- NOTE | 2017-11-01 14:49 | Internal Med Progress Note ---
Date of Encounter: 11/01/17 Time of Encounter: 14:47 - Assessment and plan (1) Acute exacerbation of CHF (congestive heart failure) Current Visit: Yes Status: Acute Assessment and plan: Patient denied any past history of CHF, echo completed which showed an EF of 25% - initial BNP was 447- continue lasix Severe global left ventricular systolic dysfunction with mild left ventricular diastolic dysfunction resulting in systolic and diastolic CHF cardiac monitoring Continue beta danielle and daisy oxygen to maintain SPO2 greater than 92% Monitor intake and output, daily weights cardiology signed off - per cardiology note left heart catheter 10/24/17 coronary arteries are angiographically normal-cardiology recommends CHF teaching and the importance of sodium and fluid restriction diet Unable to complete KEREN, recommend medical management with ASA and plavix Qualifiers: Heart failure type: combined systolic and diastolic Qualified Code(s): I50.43 - Acute on chronic combined systolic (congestive) and diastolic ( congestive) heart failure (2) Anemia Current Visit: Yes Status: Chronic Assessment and plan: History of chronic anemia closely watch for bleeding, heparin drip stopped 10/28/17 Will continue Plavix and aspirin per cardiology and neurology Monitor CBC no signs of bleeding at this time Qualifiers: Anemia type: unspecified type Qualified Code(s): D64.9 - Anemia, unspecified (3) COPD exacerbation Current Visit: Yes Status: Chronic Assessment and plan: stable and with no wheezing oxygen titrated to maintain SPO2 greater than 92% completed 4 days of prednisone 40 mg Continue Bronchodilators (4) CVA (cerebral vascular accident) Current Visit: Yes Status: Acute Assessment and plan: Patient developed acute embolic event after cardiac catheterization. MRI brain showed presence of 2 acute punctate ischemic infarct. Neurology was initiated and patient was placed on aspirin and heparin. Attempted KEREN to identify the source of the emboli and patient not cooperative Cardiology spoke with the family and as the patient was combative and refusing a KEREN 2 attempts, they decided to do nothing more invasive, want medical management. Palliative team consulted PT and OT Speech evaluation and is able to have regular diet Continue statin There will be no additional anticoagulation added, will continue aspirin and Plavix. 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 (5) Diabetes mellitus Current Visit: No Status: Chronic Assessment and plan: Accu-Cheks before meals, bedtime with sliding scale insulin coverage Qualifiers: Diabetes mellitus type: type 2 Diabetes mellitus fci insulin use: without fci use Diabetes mellitus complication status: with neurologic complications Diabetes mellitus complication detail: with unspecified neuropathy Qualified Code(s): E11.40 - Type 2 diabetes mellitus with diabetic neuropathy, unspecified (6) DVT prophylaxis Current Visit: Yes Status: Acute Assessment and plan: continue ambulation, fall risk and bleeding risk (7) HTN (hypertension) Current Visit: Yes Status: Chronic Qualifiers: Hypertension type: essential hypertension Qualified Code(s): I10 - Essential (primary) hypertension (8) Pneumonia Current Visit: Yes Status: Resolved Assessment and plan: White count is stable, evaluated by speech therapy, no aspiration. He has completed 5 days of antibiotics - no respiratory distress, cough, or fever Blood cultures and sputum cultures are negative - strep pneumonia antigens are negative. Xopenex as needed, Oxygen as needed Qualifiers: Pneumonia type: due to unspecified organism Laterality: left Lung location: lower lobe of lung Qualified Code(s): J18.1 - Lobar pneumonia, unspecified organism (9) Agitation Current Visit: Yes Status: Acute Assessment and plan: Spoke with psychiatrist and she initially recommended admission into a geriatric psychiatric unit. He was declined by [facility]. Psychiatry consulted and saw the patient. She recommended increasing the Depakote dose to 125 mg by mouth 3 times a day which has been done today. She feels he is delirious. She does not feel that he qualifies for placement to a geriatric psychiatric unit. Spoke with the transition social worker and the daughter. The plan is now to see if we can find a locked geriatric dementia unit that may take the patient. Adelaida is investigating different placement options and we will be in contact with the daughter regarding disposition ideas. Erratic impulsive behavior continues. He did sleep well on his Seroquel dose. Discussed with psychiatry and neurology will hold all Xanax and Ativan, no benzoids. Decrease Elavil to 50 mg at bedtime. Increase Seroquel to 25 mg twice a day. Increase Depakote 125 mg to three times a day. We will use Haldol and Benadryl when necessary for breakthrough agitation only. Will decrease Neurontin to 1 times a day and then stop after 1 day. (10) Sepsis Current Visit: Yes Status: Resolved Assessment and plan: sepsis resolved Patient was admitted with pneumonia and see if at bedtime exacerbation with sepsis criteria of WBCs of 16.1, heart rate of 127, respiratory rate of 24 and initial lactic acid of 3.3 rechecked at 1.6 Blood cultures were negative. Patient was unable to receive full fluid bolus secondary to his CHF. Qualifiers: Sepsis type: sepsis due to unspecified organism Qualified Code(s): A41.9 - Sepsis, unspecified organism - Subjective Interval history: Patient has been sitting up in a chair. His behavior remains volatile although he is calmer at times. He can be pleasant and become very irritated and aggressive. Spoke with the daughter. Social service is involved in the placement plan but many barriers. - Constitutional Vitals: Temp Pulse Resp BP Pulse Ox 98.3 F 111 17 127/52 99 11/01/17 11:30 11/01/17 11:30 11/01/17 11:30 11/01/17 11:30 11/01/17 11:30 General appearance: Present: A&O X 1, no acute distress. Absent: cooperative, pleasant, answers questions appropriately - Head Head exam: Present: atraumatic, normocephalic - Eye Eye exam: Present: PERRL, conjuntiva pink, sclera anicteric Pupils: Present: PERRL - Neck Neck exam general surgery: Present: supple, trachea midline. Absent: lymphadenopathy - Respiratory Respiratory exam: Present: CTAB. Absent: accessory muscle use, rales, rhonchi, wheezes - Cardiovascular Cardiovascular exam: Present: RRR, +S1, +S2. Absent: diastolic murmur, gallop, rubs, systolic murmur - GI/Abdominal GI/Abdominal exam: Present: normal bowel sounds, soft, no peritoneal signs. Absent: distended, tenderness - Extremities Exam Extremities exam: Present: warm, radial pulses palpable and symmetrical. Absent : calf tenderness, cyanotic, pedal edema - Neurological Exam Neurological exam: Present: alert, oriented X3, no focal deficits, strengths equal and symetr throughout. Absent: pronater drift, facial droop, speech deficit - Skin Skin exam: Present: dry, intact, normal color, warm Internal Medicine: Result - Labs CBC & Chem 7: 10/30/17 10:16 10/30/17 10:16 - ABG Interpretation ABG results: PT/INR, D-dimer PT 11.8 Seconds (9.4-12.1) 10/25/17 22:35 D-Dimer 1162 ng/mLFEU (0-500) H 10/22/17 15:53 - Impressions Impressions Head CT 10/27/17 08:00 IMPRESSION: No acute intracranial abnormality. Stable exam. D/ / 10/28/2017 11:27:03 Hema Gamez MD / nelson Interpreting Provider: Hema Gamez MD Consult Discharge Plan - Plan Referrals: Toney Santos Jr, MD [Primary Care Provider] -
[2017-11-01] MEDS: Gabapentin 300 MG CAPSULE PO SCH (17:45)
[2017-11-02] MEDS: Furosemide 20 MG TABLET PO SCH ×2 (06:13→16:55)
[2017-11-02] MEDS: *HR* OxyCODONE/APAP 5/325 TABLET PO PRN ×3 (06:13→20:12)
[2017-11-02] MEDS: Gabapentin 300 MG CAPSULE PO SCH (08:20)
[2017-11-02] MEDS: Divalproex Sodium 125 MG CAPSULE PO SCH ×3 (08:20→20:11)
[2017-11-02] MEDS: Aspirin Enteric Coated 81 MG Tablet PO SCH (08:20)
[2017-11-02] MEDS: Insulin LISPRO 300 UNITS/3 ML VIAL SQ SCH ×4 (08:24→20:14)
--- NOTE | 2017-11-02 09:10 | Internal Med Progress Note ---
Date of Encounter: 11/02/17 Time of Encounter: 09:08 - Assessment and plan (1) Acute exacerbation of CHF (congestive heart failure) Current Visit: Yes Status: Acute Assessment and plan: Patient denied any past history of CHF, echo completed which showed an EF of 25% , initial BNP 447 Severe global left ventricular systolic dysfunction with mild left ventricular diastolic dysfunction resulting in systolic and diastolic CHF cardiac monitoring Continue beta danielle and daisy oxygen to maintain SPO2 greater than 92% Monitor intake and output, daily weights cardiology signed off - per cardiology note left heart catheter 10/24/17 coronary arteries are angiographically normal-cardiology recommends CHF teaching and the importance of sodium and fluid restriction diet Unable to complete KEREN, recommend medical management with ASA and plavix Qualifiers: Heart failure type: combined systolic and diastolic Qualified Code(s): I50.43 - Acute on chronic combined systolic (congestive) and diastolic ( congestive) heart failure (2) Anemia Current Visit: Yes Status: Chronic Assessment and plan: History of chronic anemia closely watch for bleeding, heparin drip stopped 10/28/17 Continue Plavix and aspirin per cardiology and neurology Monitor CBC no signs of bleeding at this time Qualifiers: Anemia type: unspecified type Qualified Code(s): D64.9 - Anemia, unspecified (3) COPD exacerbation Current Visit: Yes Status: Chronic Assessment and plan: stable, with no wheezing oxygen titrated to maintain SPO2 greater than 92% completed 4 days of prednisone 40 mg Continue Bronchodilators (4) CVA (cerebral vascular accident) Current Visit: Yes Status: Acute Assessment and plan: Patient developed acute embolic event after cardiac catheterization. MRI brain showed presence of 2 acute punctate ischemic infarct. Neurology was initiated and patient was placed on aspirin and heparin. Attempted KEREN to identify the source of the emboli and patient not cooperative Cardiology spoke with the family and as the patient was combative and refusing a KEREN 2 attempts, they decided to do nothing more invasive, want medical management. Palliative team consulted PT and OT Speech evaluation and is tolerating a regular diet Continue statin There will be no additional anticoagulation added, will continue aspirin and Plavix. 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 insulin use: without truck terminal manager use Diabetes mellitus complication status: with neurologic complications Diabetes mellitus complication detail: with unspecified neuropathy Qualified Code(s): E11.40 - Type 2 diabetes mellitus with diabetic neuropathy, unspecified (6) DVT prophylaxis Current Visit: Yes Status: Acute Assessment and plan: continue ambulation, fall risk, bleeding risk (7) HTN (hypertension) Current Visit: Yes Status: Chronic Assessment and plan: stable blood pressure, continue home medications Qualifiers: Hypertension type: essential hypertension Qualified Code(s): I10 - Essential (primary) hypertension (8) Pneumonia Current Visit: Yes Status: Resolved Assessment and plan: White count is stable, evaluated by speech therapy, no aspiration. He has completed 5 days of antibiotics, no respiratory distress, cough, or fever Blood cultures and sputum cultures are negative, strep pneumonia antigens are negative. Xopenex as needed, Oxygen as needed Qualifiers: Pneumonia type: due to unspecified organism Laterality: left Lung location: lower lobe of lung Qualified Code(s): J18.1 - Lobar pneumonia, unspecified organism (9) Agitation Current Visit: Yes Status: Acute Assessment and plan: Spoke with psychiatrist and she initially recommended admission into a geriatric psychiatric unit. He was declined by [facility]. Psychiatry consulted and saw the patient. She recommended increasing the Depakote dose to 125 mg by mouth 3 times a day which has been done today. She feels he is delirious. She does not feel that he qualifies for placement to a geriatric psychiatric unit. Spoke with the social media developer and the daughter. The plan is now to see if we can find a locked geriatric dementia unit that may take the patient. Adelaida is investigating different placement options and we will be in contact with the daughter regarding disposition ideas. Erratic impulsive behavior continues. He did sleep well on his Seroquel dose. Discussed with psychiatry and neurology will hold all Xanax and Ativan, no benzoids. Decrease Elavil to 50 mg at bedtime. Increase Seroquel to 25 mg twice a day. Increase Depakote 125 mg to three times a day. We will use Haldol and Benadryl when necessary for breakthrough agitation only. Will continue Neurontin daily for neuropathy pain Patient is alert and oriented this am, following commands. not impulsive or irratic behavior noted this am. Spoke with daughter/POA and dc'ed sitter (10) Sepsis Current Visit: Yes Status: Resolved Assessment and plan: sepsis resolved Patient was admitted with pneumonia and see if at bedtime exacerbation with sepsis criteria of WBCs of 16.1, heart rate of 127, respiratory rate of 24 and initial lactic acid of 3.3 rechecked at 1.6 Blood cultures were negative. Patient was unable to receive full fluid bolus secondary to his CHF. Qualifiers: Sepsis type: sepsis due to unspecified organism Qualified Code(s): A41.9 - Sepsis, unspecified organism - Subjective Interval history: Patient is much better and mood today. Staff reports he went on [email or web address] last night and ordered $127 worth of knives. They stated he has been less impulsive overnight and waits for them to help him move from chair to bedside commode etc. I spoke with the patient and he is alert and oriented. He is very pleasant and cooperative. He is sitting up decide the bed eating his breakfast without any assistance. I spoke with his daughter and we will discontinue the sitter acute bed alarms and chair alarms in place. Patient denies chest pain, shortness of breath, fever, chills, abdominal pain. He states his breathing is the best it has been. - Constitutional Vitals: Temp Pulse Resp BP Pulse Ox 97.5 F L 83 16 148/74 100 11/02/17 07:52 11/02/17 07:52 11/02/17 07:52 11/02/17 07:52 11/02/17 07:52 General appearance: Present: cooperative, A&O X 1, A&O X 3, pleasant, no acute distress, answers questions appropriately - Head Head exam: Present: atraumatic, normocephalic - Eye Eye exam: Present: PERRL, conjuntiva pink, sclera anicteric Pupils: Present: PERRL - Neck Neck exam general surgery: Present: supple, trachea midline. Absent: lymphadenopathy - Respiratory Respiratory exam: Present: CTAB. Absent: accessory muscle use, rales, rhonchi, wheezes - Cardiovascular Cardiovascular exam: Present: RRR, +S1, +S2. Absent: diastolic murmur, gallop, rubs, systolic murmur - GI/Abdominal GI/Abdominal exam: Present: normal bowel sounds, soft, no peritoneal signs. Absent: distended, tenderness - Extremities Exam Extremities exam: Present: warm, radial pulses palpable and symmetrical. Absent : calf tenderness, cyanotic, pedal edema Additional comments: Discoloration on his toenails - Neurological Exam Neurological exam: Present: alert, CN II-XII intact, oriented X3, no focal deficits. Absent: pronater drift, facial droop, speech deficit - Skin Skin exam: Present: dry, intact, normal color, warm Internal Medicine: Result - Labs CBC & Chem 7: 10/30/17 10:16 10/30/17 10:16 - ABG Interpretation ABG results: PT/INR, D-dimer PT 11.8 Seconds (9.4-12.1) 10/25/17 22:35 D-Dimer 1162 ng/mLFEU (0-500) H 10/22/17 15:53 Consult Discharge Plan - Plan Referrals: Toney Santos Jr, MD [Primary Care Provider] -
[2017-11-03] MEDS: Furosemide 20 MG TABLET PO SCH ×2 (05:58→16:58)
[2017-11-03] MEDS: *HR* OxyCODONE/APAP 5/325 TABLET PO PRN ×2 (06:02→19:57)
[2017-11-03] MEDS: Insulin LISPRO 300 UNITS/3 ML VIAL SQ SCH ×4 (07:27→20:56)
[2017-11-03] MEDS: Gabapentin 300 MG CAPSULE PO SCH ×4 (07:37→20:55)
[2017-11-03] MEDS: Aspirin Enteric Coated 81 MG Tablet PO SCH (07:37)
[2017-11-03] MEDS: Divalproex Sodium 125 MG CAPSULE PO SCH ×3 (07:37→20:55)
[2017-11-03] MEDS ORDERED: Nitroglycerin 0.4 MG TAB.SUBL SL PRN (07:44)
--- NOTE | 2017-11-03 08:56 | Discharge Summary ---
Date of Encounter: 11/03/17 Time of Encounter: 08:54 - Discharge Diagnosis (1) Acute exacerbation of CHF (congestive heart failure) Priority: Primary Status: Acute Comments: Patient denied any past history of CHF, echo completed which showed an EF of 25% , initial BNP 447 Severe global left ventricular systolic dysfunction with mild left ventricular diastolic dysfunction resulting in systolic and diastolic CHF cardiac monitoring Continue beta danielle and daisy oxygen to maintain SPO2 greater than 92% Monitor intake and output, daily weights cardiology signed off - per cardiology note left heart catheter 10/24/17 coronary arteries are angiographically normal-cardiology recommends CHF teaching and the importance of sodium and fluid restriction diet Unable to complete KEREN, recommend medical management with ASA and plavix Qualifiers: Heart failure type: combined systolic and diastolic Qualified Code(s): I50.43 - Acute on chronic combined systolic (congestive) and diastolic ( congestive) heart failure (2) Anemia Priority: Primary Status: Chronic Comments: History of chronic anemia closely watch for bleeding, heparin drip stopped 10/28/17 Continue Plavix and aspirin per cardiology and neurology Monitor CBC no signs of bleeding at this time Qualifiers: Anemia type: unspecified type Qualified Code(s): D64.9 - Anemia, unspecified (3) COPD exacerbation Priority: Primary Status: Chronic Comments: stable, with no wheezing oxygen titrated to maintain SPO2 greater than 92%, now 2 liters completed 4 days of prednisone 40 mg Continue Bronchodilators (4) CVA (cerebral vascular accident) Priority: Primary Status: Acute Comments: Patient developed acute embolic event after cardiac catheterization. MRI brain showed presence of 2 acute punctate ischemic infarct. Neurology was initiated and patient was placed on aspirin and heparin. Attempted KEREN to identify the source of the emboli and patient not cooperative Cardiology spoke with the family and as the patient was combative and refusing a KEREN 2 attempts, they decided to do nothing more invasive, want medical management. PT and OT Speech evaluation and is tolerating a regular diet Continue statin There will be no additional anticoagulation added, will continue aspirin and Plavix. 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 insulin use: without fci use Diabetes mellitus complication status: with neurologic complications Diabetes mellitus complication detail: with unspecified neuropathy Qualified Code(s): E11.40 - Type 2 diabetes mellitus with diabetic neuropathy, unspecified (6) HTN (hypertension) Priority: Primary Status: Chronic Comments: stable, continue home meds Qualifiers: Hypertension type: essential hypertension Qualified Code(s): I10 - Essential (primary) hypertension (7) Pneumonia Priority: Primary Status: Resolved Comments: treated and resolved White count istable, evaluated by speech therapy, no aspiration. He has completed 5 days of antibiotics, no respiratory distress, cough, or fever Blood cultures and sputum cultures are negative, strep pneumonia antigens are negative. Xopenex as needed, Oxygen as needed Qualifiers: Pneumonia type: due to unspecified organism Laterality: left Lung location: lower lobe of lung Qualified Code(s): J18.1 - Lobar pneumonia, unspecified organism (8) Agitation Priority: Primary Status: Resolved Comments: Spoke with psychiatrist who initially recommended admission into a geriatric psychiatric unit. He was declined by [facility]. Psychiatry consulted and saw the patient. She recommended increasing the Depakote dose to 125 mg by mouth 3 times a day which has been done today. She feels he is delirious. She does not feel that he qualifies for placement to a geriatric psychiatric unit. Spoke with the social media director and the daughter. The plan is now to see if we can find a locked geriatric dementia unit that may take the patient. Adelaida is investigating different placement options and we will be in contact with the daughter regarding disposition ideas. Erratic impulsive behavior had continued but overnight 10/05/17 his mentation and irratic behavior improved and he is now following directions and waits for help to ambulate.. He did sleep well on his Seroquel dose. Discussed with psychiatry and neurology will hold all Xanax and Ativan, no benzoids. Decrease Elavil to 50 mg at bedtime. Increase Seroquel to 25 mg twice a day. Increase Depakote 125 mg to three times a day. We will use Haldol and Benadryl when necessary for breakthrough agitation only. Will continue Neurontin TID at lowered dose for neuropathy pain Patient is alert and oriented, following commands. no impulsive or irratic behavior noted this am. The sitter has been discontinued for 24 hours so he will be discharged to [place] for rehab services. Daughter/POA notifiedr (9) Sepsis Priority: Primary Status: Resolved Comments: Acute sepsis criteria w/WBC of 16.1 trend to 13.4, HR of 127now in 80,s, RR of 24, now 18 . Initial lactic acid 3.3 which trended to 1.6 Pt. has small left pleural effusion on imaging, so fluid boluses contraindicated. 0.9 IV NS @ 100 mL/HR ordered. IVPB azithromycin and ceftriaxone ordered for infection coverage with completed course. Blood cultures x2 ordered and no growth on final.. Sputum culture ordered. Continuous telemetry. Supplemental O2 w/titration and SpO2 monitoring now on 2 liters NC continuously. Sepsi resolved. Qualifiers: Sepsis type: sepsis due to unspecified organism Qualified Code(s): A41.9 - Sepsis, unspecified organism (10) Acute delirium Priority: Primary Status: Resolved Comments: this has resolved with medication additions and adjustments. Hospital course: Mr. Quinn is a 82 year old male who presented to the hospital with complaints of shortness of breath and dyspnea. Became worse this morning. Chest pain was worse with cough. Patient has a history of arthritis, chronic back pain, emphysema and COPD, insulin-dependent diabetes type 2, diabetic neuropathy, GERD , seizures, and TIAs. Cardiology saw the patient. TTE on 2817 showed LVEF of 25% with severe global LV systolic dysfunction. Left heart catheter with possible PCI I was recommended. Left heart catheter on 10/24+ H 18 showed coronary arteries were angiographically normal. On the patient had MRI for some increased confusion. The report revealed punctuate foci of diffusion restriction in the high right frontal lobe and left occipital lobe consistent with punctuate acute infarctions. Neurology service was consulted. 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 Palliative care was consult it after the patient refused his KEREN. He became delirious and agitated. He has fallen multiple times with repeat CTs of the head completed with no change from the first report. Psychiatric service was involved and the patient had medications adjusted. He required a sitter for multiple days. He has been seizure free for 24 hours his delirium has resolved and he is much more cooperative and oriented. He will be transferred to [facility] today for rehabilitation. Please see the assessment and plan for further details of this admission Discharge discussed with: patient, family, nurse, social work - Time Spent with Patient Total time spent providing and/or coordinating discharge services: Less than 30 minutes - Discharge Medications Prescriptions: Gabapentin [Neurontin] 300 mg PO TID 7 Days #21 capsule Oxycodone HCl/Acetaminophen [Endocet 5-325 Tablet] 1 tab PO Q6H PRN 5 Days #20 tablet PRN Reason: Pain Home Medications: Albuterol Sulfate [Ventolin Hfa] 2 puff IH Q4H PRN 09/28/16 [History] Aspirin [Lo-Dose Aspirin EC] 81 mg PO DAILY 09/28/16 [History] Ipratropium/Albuterol Neb [Duoneb] 3 ml IH Q6HR 09/28/16 [History] Insulin DETEMIR [Levemir Flextouch] 15 - 20 unit SQ HS PRN 06/27/17 [History] Insulin LISPRO [Humalog Kwikpen U-100] 0 unit SQ TID PRN 06/27/17 [History] Levalbuterol Neb [Xopenex Neb] 0.63 mg IH Q4H PRN 06/27/17 [History] Lisinopril [Zestril] 10 mg PO BID 06/27/17 [History] Acetaminophen [Tylenol] 650 mg PO Q6HR PRN tablet 11/03/17 [Rx] Amitriptyline [Elavil] 50 mg PO HS tablet 11/03/17 [Rx] Atorvastatin [Lipitor] 80 mg PO HS tablet 11/03/17 [Rx] Carvedilol [Coreg] 6.25 mg PO BIDWM tablet 11/03/17 [Rx] Divalproex Sodium [Depakote Sprinkle] 125 mg PO TID cap.sprink 11/03/17 [Rx] Furosemide [Lasix] 20 mg PO DAILY tablet 11/03/17 [Rx] Gabapentin [Neurontin] 300 mg PO TID 7 Days #21 capsule 11/03/17 [Rx] Nitroglycerin 0.4 mg SL Q5MIN PRN tab.subl 11/03/17 [Rx] Omeprazole [PriLOSEC] 20 mg PO 0630 capsule. 11/03/17 [Rx] Oxycodone HCl/Acetaminophen [Endocet 5-325 Tablet] 1 tab PO Q6H PRN 5 Days #20 tablet 11/03/17 [Rx] Quetiapine Fumarate [Seroquel] 25 mg PO BID tablet 11/03/17 [Rx] Allergies/Adverse Reactions: 3 Allergy/AdvReac Type Severity Reaction Status Date / Time Erythromycin Base Allergy Hives Verified 06/27/17 10:46 Date of admission: 10/22/17 12:37 Primary care physician: Toney Santos Jr, MD Consults: 10/23/17 23:40 Consult to Cardiology [CONS] Routine Comment: Consulting Provider: Cardiology Stephanie Reason for Consult: CHF - new EF 25% Time Notified: 23:41 Call Completed: No 10/25/17 22:19 Consult to Neurology [CONS] Routine Consulting Provider: [facility] Reason for Consult: New onset of neuro sx earlier this morning. Family thought it may be a UTI. UA negative. MRI of head/brain ordered which shows punctate foci of diffusion restriction in the high right frontal lobe and left occipital lobe consistent with punctate acute infarctions. Given bilateral distribution, findings raise the possibility for thromboembolic etiology. Parenchymal volume loss and sequela of mild chronic microvascular ischemic changes. Multiple bilateral old lacunar infarctions. Since the previous MRI, there has been interval development of a chronic right frontal lobe infarction. Pt. post-heart cath yesterday. Lipitor 80 mg now. Continue aspirin. Heparin drip. Call Completed: Yes 10/25/17 22:31 Consult to Cardiology [CONS] Routine Comment: Consulting Provider: Alissa Brown Reason for Consult: Patient post-heart catheterization yesterday began to have AMS today. Family's concern was for UTI. UA negative. MRI of the head/brain ordered and showed punctate foci of diffusion restriction in the high right frontal lobe and left occipital lobe consistent with punctate acute infarctions. Given bilateral distribution, findings raise the possibility for thromboembolic etiology. Parenchymal volume loss and sequela of mild chronic microvascular ischemic changes. Multiple bilateral old lacunar infarctions. Since the previous MRI, there has been interval development of a chronic right frontal lobe infarction. Lipitor 80 mg now. Heparin drip per Dr. Oliveira. NIHSS scale. Call Completed: Yes 10/26/17 11:39 Consult to Speech Therapy [CONS] Routine Comment: Evaluate, develop and implement POC Reason for Consult: aphasia Time Notified: 11:41 Call Completed: Yes 10/26/17 19:03 Consult to Physical Therapy [CONS] Routine Comment: Evaluate, develop and implement POC Reason for Consult: CVA 10/26/17 19:04 Consult to Occupational Therapy [CONS] Routine Comment: Evaluate, develop and implement POC Reason for Consult: CVA 10/27/17 22:50 Consult to Motorcycle Mechanic [CONS] Routine Reason for SW Consult: Please assess patient and discuss with family the possibility of ECF placement for rehabilitation from current CVA. Pts. daughter states that she is not equipped to handle him at home post-CVA w/his current sx. Would like to discuss ECF placement for short-term rehabilitation. 10/28/17 15:42 Consult to Palliative Care [CONS] Routine Comment: Consulting Provider: [facility] [place] Reason for Consult: cva-medically manage Call Completed: No 10/31/17 11:12 Consult to Psychiatry [CONS] Routine Consulting Provider: Psychiatry [place] Reason for Consult: behavior problems, agitation, volitile Time Notified: 11:13 Call Completed: Yes Discharging clinician: Liliana Martines Anticipated date of discharge: 11/03/17 - Constitutional Vitals: Temp Pulse Resp BP Pulse Ox 97.9 F 96 16 147/82 99 11/03/17 06:42 11/03/17 06:42 11/03/17 06:42 11/03/17 06:42 11/03/17 06:42 General appearance: Present: cooperative, A&O X 1, A&O X 3, pleasant, no acute distress, answers questions appropriately - Head Head exam: Present: atraumatic, normocephalic - Eye Eye exam: Present: PERRL, conjuntiva pink, sclera anicteric Pupils: Present: PERRL - Neck Neck exam general surgery: Present: supple, trachea midline. Absent: lymphadenopathy - Respiratory Respiratory exam: Present: CTAB. Absent: accessory muscle use, rales, rhonchi, wheezes - Cardiovascular Cardiovascular exam: Present: RRR, +S1, +S2. Absent: diastolic murmur, gallop, rubs, systolic murmur - GI/Abdominal GI/Abdominal exam: Present: normal bowel sounds, soft, no peritoneal signs. Absent: distended, tenderness - Extremities Exam Extremities exam: Present: pedal edema, warm, radial pulses palpable and symmetrical. Absent: calf tenderness, cyanotic Additional comments: Trace pedal edema and darkened toenails - Neurological Exam Neurological exam: Present: alert, CN II-XII intact, oriented X3, no focal deficits. Absent: pronater drift, facial droop, speech deficit - Skin Skin exam: Present: dry, intact, normal color, warm - Patient Status Disposition: Transfer SNF Condition: Fair Functional capacity at discharge: uses cane/walker Overall status at discharge: patient is not back to baseline - Discharge Instructions Follow Up With: Toney Santos Jr, MD [Primary Care Provider] - - Diet and Activity Activity: ambulate only with your walker, as per physical therapy, wear oxygen at all times
--- NOTE | 2017-11-03 09:47 | Physician Discharge Referral ---
ExtendedCare Referral Info Transfer To: [facility] Provider in Charge: [place] Provider in Charge after Transfer: PCP Institutional Level of Care: Skilled - Diagnosis (1) Acute exacerbation of CHF (congestive heart failure) Priority: Primary Status: Acute (2) Anemia Priority: Primary Status: Chronic (3) COPD exacerbation Priority: Primary Status: Chronic (4) CVA (cerebral vascular accident) Priority: Primary Status: Acute (5) Diabetes mellitus Priority: Primary Status: Chronic (6) HTN (hypertension) Priority: Primary Status: Chronic (7) Pneumonia Priority: Primary Status: Resolved (8) Agitation Priority: Primary Status: Resolved (9) Sepsis Priority: Primary Status: Resolved (10) Acute delirium Priority: Primary Status: Resolved Prognosis: Fair Aware of Diagnosis: Patient, Family Aware of Prognosis: Patient, Family - Transfer Medications Prescriptions: Gabapentin [Neurontin] 300 mg PO TID 7 Days #21 capsule Oxycodone HCl/Acetaminophen [Endocet 5-325 Tablet] 1 tab PO Q6H PRN 5 Days #20 tablet PRN Reason: Pain Home Medications: Albuterol Sulfate [Ventolin Hfa] 2 puff IH Q4H PRN 09/28/16 [History] Aspirin [Lo-Dose Aspirin EC] 81 mg PO DAILY 09/28/16 [History] Ipratropium/Albuterol Neb [Duoneb] 3 ml IH Q6HR 09/28/16 [History] Insulin DETEMIR [Levemir Flextouch] 15 - 20 unit SQ HS PRN 06/27/17 [History] Insulin LISPRO [Humalog Kwikpen U-100] 0 unit SQ TID PRN 06/27/17 [History] Levalbuterol Neb [Xopenex Neb] 0.63 mg IH Q4H PRN 06/27/17 [History] Lisinopril [Zestril] 10 mg PO BID 06/27/17 [History] Acetaminophen [Tylenol] 650 mg PO Q6HR PRN tablet 11/03/17 [Rx] Amitriptyline [Elavil] 50 mg PO HS tablet 11/03/17 [Rx] Atorvastatin [Lipitor] 80 mg PO HS tablet 11/03/17 [Rx] Carvedilol [Coreg] 6.25 mg PO BIDWM tablet 11/03/17 [Rx] Divalproex Sodium [Depakote Sprinkle] 125 mg PO TID cap.sprink 11/03/17 [Rx] Furosemide [Lasix] 20 mg PO DAILY tablet 11/03/17 [Rx] Gabapentin [Neurontin] 300 mg PO TID 7 Days #21 capsule 11/03/17 [Rx] Nitroglycerin 0.4 mg SL Q5MIN PRN tab.subl 11/03/17 [Rx] Omeprazole [PriLOSEC] 20 mg PO 0630 capsule. 11/03/17 [Rx] Oxycodone HCl/Acetaminophen [Endocet 5-325 Tablet] 1 tab PO Q6H PRN 5 Days #20 tablet 11/03/17 [Rx] Quetiapine Fumarate [Seroquel] 25 mg PO BID tablet 11/03/17 [Rx] Allergies/Adverse Reactions: 3 Allergy/AdvReac Type Severity Reaction Status Date / Time Erythromycin Base Allergy Hives Verified 06/27/17 10:46 - Respiratory Orders Oxygen / L per min (2l, continuously) Smoking Cessation: Smoking cessation has been advised. For more information, call the [employer] Tobacco Quit Line at 8-819-TPZF-NOW. - Advance Directives Living Will: Yes Power of Higher Level Teaching Assistant: Yes Code Status: DNR-Comfort Care - Mobility Orders Ambulate - Rehabiliation Orders Rehab Potential: Fair Rehab Orders: Evaluation for Physical Therapy, Evaluation for Occupational Therapy - Diet Orders No Added Salt (CHELSEA), No Concentrated Sweets, Cardiac CERTIFICATION: I certify that the transfer of the above named patient to an Extended Care Facility is necessary for the continuing treatment of the diagnosis listed. The above information is true and accurate reflection of patient's current condition. Confidential - Redisclosure prohibited without a patient's written consent.
[2017-11-04] MEDS: Furosemide 20 MG TABLET PO SCH (05:37)
[2017-11-04] MEDS: *HR* OxyCODONE/APAP 5/325 TABLET PO PRN ×2 (05:37→15:55)
[2017-11-04] MEDS: Insulin LISPRO 300 UNITS/3 ML VIAL SQ SCH ×3 (07:48→17:51)
[2017-11-04] MEDS: Gabapentin 300 MG CAPSULE PO SCH ×2 (07:57→14:28)
[2017-11-04] MEDS: Divalproex Sodium 125 MG CAPSULE PO SCH ×2 (07:57→14:28)
[2017-11-04] MEDS: Aspirin Enteric Coated 81 MG Tablet PO SCH (07:57)
--- NOTE | 2017-11-04 09:13 | Internal Med Progress Note ---
Date of Encounter: 11/04/17 Time of Encounter: 09:10 - Assessment and plan (1) Acute exacerbation of CHF (congestive heart failure) Current Visit: Yes Status: Acute Assessment and plan: Patient denied any past history of CHF, echo completed which showed an EF of 25% , initial BNP 447 Severe global left ventricular systolic dysfunction with mild left ventricular diastolic dysfunction resulting in systolic and diastolic CHF d/c cardiac monitoring Continue beta danielle and daisy oxygen to maintain SPO2 greater than 92% Monitor intake and output, daily weights cardiology signed off - per cardiology note left heart catheter 10/24/17 coronary arteries are angiographically normal-cardiology recommends CHF teaching and the importance of sodium and fluid restriction diet Unable to complete KEREN, recommend medical management with ASA and plavix Qualifiers: Heart failure type: combined systolic and diastolic Qualified Code(s): I50.43 - Acute on chronic combined systolic (congestive) and diastolic ( congestive) heart failure (2) Anemia Current Visit: Yes Status: Chronic Assessment and plan: History of chronic anemia closely watched for bleeding, heparin drip stopped 10/28/17 Continue Plavix and aspirin per cardiology and neurology Monitor CBC no signs of bleeding at this time Qualifiers: Anemia type: unspecified type Qualified Code(s): D64.9 - Anemia, unspecified (3) COPD exacerbation Current Visit: Yes Status: Chronic Assessment and plan: stable, no wheezing oxygen titrated to maintain SPO2 greater than 92% completed 4 days of prednisone 40 mg Continue Bronchodilators (4) CVA (cerebral vascular accident) Current Visit: Yes Status: Resolved Assessment and plan: Patient developed acute embolic event after cardiac catheterization. MRI brain showed presence of 2 acute punctate ischemic infarct. Neurology was initiated and patient was placed on aspirin and heparin. Attempted KEREN to identify the source of the emboli and patient not cooperative Cardiology spoke with the family and as the patient was combative and refusing a KEREN 2 attempts, they decided to do nothing more invasive, want medical management. Palliative team consulted PT and OT working with patient Speech evaluation and is tolerating a regular diet Continue statin There will be no additional anticoagulation added, will continue aspirin and Plavix. 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 (5) Diabetes mellitus Current Visit: No Status: Chronic Assessment and plan: Accu-Cheks before meals / bedtime with sliding scale insulin coverage Qualifiers: Diabetes mellitus type: type 2 Diabetes mellitus joint terminal attack controller insulin use: without mcfp use Diabetes mellitus complication status: with neurologic complications Diabetes mellitus complication detail: with unspecified neuropathy Qualified Code(s): E11.40 - Type 2 diabetes mellitus with diabetic neuropathy, unspecified (6) HTN (hypertension) Current Visit: Yes Status: Chronic Assessment and plan: stable blood pressure, continue home meds Qualifiers: Hypertension type: essential hypertension Qualified Code(s): I10 - Essential (primary) hypertension (7) Pneumonia Current Visit: Yes Status: Resolved Assessment and plan: White count is stable, evaluated by speech therapy, no aspiration. He has completed 5 days of antibiotics, no respiratory distress, cough, or fever Blood cultures and sputum cultures are negative, strep pneumonia antigens are negative. Xopenex as needed for wheeze. Oxygen as needed Qualifiers: Pneumonia type: due to unspecified organism Laterality: left Lung location: lower lobe of lung Qualified Code(s): J18.1 - Lobar pneumonia, unspecified organism (8) Agitation Current Visit: Yes Status: Resolved Assessment and plan: Spoke with psychiatrist and she initially recommended admission into a geriatric psychiatric unit. He was declined by [facility]. Psychiatry consulted and saw the patient. She recommended increasing the Depakote dose to 125 mg by mouth 3 times a day which has been done today. She feels he is delirious. She does not feel that he qualifies for placement to a geriatric psychiatric unit. Spoke with the social services assistant and the daughter. The plan is now to see if we can find a locked geriatric dementia unit that may take the patient. Adelaida is investigating different placement options and we will be in contact with the daughter regarding disposition ideas. Erratic impulsive behavior continues. He did sleep well on his Seroquel dose. Discussed with psychiatry and neurology will hold all Xanax and Ativan, no benzoids. Decrease Elavil to 50 mg at bedtime. Increase Seroquel to 25 mg twice a day. Increase Depakote 125 mg to three times a day. We will use Haldol and Benadryl when necessary for breakthrough agitation only. Will continue Neurontin daily for neuropathy pain Patient is alert and oriented, following commands. not impulsive,no irratic behavior noted this am. Spoke with daughter/chris GUERRERO'ed sitter3 await insurance auth for transfer to rehab (9) Sepsis Current Visit: Yes Status: Resolved Assessment and plan: sepsis resolved Patient was admitted with pneumonia and COPD exacerbation with sepsis criteria of WBCs of 16.1, heart rate of 127, respiratory rate of 24 and initial lactic acid of 3.3 rechecked at 1.6 Blood cultures were negative. Patient was unable to receive full fluid bolus secondary to his CHF. Qualifiers: Sepsis type: sepsis due to unspecified organism Qualified Code(s): A41.9 - Sepsis, unspecified organism (10) Acute delirium Current Visit: Yes Status: Resolved Assessment and plan: continue current medication regime on discharge - Subjective Interval history: Patient is sitting up eating his breakfast. His and granddaughter at the bedside. He denies any chest pain shortness of breath fever chills abdominal pain or discomfort. - Constitutional Vitals: Temp Pulse Resp BP Pulse Ox 97.5 F L 118 17 100/54 98 11/04/17 07:12 11/04/17 07:12 11/04/17 07:12 11/04/17 07:12 11/04/17 01:06 General appearance: Present: cooperative, A&O X 1, A&O X 3, pleasant, no acute distress, answers questions appropriately - Head Head exam: Present: atraumatic, normocephalic - Eye Eye exam: Present: PERRL, conjuntiva pink, sclera anicteric Pupils: Present: PERRL - Neck Neck exam general surgery: Present: supple, trachea midline. Absent: lymphadenopathy - Respiratory Respiratory exam: Present: CTAB. Absent: accessory muscle use, rales, rhonchi, wheezes - Cardiovascular Cardiovascular exam: Present: RRR, +S1, +S2. Absent: diastolic murmur, gallop, rubs, systolic murmur - GI/Abdominal GI/Abdominal exam: Present: normal bowel sounds, soft, no peritoneal signs. Absent: distended, tenderness - Extremities Exam Extremities exam: Present: warm, radial pulses palpable and symmetrical. Absent : calf tenderness, cyanotic, pedal edema Additional comments: Discoloration of his toes and toenails. Chronic changes secondary to vascular changes and neuropathy. - Neurological Exam Neurological exam: Present: alert, CN II-XII intact, oriented X3, no focal deficits. Absent: pronater drift, facial droop, speech deficit - Skin Skin exam: Present: dry, intact, normal color, warm Internal Medicine: Result - Labs CBC & Chem 7: 10/30/17 10:16 10/30/17 10:16 - ABG Interpretation ABG results: PT/INR, D-dimer PT 11.8 Seconds (9.4-12.1) 10/25/17 22:35 D-Dimer 1162 ng/mLFEU (0-500) H 10/22/17 15:53 Consult Discharge Plan - Plan Instructions: Pneumonia (DC) Additional Instructions: Follow-up appointments: If there is not an appointment listed below, please call your physician and schedule a follow-up appointment. If you have congestive heart failure and your symptoms return, make an appointment with your physician. Medication List: Carry an up to date list of medications you are taking at all time. We have given you an updated medication list including any new medications that you have been prescribed. Please provide that list to your primary provider Symptoms: If your condition changes or you experience any of the following symptoms, notify your physician immediately: Unusual or worsening pain, fever, persistent nausea and vomiting, bleeding, increase in swelling (especially in your legs), sudden weight gain, extreme dizziness, chest pain, increased drainage or redness from a wound or incision. Go to the emergency department if you experience a problem with breathing. Weights: If you have a history of swelling or shortness of breath, weigh yourself daily and notify your physician if you have a weight gain of two or more pounds in one day or 5 or more pounds in a week. If you experience any of the warning signs for stroke: Sudden numbness or weakness of the face, arm or leg; especially on one side of the body, sudden confusion, trouble speaking or understanding, sudden trouble seeing in one or both eyes, sudden trouble walking, dizziness, loss of balance or coordination, sudden sever headache with no cause; Call 911 or go to the emergency room. Stroke is a medical emergency. Some risk factors for stroke: Age, cigarette smoking, diabetes, excessive alcohol consumption, family history , high blood pressure, overweight, physical inactivity, prior stroke, heart attack, diagnosis of carotid artery stenosis or other artery disease. If you smoke, STOP: Smoking or tobacco use significantly increases your risk of heart and lung disease. Your chance of disease greatly increases if you continue to smoke. For more information, call the [place] tobacco quit line for smoking cessation QUIT-NOW ( ) Referrals: Toney Santos Jr, MD [Primary Care Provider] - Prescriptions: Gabapentin [Neurontin] 300 mg PO TID 7 Days #21 capsule Oxycodone HCl/Acetaminophen [Endocet 5-325 Tablet] 1 tab PO Q6H PRN 5 Days #20 tablet PRN Reason: Pain
[2017-11-04 15:28] VITALS: BP 107/53
== END 2017-11-04 18:02 | DRG 871 ==
LOC: 3BNU 10:14 → EMEROO 10:14 → SUATTDRO 12:37 → OBSVTOIN 12:37 → 3BNU 13:08
PROVIDERS: ADMIT Internal Medicine; ATTEND Nurse Practitioner Family

== ENCOUNTER 2017-11-09 01:50 | Observation (INO) ==
--- NOTE | 2017-11-09 01:56 | Emergency Department Note ---
Disposition Clinical Impression: Agitation Altered mental status Qualifiers: Altered mental status type: delirium Qualified Code(s): R41.0 - Disorientation , unspecified Disposition: Admitted As Inpatient Condition: Good Time of Disposition: 06:08 General Adult HPI - General Chief complaint: ED Altered Mental Status Stated complaint: AMS Time Seen by Provider: 11/09/17 01:56 Source: patient, family, EMS Mode of arrival: EMS Limitations: no limitations Nursing Notes Reviewed: Yes Vital Signs Reviewed: Yes - History of Present Illness HPI Narrative: Patient is an 82-year-old male with past medical history of recent frontal lobe stroke. He presented today via EMS from residential due to concern for agitation and altered mental status. Family is present at bedside and states that the patient has been somewhat altered since his frontal lobe stroke that abruptly worsened over the past 24 hours. She was agitated at the residential saying that he not receive his pain medication. Family states that they were present at the time and confirmed that he did in fact receive his pain medication. They state that he is not acting like himself. The patient himself is refusing to go back to his residential and family at bedside agrees that he will likely not be able to be convinced to go back to his residential. They were concerned for possible new stroke. The patient himself denies any new numbness, tingling, weakness from his baseline after recent stroke. Denies any chest pain, shortness of breath, nausea, vomiting, fevers, diarrhea, abdominal pain. - Related Data Home Medications Medication Instructions Recorded Confirmed Albuterol Sulfate [Ventolin Hfa] 2 puff IH Q4H PRN 09/28/16 10/22/17 Aspirin [Lo-Dose Aspirin EC] 81 mg PO DAILY 09/28/16 10/22/17 Ipratropium/Albuterol Neb [Duoneb] 3 ml IH Q6HR 09/28/16 10/22/17 Insulin DETEMIR [Levemir Flextouch] 15 - 20 unit SQ HS PRN 06/27/17 10/22/17 Insulin LISPRO [Humalog Kwikpen 0 unit SQ TID PRN 06/27/17 10/22/17 U-100] Levalbuterol Neb [Xopenex Neb] 0.63 mg IH Q4H PRN 06/27/17 10/22/17 Lisinopril [Zestril] 10 mg PO BID 06/27/17 10/22/17 Previous Rx's Medication Instructions Recorded Acetaminophen [Tylenol] 650 mg PO Q6HR PRN tablet 11/03/17 Amitriptyline [Elavil] 50 mg PO HS tablet 11/03/17 Atorvastatin [Lipitor] 80 mg PO HS tablet 11/03/17 Carvedilol [Coreg] 6.25 mg PO BIDWM tablet 11/03/17 Divalproex Sodium [Depakote 125 mg PO TID cap.sprink 11/03/17 Sprinkle] Furosemide [Lasix] 20 mg PO DAILY tablet 11/03/17 Gabapentin [Neurontin] 300 mg PO TID 7 Days #21 capsule 11/03/17 Nitroglycerin 0.4 mg SL Q5MIN PRN tab.subl 11/03/17 Omeprazole [PriLOSEC] 20 mg PO 0630 capsule. 11/03/17 Oxycodone HCl/Acetaminophen 1 tab PO Q6H PRN 5 Days #20 tablet 11/03/17 [Endocet 5-325 Tablet] Quetiapine Fumarate [Seroquel] 25 mg PO BID tablet 11/03/17 Allergies Allergy/AdvReac Type Severity Reaction Status Date / Time Erythromycin Base Allergy Hives Verified 06/27/17 10:46 All systems ED: reviewed and negative except as stated. Constitutional: Denies: fever Cardiovascular: Denies: chest pain, palpitations Respiratory: Denies: cough, dyspnea Gastrointestinal: Denies: abdominal pain, nausea, vomiting Genitourinary: Denies: urgency, dysuria Musculoskeletal: Denies: back pain, neck pain Neurological: Reports: confusion. Denies: headache, weakness, numbness, paresthesias Past Medical History - Past Medical History Attestation: Yes The following information was validated with the patient. Source: patient Medical history: Reports: arthritis, COPD, diabetes, GERD, seizures, TIA Surgical history: Reports: orthopedic, other, other Psychiatric history: Reports: no psych history - Social History Smoking Status: Former smoker Smokeless Tobacco Status: No Alcohol use: Reports: none Drug use: Reports: none Physical Exam - General Limitations: other General appearance: alert, in no apparent distress - Head Head exam: atraumatic, normocephalic, normal inspection - Eye Eye exam: Present: normal appearance, PERRL, EOMI - ENT ENT exam: normal exam, normal oropharynx, mucous membranes moist - Neck Neck exam: Present: normal inspection, full ROM, trachea midline - Chest Chest inspection: Present: normal inspection, symmetric chest wall rise - Respiratory Respiratory exam: Present: normal lung sounds bilaterally - Cardiovascular Cardiovascular exam: Present: regular rate, normal rhythm, normal heart sounds - Abdominal Exam Abdominal exam: Present: soft, Non-Tender. Absent: tenderness, distention, guarding, rebound, rigidity - Extremities Exam Extremities exam: Present: normal inspection, full ROM. Absent: tenderness, pedal edema - Neurological Exam Neurological exam: Present: alert, CN II-XII intact, other (oriented to person and place; bilateral LE weakness but no other focal neuro deficits) - Psychiatric Psychiatric exam: Present: normal affect, normal mood - Skin Skin exam: Present: warm, dry, intact, normal color Course Course Narrative: Patient mildly hypertensive on presentation. The rest of the vitals were within normal limits. Patient was agitated when he first came in, was cursing, did not want to talk to anyone. However, after a short time, he calmed down. Patient had no focal neurologic deficits on exam, NIH 0 from baseline after recent stroke. Is able to answer most questions appropriately for me. The rest of the physical exam was benign, heart regular rate and rhythm, lungs clear to auscultation, abdomen soft and nontender. Altered mental status was performed due to patient family concern for about personality change in mental status change. No major abnormalities on lab workup including a negative UA. Chest x-ray was negative for any acute cardiopulmonary process. EKG showed no acute ST changes. Head CT was negative for any acute intracranial abnormality. Results were discussed with the family and they requested that she be admitted for further care due to acute changes. Discussed case with hospitalist, and he has been accepted for admission. Chest X-Ray 11/09/17 02:13 IMPRESSION: No acute disease. D/ / Finn Viera MD / Finn Viera MD Interpreting Provider: Finn Viera MD Head CT 11/09/17 02:23 IMPRESSION: No acute intracranial abnormality. D/ / Finn Viera MD / Finn Viera MD Interpreting Provider: Finn Viera MD Vital Signs Temperature 98.7 F 11/09/17 01:53 Pulse Rate 94 11/09/17 01:53 Respiratory Rate 21 11/09/17 01:53 Blood Pressure 162/99 11/09/17 01:53 O2 Sat by Pulse Oximetry 91 11/09/17 01:53 Temperature 98.7 F 11/09/17 01:53 Pulse Rate 100 11/09/17 05:36 Respiratory Rate 12 11/09/17 05:36 Blood Pressure 97/62 11/09/17 05:36 O2 Sat by Pulse Oximetry 94 11/09/17 05:36 Oxygen Delivery Oxygen Delivery Nasal Cannula Medical Decision Making - MDM Narrative Medical decision making narrative: Patient mildly hypertensive on presentation. The rest of the vitals were within normal limits. Patient was agitated when he first came in, was cursing, did not want to talk to anyone. However, after a short time, he calmed down. Patient had no focal neurologic deficits on exam, NIH 0 from baseline after recent stroke. Is able to answer most questions appropriately for me. The rest of the physical exam was benign, heart regular rate and rhythm, lungs clear to auscultation, abdomen soft and nontender. Altered mental status was performed due to patient family concern for about personality change in mental status change. No major abnormalities on lab workup including a negative UA. Chest x-ray was negative for any acute cardiopulmonary process. EKG showed no acute ST changes. Head CT was negative for any acute intracranial abnormality. Results were discussed with the family and they requested that she be admitted for further care due to acute changes. Discussed case with hospitalist, and he has been accepted for admission. - Medical Records Medical records reviewed: Yes I reviewed the patient's medical records. - Lab Data Lab results reviewed: Yes I reviewed the patient's lab results. Result diagrams: 11/09/17 02:30 11/09/17 02:30 Lab Results 11/09/17 11/09/17 11/09/17 Range/Units 01:55 02:30 02:30 WBC 7.7 (4.3-11.1) K/mcL RBC 3.38 L (4.19-5.50) M/mcL Hgb 9.3 L (12.9-16.9) g/dL Hct 28.6 L (37.5-50.1) % MCV 84.6 (83.0-100.0) fL MCH 27.5 L (28.0-33.3) pg MCHC 32.5 (31.6-35.5) g/dL RDW 12.5 (11.5-14.5) % Plt Count 196 (140-400) K/mcL MPV 9.5 (9.4-12.4) fL Immature Gran % 0.4 (0-4) % Seg Neutrophils % 65.4 % Lymphocytes % 21.2 % Monocytes % 8.6 % Eosinophils % 3.9 % Basophils % 0.5 % Neutrophils # 5.0 (1.6-8.9) K/mcL Lymphocytes # 1.6 (0.6-4.6) K/mcL Monocytes # 0.7 (0.0-1.3) K/mcL Eosinophils # 0.3 (0.0-0.6) K/mcL Basophils # 0.0 (0.0-0.2) K/mcL PT 11.7 (9.4-12.1) Seconds INR 1.1 APTT 30.8 (26.0-36.0) Seconds Sodium (136-145) mEq/L Potassium (3.5-5.1) mEq/L Chloride (98-107) mEq/L Carbon Dioxide (23-29) mEq/L BUN (8-23) mg/dL Creatinine (0.70-1.30) mg/dL Est GFR ( Amer) (> 60) Est GFR (Non-Af Amer) (> 60) BUN/Creatinine Ratio (6-26) Glucose (70-105) mg/dL POC Glucose 118 H (58-89) Calculated Osmolality (280-300) Lactic Acid (0.5-2.2) mmol/L Calcium (8.6-10.3) mg/dL Total Bilirubin (0.3-1.0) mg/dL Direct Bilirubin (0.0-0.2) mg/dL Indirect Bilirubin (0.0-1.2) mg/dL AST (13-39) Units/L ALT (7-52) Units/L Alkaline Phosphatase (34-104) Units/L Troponin I (< 0.04) ng/mL Serum Total Protein (6.4-8.9) g/dL Albumin (3.5-5.7) g/dL Globulin (2.4-3.5) g/dL Albumin/Globulin Ratio (1.1-2.2) Urine Color (Yellow) Urine Clarity (Clear) Urine pH (5.0-8.0) pH Units Ur Specific [place] (1.010-1.025) Urine Protein (Neg-Trace) mg/dL Urine Glucose (UA) (Normal) mg/dL Urine Ketones (Negative) mg/dL Urine Blood (Negative) Urine Nitrite (Negative) Urine Bilirubin (Negative) Urine Urobilinogen (Normal) mg/dL Ur Leukocyte Esterase (Negative) Ur Culture Indicated? (NO) 11/09/17 11/09/17 11/09/17 Range/Units 02:30 02:30 04:45 WBC (4.3-11.1) K/mcL RBC (4.19-5.50) M/mcL Hgb (12.9-16.9) g/dL Hct (37.5-50.1) % MCV (83.0-100.0) fL MCH (28.0-33.3) pg MCHC (31.6-35.5) g/dL RDW (11.5-14.5) % Plt Count (140-400) K/mcL MPV (9.4-12.4) fL Immature Gran % (0-4) % Seg Neutrophils % % Lymphocytes % % Monocytes % % Eosinophils % % Basophils % % Neutrophils # (1.6-8.9) K/mcL Lymphocytes # (0.6-4.6) K/mcL Monocytes # (0.0-1.3) K/mcL Eosinophils # (0.0-0.6) K/mcL Basophils # (0.0-0.2) K/mcL PT (9.4-12.1) Seconds INR APTT (26.0-36.0) Seconds Sodium 136 (136-145) mEq/L Potassium 4.6 (3.5-5.1) mEq/L Chloride 100 (98-107) mEq/L Carbon Dioxide 30 H (23-29) mEq/L BUN 25 H (8-23) mg/dL Creatinine 1.05 (0.70-1.30) mg/dL Est GFR ( Amer) > 60 (> 60) Est GFR (Non-Af Amer) > 60 (> 60) BUN/Creatinine Ratio 24 (6-26) Glucose 108 H (70-105) mg/dL POC Glucose (58-89) Calculated Osmolality 287 (280-300) Lactic Acid 1.3 (0.5-2.2) mmol/L Calcium 8.6 (8.6-10.3) mg/dL Total Bilirubin 0.3 (0.3-1.0) mg/dL Direct Bilirubin 0.1 (0.0-0.2) mg/dL Indirect Bilirubin 0.2 (0.0-1.2) mg/dL AST 15 (13-39) Units/L ALT 14 (7-52) Units/L Alkaline Phosphatase 50 (34-104) Units/L Troponin I 0.03 (< 0.04) ng/mL Serum Total Protein 6.2 L (6.4-8.9) g/dL Albumin 3.2 L (3.5-5.7) g/dL Globulin 3.0 (2.4-3.5) g/dL Albumin/Globulin Ratio 1.1 (1.1-2.2) Urine Color Yellow (Yellow) Urine Clarity Clear (Clear) Urine pH 7.0 (5.0-8.0) pH Units Ur Specific [place] 1.005 L (1.010-1.025) Urine Protein Negative (Neg-Trace) mg/dL Urine Glucose (UA) Normal (Normal) mg/dL Urine Ketones Negative (Negative) mg/dL Urine Blood Negative (Negative) Urine Nitrite Negative (Negative) Urine Bilirubin Negative (Negative) Urine Urobilinogen Normal (Normal) mg/dL Ur Leukocyte Esterase Negative (Negative) Ur Culture Indicated? NO (NO) - Radiology Data Radiology results reviewed: Yes I reviewed the patient's radiology results. Chest X-Ray 11/09/17 02:13 IMPRESSION: No acute disease. D/ / Finn Viera MD / Finn Viera MD Interpreting Provider: Finn Viera MD Head CT 11/09/17 02:23 IMPRESSION: No acute intracranial abnormality. D/ / Finn Viera MD / Finn Viera MD Interpreting Provider: Finn Viera MD - EKG Data EKG #1 EKG attestation: Yes I reviewed and interpreted this EKG. EKG results narrative: 11/09/2017 at 02:00. Normal sinus rhythm. Rate 93. AR 162. QRS 102. QTC 380. Normal axis. No acute ST elevation or depression. S.B.A.R. - S.B.A.R. Situation: Demographics, MOA Background: Presenting Complaint, Relevant PMH, Meds, & Allergies Assessment: Vital Signs, Course and respsone to treatment, Exam Concerns, Patient/Family Expectation, Pertinant Lab Results, Outstanding Labs Recommendation: Barrier(s) to disposition, Recommendation based on pending studies, treatments, or consults S.B.A.R. Report Given to: Dr. Blakely Attestation Statement - Attestation Attestation: I, Varinder Malik MD, personally evaluated this patient and discussed their management with the resident physician. I reviewed the resident's note and agree with the documented findings, medical decision making, and plan of care. 82-year-old male presents to the emergency department from a local residential for complaint of increased agitation and aggression and change in his behavior. Patient had a bilateral frontal stroke about 3 weeks ago and is now in a residential. Family reports that he has not been his normal self since the stroke but over the past few days has become much more agitated and uncooperative. Patient refusing to go back to the residential where he is presently living and family also does not want to go back there. On examination patient is a well-developed well-nourished elderly male in no acute distress. He is alert. There is no cyanosis or diaphoresis. Chest is nontender to palpation. Breath sounds are clear and equal bilaterally. Heart regular rate and rhythm. Labs reviewed. Chest x-ray negative. Head CT negative. The hospitalist, Dr. Blakely, was consulted and accepted admission of the patient.
[2017-11-09 02:38] LABS: Basophils % 0.5 %; Eosinophils # 0.3 K/mcL (0.0-0.6); Eosinophils % 3.9 %; Hematocrit 28.6 % (37.5-50.1); Hemoglobin 9.3 g/dL (12.9-16.9); Immature Granulocytes % 0.4 % (0-4); Lymphocytes # 1.6 K/mcL (0.6-4.6); Lymphocytes % 21.2 %; Mean Corpuscular HGB Conc 32.5 g/dL (31.6-35.5); Mean Corpuscular Hemoglobin 27.5 pg (28.0-33.3); Mean Corpuscular Volume 84.6 fL (83.0-100.0); Mean Platelet Volume 9.5 fL (9.4-12.4); Monocytes # 0.7 K/mcL (0.0-1.3); Monocytes % 8.6 %; Platelet Count 196 K/mcL (140-400); Red Blood Count 3.38 M/mcL (4.19-5.50); Red Cell Distribution Width 12.5 % (11.5-14.5); Segmented Neutrophils % 65.4 %
[2017-11-09 02:43] LABS: INR 1.1; Prothrombin Time 11.7 Seconds (9.4-12.1)
[2017-11-09 02:45] LABS: Activated Partial Thrombo Time 30.8 Seconds (26.0-36.0)
[2017-11-09 02:57] LABS: Alanine Aminotransferase 14 Units/L (7-52); Albumin 3.2 g/dL (3.5-5.7); Albumin/Globulin Ratio 1.1 (1.1-2.2); Alkaline Phosphatase 50 Units/L (34-104); Aspartate Amino Transferase 15 Units/L (13-39); BUN/Creatinine Ratio 24 (6-26); Bilirubin,Direct 0.1 mg/dL (0.0-0.2); Bilirubin,Indirect 0.2 mg/dL (0.0-1.2); Bilirubin,Total 0.3 mg/dL (0.3-1.0); Blood Urea Nitrogen 25 mg/dL (8-23); Calcium 8.6 mg/dL (8.6-10.3); Carbon Dioxide 30 mEq/L (23-29); Chloride 100 mEq/L (98-107); Glucose 108 mg/dL (70-105); Osmolality,Calculated 287 (280-300); Potassium 4.6 mEq/L (3.5-5.1); Sodium 136 mEq/L (136-145); Total Protein 6.2 g/dL (6.4-8.9); eGFR For African Americans > 60 (> 60); eGFR For Non-African Americans > 60 (> 60)
[2017-11-09 02:58] LABS: Troponin I 0.03 ng/mL (< 0.04)
[2017-11-09] MEDS ORDERED: *HR* OxyCODONE/APAP 5/325 TABLET PO ONE (04:41)
[2017-11-09 05:01] LABS: Bilirubin,Urine Negative (Negative); Blood,Urine Negative (Negative); Clarity,Urine Clear (Clear); Color,Urine Yellow (Yellow); Glucose,Urine (UA) Normal (Normal); Ketones,Urine Negative (Negative); Leukocyte Esterase,Urine Negative (Negative); Nitrite,Urine Negative (Negative); Protein,Urine Negative (Neg-Trace); Specific Gravity,Urine 1.005 (1.010-1.025); Urobilinogen,Urine Normal (Normal)
--- NOTE | 2017-11-09 06:25 | Internal Med History&Physical ---
Date of Encounter: 11/09/17 Time of Encounter: 06:19 Assessment and Plan (1) Altered mental status Current visit: Yes Status: Acute , possible acute metabolic encephalopathy agitation, behavioral change, in setting of to dementia and stroke, will do MRI to rule out recurrent stroke. And infection workup was negative so far, pending abdominal CT Qualifiers: Altered mental status type: delirium Qualified Code(s): R41.0 - Disorientation, unspecified (2) Alzheimer's dementia Current visit: Yes Status: Chronic Qualifiers: Alzheimer's disease onset: late-onset Dementia behavioral disturbance: with behavioral disturbance Qualified Code(s): G30.1 - Alzheimer's disease with late onset; F02.81 - Dementia in other diseases classified elsewhere with behavioral disturbance; F02.81 - Dementia in other diseases classified elsewhere with behavioral disturbance; F02.81 - Dementia in other diseases classified elsewhere with behavioral disturbance (3) COPD (chronic obstructive pulmonary disease) Current visit: No Status: Chronic Stable no wheezing Qualifiers: COPD type: emphysema Emphysema type: unspecified Qualified Code(s): J43.9 - Emphysema, unspecified (4) Diabetes mellitus Current visit: No Status: Chronic Qualifiers: Diabetes mellitus type: type 2 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: without 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 use Diabetes mellitus complication status: with neurologic complications Diabetes mellitus complication detail: with unspecified neuropathy Qualified Code(s): E11.40 - Type 2 diabetes mellitus with diabetic neuropathy, unspecified (5) GERD (gastroesophageal reflux disease) Current visit: Yes Status: Chronic Qualifiers: Esophagitis presence: esophagitis presence not specified Qualified Code(s) : K21.9 - Gastro-esophageal reflux disease without esophagitis (6) HTN (hypertension) Current visit: Yes Status: Chronic Qualifiers: Hypertension type: essential hypertension Qualified Code(s): I10 - Essential (primary) hypertension (7) CVA (cerebral vascular accident) Current visit: Yes Status: Chronic Qualifiers: CVA mechanism: embolism Precerebral and cerebral artery: unspecified cerebral artery Qualified Code(s): 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 Quinn is a 82 year old male has history of dementia, diabetes CHF with EF 20%, hypertension, recent CVA, COPD present to emergency room for altered mental status. Patient was recently discharged to [facility] on 11/03, after sepsis and CHF exacerbation and acute stroke. Patient has history of dementia oriented 2, he has no residuals after stroke, he was able to walk in SNF. Patient has becoming more aggressive behavior, cursing and yelling at people which is unusual for him for 1 week. He also has sundowning over last week. His family also noted that he has on and off slurry speech. They are concerned about a stroke, when I saw the patient he is alert oriented 2. He complains of abdominal pain with severe tenderness. Pain is sharp, located to the left low contrary.. In the emergency room workup chest x-ray had a CT head, lab was unremarkable. We will admit for stroke workup and the chest the CT to rule out acute abdominal process. Past Med Surg Social Fam HX - Past Medical History Medical history: arthritis, COPD, diabetes, GERD, seizures, TIA Psychiatric history: no psych history - Past Surgical History Surgical History: orthopedic, other, other - Social History Smoking Status: Former smoker Smokeless Tobacco Status: No Alcohol use: none Drug use: none - Family History Father Adopted: No Family Member Ethnicity: Non- Living Status: Hx Family Cardiac Disorders: No Hx Family Respiratory Disorders: No Hx Family Cancer: Yes (Leukemia, Prostate) Hx Family GI Disorders: No Hx Family Endocrine Disorder: No Hx Family Neuromuscular Disorders: No Hx Family Neurologic Disorders: No Hx Family HEENT Disorders: No Hx Family Autoimmune Disorders: No Mother Adopted: No Family Member Ethnicity: Non- Living Status: Hx Family Cardiac Disorders: No Hx Family Respiratory Disorders: No Hx Family Cancer: No Hx Family GI Disorders: No Hx Family Endocrine Disorder: No Hx Family Neuromuscular Disorders: No Hx Family Neurologic Disorders: No Hx Family HEENT Disorders: No Hx Family Autoimmune Disorders: No Brother Family Member Ethnicity: Non- Living Status: Hx Family Cardiac Disorders: No Hx Family Respiratory Disorders: No Hx Family Cancer: Yes (Esophageal) Hx Family GI Disorders: No Hx Family Endocrine Disorder: No Hx Family Neuromuscular Disorders: No Hx Family Neurologic Disorders: No Hx Family HEENT Disorders: No Hx Family Autoimmune Disorders: No Sister Family Member Ethnicity: Non- Living Status: Hx Family Cardiac Disorders: No Hx Family Cancer: Yes (Kidney) Hx Family GI Disorders: No Hx Family Endocrine Disorder: Yes (Type 2 diabetes) Hx Family Neuromuscular Disorders: No Hx Family Neurologic Disorders: No Hx Family HEENT Disorders: No Hx Family Autoimmune Disorders: No Internal Medicine - H&P: Meds Albuterol Sulfate [Ventolin Hfa] 2 puff IH Q4H PRN 09/28/16 [History] Aspirin [Lo-Dose Aspirin EC] 81 mg PO DAILY 09/28/16 [History] Ipratropium/Albuterol Neb [Duoneb] 3 ml IH Q6HR 09/28/16 [History] Insulin DETEMIR [Levemir Flextouch] 15 - 20 unit SQ HS PRN 06/27/17 [History] Insulin LISPRO [Humalog Kwikpen U-100] 0 unit SQ TID PRN 06/27/17 [History] Levalbuterol Neb [Xopenex Neb] 0.63 mg IH Q4H PRN 06/27/17 [History] Lisinopril [Zestril] 10 mg PO BID 06/27/17 [History] Acetaminophen [Tylenol] 650 mg PO Q6HR PRN tablet 11/03/17 [Rx] Amitriptyline [Elavil] 50 mg PO HS tablet 11/03/17 [Rx] Atorvastatin [Lipitor] 80 mg PO HS tablet 11/03/17 [Rx] Carvedilol [Coreg] 6.25 mg PO BIDWM tablet 11/03/17 [Rx] Divalproex Sodium [Depakote Sprinkle] 125 mg PO TID cap.sprink 11/03/17 [Rx] Furosemide [Lasix] 20 mg PO DAILY tablet 11/03/17 [Rx] Gabapentin [Neurontin] 300 mg PO TID 7 Days #21 capsule 11/03/17 [Rx] Nitroglycerin 0.4 mg SL Q5MIN PRN tab.subl 11/03/17 [Rx] Omeprazole [PriLOSEC] 20 mg PO 0630 capsule. 11/03/17 [Rx] Oxycodone HCl/Acetaminophen [Endocet 5-325 Tablet] 1 tab PO Q6H PRN 5 Days #20 tablet 11/03/17 [Rx] Quetiapine Fumarate [Seroquel] 25 mg PO BID tablet 11/03/17 [Rx] 3 Allergy/AdvReac Type Severity Reaction Status Date / Time Erythromycin Base Allergy Hives Verified 06/27/17 10:46 ROS unobtainable: due to mental status All Systems PM: A 10-system review of systems was performed and is negative for pertinent findings except as documented above in the HPI. - Constitutional Vitals: Temp Pulse Resp BP Pulse Ox 98.7 F 100 12 97/62 94 11/09/17 01:53 11/09/17 05:36 11/09/17 05:36 11/09/17 05:36 11/09/17 05:36 General appearance: Present: A&O X 2, mild distress Exam: CONSTITUTIONAL: Patient appears as an age appropriate male well developed, in no acute distress. EYES Clear sclerae, bilateral pupils are equal, reactive to light and accommodation. Extraocular movements are intact RESPIRATORY: No accessory muscle use, bilateral clear to auscultation, no wheezing, no crackles/rales. CARDIOVASCULAR: Regular heart rate, normal S1 and S2, no murmurs GASTROINTESTINAL: bowel sounds present, soft, no tenderness. No hepatosplenomegaly. No bilateral CVA tenderness MUSCULOSKELETAL: Joints in normal range of motion, no clubbing, no edema, no cyanosis. Bilateral peripheral pulses 2+ LYMPHATIC no lymphadenopathy in neck, groin and axilla bilaterally, no thyromegaly. NEUROLOGIC: CN II to XII are grossly intact, no focal neurological deficit. Deep tendon reflexes 2+ bilaterally. Normal light touch sensation to upper and lower extremity PSYCHIATRIC: Oriented x2, with good insight, mood is euthymic. No hallucinations or delusions. SKIN: Skin warm and dry, no rashes, no open wound. Internal Med - H&P Results - Labs CBC & Chem 7: 11/09/17 02:30 11/09/17 02:30 Labs: Short CBC 11/09/17 Range/Units 02:30 WBC 7.7 (4.3-11.1) K/mcL Hgb 9.3 L (12.9-16.9) g/dL Hct 28.6 L (37.5-50.1) % Plt Count 196 (140-400) K/mcL Neutrophils # 5.0 (1.6-8.9) K/mcL BMP 11/09/17 02:30 Sodium 136 Potassium 4.6 Chloride 100 Carbon Dioxide 30 H BUN 25 H Creatinine 1.05 Glucose 108 H Calcium 8.6 Cardiac Enzymes 11/09/17 Range/Units 02:30 Troponin I 0.03 (< 0.04) ng/mL Liver Function 11/09/17 Range/Units 02:30 Total Bilirubin 0.3 (0.3-1.0) mg/dL Direct Bilirubin 0.1 (0.0-0.2) mg/dL AST 15 (13-39) Units/L ALT 14 (7-52) Units/L Alkaline Phosphatase 50 (34-104) Units/L Albumin 3.2 L (3.5-5.7) g/dL Urine 11/09/17 Range/Units 04:45 Urine Color Yellow (Yellow) Urine Clarity Clear (Clear) Urine pH 7.0 (5.0-8.0) pH Units Ur Specific [place] 1.005 L (1.010-1.025) Urine Protein Negative (Neg-Trace) mg/dL Urine Glucose (UA) Normal (Normal) mg/dL - Impressions ITS Impressions Chest X-Ray 11/09/17 02:13 IMPRESSION: No acute disease. D/ / Finn Viera MD / Finn Viera MD Interpreting Provider: Finn Viera MD Head CT 11/09/17 02:23 IMPRESSION: No acute intracranial abnormality. D/ / Finn Viera MD / Finn Viera MD Interpreting Provider: Finn Viera MD
[2017-11-09] MEDS ORDERED: Levalbuterol Neb 0.63 MG/3 ML IH PRN (06:31)
[2017-11-09] MEDS ORDERED: Naloxone 0.4 MG/ML INJ IVP PRN (06:36)
[2017-11-09] MEDS: Insulin LISPRO 300 UNITS/3 ML VIAL SQ SCH ×4 (08:30→20:55)
[2017-11-09] MEDS: *HR* Heparin 5,000 UNIT/ML VIAL SQ SCH ×3 (11:30→20:53)
[2017-11-09] MEDS: Divalproex Sodium 125 MG CAPSULE PO SCH ×3 (11:31→20:44)
[2017-11-09] MEDS: Furosemide 20 MG TABLET PO SCH (11:31)
[2017-11-09] MEDS: Gabapentin 300 MG CAPSULE PO SCH ×3 (11:31→20:44)
[2017-11-09] MEDS: Aspirin Enteric Coated 81 MG Tablet PO SCH (11:31)
[2017-11-09] MEDS ORDERED: Ipratropium/Albuterol Neb 3 ML IH SCH (12:00)
[2017-11-09] MEDS: *HR* OxyCODONE/APAP 5/325 TABLET PO PRN ×2 (13:32→19:36)
[2017-11-09] MEDS: Ipratropium/Albuterol Neb 3 ML IH SCH ×2 (15:20→22:18)
[2017-11-09] MEDS ORDERED: Ampicillin/Sulbactam 3,000 MG in 0.9 % Sodium Chloride Mini Bag 100 ML IVPB STA (18:16)
[2017-11-09] MEDS: 0.9 % Sodium Chloride 1,000 ML IVC SCH (20:44)
[2017-11-10] MEDS: Ampicillin/Sulbactam 3,000 MG in 0.9 % Sodium Chloride Mini Bag 100 ML IVPB SCH ×5 (00:08→23:45)
--- NOTE | 2017-11-10 00:46 | Event Note ---
Date of Encounter: 11/09/17 Time of Encounter: 12:07 S: Patient had no acute events overnight. He is initially angered by my interviewing, but slowly cools down and opens up. He is in good spirits by the time I leave. I can see why some staff have been having difficulty with his threatening and aggressive behavior. He states that his daughter will be in to talk with me. He is alert and oriented, but seems to lie about things intermittent; I don't know if this is to intentionally deceive me, or if this is just his dementia. He states that his breathing is normal and wants to go home. He has no new complaints. O: Vitals - Temp 98.5 degrees F., HR 98, RR 15, BP 123/91, O2 sat 91 % on 2.5L by NC HEENT - NCAT, PERRLA, EOMI, hearing grossly intact, oropharynx benign Resp - CTAB, no W/R/R, normal WOB CV - RRR, normal S1 and S2, no M/R/G, no BLE edema GI - Soft, NT/ND, no masses, normal BS, no HSP Skin - Warm, dry, no rashes/lesions/ulcers Psych - Agitated at times with angry affect, no depression A/P: 1) AMS/Alzheimer's Disease - Looks to be improved. Has baseline dementia, which is what I think he is exhibiting now. MRI showed no acute stroke. Fall precautions. PT/OT consulted. 2) Abdominal Pain - CT abdomen unremarkable except for bibasilar airspace opacities compatible with bronchitis and possible aspiration. Continue supportive measures. Use PPI and antiemetics. Will cover for aspiration pneumonia with unasyn. Continue pain control with Tylenol and Percocet PRN.
[2017-11-10] MEDS: Ipratropium/Albuterol Neb 3 ML IH SCH ×4 (03:52→21:54)
[2017-11-10] MEDS: *HR* Heparin 5,000 UNIT/ML VIAL SQ SCH ×3 (05:19→23:30)
[2017-11-10] MEDS: *HR* OxyCODONE/APAP 5/325 TABLET PO PRN ×4 (05:28→23:30)
[2017-11-10 06:38] LABS: Basophils % 0.2 %; Eosinophils # 0.3 K/mcL (0.0-0.6); Hematocrit 30.7 % (37.5-50.1); Hemoglobin 9.8 g/dL (12.9-16.9); Immature Granulocytes % 0.3 % (0-4); Lymphocytes # 1.2 K/mcL (0.6-4.6); Lymphocytes % 13.7 %; Mean Corpuscular HGB Conc 31.9 g/dL (31.6-35.5); Mean Corpuscular Hemoglobin 27.4 pg (28.0-33.3); Mean Corpuscular Volume 85.8 fL (83.0-100.0); Mean Platelet Volume 9.1 fL (9.4-12.4); Monocytes # 0.6 K/mcL (0.0-1.3); Monocytes % 6.6 %; Neutrophils # 6.7 K/mcL (1.6-8.9); Platelet Count 182 K/mcL (140-400); Red Blood Count 3.58 M/mcL (4.19-5.50); Red Cell Distribution Width 12.5 % (11.5-14.5); Segmented Neutrophils % 76.2 %
[2017-11-10 06:42] LABS: INR 1.1; Prothrombin Time 12.2 Seconds (9.4-12.1)
[2017-11-10 06:58] LABS: BUN/Creatinine Ratio 19 (6-26); Blood Urea Nitrogen 17 mg/dL (8-23); Calcium 8.9 mg/dL (8.6-10.3); Carbon Dioxide 29 mEq/L (23-29); Chloride 100 mEq/L (98-107); Chol/HDL Ratio 2.7 (0-4.9); Cholesterol 102 mg/dL (< 200); Glucose 125 mg/dL (70-105); HDL Cholesterol 38 mg/dL (40-59); LDL Cholesterol,Calculated 44 mg/dL (0-99); Magnesium 1.5 mg/dL (1.6-2.6); Osmolality,Calculated 285 (280-300); Potassium 4.4 mEq/L (3.5-5.1); Sodium 136 mEq/L (136-145); Triglycerides 100 mg/dL (< 150); eGFR For African Americans > 60 (> 60); eGFR For Non-African Americans > 60 (> 60)
[2017-11-10] MEDS: Insulin LISPRO 300 UNITS/3 ML VIAL SQ SCH ×4 (08:21→23:10)
[2017-11-10] MEDS: Divalproex Sodium 125 MG CAPSULE PO SCH ×3 (08:23→20:05)
[2017-11-10] MEDS: Gabapentin 300 MG CAPSULE PO SCH ×3 (08:23→20:05)
[2017-11-10] MEDS: Aspirin Enteric Coated 81 MG Tablet PO SCH (08:23)
[2017-11-10] MEDS: Furosemide 20 MG TABLET PO SCH (08:23)
[2017-11-10] MEDS: 0.9 % Sodium Chloride 1,000 ML IVC SCH (14:38)
[2017-11-10] MEDS ORDERED: *HR* Metoprolol 5 MG/5 ML VIAL IVP ONE (16:30)
--- NOTE | 2017-11-10 21:11 | Internal Med Progress Note ---
Date of Encounter: 11/10/17 Time of Encounter: 21:09 - Assessment and plan (1) Aspiration pneumonia Current Visit: Yes Status: Acute Assessment and plan: Continue unasyn. Repsiratory status at baseline. Qualifiers: Aspiration pneumonia type: unspecified Laterality: bilateral Lung location: lower lobe of lung Qualified Code(s): J69.0 - Pneumonitis due to inhalation of food and vomit (2) Abdominal pain Current Visit: Yes Status: Acute Assessment and plan: Better. Eating iced coffee form [employer] comfortable in room. Continue Tylenol and percocet PRN. Qualifiers: Abdominal location: right lower quadrant Qualified Code(s): R10.31 - Right lower quadrant pain (3) Altered mental status Current Visit: Yes Status: Resolved Assessment and plan: Resolved. He is now what is likely to be his demented baseline. Qualifiers: Altered mental status type: delirium Qualified Code(s): R41.0 - Disorientation, unspecified (4) Alzheimer's dementia Current Visit: Yes Status: Chronic Assessment and plan: Continue current medications. Family interested in placement at a detention with an Alzheimer's unit. Qualifiers: Alzheimer's disease onset: late-onset Dementia behavioral disturbance: with behavioral disturbance Qualified Code(s): G30.1 - Alzheimer's disease with late onset; F02.81 - Dementia in other diseases classified elsewhere with behavioral disturbance; F02.81 - Dementia in other diseases classified elsewhere with behavioral disturbance; F02.81 - Dementia in other diseases classified elsewhere with behavioral disturbance (5) CVA (cerebral vascular accident) Current Visit: Yes Status: Chronic Assessment and plan: Mood changes since last stroke. PT/OT/ST consulted. Treating aspiration pneumonia as per above. Perform speech evaluation. SW consult and placement as per above. 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 Added PPI due to abdominal pain. Qualifiers: Esophagitis presence: esophagitis presence not specified Qualified Code(s) : K21.9 - Gastro-esophageal reflux disease without esophagitis (7) HTN (hypertension) Current Visit: Yes Status: Chronic Assessment and plan: Continue home medications. Qualifiers: Hypertension type: essential hypertension Qualified Code(s): I10 - Essential (primary) hypertension (8) COPD (chronic obstructive pulmonary disease) Current Visit: No Status: Chronic Assessment and plan: Stable. Continue home medications. Qualifiers: COPD type: emphysema Emphysema type: unspecified Qualified Code(s): J43.9 - Emphysema, unspecified (9) DVT prophylaxis Current Visit: No Status: Acute Assessment and plan: Continue SC heparin. - Time Spent With Patient 25 - 35 minutes - Subjective Interval history: Patient had no acute events overnight. He has both daughters in room today. He is in better spirits. He states that he is doing great. He voices no concerns. I spoke with both daughters privately without patient today. He lives with one daughter. He had been at detention prior to admission. Daughters state that they cannot take care of him at home. They would be interested in placement at a facility with an Alzheimer's unit. SW consulted. - Constitutional Vitals: Temp Pulse Resp BP Pulse Ox 98.3 F 106 18 115/65 98 11/10/17 16:03 11/10/17 16:03 11/10/17 16:03 11/10/17 16:03 11/10/17 16:03 General appearance: Present: cooperative, A&O X 3, pleasant, no acute distress, answers questions appropriately - Respiratory Respiratory exam: Present: CTAB. Absent: accessory muscle use, rales, rhonchi, wheezes Additional comments: Normal WOB - Cardiovascular Cardiovascular exam: Present: RRR, +S1, +S2. Absent: diastolic murmur, gallop, rubs, systolic murmur Additional comments: No BLE edema - GI/Abdominal GI/Abdominal exam: Present: normal bowel sounds, soft. Absent: distended, hepatomegaly, mass, splenomegaly, tenderness - Psychiatric Psychiatric exam: Present: normal affect, normal mood. Absent: agitated, anxious, depressed - Skin Skin exam: Present: dry, intact, warm. Absent: cyanosis, rash Internal Medicine: Result - Labs CBC & Chem 7: 11/10/17 06:22 11/10/17 06:22 Labs: Short CBC 11/10/17 Range/Units 06:22 WBC 8.8 (4.3-11.1) K/mcL Hgb 9.8 L (12.9-16.9) g/dL Hct 30.7 L (37.5-50.1) % Plt Count 182 (140-400) K/mcL Neutrophils # 6.7 (1.6-8.9) K/mcL BMP 11/10/17 06:22 Sodium 136 Potassium 4.4 Chloride 100 Carbon Dioxide 29 BUN 17 Creatinine 0.89 Glucose 125 H Calcium 8.9 - ABG Interpretation ABG results: PT/INR, D-dimer PT 12.2 Seconds (9.4-12.1) H 11/10/17 06:22 Consult Discharge Plan - Plan Referrals: Toney Santos Jr, MD [Primary Care Provider] -
[2017-11-11] MEDS: Ipratropium/Albuterol Neb 3 ML IH SCH ×4 (03:15→22:33)
[2017-11-11 04:20] LABS: Basophils % 0.3 %; Eosinophils # 0.2 K/mcL (0.0-0.6); Eosinophils % 2.8 %; Hematocrit 26.6 % (37.5-50.1); Hemoglobin 8.5 g/dL (12.9-16.9); Immature Granulocytes % 0.3 % (0-4); Lymphocytes # 1.9 K/mcL (0.6-4.6); Lymphocytes % 21.6 %; Mean Corpuscular Hemoglobin 27.7 pg (28.0-33.3); Mean Corpuscular Volume 86.6 fL (83.0-100.0); Mean Platelet Volume 9.7 fL (9.4-12.4); Monocytes # 0.9 K/mcL (0.0-1.3); Monocytes % 10.9 %; Neutrophils # 5.5 K/mcL (1.6-8.9); Platelet Count 140 K/mcL (140-400); Red Blood Count 3.07 M/mcL (4.19-5.50); Red Cell Distribution Width 12.7 % (11.5-14.5); Segmented Neutrophils % 64.1 %
[2017-11-11] MEDS: *HR* Heparin 5,000 UNIT/ML VIAL SQ SCH ×3 (05:42→23:19)
[2017-11-11] MEDS: *HR* OxyCODONE/APAP 5/325 TABLET PO PRN ×3 (05:42→18:27)
[2017-11-11] MEDS: Ampicillin/Sulbactam 3,000 MG in 0.9 % Sodium Chloride Mini Bag 100 ML IVPB SCH ×2 (05:43→12:02)
[2017-11-11] MEDS: Furosemide 20 MG TABLET PO SCH (09:01)
[2017-11-11] MEDS: Aspirin Enteric Coated 81 MG Tablet PO SCH (09:01)
[2017-11-11] MEDS: Divalproex Sodium 125 MG CAPSULE PO SCH ×3 (09:01→20:12)
[2017-11-11] MEDS: Gabapentin 300 MG CAPSULE PO SCH ×3 (09:01→20:12)
[2017-11-11] MEDS: Insulin LISPRO 300 UNITS/3 ML VIAL SQ SCH ×4 (09:02→20:08)
[2017-11-11] MEDS ORDERED: *HR* Dextrose 50 % in Water (Syg) 50 ML SYRINGE IVP PRN (13:04)
[2017-11-11] MEDS ORDERED: Dextrose Gel 15 GM/37.5 ML TUBE PO PRN ×2 (13:04)
[2017-11-11] MEDS ORDERED: D5% in Water 1,000 ML IVC PRN (13:04)
--- NOTE | 2017-11-11 20:18 | Internal Med Progress Note ---
Date of Encounter: 11/11/17 Time of Encounter: 20:16 - Assessment and plan (1) Aspiration pneumonia Current Visit: Yes Status: Acute Assessment and plan: Switch unasyn to PO augmentin. Respiratory status at baseline. Qualifiers: Aspiration pneumonia type: unspecified Laterality: bilateral Lung location: lower lobe of lung Qualified Code(s): J69.0 - Pneumonitis due to inhalation of food and vomit (2) Abdominal pain Current Visit: Yes Status: Resolved Assessment and plan: Resolved. Continue Tylenol and percocet PRN. Qualifiers: Abdominal location: right lower quadrant Qualified Code(s): R10.31 - Right lower quadrant pain (3) Altered mental status Current Visit: Yes Status: Resolved Assessment and plan: Resolved. He is now what is likely to be his demented baseline. Mood issues secondary to prior CVA. SW working on placement to new fdc, possibly with Alzheimer's unit. Qualifiers: Altered mental status type: delirium Qualified Code(s): R41.0 - Disorientation, unspecified (4) Alzheimer's dementia Current Visit: Yes Status: Chronic Assessment and plan: Continue current medications. SW working on placement to new fdc, possibly with Alzheimer's unit. Qualifiers: Alzheimer's disease onset: late-onset Dementia behavioral disturbance: with behavioral disturbance Qualified Code(s): G30.1 - Alzheimer's disease with late onset; F02.81 - Dementia in other diseases classified elsewhere with behavioral disturbance; F02.81 - Dementia in other diseases classified elsewhere with behavioral disturbance; F02.81 - Dementia in other diseases classified elsewhere with behavioral disturbance (5) CVA (cerebral vascular accident) Current Visit: Yes Status: Chronic Assessment and plan: Mood changes since last stroke. PT/OT/ST consulted. Treating aspiration pneumonia as per above. Perform speech evaluation. SW consult and placement as per above. 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 Added PPI due to abdominal pain. Qualifiers: Esophagitis presence: esophagitis presence not specified Qualified Code(s) : K21.9 - Gastro-esophageal reflux disease without esophagitis (7) HTN (hypertension) Current Visit: Yes Status: Chronic Assessment and plan: Continue home medications. Qualifiers: Hypertension type: essential hypertension Qualified Code(s): I10 - Essential (primary) hypertension (8) COPD (chronic obstructive pulmonary disease) Current Visit: No Status: Chronic Assessment and plan: Stable. Continue home medications. Qualifiers: COPD type: emphysema Emphysema type: unspecified Qualified Code(s): J43.9 - Emphysema, unspecified (9) DVT prophylaxis Current Visit: No Status: Acute Assessment and plan: Continue SC heparin. - Time Spent With Patient less than 15 minutes - Subjective Interval history: Patient had no acute events overnight. Daughter is in room again today. He remains in good spirits. He voices no concerns. Daughter met with social work manager. They are working on placement to new fdc, possibly with an Alzheimer's unit. She denies chest pain, SOB, fever, or chills. He has no new complaints. He is eating lunch without any issues. - Constitutional Vitals: Temp Pulse Resp BP Pulse Ox 98.1 F 98 16 159/82 100 11/11/17 15:42 11/11/17 15:42 11/11/17 16:12 11/11/17 15:42 11/11/17 16:12 General appearance: Present: cooperative, A&O X 3, pleasant, no acute distress, answers questions appropriately - Respiratory Respiratory exam: Present: CTAB. Absent: accessory muscle use, rales, rhonchi, wheezes Additional comments: Normal WOB - Cardiovascular Cardiovascular exam: Present: RRR, +S1, +S2. Absent: diastolic murmur, gallop, rubs, systolic murmur Additional comments: No BLE edema - GI/Abdominal GI/Abdominal exam: Present: normal bowel sounds, soft. Absent: distended, hepatomegaly, mass, splenomegaly, tenderness - Psychiatric Psychiatric exam: Present: normal affect, normal mood. Absent: agitated, anxious, depressed - Skin Skin exam: Present: dry, intact, warm. Absent: cyanosis, rash Internal Medicine: Result - Labs CBC & Chem 7: 11/11/17 03:04 11/10/17 06:22 Labs: Short CBC 11/11/17 Range/Units 03:04 WBC 8.6 (4.3-11.1) K/mcL Hgb 8.5 L (12.9-16.9) g/dL Hct 26.6 L (37.5-50.1) % Plt Count 140 (140-400) K/mcL Neutrophils # 5.5 (1.6-8.9) K/mcL - ABG Interpretation ABG results: PT/INR, D-dimer PT 12.2 Seconds (9.4-12.1) H 11/10/17 06:22 Consult Discharge Plan - Plan Referrals: Toney Santos Jr, MD [Primary Care Provider] -
[2017-11-12] MEDS: *HR* OxyCODONE/APAP 5/325 TABLET PO PRN ×4 (00:34→18:59)
[2017-11-12] MEDS: Ipratropium/Albuterol Neb 3 ML IH SCH ×4 (03:35→21:42)
[2017-11-12] MEDS: *HR* Heparin 5,000 UNIT/ML VIAL SQ SCH ×3 (05:39→21:58)
[2017-11-12 05:44] LABS: Basophils % 0.3 %; Eosinophils # 0.4 K/mcL (0.0-0.6); Hemoglobin 8.6 g/dL (12.9-16.9); Immature Granulocytes % 0.5 % (0-4); Lymphocytes # 1.3 K/mcL (0.6-4.6); Lymphocytes % 21.1 %; Mean Corpuscular HGB Conc 31.9 g/dL (31.6-35.5); Mean Corpuscular Hemoglobin 27.3 pg (28.0-33.3); Mean Corpuscular Volume 85.7 fL (83.0-100.0); Mean Platelet Volume 9.9 fL (9.4-12.4); Monocytes # 0.6 K/mcL (0.0-1.3); Monocytes % 9.4 %; Neutrophils # 3.8 K/mcL (1.6-8.9); Nucleated Red Blood Cells 0.8 /100 WBC (0); Platelet Count 150 K/mcL (140-400); Red Blood Count 3.15 M/mcL (4.19-5.50); Red Cell Distribution Width 12.6 % (11.5-14.5); Segmented Neutrophils % 62.7 %
[2017-11-12] MEDS: Insulin LISPRO 300 UNITS/3 ML VIAL SQ SCH ×4 (08:13→21:56)
[2017-11-12] MEDS: Gabapentin 300 MG CAPSULE PO SCH ×3 (09:05→21:55)
[2017-11-12] MEDS: Furosemide 20 MG TABLET PO SCH (09:06)
[2017-11-12] MEDS: Divalproex Sodium 125 MG CAPSULE PO SCH ×3 (09:07→21:55)
[2017-11-12] MEDS: Aspirin Enteric Coated 81 MG Tablet PO SCH (09:07)
--- NOTE | 2017-11-12 13:24 | Internal Med Progress Note ---
<Josh Roman - Last Filed: 11/12/17 13:49> Date of Encounter: 11/12/17 Time of Encounter: 08:25 - Assessment and plan (1) Aspiration pneumonia Current Visit: Yes Status: Acute Assessment and plan: Aspiration pna s/p CVA Patient appears clinically well. There is no fever, chills, sweats. WBC is down The patient recieved Unasyn for 3 days, total of 10 day course Transitioned to PO Augmentin Day 1 Will require 6 days of Augmentin Qualifiers: Aspiration pneumonia type: unspecified Laterality: bilateral Lung location: lower lobe of lung Qualified Code(s): J69.0 - Pneumonitis due to inhalation of food and vomit (2) Abdominal pain Current Visit: Yes Status: Resolved Assessment and plan: Abdominal pain with significant abdominal distension The patient had a Negative CT of the abdomen There is a significant stool burden in the colon, which could account for some pain Additionally, the patient has RUQ pain with spider angiomata on abdomen I will order a RUQ Ultrasound to assess liver We will give Magnesium citrate and Soap Suds enemas for constipation Qualifiers: Abdominal location: right lower quadrant Qualified Code(s): R10.31 - Right lower quadrant pain (3) Constipation Current Visit: Yes Status: Acute Assessment and plan: Likely partial source of abdominal pain Large stool burden demonstrated on Abdominal CT Patient states that he is unable to have a bowel movement We will give Magnesium citrate with soap suds enema Qualifiers: Constipation type: unspecified constipation type Qualified Code(s): K59.00 - Constipation, unspecified (4) Alzheimer's dementia Current Visit: Yes Status: Chronic Assessment and plan: Baseline dementia with sundowning, according to daughter who is in the room Mental status deteriorated secondary to Aspiration pneumonia, but has improved Qualifiers: Alzheimer's disease onset: late-onset Dementia behavioral disturbance: with behavioral disturbance Qualified Code(s): G30.1 - Alzheimer's disease with late onset; F02.81 - Dementia in other diseases classified elsewhere with behavioral disturbance; F02.81 - Dementia in other diseases classified elsewhere with behavioral disturbance; F02.81 - Dementia in other diseases classified elsewhere with behavioral disturbance (5) CVA (cerebral vascular accident) Current Visit: Yes Status: Chronic Assessment and plan: s/p CVA about 2 weeks ago without obvious deficits Repeat head CT and MRI demonstrate no new infarct We will continue with medications for CVA prevention Patient will be placed in ECF Qualifiers: CVA mechanism: embolism Precerebral and cerebral artery: unspecified cerebral artery Qualified Code(s): I63.40 - Cerebral infarction due to embolism of unspecified cerebral artery (6) Chronic congestive heart failure Current Visit: Yes Status: Acute Assessment and plan: Heart failure with reduced ejection fraction, no decompensation Patient did have elevated BNP on arrival however now appears euvolemic and without exacerbation Meds: Aspirin, Atorvastatin, Coreg. He takes Lisinopril at home, which will be continued at time of discharge CXR Shows emphysematous changes without pulmonary vascular congestion Qualifiers: Heart failure type: systolic Qualified Code(s): I50.22 - Chronic systolic ( congestive) heart failure (7) GERD (gastroesophageal reflux disease) Current Visit: Yes Status: Chronic Assessment and plan: Patient is on PPI Qualifiers: Esophagitis presence: esophagitis presence not specified Qualified Code(s) : K21.9 - Gastro-esophageal reflux disease without esophagitis (8) HTN (hypertension) Current Visit: Yes Status: Chronic Assessment and plan: Continue home meds Qualifiers: Hypertension type: essential hypertension Qualified Code(s): I10 - Essential (primary) hypertension (9) DVT prophylaxis Current Visit: Yes Status: Chronic Assessment and plan: SQ Heparin - Subjective Interval history: The patient is resting comfortably in bed at the time of examination. His daughter is at bedside. He says that he's feeling much better than he was, and that he is ready to leave. He mentions that he hates the previous ECF he went to , and that he will never go back there. He does say that he intends to try [place]. When asked about the abdominal pain I'd read about, he says that it wasn't that bad, and that he's been working out which is why his abdomen is hard. His daughter mentions that it seems to be getting increasingly more distended with more firmness. He has apparently not had nausea or vomiting. He does deny bowel movement. - Constitutional Vitals: Temp Pulse Resp BP Pulse Ox 97.7 F 99 18 114/96 88 11/12/17 11:13 11/12/17 11:13 11/12/17 11:13 11/12/17 11:13 11/12/17 11:13 General appearance: Present: cooperative, A&O X 3, pleasant, no acute distress, answers questions appropriately Exam: Gen: Vitals noted. No acute distress. AAOx3 but still appears pleasantly confused in regard to context HEENT: Normocephalic, atraumatic Neck: Supple. No adenopathy. Cardiac: RRR, no murmur, +S1/S2 Pulmonary: CTA bilaterally, no wheezes, rales or rhonchi, equal chest expansion Abdomen: Distended, taught/hard abdomen with tenderness to RUQ and RLQ palpation. There are spirder angiomas present on skin of RUQ. MSK: ROM intact, no joint swelling noted Extremities: no BLE edema, nontender calf, no cyanosis or clubbing Neuro: A&Ox3, moves all extremities, no focal deficits Psych: Appropriate mood and behavior Internal Medicine: Result - Labs CBC & Chem 7: 11/12/17 04:45 11/10/17 06:22 Labs: Short CBC 11/12/17 Range/Units 04:45 WBC 6.0 (4.3-11.1) K/mcL Hgb 8.6 L (12.9-16.9) g/dL Hct 27.0 L (37.5-50.1) % Plt Count 150 (140-400) K/mcL Neutrophils # 3.8 (1.6-8.9) K/mcL - ABG Interpretation ABG results: PT/INR, D-dimer PT 12.2 Seconds (9.4-12.1) H 11/10/17 06:22 Consult Discharge Plan - Plan Referrals: Toney Santos Jr, MD [Primary Care Provider] - 11/18/17 3:00 pm <Alber Padilla - Last Filed: 11/12/17 15:26> Date of Encounter: 11/12/17 - Constitutional Vitals: Temp Pulse Resp BP Pulse Ox 97.4 F L 101 18 139/71 97 11/12/17 15:03 11/12/17 15:03 11/12/17 11:13 11/12/17 15:03 11/12/17 15:03 Internal Medicine: Result - Labs CBC & Chem 7: 11/12/17 04:45 11/10/17 06:22 Labs: Short CBC 11/12/17 Range/Units 04:45 WBC 6.0 (4.3-11.1) K/mcL Hgb 8.6 L (12.9-16.9) g/dL Hct 27.0 L (37.5-50.1) % Plt Count 150 (140-400) K/mcL Neutrophils # 3.8 (1.6-8.9) K/mcL - ABG Interpretation ABG results: PT/INR, D-dimer PT 12.2 Seconds (9.4-12.1) H 11/10/17 06:22 - Attending Attestation I performed an independent interviewed and examined this patient. I agree with the findings, assessment, and plan of Dr. Roman, internal medicine sales management intern. Patient is improved. He was transitioned to oral Augmentin for suspected aspiration pneumonia. We will need a total of 7 days treatment. With regards to his abdominal pain he does have an ultrasound of abdomen ordered. She will his CAT scan does show significant stool within the bowel and it is suspected that this may be contributing as well. We did intensify his bowel regimen and will monitor for response. All else as outlined above.
[2017-11-12] MEDS ORDERED: Bisacodyl 10 MG RECTAL SUPPOSITORY RC ONE (14:54)
[2017-11-12] MEDS ORDERED: Bisacodyl 10 MG RECTAL SUPPOSITORY RC PRN (14:56)
[2017-11-12] MEDS: Sennosides/Docusate Sodium TABLET PO SCH ×2 (16:50→21:55)
[2017-11-13] MEDS: *HR* OxyCODONE/APAP 5/325 TABLET PO PRN ×2 (00:57→09:25)
[2017-11-13] MEDS: Ipratropium/Albuterol Neb 3 ML IH SCH ×3 (04:04→15:30)
[2017-11-13] MEDS: *HR* Heparin 5,000 UNIT/ML VIAL SQ SCH (05:58)
[2017-11-13] MEDS: Gabapentin 300 MG CAPSULE PO SCH ×2 (09:24→15:48)
[2017-11-13] MEDS: Divalproex Sodium 125 MG CAPSULE PO SCH ×2 (09:24→15:49)
[2017-11-13] MEDS: Furosemide 20 MG TABLET PO SCH (09:25)
[2017-11-13] MEDS: Insulin LISPRO 300 UNITS/3 ML VIAL SQ SCH ×2 (09:25→12:52)
[2017-11-13] MEDS: Sennosides/Docusate Sodium TABLET PO SCH (09:26)
[2017-11-13] MEDS: Aspirin Enteric Coated 81 MG Tablet PO SCH (09:26)
--- NOTE | 2017-11-13 10:42 | Physician Discharge Referral ---
ExtendedCare Referral Info Transfer To: [place] Provider in Charge: Alber Padilla Provider in Charge after Transfer: PCP Institutional Level of Care: Intermediate - Diagnosis (1) CVA (cerebral vascular accident) Priority: Primary Status: Chronic (2) Aspiration pneumonia Priority: Secondary Status: Acute (3) Abdominal pain Priority: Secondary Status: Resolved (4) Constipation Priority: Secondary Status: Acute (5) Alzheimer's dementia Priority: Secondary Status: Chronic (6) Chronic congestive heart failure Priority: Secondary Status: Acute (7) GERD (gastroesophageal reflux disease) Priority: Secondary Status: Chronic (8) HTN (hypertension) Priority: Secondary Status: Chronic Prognosis: Fair Aware of Diagnosis: Patient, Family Aware of Prognosis: Patient, Family - Transfer Medications Prescriptions: Amoxicillin/Clavulanate [Augmentin] 875 mg PO BIDWM #5 tablet Docusate [Colace] 100 mg PO BID #60 capsule Oxycodone HCl/Acetaminophen [Endocet 5-325 Tablet] 1 tab PO Q4H PRN 2 Days #8 tablet PRN Reason: Mild To Moderate Pain Home Medications: Albuterol Sulfate [Ventolin Hfa] 2 puff IH Q4H PRN 09/28/16 [History] Aspirin [Lo-Dose Aspirin EC] 81 mg PO DAILY 09/28/16 [History] Ipratropium/Albuterol Neb [Duoneb] 3 ml IH Q6HR 09/28/16 [History] Insulin LISPRO [Humalog Kwikpen U-100] 0 unit SQ TID PRN 06/27/17 [History] Lisinopril [Zestril] 10 mg PO BID 06/27/17 [History] Acetaminophen [Tylenol] 650 mg PO Q6HR PRN tablet 11/03/17 [Rx] Carvedilol [Coreg] 6.25 mg PO BIDWM tablet 11/03/17 [Rx] Divalproex Sodium [Depakote Sprinkle] 125 mg PO TID cap.sprink 11/03/17 [Rx] Furosemide [Lasix] 20 mg PO DAILY tablet 11/03/17 [Rx] Nitroglycerin 0.4 mg SL Q5MIN PRN tab.subl 11/03/17 [Rx] Omeprazole [PriLOSEC] 20 mg PO 0630 capsule. 11/03/17 [Rx] Quetiapine Fumarate [Seroquel] 25 mg PO BID tablet 11/03/17 [Rx] Amitriptyline [Elavil] 50 mg PO HS 11/09/17 [History] Albuterol Neb [Proventil Neb] 2.5 mg IH Q4HR PRN 11/11/17 [History] Atorvastatin [Lipitor] 40 mg PO HS 11/11/17 [History] Gabapentin [Neurontin] 300 mg PO TID 11/11/17 [History] Glucagon,Human Recombinant [Glucagon Emergency Kit] 1 mg IJ AD 11/11/17 [History ] Amitriptyline [Elavil] 50 mg PO HS tablet 11/13/17 [Rx] Amoxicillin/Clavulanate [Augmentin] 875 mg PO BIDWM #5 tablet 11/13/17 [Rx] Atorvastatin [Lipitor] 80 mg PO HS tablet 11/13/17 [Rx] Docusate [Colace] 100 mg PO BID #60 capsule 11/13/17 [Rx] Gabapentin [Neurontin] 300 mg PO TID 2 Days #6 capsule 11/13/17 [Rx] Oxycodone HCl/Acetaminophen [Endocet 5-325 Tablet] 1 tab PO Q4H PRN 2 Days #8 tablet 11/13/17 [Rx] Allergies/Adverse Reactions: 3 Allergy/AdvReac Type Severity Reaction Status Date / Time Erythromycin Base Allergy Hives Verified 11/11/17 13:45 - Respiratory Orders Oxygen / L per min (Titrate to SPO2 >88) Smoking Cessation: Smoking cessation has been advised. For more information, call the [place] Tobacco Quit Line at 2-536-TIAM-NOW. - Ancillary Orders May use pressure relief devices daily prn - Advance Directives Living Will: No Code Status: DNR-Arrest CERTIFICATION: I certify that the transfer of the above named patient to an Extended Care Facility is necessary for the continuing treatment of the diagnosis listed. The above information is true and accurate reflection of patient's current condition. Confidential - Redisclosure prohibited without a patient's written consent.
--- NOTE | 2017-11-13 10:42 | Discharge Summary ---
<Alber Padilla R - Last Filed: 11/13/17 12:35> Date of Encounter: 11/13/17 Hospital course: Mr. Quinn is a 82 year old male - Time Spent with Patient Total time spent providing and/or coordinating discharge services: - Discharge Medications Prescriptions: Amoxicillin/Clavulanate [Augmentin] 875 mg PO BIDWM #5 tablet Docusate [Colace] 100 mg PO BID #60 capsule Oxycodone HCl/Acetaminophen [Endocet 5-325 Tablet] 1 tab PO Q4H PRN 2 Days #8 tablet PRN Reason: Mild To Moderate Pain Home Medications: Albuterol Sulfate [Ventolin Hfa] 2 puff IH Q4H PRN 09/28/16 [History] Aspirin [Lo-Dose Aspirin EC] 81 mg PO DAILY 09/28/16 [History] Ipratropium/Albuterol Neb [Duoneb] 3 ml IH Q6HR 09/28/16 [History] Insulin LISPRO [Humalog Kwikpen U-100] 0 unit SQ TID PRN 06/27/17 [History] Lisinopril [Zestril] 10 mg PO BID 06/27/17 [History] Acetaminophen [Tylenol] 650 mg PO Q6HR PRN tablet 11/03/17 [Rx] Carvedilol [Coreg] 6.25 mg PO BIDWM tablet 11/03/17 [Rx] Divalproex Sodium [Depakote Sprinkle] 125 mg PO TID cap.sprink 11/03/17 [Rx] Furosemide [Lasix] 20 mg PO DAILY tablet 11/03/17 [Rx] Nitroglycerin 0.4 mg SL Q5MIN PRN tab.subl 11/03/17 [Rx] Omeprazole [PriLOSEC] 20 mg PO 0630 capsule. 11/03/17 [Rx] Quetiapine Fumarate [Seroquel] 25 mg PO BID tablet 11/03/17 [Rx] Amitriptyline [Elavil] 50 mg PO HS 11/09/17 [History] Albuterol Neb [Proventil Neb] 2.5 mg IH Q4HR PRN 11/11/17 [History] Atorvastatin [Lipitor] 40 mg PO HS 11/11/17 [History] Gabapentin [Neurontin] 300 mg PO TID 11/11/17 [History] Glucagon,Human Recombinant [Glucagon Emergency Kit] 1 mg IJ AD 11/11/17 [History ] Amitriptyline [Elavil] 50 mg PO HS tablet 11/13/17 [Rx] Amoxicillin/Clavulanate [Augmentin] 875 mg PO BIDWM #5 tablet 11/13/17 [Rx] Atorvastatin [Lipitor] 80 mg PO HS tablet 11/13/17 [Rx] Docusate [Colace] 100 mg PO BID #60 capsule 11/13/17 [Rx] Gabapentin [Neurontin] 300 mg PO TID 2 Days #6 capsule 11/13/17 [Rx] Oxycodone HCl/Acetaminophen [Endocet 5-325 Tablet] 1 tab PO Q4H PRN 2 Days #8 tablet 11/13/17 [Rx] Allergies/Adverse Reactions: 3 Allergy/AdvReac Type Severity Reaction Status Date / Time Erythromycin Base Allergy Hives Verified 11/11/17 13:45 Date of admission: 11/09/17 06:29 Primary care physician: Toney Santos Jr, MD Consults: 11/09/17 06:38 Consult to Physical Therapy [CONS] Routine Comment: Evaluate, develop and implement POC Reason for Consult: stroke Does patient have active BEDREST order?: No Is patient medically & hemodynamically stable?: Yes Patient assessed for mobility or mobilized this visit?: Yes 11/09/17 19:27 Consult to Retail Department Supervisor [CONS] Routine Reason for SW Consult: discharge planning - Constitutional Vitals: Temp Pulse Resp BP Pulse Ox 97.5 F L 97 18 131/66 100 11/13/17 11:36 11/13/17 11:36 11/13/17 11:36 11/13/17 11:36 11/13/17 11:36 - Patient Status Disposition: Transfer LTC Condition: Good - Discharge Instructions Instructions: Oxycodone/Acetaminophen (By mouth), Amoxicillin/Clavulanate Potassium (By mouth), Laxative, Stool Softeners (By mouth), Heart Failure (DC), 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 I agree with the findings, assessment, and plan of Dr. Roman, internal medicine manufacturing intern. We discussed the plan in detail. Patient is doing well after receiving aggressive bowel regimen. He had 4 large bowel movements. Suspect constipation was the cause of his abdominal pain. Patient was sent home with scheduled stool softeners. He otherwise was doing well and deemed stable for discharge. Patient denies any complaints at this time. A total of 39 minutes was spent on discharge and coordination of care. (1) Aspiration pneumonia Status: Acute Qualifiers: Aspiration pneumonia type: unspecified Laterality: bilateral Lung location: lower lobe of lung Qualified Code(s): J69.0 - Pneumonitis due to inhalation of food and vomit (2) Abdominal pain Status: Resolved Qualifiers: Abdominal location: right lower quadrant Qualified Code(s): R10.31 - Right lower quadrant pain (3) Constipation Status: Acute Qualifiers: Constipation type: unspecified constipation type Qualified Code(s): K59.00 - Constipation, unspecified (4) Alzheimer's dementia Status: Chronic Qualifiers: Alzheimer's disease onset: late-onset Dementia behavioral disturbance: with behavioral disturbance Qualified Code(s): G30.1 - Alzheimer's disease with late onset; F02.81 - Dementia in other diseases classified elsewhere with behavioral disturbance; F02.81 - Dementia in other diseases classified elsewhere with behavioral disturbance; F02.81 - Dementia in other diseases classified elsewhere with behavioral disturbance (5) CVA (cerebral vascular accident) Status: Chronic Qualifiers: CVA mechanism: embolism Precerebral and cerebral artery: unspecified cerebral artery Qualified Code(s): I63.40 - Cerebral infarction due to embolism of unspecified cerebral artery (6) Chronic congestive heart failure Status: Acute Qualifiers: Heart failure type: systolic Qualified Code(s): I50.22 - Chronic systolic ( congestive) heart failure <Josh Roman - Last Filed: 11/13/17 16:08> - NOTES TO OUTPATIENT PROVIDER Notes to Outpatient Provider: The patient had a profound stool burden which required significant laxative use to resolve. He will need a regular bowel regimen. Additonally, he was complaining of increased neuropathic pain which is not well controlled on current regimen. Date of Encounter: 11/13/17 Time of Encounter: 08:15 - Discharge Diagnosis (1) Aspiration pneumonia Priority: Primary Status: Acute Qualifiers: Aspiration pneumonia type: unspecified Laterality: bilateral Lung location: lower lobe of lung Qualified Code(s): J69.0 - Pneumonitis due to inhalation of food and vomit (2) Abdominal pain Priority: Secondary Status: Resolved Qualifiers: Abdominal location: right lower quadrant Qualified Code(s): R10.31 - Right lower quadrant pain (3) Constipation Priority: Secondary Status: Acute Qualifiers: Constipation type: unspecified constipation type Qualified Code(s): K59.00 - Constipation, unspecified (4) Alzheimer's dementia Priority: Secondary Status: Chronic Qualifiers: Alzheimer's disease onset: late-onset Dementia behavioral disturbance: with behavioral disturbance Qualified Code(s): G30.1 - Alzheimer's disease with late onset; F02.81 - Dementia in other diseases classified elsewhere with behavioral disturbance; F02.81 - Dementia in other diseases classified elsewhere with behavioral disturbance; F02.81 - Dementia in other diseases classified elsewhere with behavioral disturbance (5) CVA (cerebral vascular accident) Priority: Secondary Status: Chronic Qualifiers: CVA mechanism: embolism Precerebral and cerebral artery: unspecified cerebral artery Qualified Code(s): I63.40 - Cerebral infarction due to embolism of unspecified cerebral artery (6) Chronic congestive heart failure Priority: Secondary Status: Acute Qualifiers: Heart failure type: systolic Qualified Code(s): I50.22 - Chronic systolic ( congestive) heart failure (7) GERD (gastroesophageal reflux disease) Priority: Secondary Status: Chronic Qualifiers: Esophagitis presence: esophagitis presence not specified Qualified Code(s) : K21.9 - Gastro-esophageal reflux disease without esophagitis (8) HTN (hypertension) Priority: Secondary Status: Chronic Qualifiers: Hypertension type: essential hypertension Qualified Code(s): I10 - Essential (primary) hypertension Hospital course: Mr. Quinn is a 82 year old male has history of dementia, diabetes CHF with EF 20%, hypertension, recent CVA, COPD present to emergency room for altered mental status. Patient was recently discharged to [facility] on 11/03, after sepsis and CHF exacerbation and acute stroke. Patient has history of dementia oriented 2, he has no residuals after stroke, he was able to walk in SNF. Patient has becoming more aggressive behavior, cursing and yelling at people which is unusual for him for 1 week. He also has sundowning over last week. His family also noted that he has on and off slurry speech. In addition of this , the patient was complaining of significant pain in his abdomen without distention. He is admitted to the hospital for stroke rule out, and head CT as well as MRI did not demonstrate any new infarcts. Due to the abdominal pain, he did receive a CT of the abdomen which demonstrated no acute abnormal pathology in the abdomen aside from large stool burning, however did demonstrate a aspiration pneumonia on lung exam. The patient was started on antibiotics, and bowel movement was stimulated with use of laxatives. Yesterday the patient did have 4 extremely large bowel movements, his abdomen became significantly softer and less painful as result. Additionally, the patient's altered mental status seems to have resolved, he is no longer being aggressive nor is he being violent towards any of the staff. The patient has been approved for transfer to [place] which is appropriate at this time considering his current level of health. We will discharge the patient on his current home regimen with the addition of a bowel regimen to include Colace twice a day. Discharge discussed with: patient, family, nurse, social work, case management, home service consultant - Time Spent with Patient Total time spent providing and/or coordinating discharge services: Date of admission: 11/09/17 06:29 Primary care physician: Toney Santos Jr, MD Consults: 11/09/17 06:38 Consult to Physical Therapy [CONS] Routine Comment: Evaluate, develop and implement POC Reason for Consult: stroke Does patient have active BEDREST order?: No Is patient medically & hemodynamically stable?: Yes Patient assessed for mobility or mobilized this visit?: Yes 11/09/17 19:27 Consult to Retail Department Supervisor [CONS] Routine Reason for SW Consult: discharge planning Discharging clinician: Josh Roman Anticipated date of discharge: 11/13/17 - Constitutional Vitals: Temp Pulse Resp BP Pulse Ox 98.0 F 88 18 128/61 97 11/13/17 07:16 11/13/17 07:16 11/13/17 07:16 11/13/17 07:16 11/13/17 07:16 General appearance: Present: cooperative, A&O X 3, pleasant, no acute distress, answers questions appropriately Exam: Gen: Vitals noted. No acute distress. AAOx3 but still appears pleasantly confused in regard to context HEENT: Normocephalic, atraumatic Neck: Supple. No adenopathy. Cardiac: RRR, no murmur, +S1/S2 Pulmonary: CTA bilaterally, no wheezes, rales or rhonchi, equal chest expansion Abdomen: Mild distention, however significant only softer in without as much pain. MSK: ROM intact, no joint swelling noted Extremities: no BLE edema, nontender calf, no cyanosis or clubbing Neuro: A&Ox3, moves all extremities, no focal deficits Psych: Appropriate mood and behavior - Patient Status Overall status at discharge: patient is not back to baseline - Diet and Activity Activity: as per physical therapy Diet: advance to your usual diet
[2017-11-13 14:48] VITALS: BP 143/79
[2017-11-13] MEDS ORDERED: *HR* OxyCODONE/APAP 5/325 TABLET PO SCH (16:00)
--- NOTE | 2017-11-13 18:28 | Electrocardiograph Report ---
[place] [id number] Test Date: 2017-11-09 Pat Name: Declan Qunin Department: 104 Room: 2NE22 Gender: M Coordinator Skill Training Program: [facility] : 1935 Requested By: Alfonzo Chavez Order Number: [id number] Reading MD: Devon Huffman MD Measurements Intervals [place] Rate: 93 P: 74 HI: 162 QRS: 46 QRSD: 102 T: 145 QT: 330 QTc: 380 Interpretive Statements SINUS RHYTHM LEFT VENTRICULAR HYPERTROPHY AND ST-T CHANGE BASELINE ARTIFACT Electronically Signed On 11-13-2017 18:27:10 EDT by Devon Huffman MD
== END 2017-11-13 18:38 ==
LOC: EMEROO 01:50 → 2NENU 01:50
PROVIDERS: ADMIT Hospitalist; ATTEND Family Medicine

== ENCOUNTER 2017-12-04 21:02 | Inpatient (IN) ==
[2017-12-04] MEDS ORDERED: Aspirin 81 MG TAB.CHEW PO ONE (21:11)
[2017-12-04] MEDS ORDERED: Nitroglycerin 1 INCH/GM PACKET TP ONE (21:11)
[2017-12-04] MEDS ORDERED: methylPREDNISolone 125 MG/2 ML VIAL IVP ONE (21:20)
[2017-12-04] MEDS ORDERED: Ipratropium/Albuterol Neb 3 ML IH ONE (21:20)
--- NOTE | 2017-12-04 21:20 | Emergency Department Note ---
Disposition Clinical Impression: Increased oxygen demand, COPD exacerbation Disposition: Admitted As Inpatient Condition: Good Referrals: Toney Santos Jr, MD [Primary Care Provider] - Forms: ED Satisfaction Letter Time of Disposition: 23:36 SOB HPI - General Chief Complaint: ED Chest Pain Stated Complaint: chest pain took two nitros Time Seen by Provider: 12/04/17 21:10 Source: patient, family Mode of arrival: ambulatory Limitations: no limitations Nursing Notes Reviewed: Yes Vital Signs Reviewed: Yes - History of Present Illness Patient is an 82-year-old male with past medical history of hypertension, diabetes, COPD, previous CVA. He presents today due to shortness of breath, productive cough, concern for hypoxia. Patient states that he has chronic COPD , usually uses 3 L nasal cannula 24 hours a day. Over the past 24 hours, he has become more short of breath, has been coughing up phlegm, otherwise denies any other chest pain, nausea, vomiting, abdominal pain, diarrhea. He does admit to some mild sweating earlier today. No other numbness, tingling, weakness. When he presented here to the ED, his oxygen saturation was in the 70 -80s on 3L NC. - Related Data Home Medications Medication Instructions Recorded Confirmed Albuterol Sulfate [Ventolin Hfa] 2 puff IH Q4H PRN 09/28/16 11/11/17 Aspirin [Lo-Dose Aspirin EC] 81 mg PO DAILY 09/28/16 12/04/17 Ipratropium/Albuterol Neb [Duoneb] 3 ml IH Q6HR 09/28/16 12/04/17 Insulin LISPRO [Humalog Kwikpen 0 unit SQ TID PRN 06/27/17 12/04/17 U-100] Lisinopril [Zestril] 10 mg PO BID 06/27/17 12/04/17 Albuterol Neb [Proventil Neb] 2.5 mg IH Q4HR PRN 11/11/17 12/04/17 Glucagon,Human Recombinant 1 mg IJ AD 11/11/17 12/04/17 [Glucagon Emergency Kit] Previous Rx's Medication Instructions Recorded Acetaminophen [Tylenol] 650 mg PO Q6HR PRN tablet 11/03/17 Carvedilol [Coreg] 6.25 mg PO BIDWM tablet 11/03/17 Divalproex Sodium [Depakote 125 mg PO TID cap.sprink 11/03/17 Sprinkle] Furosemide [Lasix] 20 mg PO DAILY tablet 11/03/17 Nitroglycerin 0.4 mg SL Q5MIN PRN tab.subl 11/03/17 Omeprazole [PriLOSEC] 20 mg PO 0630 capsule. 11/03/17 Quetiapine Fumarate [Seroquel] 25 mg PO BID tablet 11/03/17 Amitriptyline [Elavil] 50 mg PO HS tablet 11/13/17 Atorvastatin [Lipitor] 80 mg PO HS tablet 11/13/17 Docusate [Colace] 100 mg PO BID #60 capsule 11/13/17 Gabapentin [Neurontin] 300 mg PO TID 2 Days #6 capsule 11/13/17 Oxycodone HCl/Acetaminophen 1 tab PO Q4H PRN 2 Days #8 tablet 11/13/17 [Endocet 5-325 Tablet] Allergies Allergy/AdvReac Type Severity Reaction Status Date / Time Erythromycin Base Allergy Hives Verified 11/11/17 13:45 All systems ED: reviewed and negative except as stated. Constitutional: Denies: fever Cardiovascular: Denies: chest pain, palpitations Respiratory: Reports: cough, dyspnea, sputum production Gastrointestinal: Denies: abdominal pain, nausea, vomiting, diarrhea Genitourinary: Denies: urgency, dysuria, frequency Neurological: Denies: headache, weakness, numbness, paresthesias Past Medical History - Past Medical History Attestation: Yes The following information was validated with the patient. Source: patient Medical history: Reports: arthritis, COPD, diabetes, GERD, seizures, TIA Surgical history: Reports: orthopedic, other, other Psychiatric history: Reports: no psych history - Social History Smoking Status: Former smoker Smokeless Tobacco Status: No Alcohol use: Reports: none Drug use: Reports: none Physical Exam - General Limitations: no limitations General appearance: alert - Head Head exam: atraumatic, normocephalic, normal inspection - Eye Eye exam: Present: normal appearance, PERRL, EOMI - ENT ENT exam: normal exam, normal oropharynx, mucous membranes moist - Neck Neck exam: Present: normal inspection, full ROM, trachea midline - Chest Chest inspection: Present: normal inspection, symmetric chest wall rise - Respiratory Respiratory exam: Present: other (Decreased aeration throughout, mild rhonchi of left lower lobe.) - Cardiovascular Cardiovascular exam: Present: regular rate, normal rhythm, normal heart sounds - Abdominal Exam Abdominal exam: Present: soft, Non-Tender. Absent: tenderness, distention, guarding, rebound, rigidity - Extremities Exam Extremities exam: Present: normal inspection, full ROM. Absent: tenderness, pedal edema - Neurological Exam Neurological exam: Present: alert, oriented X3, CN II-XII intact. Absent: motor sensory deficit - Psychiatric Psychiatric exam: Present: normal affect, normal mood - Skin Skin exam: Present: warm, dry, intact, normal color Course Course Narrative: Patient was 82% when he came back to the room on 3 L nasal cannula oxygen. Increased his oxygen up to 5 L nasal cannula and is now satting in the upper 90s. His lung exam shows decreased aeration throughout and mild rhonchi of left lower lobe. Otherwise, the rest of the exam was fairly benign. We will give the patient Solu-Medrol, DuoNeb 3. Also given aspirin 325 mg. We will obtain chest x-ray, EKG, basic blood work and troponin level. 23:15 hemoglobin was 10.1, chronic for the patient. BNP is elevated from baseline. Chest x-ray shows mild interstitial prominence that was seen on previous exams and is likely chronic. We will give the patient a dose of levaquin here due to concern for COPD exacerbation. No concern for overt pneumonia at this time. Troponin negative. EKG showed no acute changes. We will admit the patient to the hospitalist for further care due to concern for COPD exacerbation with increased oxygen requirement. Chest X-Ray 12/04/17 21:11 IMPRESSION: Stable exam. Multifocal interstitial prominence is unchanged. This is likely chronic and less likely recurrent. No acute abnormality otherwise D/ / Alber Mckinley / Alber Mckinley Interpreting Provider: Alber Mckinley Vital Signs Temperature 98.0 F 12/04/17 21:06 Pulse Rate 102 12/04/17 21:06 Respiratory Rate 18 12/04/17 21:06 Blood Pressure 163/76 12/04/17 21:06 O2 Sat by Pulse Oximetry 82 12/04/17 21:06 Temperature 98.0 F 12/04/17 21:06 Pulse Rate 91 12/04/17 22:54 Respiratory Rate 16 12/04/17 22:54 Blood Pressure 134/74 12/04/17 22:54 O2 Sat by Pulse Oximetry 97 12/04/17 22:54 Oxygen Delivery Oxygen Delivery Nasal Cannula Shortness of Breath/Dyspnea - MDM Narrative Medical decision making narrative: Patient was 82% when he came back to the room on 3 L nasal cannula oxygen. Increased his oxygen up to 5 L nasal cannula and is now satting in the upper 90s. His lung exam shows decreased aeration throughout and mild rhonchi of left lower lobe. Otherwise, the rest of the exam was fairly benign. We will give the patient Solu-Medrol, DuoNeb 3. Also given aspirin 325 mg. We will obtain chest x-ray, EKG, basic blood work and troponin level. 23:15 hemoglobin was 10.1, chronic for the patient. BNP is elevated from baseline. Chest x-ray shows mild interstitial prominence that was seen on previous exams and is likely chronic. We will give the patient a dose of levaquin here due to concern for COPD exacerbation (patient allergic to erythromycin so cannot give azithromycin). No concern for overt pneumonia at this time. Troponin negative. EKG showed no acute changes. We will admit the patient to the hospitalist for further care due to concern for COPD exacerbation with increased oxygen requirement. - Medical Records Medical records reviewed: Yes I reviewed the patient's medical records. - Lab Data Lab results reviewed: Yes I reviewed the patient's lab results. Result diagrams: 12/04/17 21:35 12/04/17 21:35 Lab Results 12/04/17 12/04/17 12/04/17 Range/Units 21:35 21:35 21:35 WBC 8.4 (4.3-11.1) K/mcL RBC 3.63 L (4.19-5.50) M/mcL Hgb 10.1 L (12.9-16.9) g/dL Hct 31.2 L (37.5-50.1) % MCV 86.0 (83.0-100.0) fL MCH 27.8 L (28.0-33.3) pg MCHC 32.4 (31.6-35.5) g/dL RDW 13.3 (11.5-14.5) % Plt Count 306 (140-400) K/mcL MPV 8.7 L (9.4-12.4) fL Immature Gran % 0.7 (0-4) % Seg Neutrophils % 79.4 % Lymphocytes % 14.8 % Monocytes % 4.0 % Eosinophils % 0.7 % Basophils % 0.4 % Neutrophils # 6.7 (1.6-8.9) K/mcL Lymphocytes # 1.3 (0.6-4.6) K/mcL Monocytes # 0.3 (0.0-1.3) K/mcL Eosinophils # 0.1 (0.0-0.6) K/mcL Basophils # 0.0 (0.0-0.2) K/mcL PT 12.3 H (9.4-12.1) Seconds INR 1.1 APTT 32.2 (26.0-36.0) Seconds Sodium (136-145) mEq/L Potassium (3.5-5.1) mEq/L Chloride (98-107) mEq/L Carbon Dioxide (23-29) mEq/L BUN (8-23) mg/dL Creatinine (0.70-1.30) mg/dL Est GFR ( Amer) (> 60) Est GFR (Non-Af Amer) (> 60) BUN/Creatinine Ratio (6-26) Glucose (70-105) mg/dL Calculated Osmolality (280-300) Calcium (8.6-10.3) mg/dL Troponin I (< 0.04) ng/mL B-Natriuretic Peptide 665 H (Less than 100) pg/mL 12/04/17 Range/Units 21:35 WBC (4.3-11.1) K/mcL RBC (4.19-5.50) M/mcL Hgb (12.9-16.9) g/dL Hct (37.5-50.1) % MCV (83.0-100.0) fL MCH (28.0-33.3) pg MCHC (31.6-35.5) g/dL RDW (11.5-14.5) % Plt Count (140-400) K/mcL MPV (9.4-12.4) fL Immature Gran % (0-4) % Seg Neutrophils % % Lymphocytes % % Monocytes % % Eosinophils % % Basophils % % Neutrophils # (1.6-8.9) K/mcL Lymphocytes # (0.6-4.6) K/mcL Monocytes # (0.0-1.3) K/mcL Eosinophils # (0.0-0.6) K/mcL Basophils # (0.0-0.2) K/mcL PT (9.4-12.1) Seconds INR APTT (26.0-36.0) Seconds Sodium 137 (136-145) mEq/L Potassium 4.8 (3.5-5.1) mEq/L Chloride 100 (98-107) mEq/L Carbon Dioxide 30 H (23-29) mEq/L BUN 21 (8-23) mg/dL Creatinine 0.84 (0.70-1.30) mg/dL Est GFR ( Amer) > 60 (> 60) Est GFR (Non-Af Amer) > 60 (> 60) BUN/Creatinine Ratio 25 (6-26) Glucose 160 H (70-105) mg/dL Calculated Osmolality 290 (280-300) Calcium 9.1 (8.6-10.3) mg/dL Troponin I < 0.03 (< 0.04) ng/mL B-Natriuretic Peptide (Less than 100) pg/mL - Radiology Data Radiology results reviewed: Yes I reviewed the patient's radiology results. Chest X-Ray 12/04/17 21:11 IMPRESSION: Stable exam. Multifocal interstitial prominence is unchanged. This is likely chronic and less likely recurrent. No acute abnormality otherwise D/ / Alber Mckinley / Alber Mckinley Interpreting Provider: Alber Mckinley - EKG Data EKG attestation: Yes I reviewed and interpreted this EKG. EKG results narrative: 12/04/2017 at 21:19. Sinus tachycardia. Rate 103. UT 154. QRS 93. QTC 384. Normal axis. No acute ST elevation or depression. Occasional PVCs seen. S.B.Nas. - S.B.A.Yari. Situation: Demographics, MOA Background: Presenting Complaint, Relevant PMH, Meds, & Allergies Assessment: Vital Signs, Course and respsone to treatment, Exam Concerns, Patient/Family Expectation, Pertinant Lab Results Recommendation: Barrier(s) to disposition, Recommendation based on pending studies, treatments, or consults S.B.A.Yari. Report Given to: Dr. Reddy Westbrook Repor Time: 23:36 Attestation Statement - Attestation Attestation: I examined this patient and my medical decision-making was reviewed with the Resident Physician. I agree with the documented findings, disposition and treatment plan as described except to the extent set forth below. Findings consistent with COPD exacerbation. Patient had mild hypoxia on arrival. We will admit for further management. Patient's hypoxia resolved with submental oxygen. He is on 3 L of oxygen at home. Antibiotics, steroids, bronchodilators were administered.
[2017-12-04 21:55] LABS: INR 1.1; Prothrombin Time 12.3 Seconds (9.4-12.1)
[2017-12-04 21:56] LABS: Basophils % 0.4 %; Eosinophils # 0.1 K/mcL (0.0-0.6); Eosinophils % 0.7 %; Hematocrit 31.2 % (37.5-50.1); Hemoglobin 10.1 g/dL (12.9-16.9); Immature Granulocytes % 0.7 % (0-4); Lymphocytes # 1.3 K/mcL (0.6-4.6); Lymphocytes % 14.8 %; Mean Corpuscular HGB Conc 32.4 g/dL (31.6-35.5); Mean Corpuscular Hemoglobin 27.8 pg (28.0-33.3); Mean Platelet Volume 8.7 fL (9.4-12.4); Monocytes # 0.3 K/mcL (0.0-1.3); Neutrophils # 6.7 K/mcL (1.6-8.9); Platelet Count 306 K/mcL (140-400); Red Blood Count 3.63 M/mcL (4.19-5.50); Red Cell Distribution Width 13.3 % (11.5-14.5); Segmented Neutrophils % 79.4 %
[2017-12-04 21:58] LABS: Activated Partial Thrombo Time 32.2 Seconds (26.0-36.0)
[2017-12-04 22:11] LABS: BUN/Creatinine Ratio 25 (6-26); Blood Urea Nitrogen 21 mg/dL (8-23); Calcium 9.1 mg/dL (8.6-10.3); Carbon Dioxide 30 mEq/L (23-29); Chloride 100 mEq/L (98-107); Glucose 160 mg/dL (70-105); Osmolality,Calculated 290 (280-300); Potassium 4.8 mEq/L (3.5-5.1); Sodium 137 mEq/L (136-145); Troponin I < 0.03 ng/mL (< 0.04); eGFR For African Americans > 60 (> 60); eGFR For Non-African Americans > 60 (> 60)
[2017-12-04] MEDS ORDERED: Levofloxacin 500 MG/100 ML 500 MG/100 ML BAG IVPB ONE (23:18)
[2017-12-05] MEDS ORDERED: *HR* OxyCODONE/APAP 5/325 TABLET PO ONE (01:19)
[2017-12-05] MEDS ORDERED: Ibuprofen 400 MG TABLET PO PRN (03:49)
[2017-12-05] MEDS ORDERED: Naloxone 0.4 MG/ML INJ IVP PRN (03:49)
[2017-12-05] MEDS ORDERED: *HR* Dextrose 50 % in Water (Syg) 50 ML SYRINGE IVP PRN (03:49)
[2017-12-05] MEDS ORDERED: Albuterol 2.5 MG/3 ML NEBULIZER IH PRN (03:49)
[2017-12-05] MEDS ORDERED: Dextrose Gel 15 GM/37.5 ML TUBE PO PRN ×2 (03:49)
[2017-12-05] MEDS ORDERED: D5% in Water 1,000 ML IVC PRN (03:49)
[2017-12-05] MEDS ORDERED: Nitroglycerin 0.4 MG TAB.SUBL SL PRN (03:53)
--- NOTE | 2017-12-05 04:02 | Internal Med History&Physical ---
Date of Encounter: 12/05/17 Time of Encounter: 03:15 Internal Medicine - H&P: HPI Chief complaint: near syncope; cough; wheeze Admitted From: Emergency Dept Plans for Post Hospital Care: Home History of present illness: Mr. Quinn is a 82 year old male who presents to the ER tonight with complaints of coughing, wheezing, and near-syncope. He was seen and evaluated in the ER and admitted to hospitalist service for COPD exacerbation. However, upon further questioning, he states his biggest concern was that his heart rate was dropping down to the 40s and he felt as though he was about to pass out. This happened several times over the last 2 days. He has not had any true syncope, however. He is concerned that his heart rate is dropping due to medication recently started from his last hospital admission. He was hospitalized last month for an acute stroke. He was also found to have cardiomyopathy and placed on cardiac medications during that visit. He states that his heart rate would drop down precipitously at some point where he feels he is about to "pass out". He denies any chest pain, palpitations, or night sweats. Patient suffered from a significant stroke last month and has been going through rehabilitation since then. He has no residual deficits from his stroke other than some occasional expressive aphasia. He does have COPD, and he is a former smoker. He denies any recent ill contacts such as the flu. He does wear chronic home oxygen, however. Past Med Surg Social Fam HX - Past Medical History Attestation: Yes The following information was validated with the patient. Source: patient, old records reviewed Medical history: arthritis, COPD, diabetes, GERD, seizures, TIA Psychiatric history: no psych history - Past Surgical History Surgical History: orthopedic, other - Social History Smoking Status: Former smoker Smokeless Tobacco Status: No Alcohol use: none Drug use: none Current living situation: Home, With Family Activity Level: Independent ambulation Recent Out of Country Travel Within the Last 8 Weeks: No - Family History Father Adopted: No Family Member Ethnicity: Non- Living Status: Hx Family Cardiac Disorders: No Hx Family Respiratory Disorders: No Hx Family Cancer: Yes (Leukemia, Prostate) Hx Family GI Disorders: No Hx Family Endocrine Disorder: No Hx Family Neuromuscular Disorders: No Hx Family Neurologic Disorders: No Hx Family HEENT Disorders: No Hx Family Autoimmune Disorders: No Mother Adopted: No Family Member Ethnicity: Non- Living Status: Hx Family Cardiac Disorders: No Hx Family Respiratory Disorders: No Hx Family Cancer: No Hx Family GI Disorders: No Hx Family Endocrine Disorder: No Hx Family Neuromuscular Disorders: No Hx Family Neurologic Disorders: No Hx Family HEENT Disorders: No Hx Family Autoimmune Disorders: No Brother Family Member Ethnicity: Non- Living Status: Hx Family Cardiac Disorders: No Hx Family Respiratory Disorders: No Hx Family Cancer: Yes (Esophageal) Hx Family GI Disorders: No Hx Family Endocrine Disorder: No Hx Family Neuromuscular Disorders: No Hx Family Neurologic Disorders: No Hx Family HEENT Disorders: No Hx Family Autoimmune Disorders: No Sister Family Member Ethnicity: Non- Living Status: Hx Family Cardiac Disorders: No Hx Family Cancer: Yes (Kidney) Hx Family GI Disorders: No Hx Family Endocrine Disorder: Yes (Type 2 diabetes) Hx Family Neuromuscular Disorders: No Hx Family Neurologic Disorders: No Hx Family HEENT Disorders: No Hx Family Autoimmune Disorders: No Internal Medicine - H&P: Meds Albuterol Sulfate [Ventolin Hfa] 2 puff IH Q4H PRN 09/28/16 [History] Aspirin [Lo-Dose Aspirin EC] 81 mg PO DAILY 09/28/16 [History] Ipratropium/Albuterol Neb [Duoneb] 3 ml IH Q6HR 09/28/16 [History] Insulin LISPRO [Humalog Kwikpen U-100] 0 unit SQ TID PRN 06/27/17 [History] Lisinopril [Zestril] 10 mg PO BID 06/27/17 [History] Acetaminophen [Tylenol] 650 mg PO Q6HR PRN tablet 11/03/17 [Rx] Carvedilol [Coreg] 6.25 mg PO BIDWM tablet 11/03/17 [Rx] Divalproex Sodium [Depakote Sprinkle] 125 mg PO TID cap.sprink 11/03/17 [Rx] Furosemide [Lasix] 20 mg PO DAILY tablet 11/03/17 [Rx] Nitroglycerin 0.4 mg SL Q5MIN PRN tab.subl 11/03/17 [Rx] Omeprazole [PriLOSEC] 20 mg PO 0630 capsule. 11/03/17 [Rx] Quetiapine Fumarate [Seroquel] 25 mg PO BID tablet 11/03/17 [Rx] Albuterol Neb [Proventil Neb] 2.5 mg IH Q4HR PRN 11/11/17 [History] Glucagon,Human Recombinant [Glucagon Emergency Kit] 1 mg IJ AD 11/11/17 [History ] Amitriptyline [Elavil] 50 mg PO HS tablet 11/13/17 [Rx] Atorvastatin [Lipitor] 80 mg PO HS tablet 11/13/17 [Rx] Docusate [Colace] 100 mg PO BID #60 capsule 11/13/17 [Rx] Gabapentin [Neurontin] 300 mg PO TID 2 Days #6 capsule 11/13/17 [Rx] Oxycodone HCl/Acetaminophen [Endocet 5-325 Tablet] 1 tab PO Q4H PRN 2 Days #8 tablet 11/13/17 [Rx] 3 Allergy/AdvReac Type Severity Reaction Status Date / Time Erythromycin Base Allergy Hives Verified 11/11/17 13:45 - Constitutional Constitutional: lethargy, malaise, no chills, no fever(s), no night sweats - EENT Eyes: no blurry vision, no change in vision Ears: no ear pain, no tinnitus Nose, mouth and throat: nasal congestion, no nasal discharge, no sinus pressure , no sore throat - Cardiovascular Cardiovascular ROS IM: dyspnea, dyspnea on exertion, lightheadedness, other (+ near syncope), no chest pain, no palpitations, no paroxysmal nocturnal dyspnea, no syncope - Respiratory Respiratory: cough, dyspnea, dyspnea on exertion, wheezing, chest congestion, excessive phlegm production, change in phlegm color, pain with cough, no hemoptysis - Gastrointestinal Gastrointestinal: no abdominal pain, no diarrhea, no hematemesis, no hematochezia, no melena, no nausea, no vomiting - Genitourinary Genitourinary ROS male: no dysuria, no flank pain, no hematuria - Musculoskeletal Musculoskeletal ROS IM: no arthralgias, no back pain, no joint swelling - Integumentary Integumentary IM: no rash, no jaundice - Neurological Neurological ROS: dizziness, no confusion, no focal weakness, no frequent falls , no headache(s), no vertigo - Psychiatric Psychiatric: no anxiety, no depression - Endocrine Endocrine IM: no polydipsia, no polyuria - Hematologic/Lymphatic Hematologic/Lymphatic: no easy bruising, no lymphadenopathy - Allergic/Immunologic Allergic/Immunologic: wheezing, no GI upset with certain foods - Constitutional Vitals: Temp Pulse Resp BP Pulse Ox 98.0 F 92 18 127/80 97 12/04/17 21:06 12/05/17 00:07 12/05/17 00:07 12/05/17 00:07 12/05/17 00:07 General appearance: Present: cooperative, A&O X 3, pleasant, no acute distress, answers questions appropriately - Head Head exam: Present: atraumatic, normal inspection - Eye Eye exam: Present: EOMI, normal appearance, PERRL. Absent: scleral icterus Pupils: Present: normal accommodation - ENT ENT exam: Present: mucous membranes dry, normal exam, normal oropharynx - Neck Neck exam general surgery: Present: full ROM, supple. Absent: lymphadenopathy, tenderness, nuchal rigidity, thyromegaly - Expanded Neck Exam Neck exam: Absent: carotid bruit - Respiratory Respiratory exam: Present: prolonged expiratory phase, rhonchi. Absent: chest wall tenderness, CTAB, rales, respiratory distress, wheezes - Cardiovascular Cardiovascular exam: Present: RRR, +S1, +S2. Absent: diastolic murmur, irregular rhythm, JVD, systolic murmur - GI/Abdominal GI/Abdominal exam: Present: normal bowel sounds, soft. Absent: guarding, hepatomegaly, mass, splenomegaly, tenderness - Extremities Exam Extremities exam: Present: normal capillary refill, warm, radial pulses palpable and symmetrical. Absent: calf tenderness, cyanotic, joint swelling, pedal edema, tenderness - Back Exam Back exam: Present: normal inspection. Absent: CVA tenderness (L), CVA tenderness (R) - Neurological Exam Neurological exam: Present: alert, CN II-XII intact, oriented X3, no focal deficits, strengths equal and symetr throughout - Psychiatric Psychiatric exam: Present: normal affect, normal mood - Skin Skin exam: Present: dry, warm. Absent: rash Internal Med - H&P Results - Labs CBC & Chem 7: 12/04/17 21:35 12/04/17 21:35 - Diagnostic Studies Chest x-ray Status: image reviewed by me (negative acute process; chronic interstitial findings) - Assessment and plan (1) Near syncope Current Visit: Yes Status: Acute Assessment and plan: 1. Will cycle troponins and order EKG. 2. Note: no EKG done in ER per nursing report. Will order one now and place on telemetry. 3. Will hold Coreg and monitor if BB. 4. May need cardiology consult if symptoms persist and related to dysrhythmia. 5. Monitor accuchecks ana cristina possible hypoglycemia. (2) COPD exacerbation Current Visit: Yes Status: Acute Assessment and plan: 1. Will lace on aerosols, steroids, and antibiotics. 2. Patient also wears chronic oxygen; continue. 3. Wean oxygen as able. (3) DVT prophylaxis Current Visit: No Status: Acute Assessment and plan: 1. Heparin SQ.
[2017-12-05] MEDS: Ipratropium/Albuterol Neb 3 ML IH SCH ×4 (04:31→22:28)
[2017-12-05] MEDS: *HR* OxyCODONE/APAP 5/325 TABLET PO PRN ×4 (06:22→20:39)
[2017-12-05] MEDS: *HR* Heparin 5,000 UNIT/ML VIAL SQ SCH ×2 (06:23→15:47)
[2017-12-05 07:21] LABS: Hematocrit 29.1 % (37.5-50.1); Hemoglobin 9.3 g/dL (12.9-16.9); Mean Corpuscular Hemoglobin 27.3 pg (28.0-33.3); Mean Corpuscular Volume 85.3 fL (83.0-100.0); Mean Platelet Volume 8.9 fL (9.4-12.4); Platelet Count 253 K/mcL (140-400); Red Blood Count 3.41 M/mcL (4.19-5.50); Red Cell Distribution Width 13.3 % (11.5-14.5)
[2017-12-05 07:40] LABS: Alanine Aminotransferase 7 Units/L (7-52); Albumin 3.2 g/dL (3.5-5.7); Albumin/Globulin Ratio 0.9 (1.1-2.2); Alkaline Phosphatase 56 Units/L (34-104); Aspartate Amino Transferase 10 Units/L (13-39); BUN/Creatinine Ratio 27 (6-26); Bilirubin,Total 0.2 mg/dL (0.3-1.0); Blood Urea Nitrogen 21 mg/dL (8-23); Calcium 8.8 mg/dL (8.6-10.3); Carbon Dioxide 28 mEq/L (23-29); Chloride 101 mEq/L (98-107); Chol/HDL Ratio 2.9 (0-4.9); Cholesterol 102 mg/dL (< 200); Globulin 3.7 g/dL (2.4-3.5); Glucose 178 mg/dL (70-105); HDL Cholesterol 35 mg/dL (40-59); LDL Cholesterol,Calculated 54 mg/dL (0-99); Magnesium 1.7 mg/dL (1.6-2.6); Osmolality,Calculated 291 (280-300); Sodium 137 mEq/L (136-145); Total Protein 6.9 g/dL (6.4-8.9); Triglycerides 63 mg/dL (< 150); Troponin I < 0.03 ng/mL (< 0.04); eGFR For African Americans > 60 (> 60); eGFR For Non-African Americans > 60 (> 60)
[2017-12-05 08:49] LABS: Estimated Average Glucose 137 mg/dl; Hemoglobin A1C 6.4 %
[2017-12-05] MEDS: Divalproex Sodium 125 MG CAPSULE PO SCH ×3 (10:14→20:38)
[2017-12-05] MEDS: Gabapentin 300 MG CAPSULE PO SCH ×3 (10:14→20:38)
[2017-12-05] MEDS: cefTRIAXone 1,000 MG in Water for inj. (sterile) 20 ML 10 ML IVP SCH (10:14)
[2017-12-05] MEDS: Aspirin Enteric Coated 81 MG Tablet PO SCH (10:14)
[2017-12-05] MEDS: methylPREDNISolone 125 MG/2 ML VIAL IVP SCH ×2 (10:16→15:46)
[2017-12-05] MEDS: Insulin LISPRO 300 UNITS/3 ML VIAL SQ SCH ×3 (10:17→16:12)
[2017-12-05 11:55] LABS: Basophils # 0.1 K/mcL (0.0-0.2); Lymphocytes # 0.5 K/mcL (0.6-4.6); Monocytes # 0.1 K/mcL (0.0-1.3); Platelet Estimate Normal (Normal)
--- NOTE | 2017-12-05 16:39 | Internal Med Progress Note ---
Date of Encounter: 12/05/17 Time of Encounter: 14:00 - Assessment and plan (1) COPD exacerbation Current Visit: Yes Status: Acute Assessment and plan: No wheezing at this time we will continue with steroids for the dilator and antibiotics Continue with oxygen titrated maintain SPO2 greater than 92% (2) Near syncope Current Visit: Yes Status: Acute Assessment and plan: Cardiac troponins are negative EKG with no ST-T wave abnormalities continue cardiac monitoring Coreg is presently on hold-heart rate is stable at 80 Consult cardiology as needed for dysrhythmias We will obtain orthostatic vital signs Fall precautions Monitor Accu-Cheks for hypoglycemia (3) DVT prophylaxis Current Visit: No Status: Acute Assessment and plan: 1. Heparin SQ. - Time Spent With Patient Total time spent is greater than 50% in coordination of care (as documented) at patient's floor/unit and/or counseling patient: - Subjective Interval history: This patient is need to me I did review records. I did examine patient at bedside. He denies any pain or discomfort lightheadedness or palpitations. He does complain of a cough however no sputum production no shortness of breath at this time. - Constitutional Vitals: Temp Pulse Resp BP Pulse Ox 98.7 F 93 16 148/78 95 12/05/17 15:35 12/05/17 15:37 12/05/17 15:54 12/05/17 15:37 12/05/17 15:54 General appearance: Present: cooperative, A&O X 3, pleasant, no acute distress, answers questions appropriately - Head Head exam: Present: atraumatic, normocephalic - Eye Eye exam: Present: PERRL, conjuntiva pink, sclera anicteric Pupils: Present: PERRL - Neck Neck exam general surgery: Present: supple, trachea midline. Absent: lymphadenopathy - Respiratory Respiratory exam: Present: CTAB. Absent: accessory muscle use, rales, rhonchi, wheezes - Cardiovascular Cardiovascular exam: Present: RRR, +S1, +S2. Absent: diastolic murmur, gallop, rubs, systolic murmur - GI/Abdominal GI/Abdominal exam: Present: normal bowel sounds, soft, no peritoneal signs. Absent: distended, tenderness - Extremities Exam Extremities exam: Present: warm, radial pulses palpable and symmetrical. Absent : calf tenderness, cyanotic, pedal edema - Neurological Exam Neurological exam: Present: CN II-XII intact, oriented X3, no focal deficits. Absent: pronater drift, facial droop, speech deficit - Skin Skin exam: Present: dry, intact Internal Medicine: Result - Labs CBC & Chem 7: 12/05/17 06:11 12/05/17 06:11 Labs: Short CBC 12/05/17 Range/Units 06:11 WBC 4.7 (4.3-11.1) K/mcL Hgb 9.3 L (12.9-16.9) g/dL Hct 29.1 L (37.5-50.1) % Plt Count 253 (140-400) K/mcL Neutrophils # 4.0 (1.6-8.9) K/mcL BMP 12/05/17 06:11 Sodium 137 Potassium 4.0 Chloride 101 Carbon Dioxide 28 BUN 21 Creatinine 0.77 Glucose 178 H Calcium 8.8 Cardiac Enzymes 12/05/17 12/05/17 Range/Units 06:11 12:19 Troponin I < 0.03 < 0.03 (< 0.04) ng/mL Liver Function 12/05/17 Range/Units 06:11 Total Bilirubin 0.2 L (0.3-1.0) mg/dL AST 10 L (13-39) Units/L ALT 7 (7-52) Units/L Alkaline Phosphatase 56 (34-104) Units/L Albumin 3.2 L (3.5-5.7) g/dL - ABG Interpretation ABG results: PT/INR, D-dimer PT 12.3 Seconds (9.4-12.1) H 12/04/17 21:35 Consult Discharge Plan - Plan Referrals: Toney Santos Jr, MD [Primary Care Provider] -
--- NOTE | 2017-12-05 16:56 | Electrocardiograph Report ---
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
--- NOTE | 2017-12-05 17:02 | Electrocardiograph Report ---
[address] [place] [address] Test Date: 2017-12-04 Pat Name: Declan Quinn Department: 102 Room: 3B63 Gender: M Energy Assistant: Ina : 1935 Requested By: Shane Hayden Order Number: [id number] Reading MD: Gauri Walker Measurements Intervals [place] Rate: 103 P: 76 [place]: 154 QRS: 47 QRSD: 93 T: 175 QT: 324 QTc: 384 Interpretive Statements SINUS TACHYCARDIA WITH FREQUENT VENTRICULAR PREMATURE COMPLEXES LEFT VENTRICULAR HYPERTROPHY AND ST-T CHANGE [VOLTAGE CRITERIA PLUS ST/T ABNORMALITY] Electronically Signed On 12-05-2017 17:00:28 EDT by Gauri Walker
[2017-12-06] MEDS: methylPREDNISolone 125 MG/2 ML VIAL IVP SCH ×3 (01:04→17:16)
[2017-12-06] MEDS: *HR* OxyCODONE/APAP 5/325 TABLET PO PRN ×6 (01:04→22:36)
[2017-12-06] MEDS: Ipratropium/Albuterol Neb 3 ML IH SCH ×4 (04:10→22:21)
[2017-12-06] MEDS: *HR* Heparin 5,000 UNIT/ML VIAL SQ SCH ×2 (05:05→17:17)
[2017-12-06 05:48] LABS: Hematocrit 29.8 % (37.5-50.1); Hemoglobin 9.8 g/dL (12.9-16.9); Immature Granulocytes % 0.5 % (0-4); Lymphocytes # 0.8 K/mcL (0.6-4.6); Lymphocytes % 6.6 %; Mean Corpuscular HGB Conc 32.9 g/dL (31.6-35.5); Mean Corpuscular Hemoglobin 27.8 pg (28.0-33.3); Mean Corpuscular Volume 84.4 fL (83.0-100.0); Mean Platelet Volume 8.9 fL (9.4-12.4); Monocytes # 0.3 K/mcL (0.0-1.3); Monocytes % 2.6 %; Neutrophils # 11.3 K/mcL (1.6-8.9); Platelet Count 295 K/mcL (140-400); Red Blood Count 3.53 M/mcL (4.19-5.50); Red Cell Distribution Width 13.5 % (11.5-14.5); Segmented Neutrophils % 90.3 %
[2017-12-06 06:11] LABS: BUN/Creatinine Ratio 31 (6-26); Blood Urea Nitrogen 23 mg/dL (8-23); Calcium 9.2 mg/dL (8.6-10.3); Carbon Dioxide 29 mEq/L (23-29); Chloride 98 mEq/L (98-107); Glucose 161 mg/dL (70-105); Osmolality,Calculated 289 (280-300); Potassium 4.1 mEq/L (3.5-5.1); Sodium 136 mEq/L (136-145); eGFR For African Americans > 60 (> 60); eGFR For Non-African Americans > 60 (> 60)
[2017-12-06] MEDS: cefTRIAXone 1,000 MG in Water for inj. (sterile) 20 ML 10 ML IVP SCH (09:23)
[2017-12-06] MEDS: Insulin LISPRO 300 UNITS/3 ML VIAL SQ SCH ×3 (09:24→16:16)
[2017-12-06] MEDS: Gabapentin 300 MG CAPSULE PO SCH ×3 (09:24→20:48)
[2017-12-06] MEDS: Divalproex Sodium 125 MG CAPSULE PO SCH ×3 (09:24→20:49)
[2017-12-06] MEDS: Aspirin Enteric Coated 81 MG Tablet PO SCH (09:24)
--- NOTE | 2017-12-06 10:52 | Internal Med Progress Note ---
Date of Encounter: 12/06/17 Time of Encounter: 10:51 - Assessment and plan (1) COPD exacerbation Current Visit: Yes Status: Acute Assessment and plan: No wheezing at this time we will continue bronchodilators, decrease Solu-Medrol and antibiotics Continue with oxygen titrated maintain SPO2 greater than 92% (2) Near syncope Current Visit: Yes Status: Acute Assessment and plan: Cardiac troponins are negative EKG with no ST-T wave abnormalities continue cardiac monitoring Daughter states the patient is not take Coreg he has been taking lisinopril. We will initiate lisinopril at a lower dose and monitor blood pressure Consult cardiology as needed for dysrhythmias-no dysrhythmias at this time orthostatic vital signs-are stable Fall precautions Monitor Accu-Cheks for hypoglycemia PT OT evaluation (3) History of CVA (cerebrovascular accident) Current Visit: Yes Status: Acute Assessment and plan: 1 patient has history of CVA-continue with aspirin and statin (4) DVT prophylaxis Current Visit: No Status: Acute Assessment and plan: 1. Heparin SQ. - Time Spent With Patient Total time spent is greater than 50% in coordination of care (as documented) at patient's floor/unit and/or counseling patient: - Subjective Interval history: Seen and examined at bedside. Denies any pain or discomfort. Denies any palpitations or lightheadedness - Constitutional Vitals: Temp Pulse Resp BP Pulse Ox 98.6 F 85 17 151/80 97 12/06/17 08:07 12/06/17 08:07 12/06/17 09:22 12/06/17 08:07 12/06/17 09:32 General appearance: Present: cooperative, A&O X 3, pleasant, no acute distress, answers questions appropriately - Head Head exam: Present: atraumatic, normocephalic - Eye Eye exam: Present: PERRL, conjuntiva pink, sclera anicteric Pupils: Present: PERRL - Neck Neck exam general surgery: Present: supple, trachea midline. Absent: lymphadenopathy - Respiratory Respiratory exam: Present: CTAB. Absent: accessory muscle use, rales, rhonchi, wheezes - Cardiovascular Cardiovascular exam: Present: RRR, +S1, +S2. Absent: diastolic murmur, gallop, rubs, systolic murmur - GI/Abdominal GI/Abdominal exam: Present: normal bowel sounds, soft, no peritoneal signs. Absent: distended, tenderness - Extremities Exam Extremities exam: Present: warm, radial pulses palpable and symmetrical. Absent : calf tenderness, cyanotic, pedal edema - Neurological Exam Neurological exam: Present: CN II-XII intact, oriented X3, no focal deficits. Absent: pronater drift, facial droop, speech deficit - Skin Skin exam: Present: dry, intact Internal Medicine: Result - Labs CBC & Chem 7: 12/06/17 04:26 12/06/17 04:26 Labs: Short CBC 12/06/17 Range/Units 04:26 WBC 12.5 H D (4.3-11.1) K/mcL Hgb 9.8 L (12.9-16.9) g/dL Hct 29.8 L (37.5-50.1) % Plt Count 295 (140-400) K/mcL Neutrophils # 11.3 H (1.6-8.9) K/mcL BMP 12/06/17 04:26 Sodium 136 Potassium 4.1 Chloride 98 Carbon Dioxide 29 BUN 23 Creatinine 0.74 Glucose 161 H Calcium 9.2 Cardiac Enzymes 12/05/17 Range/Units 18:20 Troponin I < 0.03 (< 0.04) ng/mL - ABG Interpretation ABG results: PT/INR, D-dimer PT 12.3 Seconds (9.4-12.1) H 12/04/17 21:35 Consult Discharge Plan - Plan Referrals: Toney Santos Jr, MD [Primary Care Provider] -
[2017-12-07] MEDS: *HR* OxyCODONE/APAP 5/325 TABLET PO PRN ×4 (02:53→15:40)
[2017-12-07] MEDS: Ipratropium/Albuterol Neb 3 ML IH SCH ×3 (03:58→15:44)
[2017-12-07] MEDS: *HR* Heparin 5,000 UNIT/ML VIAL SQ SCH (05:41)
[2017-12-07] MEDS: methylPREDNISolone 125 MG/2 ML VIAL IVP SCH (05:42)
[2017-12-07] MEDS: Aspirin Enteric Coated 81 MG Tablet PO SCH (08:16)
[2017-12-07] MEDS: Divalproex Sodium 125 MG CAPSULE PO SCH ×2 (08:16→15:40)
[2017-12-07] MEDS: cefTRIAXone 1,000 MG in Water for inj. (sterile) 20 ML 10 ML IVP SCH (08:16)
[2017-12-07] MEDS: Gabapentin 300 MG CAPSULE PO SCH ×2 (08:16→15:40)
[2017-12-07] MEDS: Insulin LISPRO 300 UNITS/3 ML VIAL SQ SCH ×2 (08:17→12:25)
[2017-12-07 13:09] LABS: Basophils % 0.1 %; Hematocrit 30.2 % (37.5-50.1); Hemoglobin 9.9 g/dL (12.9-16.9); Immature Granulocytes % 0.8 % (0-4); Lymphocytes # 0.8 K/mcL (0.6-4.6); Mean Corpuscular HGB Conc 32.8 g/dL (31.6-35.5); Mean Corpuscular Hemoglobin 27.5 pg (28.0-33.3); Mean Corpuscular Volume 83.9 fL (83.0-100.0); Mean Platelet Volume 8.9 fL (9.4-12.4); Monocytes # 0.7 K/mcL (0.0-1.3); Monocytes % 5.4 %; Neutrophils # 11.3 K/mcL (1.6-8.9); Platelet Count 270 K/mcL (140-400); Red Cell Distribution Width 13.8 % (11.5-14.5); Segmented Neutrophils % 87.7 %
[2017-12-07 13:32] LABS: BUN/Creatinine Ratio 29 (6-26); Blood Urea Nitrogen 23 mg/dL (8-23); Calcium 8.8 mg/dL (8.6-10.3); Carbon Dioxide 31 mEq/L (23-29); Chloride 97 mEq/L (98-107); Glucose 147 mg/dL (70-105); Osmolality,Calculated 282 (280-300); Potassium 4.7 mEq/L (3.5-5.1); Sodium 133 mEq/L (136-145); eGFR For African Americans > 60 (> 60); eGFR For Non-African Americans > 60 (> 60)
[2017-12-07 15:50] VITALS: BP 158/75
--- NOTE | 2017-12-07 18:24 | Discharge Summary ---
- NOTES TO OUTPATIENT PROVIDER Notes to Outpatient Provider: Cartoid doppler- non stenotic plaque bilat ICA and CCA - Orders not resulted at time of discharge: Pending orders 12/07/17 12:13 Urinalysis Reflex Cult & Micro [URIN] Routine Date of Encounter: 12/07/17 Time of Encounter: 18:19 - Discharge Diagnosis (1) COPD exacerbation Priority: Primary Status: Acute (2) Near syncope Priority: Primary Status: Acute (3) History of CVA (cerebrovascular accident) Priority: Secondary Status: Acute Hospital course: Mr. Quinn is a 82 year old male past medical history of COPD CVA GErd. Patient presented to [facility] after experiencing cough wheezing and near- syncope. According to the patient he has been experiencing over the past 2 days of cough however his most concerning complaint is that his heart rate was dropping down to the 40s and he thought that he was going to pass out. He never did experience a true syncopal episode. He was hospitalized last month for acute stroke and cardiomyopathy and was placed on cardiac medications. He is concerned that this medicine is causing him to feel as if he is going to pass out. Denies any chest pain palpitations. Chest x-ray with chronic changes EKG is sinus tachycardia frequent ventricular premature complexes echocardiogram performed 2 months ago with EF of 25% mildly dilated left ventricle severe global left ventricular systolic dysfunction mild left ventricular diastolic dysfunction normal right ventricular structure mild mitral regurgitation mild pulmonary hypertension. Orthostatic vitals were completed and were negative. Medications were held there were no cardiac arrhythmias his blood pressure began to elevate we resumed his medication. I reviewed the monitor strips patient's lowest heart rate was 60 highest was 90. I did discuss this case with Cass PAPETERIE TABLE ASSEMBLER with cardiology. We did review the strips no arrhythmias noted. She agreed with reinitiating home medications. Having patient follow up with cardiology as outpatient. Carotid Dopplers were obtained preliminary results showed nonstenotic plaque bilaterally. Patient's respiratory status has been stable no wheezing he has been on his home oxygen level oxygen saturation 9697%. He has been eating and ambulating in the room without any difficulty. He has been afebrile. He did have a slight elevation white count which I suspect is related to steroids. We will continue with 5 day course of steroids and doxycycline. An outpatient follow-up with primary care. I did advised the patient to follow-up with primary care physician as well as cardiology. I reviewed medications with the family and patient and answer questions best my ability. Patient is hemodynamically stable at this time and ready for discharge. Discharge discussed with: patient, family - Time Spent with Patient Total time spent providing and/or coordinating discharge services: - Discharge Medications Prescriptions: Doxycycline 100 mg PO BID #10 capsule predniSONE [PredniSONE] 40 mg PO DAILY #10 tablet Home Medications: Albuterol Sulfate [Ventolin Hfa] 2 puff IH Q4H PRN 09/28/16 [History] Aspirin [Lo-Dose Aspirin EC] 81 mg PO DAILY 09/28/16 [History] Ipratropium/Albuterol Neb [Duoneb] 3 ml IH Q6HR 09/28/16 [History] Insulin LISPRO [Humalog Kwikpen U-100] 0 unit SQ TID PRN 06/27/17 [History] Lisinopril [Zestril] 10 mg PO BID 06/27/17 [History] Acetaminophen [Tylenol] 650 mg PO Q6HR PRN tablet 11/03/17 [Rx] Carvedilol [Coreg] 6.25 mg PO BIDWM tablet 11/03/17 [Rx] Divalproex Sodium [Depakote Sprinkle] 125 mg PO TID cap.sprink 11/03/17 [Rx] Furosemide [Lasix] 20 mg PO DAILY tablet 11/03/17 [Rx] Nitroglycerin 0.4 mg SL Q5MIN PRN tab.subl 11/03/17 [Rx] Omeprazole [PriLOSEC] 20 mg PO 0630 capsule. 11/03/17 [Rx] Quetiapine Fumarate [Seroquel] 25 mg PO BID tablet 11/03/17 [Rx] Albuterol Neb [Proventil Neb] 2.5 mg IH Q4HR PRN 11/11/17 [History] Glucagon,Human Recombinant [Glucagon Emergency Kit] 1 mg IJ AD 11/11/17 [History ] Amitriptyline [Elavil] 50 mg PO HS tablet 11/13/17 [Rx] Atorvastatin [Lipitor] 80 mg PO HS tablet 11/13/17 [Rx] Docusate [Colace] 100 mg PO BID #60 capsule 11/13/17 [Rx] Gabapentin [Neurontin] 300 mg PO TID 2 Days #6 capsule 11/13/17 [Rx] Oxycodone HCl/Acetaminophen [Endocet 5-325 Tablet] 1 tab PO Q4H PRN 2 Days #8 tablet 11/13/17 [Rx] Amitriptyline HCl 100 mg PO HS 12/05/17 [History] Insulin DETEMIR [Levemir] 15 - 20 unit SQ AD PRN 12/05/17 [History] Doxycycline 100 mg PO BID #10 capsule 12/07/17 [Rx] predniSONE [PredniSONE] 40 mg PO DAILY #10 tablet 12/07/17 [Rx] Allergies/Adverse Reactions: 3 Allergy/AdvReac Type Severity Reaction Status Date / Time Erythromycin Base Allergy Hives Verified 12/05/17 09:44 Date of admission: 12/05/17 17:33 Primary care physician: Toney Santos Jr, MD Consults: 12/06/17 09:46 Consult to Electrician Substation [CONS] Routine Reason for SW Consult: discharge planning Discharging clinician: Caryn Alegre - Constitutional Vitals: Temp Pulse Resp BP Pulse Ox 97.4 F L 82 16 158/75 98 12/07/17 15:49 12/07/17 15:49 12/07/17 15:49 12/07/17 15:49 12/07/17 15:49 General appearance: Present: cooperative, A&O X 3, pleasant, no acute distress, answers questions appropriately - Head Head exam: Present: atraumatic, normocephalic - Eye Eye exam: Present: PERRL, conjuntiva pink, sclera anicteric Pupils: Present: PERRL - Neck Neck exam general surgery: Present: supple, trachea midline. Absent: lymphadenopathy - Respiratory Respiratory exam: Present: CTAB. Absent: accessory muscle use, rales, rhonchi, wheezes - Cardiovascular Cardiovascular exam: Present: RRR, +S1, +S2. Absent: diastolic murmur, gallop, rubs, systolic murmur - GI/Abdominal GI/Abdominal exam: Present: normal bowel sounds, soft, no peritoneal signs. Absent: distended, tenderness - Extremities Exam Extremities exam: Present: warm, radial pulses palpable and symmetrical. Absent : calf tenderness, cyanotic, pedal edema - Neurological Exam Neurological exam: Present: CN II-XII intact, oriented X3, no focal deficits. Absent: pronater drift, facial droop, speech deficit - Skin Skin exam: Present: dry, intact - Patient Status Disposition: Home, Self-Care Condition: Good Functional capacity at discharge: independent ambulation Overall status at discharge: patient is back to baseline - Discharge Instructions Instructions: Chronic Obstructive Pulmonary Disease (DC) Follow Up With: Toney Santos Jr, MD [Primary Care Provider] - (An appointment has been requested. Office will contact you at home to schedule appointment. ) Marin Schmitz [Partnered Physician] - - Diet and Activity Activity: wear oxygen at all times Diet: advance to your usual diet
== END 2017-12-07 18:49 | disposition home or self-care (01) | DRG 191 ==
LOC: 3BNU 21:02 → EMEROO 21:02 → 3BNU 12-05 01:41
PROVIDERS: ADMIT Internal Medicine; ATTEND Registered Nurse

== ENCOUNTER 2018-01-22 17:01 | Inpatient (IN) ==
[2018-01-22] MEDS ORDERED: Ipratropium/Albuterol Neb 3 ML IH ONE (17:12)
[2018-01-22] MEDS ORDERED: methylPREDNISolone 125 MG/2 ML VIAL IVP ONE (17:13)
--- NOTE | 2018-01-22 17:16 | Emergency Department Note ---
Disposition Clinical Impression: Acute exacerbation of chronic obstructive airways disease Community acquired pneumonia Qualifiers: Laterality: unspecified laterality Qualified Code(s): J18.9 - Pneumonia, unspecified organism Disposition: Admitted As Inpatient SOB HPI - General Chief Complaint: ED Shortness of Breath/Dyspnea Stated Complaint: YARY Time Seen by Provider: 01/22/18 17:08 Source: patient Mode of arrival: wheelchair Limitations: no limitations Nursing Notes Reviewed: Yes Vital Signs Reviewed: Yes - History of Present Illness 82 M c PMHx of arthritis, COPD, diabetes, GERD, seizures, TIA, Systolic CHF reports to the ED c/o SOB x 4 days. Per patient he is on 3L of home oxygen he normally lives at 92% on that amount of oxygen. He reports over the last 4 days he has had a productive cough with yellow sputum, rhinorrhea, and pain in his R ribs with deep inspiration. His sats at home have been drifting down over the last few days. He denies Fever, Chills, Chest Pain, Abd pain, N, V, D. When asked if he would like to be intubated if it came to that he says yes. patient was sating at 77% on 3L per triage. Pt Subjective Complaint: shortness of breath Onset (ago): day(s) (4) Known history of: COPD Associated symptoms: Reports: pain with inspiration, cough, sputum production. Denies: chest pain, fever, lower extremity pain Treatment prior to arrival: oxygen Cough present: Yes Cough Description: Productive Sputum production: Yes Sputum Color: Yellow - Related Data Home oxygen amount: 3 liters Home Medications Medication Instructions Recorded Confirmed Aspirin [Lo-Dose Aspirin EC] 81 mg PO DAILY 09/28/16 12/05/17 Ipratropium/Albuterol Neb [Duoneb] 3 ml IH Q6HR 09/28/16 12/05/17 Lisinopril [Zestril] 10 mg PO BID 06/27/17 12/05/17 Albuterol Neb [Proventil Neb] 2.5 mg IH Q4HR PRN 11/11/17 12/05/17 Glucagon,Human Recombinant 1 mg IJ AD 11/11/17 12/05/17 [Glucagon Emergency Kit] Insulin DETEMIR [Levemir] 15 - 20 unit SQ AD PRN 12/05/17 12/05/17 Previous Rx's Medication Instructions Recorded Acetaminophen [Tylenol] 650 mg PO Q6HR PRN tablet 11/03/17 Carvedilol [Coreg] 6.25 mg PO BIDWM tablet 11/03/17 Divalproex Sodium [Depakote 125 mg PO TID cap.sprink 11/03/17 Sprinkle] Furosemide [Lasix] 20 mg PO DAILY tablet 11/03/17 Nitroglycerin 0.4 mg SL Q5MIN PRN tab.subl 11/03/17 Omeprazole [PriLOSEC] 20 mg PO 0630 capsule. 11/03/17 Quetiapine Fumarate [Seroquel] 25 mg PO BID tablet 11/03/17 Amitriptyline [Elavil] 50 mg PO HS tablet 11/13/17 Atorvastatin [Lipitor] 80 mg PO HS tablet 11/13/17 Docusate [Colace] 100 mg PO BID #60 capsule 11/13/17 Gabapentin [Neurontin] 300 mg PO TID 2 Days #6 capsule 11/13/17 Oxycodone HCl/Acetaminophen 1 tab PO Q4H PRN 2 Days #8 tablet 11/13/17 [Endocet 5-325 Tablet] Allergies Allergy/AdvReac Type Severity Reaction Status Date / Time Erythromycin Base Allergy Hives Verified 12/05/17 09:44 All systems ED: reviewed and negative except as stated. Review of Systems: As Per HPI Past Medical History - Past Medical History Medical history: Reports: arthritis, COPD, diabetes, GERD, seizures, TIA Surgical history: Reports: orthopedic, other Psychiatric history: Reports: no psych history - Social History Smoking Status: Former smoker Smokeless Tobacco Status: No Alcohol use: Reports: none Drug use: Reports: none Physical Exam - General Limitations: no limitations General appearance: alert, in no apparent distress - Head Head exam: atraumatic, normocephalic - ENT ENT exam: normal oropharynx, mucous membranes dry - Neck Neck exam: Present: full ROM, trachea midline - Chest Chest inspection: Present: symmetric chest wall rise. Absent: tenderness - Respiratory Respiratory exam: Present: wheezes, other (decreased breath sounds through out. Patient able to talk in full snetences. ). Absent: respiratory distress - Cardiovascular Cardiovascular exam: Present: regular rate, normal rhythm - Abdominal Exam Abdominal exam: Present: soft, Non-Tender - Extremities Exam Extremities exam: Present: full ROM. Absent: pedal edema - Neurological Exam Neurological exam: Present: alert, oriented X3 - Psychiatric Psychiatric exam: Present: normal affect, normal mood - Skin Skin exam: Present: warm, dry, pallor Course Course Narrative: Will Check CBC, BMP, LA, ABG, BCX, CXR. Will give Duonebs and Solumdrol. - Consultations Consultation #1: Discussed case with admitting hospitalist. They agreed to admit the patient. Vital Signs Temperature 98.1 F 01/22/18 17:16 Pulse Rate 106 01/22/18 17:16 Respiratory Rate 24 01/22/18 17:16 Blood Pressure 144/84 01/22/18 17:16 O2 Sat by Pulse Oximetry 96 01/22/18 17:16 Temperature 98.1 F 01/22/18 17:16 Pulse Rate 105 01/22/18 20:20 Respiratory Rate 18 01/22/18 20:20 Blood Pressure 138/82 01/22/18 20:20 O2 Sat by Pulse Oximetry 94 01/22/18 20:20 Oxygen Delivery Oxygen Delivery Nasal Cannula Shortness of Breath/Dyspnea - [facility] Narrative Medical decision making narrative: Likely COPD exacerbation increased SOB, Productive cough, increased oxygen demand over last several days. CXR consistent with possible PNA. Will admit to the hospitalist for COPD exacerbation 2/2 to PNA. - Differential Diagnosis Likely: acute exacerbation of chronic obstructive airways disease, congestive heart failure, pneumonia - Medical Records Medical records reviewed: Yes I reviewed the patient's medical records. - Lab Data Lab results reviewed: Yes I reviewed the patient's lab results. Result diagrams: 01/22/18 17:22 01/22/18 17:22 Lab Results 01/22/18 01/22/18 01/22/18 Range/Units 17:22 17:22 17:22 WBC 10.2 (4.3-11.1) K/mcL RBC 3.58 L (4.19-5.50) M/mcL Hgb 10.2 L (12.9-16.9) g/dL Hct 31.2 L (37.5-50.1) % MCV 87.2 (83.0-100.0) fL MCH 28.5 (28.0-33.3) pg MCHC 32.7 (31.6-35.5) g/dL RDW 12.9 (11.5-14.5) % Plt Count 259 (140-400) K/mcL MPV 8.1 L (9.4-12.4) fL Immature Gran % 1.0 (0-4) % Seg Neutrophils % 84.8 % Lymphocytes % 10.1 % Monocytes % 3.3 % Eosinophils % 0.5 % Basophils % 0.3 % Neutrophils # 8.6 (1.6-8.9) K/mcL Lymphocytes # 1.0 (0.6-4.6) K/mcL Monocytes # 0.3 (0.0-1.3) K/mcL Eosinophils # 0.1 (0.0-0.6) K/mcL Basophils # 0.0 (0.0-0.2) K/mcL ABG pH (7.32-7.45) pH Units ABG pCO2 (35-45) mmHg ABG pO2 (85-104) mmHg ABG HCO3 (21-27) mEq/L ABG Total CO2 (20-26) mEq/L ABG O2 Saturation (95-98) % ABG Base Excess (-2 to 3) mEq/L O2 Delivery Device Inspired O2 (1-15=lpm [id number]=%) Sodium 138 (136-145) mEq/L Potassium 4.8 (3.5-5.1) mEq/L Chloride 97 L (98-107) mEq/L Carbon Dioxide 35 H (23-29) mEq/L BUN 21 (8-23) mg/dL Creatinine 0.85 (0.70-1.30) mg/dL Est GFR ( Amer) > 60 (> 60) Est GFR (Non-Af Amer) > 60 (> 60) BUN/Creatinine Ratio 25 (6-26) Glucose 150 H (70-105) mg/dL Calculated Osmolality 292 (280-300) Lactic Acid 1.2 (0.5-2.2) mmol/L Calcium 9.2 (8.6-10.3) mg/dL B-Natriuretic Peptide (Less than 100) pg/mL 01/22/18 01/22/18 Range/Units 17:22 17:30 WBC (4.3-11.1) K/mcL RBC (4.19-5.50) M/mcL Hgb (12.9-16.9) g/dL Hct (37.5-50.1) % MCV (83.0-100.0) fL MCH (28.0-33.3) pg MCHC (31.6-35.5) g/dL RDW (11.5-14.5) % Plt Count (140-400) K/mcL MPV (9.4-12.4) fL Immature Gran % (0-4) % Seg Neutrophils % % Lymphocytes % % Monocytes % % Eosinophils % % Basophils % % Neutrophils # (1.6-8.9) K/mcL Lymphocytes # (0.6-4.6) K/mcL Monocytes # (0.0-1.3) K/mcL Eosinophils # (0.0-0.6) K/mcL Basophils # (0.0-0.2) K/mcL ABG pH 7.42 (7.32-7.45) pH Units ABG pCO2 55 H (35-45) mmHg ABG pO2 71 L (85-104) mmHg ABG HCO3 35 H (21-27) mEq/L ABG Total CO2 37 H (20-26) mEq/L ABG O2 Saturation 94 L (95-98) % ABG Base Excess 9 H (-2 to 3) mEq/L O2 Delivery Device Oxy Mask Inspired O2 3.0 (1-15=lpm [id number]=%) Sodium (136-145) mEq/L Potassium (3.5-5.1) mEq/L Chloride (98-107) mEq/L Carbon Dioxide (23-29) mEq/L BUN (8-23) mg/dL Creatinine (0.70-1.30) mg/dL Est GFR ( Amer) (> 60) Est GFR (Non-Af Amer) (> 60) BUN/Creatinine Ratio (6-26) Glucose (70-105) mg/dL Calculated Osmolality (280-300) Lactic Acid (0.5-2.2) mmol/L Calcium (8.6-10.3) mg/dL B-Natriuretic Peptide 328 H (Less than 100) pg/mL - Radiology Data Radiology results reviewed: Yes I reviewed the patient's radiology results. - EKG Data EKG attestation: Yes I reviewed and interpreted this EKG. EKG results narrative: EKG 01/22/18 17:34 Sinus rythym with sinus arrythmia, Rate 98 bpm, NE 140, QRS 93 , QT/QTc 321/[address] changes. Unchanged from EKG of 12/05/17.
--- NOTE | 2018-01-22 17:32 | Emergency Department Note ---
Disposition Clinical Impression: Acute exacerbation of chronic obstructive airways disease Community acquired pneumonia Qualifiers: Laterality: unspecified laterality Qualified Code(s): J18.9 - Pneumonia, unspecified organism Disposition: Admitted As Inpatient Condition: Fair General Adult HPI - General Chief complaint: ED Shortness of Breath/Dyspnea Stated complaint: YARY Time Seen by Provider: 01/22/18 17:08 Source: patient Mode of arrival: wheelchair Limitations: no limitations - History of Present Illness Pain Scale: 0 - Related Data Home Medications Medication Instructions Recorded Confirmed Aspirin [Lo-Dose Aspirin EC] 81 mg PO DAILY 09/28/16 01/22/18 Ipratropium/Albuterol Neb [Duoneb] 3 ml IH Q6HR 09/28/16 01/22/18 Lisinopril [Zestril] 10 mg PO BID 06/27/17 01/22/18 Albuterol Neb [Proventil Neb] 2.5 mg IH Q4HR PRN 11/11/17 01/22/18 Glucagon,Human Recombinant 1 mg IJ AD 11/11/17 01/22/18 [Glucagon Emergency Kit] Insulin DETEMIR [Levemir] 15 - 20 unit SQ DAILY 12/05/17 01/22/18 Previous Rx's Medication Instructions Recorded Acetaminophen [Tylenol] 650 mg PO Q6HR PRN tablet 11/03/17 Carvedilol [Coreg] 6.25 mg PO BIDWM tablet 11/03/17 Divalproex Sodium [Depakote 125 mg PO TID cap.sprink 11/03/17 Sprinkle] Furosemide [Lasix] 20 mg PO DAILY tablet 11/03/17 Nitroglycerin 0.4 mg SL Q5MIN PRN tab.subl 11/03/17 Omeprazole [PriLOSEC] 20 mg PO 0630 capsule. 11/03/17 Quetiapine Fumarate [Seroquel] 25 mg PO BID tablet 11/03/17 Amitriptyline [Elavil] 50 mg PO HS tablet 11/13/17 Atorvastatin [Lipitor] 80 mg PO HS tablet 11/13/17 Docusate [Colace] 100 mg PO BID #60 capsule 11/13/17 Gabapentin [Neurontin] 300 mg PO TID 2 Days #6 capsule 11/13/17 Oxycodone HCl/Acetaminophen 1 tab PO Q4H PRN 2 Days #8 tablet 11/13/17 [Endocet 5-325 Tablet] Allergies Allergy/AdvReac Type Severity Reaction Status Date / Time Erythromycin Base Allergy Hives Verified 12/05/17 09:44 Past Medical History - Past Medical History Medical history: Reports: arthritis, COPD, diabetes, GERD, seizures, TIA Surgical history: Reports: orthopedic, other Psychiatric history: Reports: no psych history - Social History Smoking Status: Former smoker Smokeless Tobacco Status: No Alcohol use: Reports: none Drug use: Reports: none Physical Exam - General Limitations: no limitations General appearance: alert, in no apparent distress Course Vital Signs Temperature 98.1 F 01/22/18 17:16 Pulse Rate 106 01/22/18 17:16 Respiratory Rate 24 01/22/18 17:16 Blood Pressure 144/84 01/22/18 17:16 O2 Sat by Pulse Oximetry 96 01/22/18 17:16 Temperature 97.8 F 01/22/18 21:24 Pulse Rate 104 01/22/18 21:24 Respiratory Rate 18 01/22/18 21:24 Blood Pressure 144/70 01/22/18 21:24 O2 Sat by Pulse Oximetry 95 01/22/18 21:24 Oxygen Delivery Oxygen Delivery Nasal Cannula Medical Decision Making - Lab Data Result diagrams: 01/22/18 17:22 01/22/18 17:22 Lab Results 01/22/18 01/22/18 01/22/18 Range/Units 17:22 17:22 17:22 WBC 10.2 (4.3-11.1) K/mcL RBC 3.58 L (4.19-5.50) M/mcL Hgb 10.2 L (12.9-16.9) g/dL Hct 31.2 L (37.5-50.1) % MCV 87.2 (83.0-100.0) fL MCH 28.5 (28.0-33.3) pg MCHC 32.7 (31.6-35.5) g/dL RDW 12.9 (11.5-14.5) % Plt Count 259 (140-400) K/mcL MPV 8.1 L (9.4-12.4) fL Immature Gran % 1.0 (0-4) % Seg Neutrophils % 84.8 % Lymphocytes % 10.1 % Monocytes % 3.3 % Eosinophils % 0.5 % Basophils % 0.3 % Neutrophils # 8.6 (1.6-8.9) K/mcL Lymphocytes # 1.0 (0.6-4.6) K/mcL Monocytes # 0.3 (0.0-1.3) K/mcL Eosinophils # 0.1 (0.0-0.6) K/mcL Basophils # 0.0 (0.0-0.2) K/mcL ABG pH (7.32-7.45) pH Units ABG pCO2 (35-45) mmHg ABG pO2 (85-104) mmHg ABG HCO3 (21-27) mEq/L ABG Total CO2 (20-26) mEq/L ABG O2 Saturation (95-98) % ABG Base Excess (-2 to 3) mEq/L O2 Delivery Device Inspired O2 (1-15=lpm [id number]=%) Sodium 138 (136-145) mEq/L Potassium 4.8 (3.5-5.1) mEq/L Chloride 97 L (98-107) mEq/L Carbon Dioxide 35 H (23-29) mEq/L BUN 21 (8-23) mg/dL Creatinine 0.85 (0.70-1.30) mg/dL Est GFR ( Amer) > 60 (> 60) Est GFR (Non-Af Amer) > 60 (> 60) BUN/Creatinine Ratio 25 (6-26) Glucose 150 H (70-105) mg/dL Calculated Osmolality 292 (280-300) Lactic Acid 1.2 (0.5-2.2) mmol/L Calcium 9.2 (8.6-10.3) mg/dL B-Natriuretic Peptide (Less than 100) pg/mL 01/22/18 01/22/18 Range/Units 17:22 17:30 WBC (4.3-11.1) K/mcL RBC (4.19-5.50) M/mcL Hgb (12.9-16.9) g/dL Hct (37.5-50.1) % MCV (83.0-100.0) fL MCH (28.0-33.3) pg MCHC (31.6-35.5) g/dL RDW (11.5-14.5) % Plt Count (140-400) K/mcL MPV (9.4-12.4) fL Immature Gran % (0-4) % Seg Neutrophils % % Lymphocytes % % Monocytes % % Eosinophils % % Basophils % % Neutrophils # (1.6-8.9) K/mcL Lymphocytes # (0.6-4.6) K/mcL Monocytes # (0.0-1.3) K/mcL Eosinophils # (0.0-0.6) K/mcL Basophils # (0.0-0.2) K/mcL ABG pH 7.42 (7.32-7.45) pH Units ABG pCO2 55 H (35-45) mmHg ABG pO2 71 L (85-104) mmHg ABG HCO3 35 H (21-27) mEq/L ABG Total CO2 37 H (20-26) mEq/L ABG O2 Saturation 94 L (95-98) % ABG Base Excess 9 H (-2 to 3) mEq/L O2 Delivery Device Oxy Mask Inspired O2 3.0 (1-15=lpm pe30-407=%) Sodium (136-145) mEq/L Potassium (3.5-5.1) mEq/L Chloride (98-107) mEq/L Carbon Dioxide (23-29) mEq/L BUN (8-23) mg/dL Creatinine (0.70-1.30) mg/dL Est GFR ( Amer) (> 60) Est GFR (Non-Af Amer) (> 60) BUN/Creatinine Ratio (6-26) Glucose (70-105) mg/dL Calculated Osmolality (280-300) Lactic Acid (0.5-2.2) mmol/L Calcium (8.6-10.3) mg/dL B-Natriuretic Peptide 328 H (Less than 100) pg/mL Attestation Statement - Attestation Attestation: I examined this patient and my medical decision-making was reviewed with the Resident Physician. I agree with the documented findings, disposition and treatment plan as described except to the extent set forth below. I had face-to -face time with the patient. Patient has a history of severe end-stage COPD. Patient's had increasing shortness of breath with low pulse ox. Had a cough of yellow sputum. Had pneumonia in the past according to family. Physical examination lungs are diminished with diffuse scattered wheezes with prolonged expiratory phase. We will obtain lab work chest x-ray likely require admission.
[2018-01-22 17:35] LABS: ABG Base Excess 9 mEq/L (-2 to 3); ABG HCO3 35 mEq/L (21-27); ABG Oxygen Saturation 94 % (95-98); ABG PCO2 55 mmHg (35-45); ABG PH 7.42 pH Units (7.32-7.45); ABG PO2 71 mmHg (85-104); ABG TCO2 37 mEq/L (20-26)
[2018-01-22] MEDS ORDERED: Furosemide 40 MG/4 ML VIAL IVP ONE (17:36)
[2018-01-22 18:03] LABS: Basophils % 0.3 %; Eosinophils # 0.1 K/mcL (0.0-0.6); Eosinophils % 0.5 %; Hematocrit 31.2 % (37.5-50.1); Hemoglobin 10.2 g/dL (12.9-16.9); Lymphocytes % 10.1 %; Mean Corpuscular HGB Conc 32.7 g/dL (31.6-35.5); Mean Corpuscular Hemoglobin 28.5 pg (28.0-33.3); Mean Corpuscular Volume 87.2 fL (83.0-100.0); Mean Platelet Volume 8.1 fL (9.4-12.4); Monocytes # 0.3 K/mcL (0.0-1.3); Monocytes % 3.3 %; Neutrophils # 8.6 K/mcL (1.6-8.9); Platelet Count 259 K/mcL (140-400); Red Blood Count 3.58 M/mcL (4.19-5.50); Red Cell Distribution Width 12.9 % (11.5-14.5); Segmented Neutrophils % 84.8 %
[2018-01-22 18:18] LABS: BUN/Creatinine Ratio 25 (6-26); Blood Urea Nitrogen 21 mg/dL (8-23); Calcium 9.2 mg/dL (8.6-10.3); Carbon Dioxide 35 mEq/L (23-29); Chloride 97 mEq/L (98-107); Glucose 150 mg/dL (70-105); Osmolality,Calculated 292 (280-300); Potassium 4.8 mEq/L (3.5-5.1); Sodium 138 mEq/L (136-145); eGFR For African Americans > 60 (> 60); eGFR For Non-African Americans > 60 (> 60)
[2018-01-22] MEDS ORDERED: Levofloxacin 750 MG/150 ML 750 MG/150 ML BAG IVPB ONE (19:15)
[2018-01-22] MEDS ORDERED: D5% in Water 1,000 ML IVC PRN (20:36)
[2018-01-22] MEDS ORDERED: *HR* Dextrose 50 % in Water (Syg) 50 ML SYRINGE IVP PRN (20:36)
[2018-01-22] MEDS ORDERED: Dextrose Gel 15 GM/37.5 ML TUBE PO PRN ×2 (20:36)
[2018-01-22] MEDS ORDERED: Naloxone 0.4 MG/ML INJ IVP PRN (20:37)
[2018-01-22] MEDS ORDERED: Ipratropium/Albuterol Neb 3 ML IH PRN (20:38)
--- NOTE | 2018-01-22 20:45 | Internal Med History&Physical ---
Date of Encounter: 01/22/18 Time of Encounter: 20:42 Internal Medicine - H&P: HPI Chief complaint: SOB History of present illness: Mr. Quinn is a 82 year old male with history of chronic congestive heart failure, COPD on chronic 2 L nasal cannula who presents with COPD exacerbation and pneumonia. He lives at home in the same property with his daughter. He follows with Dr. Rhodes of pulmonology and Dr. Santos - PCP. He was seen in the clinic by his PCP today and was found to be hypoxic with pulse ox in the 68% on 3 L oxygen and therefore sent to the ED for admission. Consult of symptoms she complained of 4-5 days of shortness of breath, worse on exertion, improved with rest. He has a history of smoking for 60 years but quit in 2004. Denies any fevers and chills but reported increase in yellow productive cough. Did not get better with time which was reason he visited his PCP today EKG personally reviewed with rate of 98, normal sinus rhythm XR/XR chest 1V portable IMPRESSION: Severe emphysema. Bibasilar airspace disease, greater on the left, suspicious for pneumonia. Past Med Surg Social Fam HX - Past Medical History Medical history: arthritis, COPD, diabetes, GERD, seizures, TIA Additional medical history: emphysema Psychiatric history: no psych history - Past Surgical History Surgical History: orthopedic, other Additional surgical history: two back sx- discs removed from upper and lower back - Social History Smoking Status: Former smoker Smokeless Tobacco Status: No Alcohol use: none Drug use: none - Family History Father Adopted: No Family Member Ethnicity: Non- Living Status: Hx Family Cardiac Disorders: No Hx Family Respiratory Disorders: No Hx Family Cancer: Yes (Leukemia, Prostate) Hx Family GI Disorders: No Hx Family Endocrine Disorder: No Hx Family Neuromuscular Disorders: No Hx Family Neurologic Disorders: No Hx Family HEENT Disorders: No Hx Family Autoimmune Disorders: No Mother Adopted: No Family Member Ethnicity: Non- Living Status: Hx Family Cardiac Disorders: No Hx Family Respiratory Disorders: No Hx Family Cancer: No Hx Family GI Disorders: No Hx Family Endocrine Disorder: No Hx Family Neuromuscular Disorders: No Hx Family Neurologic Disorders: No Hx Family HEENT Disorders: No Hx Family Autoimmune Disorders: No Brother Family Member Ethnicity: Non- Living Status: Hx Family Cardiac Disorders: No Hx Family Respiratory Disorders: No Hx Family Cancer: Yes (Esophageal) Hx Family GI Disorders: No Hx Family Endocrine Disorder: No Hx Family Neuromuscular Disorders: No Hx Family Neurologic Disorders: No Hx Family HEENT Disorders: No Hx Family Autoimmune Disorders: No Sister Family Member Ethnicity: Non- Living Status: Hx Family Cardiac Disorders: No Hx Family Cancer: Yes (Kidney) Hx Family GI Disorders: No Hx Family Endocrine Disorder: Yes (Type 2 diabetes) Hx Family Neuromuscular Disorders: No Hx Family Neurologic Disorders: No Hx Family HEENT Disorders: No Hx Family Autoimmune Disorders: No Internal Medicine - H&P: Meds Aspirin [Lo-Dose Aspirin EC] 81 mg PO DAILY 09/28/16 [History] Ipratropium/Albuterol Neb [Duoneb] 3 ml IH Q6HR 09/28/16 [History] Lisinopril [Zestril] 10 mg PO BID 06/27/17 [History] Acetaminophen [Tylenol] 650 mg PO Q6HR PRN tablet 11/03/17 [Rx] Carvedilol [Coreg] 6.25 mg PO BIDWM tablet 11/03/17 [Rx] Divalproex Sodium [Depakote Sprinkle] 125 mg PO TID cap.sprink 11/03/17 [Rx] Furosemide [Lasix] 20 mg PO DAILY tablet 11/03/17 [Rx] Nitroglycerin 0.4 mg SL Q5MIN PRN tab.subl 11/03/17 [Rx] Omeprazole [PriLOSEC] 20 mg PO 0630 capsule. 11/03/17 [Rx] Quetiapine Fumarate [Seroquel] 25 mg PO BID tablet 11/03/17 [Rx] Albuterol Neb [Proventil Neb] 2.5 mg IH Q4HR PRN 11/11/17 [History] Glucagon,Human Recombinant [Glucagon Emergency Kit] 1 mg IJ AD 11/11/17 [History ] Amitriptyline [Elavil] 50 mg PO HS tablet 11/13/17 [Rx] Atorvastatin [Lipitor] 80 mg PO HS tablet 11/13/17 [Rx] Docusate [Colace] 100 mg PO BID #60 capsule 11/13/17 [Rx] Gabapentin [Neurontin] 300 mg PO TID 2 Days #6 capsule 11/13/17 [Rx] Oxycodone HCl/Acetaminophen [Endocet 5-325 Tablet] 1 tab PO Q4H PRN 2 Days #8 tablet 11/13/17 [Rx] Insulin DETEMIR [Levemir] 15 - 20 unit SQ DAILY 12/05/17 [History] 3 Allergy/AdvReac Type Severity Reaction Status Date / Time Erythromycin Base Allergy Hives Verified 12/05/17 09:44 All Systems PM: A 10-system review of systems was performed and is negative for pertinent findings except as documented above in the HPI. Review of systems: ROS 14 point review of systems reviewed as best as possible given presentation. Pertinent positive or negative as per HPI or otherwise reviewed as negative - Constitutional Vitals: Temp Pulse Resp BP Pulse Ox 98.1 F 105 18 138/82 94 01/22/18 17:16 01/22/18 20:20 01/22/18 20:20 01/22/18 20:20 01/22/18 20:20 Exam: General - AAO x 3 Psych - Appropriate affect/speech. No agitation Eyes - [place]. Eye lids intact. No scleral icterus Neuro - No gross peripheral or central neuro deficits on inspection Heart - Sinus. RRR. S1 and S2 present. No added HS/murmurs appreciated. No elevated JVD appreciated. Lung - Adequate air entry b/l, bibasal crackles, diffuse wheezes appreciated GI - Soft, non-tender. No hepatosplenomegaly/ascites. BS+ - No CVA/suprapubic tenderness or palpable bladder distension Skin - Intact. No rash/petechiae/ecchymosis. Warm extremities. +1 bilateral edema Internal Med - H&P Results - Labs CBC & Chem 7: 01/22/18 17:22 01/22/18 17:22 - Assessment and plan (1) Acute exacerbation of chronic obstructive airways disease Current Visit: Yes Status: Acute Assessment and plan: Duo nebs, IV steroids, IV antibiotics (2) Community acquired pneumonia Current Visit: Yes Status: Acute Assessment and plan: Send serologies, empiric Levaquin IV Incentive spirometry Qualifiers: Laterality: unspecified laterality Qualified Code(s): J18.9 - Pneumonia, unspecified organism (3) Chronic respiratory failure Current Visit: Yes Status: Acute Assessment and plan: On 3 L nasal cannula Qualifiers: Respiratory failure complication: hypoxia Qualified Code(s): J96.11 - Chronic respiratory failure with hypoxia (4) Chronic congestive heart failure Current Visit: No Status: Acute Assessment and plan: No acute symptoms Qualifiers: Heart failure type: combined systolic and diastolic Qualified Code(s): I50.42 - Chronic combined systolic (congestive) and diastolic (congestive) heart failure (5) CVA (cerebral vascular accident) Current Visit: No Status: Chronic Assessment and plan: 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
[2018-01-22] MEDS: Divalproex Sodium 125 MG CAPSULE PO SCH (21:46)
[2018-01-22] MEDS: Gabapentin 300 MG CAPSULE PO SCH (21:46)
[2018-01-22] MEDS: *HR* OxyCODONE/APAP 5/325 TABLET PO PRN (21:46)
[2018-01-22] MEDS: Insulin LISPRO 300 UNITS/3 ML VIAL SQ SCH (21:48)
[2018-01-22] MEDS: Ipratropium/Albuterol Neb 3 ML IH SCH (23:37)
[2018-01-23] MEDS: MethylPREDNISolone 40 MG/ML VIAL IVP SCH ×2 (00:16→05:59)
[2018-01-23] MEDS: Acetaminophen 325 MG TABLET PO PRN ×2 (00:17→16:55)
[2018-01-23] MEDS: *HR* OxyCODONE/APAP 5/325 TABLET PO PRN ×6 (01:52→22:42)
[2018-01-23] MEDS: Ipratropium/Albuterol Neb 3 ML IH SCH ×4 (04:45→22:08)
[2018-01-23 06:01] LABS: Basophils % 0.1 %; Hematocrit 29.9 % (37.5-50.1); Hemoglobin 10.1 g/dL (12.9-16.9); Immature Granulocytes % 0.8 % (0-4); Lymphocytes # 0.8 K/mcL (0.6-4.6); Lymphocytes % 10.7 %; Mean Corpuscular HGB Conc 33.8 g/dL (31.6-35.5); Mean Corpuscular Hemoglobin 28.5 pg (28.0-33.3); Mean Corpuscular Volume 84.5 fL (83.0-100.0); Mean Platelet Volume 8.3 fL (9.4-12.4); Monocytes # 0.1 K/mcL (0.0-1.3); Monocytes % 0.9 %; Neutrophils # 6.5 K/mcL (1.6-8.9); Platelet Count 257 K/mcL (140-400); Red Blood Count 3.54 M/mcL (4.19-5.50); Red Cell Distribution Width 12.7 % (11.5-14.5); Segmented Neutrophils % 87.5 %
[2018-01-23 06:20] LABS: BUN/Creatinine Ratio 29 (6-26); Blood Urea Nitrogen 24 mg/dL (8-23); Calcium 9.2 mg/dL (8.6-10.3); Carbon Dioxide 33 mEq/L (23-29); Chloride 93 mEq/L (98-107); Glucose 170 mg/dL (70-105); Magnesium 1.7 mg/dL (1.6-2.6); Osmolality,Calculated 290 (280-300); Potassium 4.1 mEq/L (3.5-5.1); Sodium 136 mEq/L (136-145); eGFR For African Americans > 60 (> 60); eGFR For Non-African Americans > 60 (> 60)
--- NOTE | 2018-01-23 07:19 | Electrocardiograph Report ---
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
[2018-01-23] MEDS ORDERED: NON-FORMULARY MEDICATION 1 EACH EACH (Insulin Detemir 15 UNIT) SQ SCH (09:00)
[2018-01-23] MEDS: Gabapentin 300 MG CAPSULE PO SCH ×3 (10:05→20:03)
[2018-01-23] MEDS: Aspirin Enteric Coated 81 MG Tablet PO SCH (10:05)
[2018-01-23] MEDS: Insulin DETEMIR 100 UNIT/ML X5UNITS SQ SCH (10:06)
[2018-01-23] MEDS: Divalproex Sodium 125 MG CAPSULE PO SCH ×3 (10:06→20:03)
[2018-01-23] MEDS: Furosemide 20 MG TABLET PO SCH (10:06)
[2018-01-23] MEDS: Insulin LISPRO 300 UNITS/3 ML VIAL SQ SCH ×4 (10:07→21:38)
[2018-01-23] MEDS ORDERED: Isovue-370 500 ML INFUS..BTL IV ONE (10:54)
--- NOTE | 2018-01-23 11:14 | Internal Med Progress Note ---
Addendum entered and electronically signed by Andrés Clark DO 01/23/18 13:15 : Addition to the section on Assessment and Plan: Sepsis: Now resolved 2/4 SIRS criteria present on admission tachycardia and tachypnea Likely due to bronchitis vs CAP Lactic Acid 1.2 History of CHF with last EF in October of 20-25% Careful with any supplemental fluids Continued plan under section for Acute Exacerbation of COPD Acute on Chronic Respiratory Failure with hypoxia and hypercapnia: Due to acute exacerbation of COPD, possible pna vs bronchitis, or PE (less likely) Continue supplemental oxygen as needed, wean to home dose O2 when possible Further plan under section for Acute Exacerbation of COPD Original Note: <Andrés Clark - Last Filed: 01/23/18 11:02> Date of Encounter: 01/23/18 Time of Encounter: 10:30 - Assessment and plan (1) Acute exacerbation of chronic obstructive airways disease Current Visit: Yes Status: Acute Assessment and plan: Acute exacerbation of COPD due to bronchitis or pneumonia Patient has history of COPD Concern for PE given continued tachycardia, hypoxia, and description of sharp pain Patient does admit to being sedentary at home, though no prior history of DVT himself Patient does report daughter has had multiple DVTs in the past Do not suspect acute exacerbation of CHF at this time Rales and wheezing present at admission Patient started on IV steroids, breathing treatments, and antibiotics Chest x-ray suspicious for pneumonia, though upon review of the images personally appears to be improved from prior imaging on 12/04/17\\ Patient reports having some difficulty with Levaquin in the past, he describes having "yeast infection in his lungs" whenever he gets Levaquin that is improved fluconazole We will transition patient steroids to prednisone 40 mg daily We will stop Levaquin and start IV ceftriaxone 1000 mg daily Day 1 of ceftriaxone We will obtain pro-calcitonin Check CTA for follow-up of previous CTA evaluation for PE Continue breathing treatments with duo nebs (2) Community acquired pneumonia Current Visit: Yes Status: Suspected Assessment and plan: Plan as above Qualifiers: Laterality: unspecified laterality Qualified Code(s): J18.9 - Pneumonia, unspecified organism (3) Chronic respiratory failure Current Visit: Yes Status: Acute Assessment and plan: On 3 L home O2 via nasal cannula Currently requiring 4 L to maintain adequate oxygen saturations with frequent desaturations with movement or talking Patient has no current complaints of dyspnea although his requiring higher level of oxygen Plan as above Qualifiers: Respiratory failure complication: hypoxia Qualified Code(s): J96.11 - Chronic respiratory failure with hypoxia (4) CVA (cerebral vascular accident) Current Visit: No Status: Chronic Assessment and plan: History of frontal lobe CVA with behavioral changes on medicines Continue home medications Qualifiers: CVA mechanism: thrombosis Precerebral and cerebral artery: unspecified cerebral artery Qualified Code(s): 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 (5) Chronic congestive heart failure Current Visit: No Status: Chronic Assessment and plan: No acute symptoms Continue medications Qualifiers: Heart failure type: combined systolic and diastolic Qualified Code(s): I50.42 - Chronic combined systolic (congestive) and diastolic (congestive) heart failure (6) Bronchitis Current Visit: Yes Status: Suspected Assessment and plan: Plan as above - Time Spent With Patient Total time spent is greater than 50% in coordination of care (as documented) at patient's floor/unit and/or counseling patient: - Subjective Interval history: Patient reports 5 days prior to admission he began having shortness of breath, cough (productive for yellow sputum), and sharp, pleuritic chest pain is left lower lobe. 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 On admission he had tachycardia, tachypnea, and hypoxia but no fever or leukocytosis. Chest x-ray performed at that time was suspicious for pneumonia in the left lower lobe. ABG performed showed normal pH with decreased PO2 and increased PCO2. On review of prior imaging, patient has significant chronic changes in bilateral lungs. A CTA performed on 10/22/17 showed improvement of bilateral pleural effusions, improvement in prior upper lobe pneumonia, persistent basilar subpleural opacity left lower lobe (with new tree-in-bud opacities with recommended CT follow-up in 6-8 weeks), stable mild subpleural atelectasis in the right lung, chronic severe emphysema, stable mild mediastinal bilateral lymphadenopathy. A chest x-ray performed on 12/04/17 showed unchanged multifocal interstitial prominence that was likely chronic. His most recent chest x-ray performed on 01/22/18 appeared to show some improvement from that. Patient is resting comfortably, sitting on the side of the bed. He complains of continued left lower chest pain described as sharp and pleuritic. He states he has had improvement in his cough and dyspnea since admission. He denies having any urinary problems, chest pain, fever or chills. - Constitutional Vitals: Temp Pulse Resp BP Pulse Ox 98.5 F 98 17 120/48 94 01/23/18 06:55 01/23/18 06:55 01/23/18 06:55 01/23/18 06:55 01/23/18 09:45 General appearance: Present: cooperative, A&O X 3, pleasant, answers questions appropriately Exam: General: Cooperative, pleasant, no acute distress, alert and oriented 3, answers questions appropriately HEENT: Normocephalic, atraumatic, neck supple, trachea midline, sclera anicteric , EOMI, oral mucosa moist, no orophargeal erythema or exudates Respiratory: No accessory muscle usage, clear to auscultation bilaterally, no wheezes/rhonchi/rales appreciated Cardiovascular: Mild tachycardia, regular rhythm, S1 and S2 present, no murmurs/ rubs/gallops/clicks appreciated GI/abdominal: Nondistended, nontender, soft, normal bowel sounds, no peritoneal signs Extremities: No calf tenderness, varicose veins present, noncyanotic, no pedal edema appreciated, warm, lower extremity pulses palpable and symmetrical Neurological: Alert and oriented 3, no facial droop, no focal deficits Skin: Dry, intact, normal color Internal Medicine: Result - Labs CBC & Chem 7: 01/23/18 05:34 01/23/18 05:34 Labs: Short CBC 01/23/18 Range/Units 05:34 WBC 7.4 (4.3-11.1) K/mcL Hgb 10.1 L (12.9-16.9) g/dL Hct 29.9 L (37.5-50.1) % Plt Count 257 (140-400) K/mcL Neutrophils # 6.5 (1.6-8.9) K/mcL BMP 01/23/18 05:34 Sodium 136 Potassium 4.1 Chloride 93 L Carbon Dioxide 33 H BUN 24 H Creatinine 0.84 Glucose 170 H Calcium 9.2 - ABG Interpretation ABG results: ABG ABG pH 7.42 pH Units (7.32-7.45) 01/22/18 17:30 ABG pCO2 55 mmHg (35-45) H 01/22/18 17:30 ABG pO2 71 mmHg (85-104) L 01/22/18 17:30 ABG O2 Saturation 94 % (95-98) L 01/22/18 17:30 Consult Discharge Plan - Plan Referrals: Gerry Smith [Partnered Physician] - 01/31/18 10:00 am <Alber Padilla - Last Filed: 01/23/18 17:09> Date of Encounter: 01/23/18 - Assessment and plan (1) CVA (cerebral vascular accident) Current Visit: No Status: Chronic Qualifiers: CVA mechanism: thrombosis Precerebral and cerebral artery: unspecified cerebral artery Qualified Code(s): 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 (2) Chronic congestive heart failure Current Visit: No Status: Chronic Qualifiers: Heart failure type: combined systolic and diastolic Qualified Code(s): I50.42 - Chronic combined systolic (congestive) and diastolic (congestive) heart failure (3) Acute exacerbation of chronic obstructive airways disease Current Visit: Yes Status: Acute (4) Community acquired pneumonia Current Visit: Yes Status: Suspected Qualifiers: Laterality: unspecified laterality Qualified Code(s): J18.9 - Pneumonia, unspecified organism (5) Chronic respiratory failure Current Visit: Yes Status: Acute Qualifiers: Respiratory failure complication: hypoxia Qualified Code(s): J96.11 - Chronic respiratory failure with hypoxia (6) Bronchitis Current Visit: Yes Status: Suspected - Time Spent With Patient Total time spent is greater than 50% in coordination of care (as documented) at patient's floor/unit and/or counseling patient: - Constitutional Vitals: Temp Pulse Resp BP Pulse Ox 97.4 F L 76 18 116/32 94 01/23/18 14:44 01/23/18 14:44 01/23/18 15:52 01/23/18 14:44 01/23/18 15:52 Internal Medicine: Result - Labs CBC & Chem 7: 01/23/18 05:34 01/23/18 05:34 Labs: Short CBC 01/23/18 Range/Units 05:34 WBC 7.4 (4.3-11.1) K/mcL Hgb 10.1 L (12.9-16.9) g/dL Hct 29.9 L (37.5-50.1) % Plt Count 257 (140-400) K/mcL Neutrophils # 6.5 (1.6-8.9) K/mcL BMP 01/23/18 05:34 Sodium 136 Potassium 4.1 Chloride 93 L Carbon Dioxide 33 H BUN 24 H Creatinine 0.84 Glucose 170 H Calcium 9.2 - ABG Interpretation ABG results: ABG ABG pH 7.42 pH Units (7.32-7.45) 01/22/18 17:30 ABG pCO2 55 mmHg (35-45) H 01/22/18 17:30 ABG pO2 71 mmHg (85-104) L 01/22/18 17:30 ABG O2 Saturation 94 % (95-98) L 01/22/18 17:30 - Impressions Impressions Chest CTA 01/23/18 13:00 IMPRESSION: No evidence of pulmonary embolism. New bilateral airspace disease and persistent tree-in-bud opacities in the left lower lobe. Findings are likely infectious/ inflammatory and may represent recurrent aspiration. Consider follow-up CT in 3 months after treatment. Severe emphysematous changes. D/ / Victor Manuel Scott MD / Victor Manuel Scott MD Interpreting Provider: Victor Manuel Scott MD - Attending Attestation I performed an independent interview and exam of this patient. I agree with the findings, assessment, and plan of Cesar Clark, internal medicine resident. I discussed the case with him in detail and this note is reflected of my input. Patient states he is improved. He is back on 3 L of oxygen as per his baseline oxygen. He has a scant cough. CT of his chest showed bilateral airspace disease with persistent tree-in-bud opacities in the left lower lobe concerning for infectious and/or inflammatory changes. Cannot rule out aspiration. Patient is day #1 of Rocephin. I will also add azithromycin. Speech and language pathology consult to evaluate for aspiration. Pt does admit that he chokes periodically. Exam: Thin, elderly, pleasant, conversant, awake alert and oriented 3 Skin warm and dry Lungs showed diminished breath sounds at the bases Heart regular rate and rhythm Abdomen Nontender Extremities no edema I discussed the case with the patient his and daughter. We will continue current therapy. Monitor. No evidence of acute decompensated CHF.
[2018-01-23] MEDS: predniSONE 20 MG TABLET PO SCH (11:51)
[2018-01-23] MEDS ORDERED: Levofloxacin 500 MG/100 ML 500 MG/100 ML BAG IVPB SCH (18:00)
[2018-01-23] MEDS: levoFLOXacin 750 MG TABLET PO SCH (18:37)
[2018-01-24] MEDS: *HR* OxyCODONE/APAP 5/325 TABLET PO PRN ×5 (03:23→22:34)
[2018-01-24] MEDS: Ipratropium/Albuterol Neb 3 ML IH SCH ×4 (04:27→23:02)
[2018-01-24 05:19] LABS: Basophils % 0.1 %; Hematocrit 30.1 % (37.5-50.1); Immature Granulocytes % 0.6 % (0-4); Lymphocytes # 1.9 K/mcL (0.6-4.6); Lymphocytes % 12.7 %; Mean Corpuscular HGB Conc 33.2 g/dL (31.6-35.5); Mean Corpuscular Hemoglobin 28.2 pg (28.0-33.3); Mean Corpuscular Volume 84.8 fL (83.0-100.0); Mean Platelet Volume 8.2 fL (9.4-12.4); Monocytes # 0.9 K/mcL (0.0-1.3); Monocytes % 6.3 %; Platelet Count 247 K/mcL (140-400); Red Blood Count 3.55 M/mcL (4.19-5.50); Red Cell Distribution Width 12.8 % (11.5-14.5); Segmented Neutrophils % 80.3 %
[2018-01-24 05:41] LABS: BUN/Creatinine Ratio 33 (6-26); Blood Urea Nitrogen 32 mg/dL (8-23); Carbon Dioxide 30 mEq/L (23-29); Chloride 95 mEq/L (98-107); Glucose 105 mg/dL (70-105); Osmolality,Calculated 285 (280-300); Potassium 4.1 mEq/L (3.5-5.1); Sodium 134 mEq/L (136-145); eGFR For African Americans > 60 (> 60); eGFR For Non-African Americans > 60 (> 60)
[2018-01-24] MEDS: *HR* Enoxaparin 40 MG/0.4 ML SYRINGE SQ SCH (06:02)
[2018-01-24] MEDS: Gabapentin 300 MG CAPSULE PO SCH ×3 (08:34→20:38)
[2018-01-24] MEDS: Furosemide 20 MG TABLET PO SCH (08:34)
[2018-01-24] MEDS: Aspirin Enteric Coated 81 MG Tablet PO SCH (08:34)
[2018-01-24] MEDS: predniSONE 20 MG TABLET PO SCH (08:35)
[2018-01-24] MEDS: Insulin LISPRO 300 UNITS/3 ML VIAL SQ SCH ×4 (08:35→21:18)
[2018-01-24] MEDS: Divalproex Sodium 125 MG CAPSULE PO SCH ×3 (08:35→20:38)
[2018-01-24] MEDS: levoFLOXacin 750 MG TABLET PO SCH (08:35)
[2018-01-24] MEDS: Insulin DETEMIR 100 UNIT/ML X5UNITS SQ SCH (08:39)
[2018-01-24] MEDS ORDERED: cefTRIAXone 1,000 MG in 0.9 % Sodium Chloride Mini Bag 100 ML IVPB SCH (09:00)
--- NOTE | 2018-01-24 17:18 | Internal Med Progress Note ---
Date of Encounter: 01/24/18 Time of Encounter: 10:00 - Assessment and plan (1) Community acquired pneumonia Current Visit: Yes Status: Suspected Assessment and plan: 01/24: Patient is day #3 antibiotics. Currently Levaquin given concern for atypical pneumonia based on CAT scan. H&H is intolerant of azithromycin. CT scan of thorax showed bilateral airspace disease and persistent tree-in-bud opacities in the left lower lobe. Concerning for infection, inflammatory versus aspiration. Swallow evaluation ordered. Does not respond consider pulmonary consultation, question if bronchoscopy will be warranted if does not improve. Qualifiers: Laterality: unspecified laterality Qualified Code(s): J18.9 - Pneumonia, unspecified organism (2) Acute exacerbation of chronic obstructive airways disease Current Visit: Yes Status: Acute Assessment and plan: Acute exacerbation of COPD due to bronchitis or pneumonia Patient has history of COPD Concern for PE given continued tachycardia, hypoxia, and description of sharp pain Patient does admit to being sedentary at home, though no prior history of DVT himself Patient does report daughter has had multiple DVTs in the past Do not suspect acute exacerbation of CHF at this time Rales and wheezing present at admission Patient started on IV steroids, breathing treatments, and antibiotics Chest x-ray suspicious for pneumonia, though upon review of the images personally appears to be improved from prior imaging on 12/04/17\\ Patient reports having some difficulty with Levaquin in the past, he describes having "yeast infection in his lungs" whenever he gets Levaquin that is improved fluconazole We will transition patient steroids to prednisone 40 mg daily We will stop Levaquin and start IV ceftriaxone 1000 mg daily Day 1 of ceftriaxone We will obtain pro-calcitonin Check CTA for follow-up of previous CTA evaluation for PE Continue breathing treatments with duo nebs 01/24: Patient continues on prednisone, bronchodilators and mucolytic. Not significantly improved today. Continue current treatment. (3) CVA (cerebral vascular accident) Current Visit: No Status: Chronic Assessment and plan: History of frontal lobe CVA with behavioral changes on medicines Continue home medications Qualifiers: CVA mechanism: thrombosis Precerebral and cerebral artery: unspecified cerebral artery Qualified Code(s): 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 (4) Chronic congestive heart failure Current Visit: No Status: Chronic Assessment and plan: No acute symptoms Continue medications 01/24: I do not believe patient has acutely decompensated CHF. Has a known history of chronic systolic CHF. Continue to monitor for any signs of volume overload. Continue Coreg 6.25 mg by mouth twice a day, Zestril 10 mg by mouth twice a day. Monitor. Qualifiers: Heart failure type: combined systolic and diastolic Qualified Code(s): I50.42 - Chronic combined systolic (congestive) and diastolic (congestive) heart failure (5) Chronic respiratory failure Current Visit: Yes Status: Acute Assessment and plan: On 3 L home O2 via nasal cannula Currently requiring 4 L to maintain adequate oxygen saturations with frequent desaturations with movement or talking Patient has no current complaints of dyspnea although his requiring higher level of oxygen 01/24: Patient has acute on chronic hypoxemic respiratory failure. Continue to monitor and wean as able. Aim for oxygen saturation of 90-91%. Qualifiers: Respiratory failure complication: hypoxia Qualified Code(s): J96.11 - Chronic respiratory failure with hypoxia (6) Bronchitis Current Visit: Yes Status: Suspected Assessment and plan: Plan as above I discussed the case with the patient and her daughter today. We will continue current treatment and reassess. Monitor. - Time Spent With Patient Total time spent is greater than 50% in coordination of care (as documented) at patient's floor/unit and/or counseling patient: 25 - 35 minutes - Subjective Interval history: Mr. Quinn is a 82 year old male with history of chronic congestive heart failure, COPD on chronic 2 L nasal cannula who presents with COPD exacerbation and pneumonia. He lives at home in the same property with his daughter. He follows with Dr. Rhodes of pulmonology and Dr. Santos - PCP. He was seen in the clinic by his PCP today and was found to be hypoxic with pulse ox in the 68% on 3 L oxygen and therefore sent to the ED for admission. Consult of symptoms she complained of 4-5 days of shortness of breath, worse on exertion, improved with rest. He has a history of smoking for 60 years but quit in 2004. Denies any fevers and chills but reported increase in yellow productive cough. Did not get better with time which was reason he visited his PCP today EKG personally reviewed with rate of 98, normal sinus rhythm 01/24: Patient states he feels short of breath today. Not much better. White blood cell count is increased but he has been started on steroids. He continues on oxygen of 4 L per nasal cannula. Remains afebrile. Vitals otherwise stable. He has a scant cough. No chest pain. No nausea, vomiting, diarrhea. No fevers or chills. - Constitutional Vitals: Temp Pulse Resp BP Pulse Ox 97.4 F L 92 24 156/56 94 01/24/18 14:32 01/24/18 11:48 01/24/18 14:32 01/24/18 14:32 01/24/18 11:48 General appearance: Present: cooperative, A&O X 3, pleasant, answers questions appropriately Exam: Thin, temporal wasting Mild conversational dyspnea - Head Head exam: Present: atraumatic, normocephalic - Eye Eye exam: Present: PERRL, conjuntiva pink, sclera anicteric Pupils: Present: PERRL - Neck Neck exam general surgery: Present: supple, trachea midline. Absent: lymphadenopathy - Respiratory Respiratory exam: Present: decreased breath sounds. Absent: accessory muscle use, rales, rhonchi, wheezes - Cardiovascular Cardiovascular exam: Present: RRR, +S1, +S2. Absent: diastolic murmur, gallop, rubs, systolic murmur - GI/Abdominal GI/Abdominal exam: Present: normal bowel sounds, soft, no peritoneal signs. Absent: distended, tenderness - Extremities Exam Extremities exam: Present: warm, radial pulses palpable and symmetrical. Absent : calf tenderness, cyanotic, pedal edema - Neurological Exam Neurological exam: Present: CN II-XII intact, oriented X3, no focal deficits. Absent: pronater drift, facial droop, speech deficit - Skin Skin exam: Present: dry, intact Internal Medicine: Result - Labs CBC & Chem 7: 01/24/18 05:08 01/24/18 05:08 Labs: Short CBC 01/24/18 Range/Units 05:08 WBC 14.9 H D (4.3-11.1) K/mcL Hgb 10.0 L (12.9-16.9) g/dL Hct 30.1 L (37.5-50.1) % Plt Count 247 (140-400) K/mcL Neutrophils # 12.0 H (1.6-8.9) K/mcL BMP 01/24/18 05:08 Sodium 134 L Potassium 4.1 Chloride 95 L Carbon Dioxide 30 H BUN 32 H Creatinine 0.98 Glucose 105 Calcium 9.0 - ABG Interpretation ABG results: ABG ABG pH 7.42 pH Units (7.32-7.45) 01/22/18 17:30 ABG pCO2 55 mmHg (35-45) H 01/22/18 17:30 ABG pO2 71 mmHg (85-104) L 01/22/18 17:30 ABG O2 Saturation 94 % (95-98) L 01/22/18 17:30 Consult Discharge Plan - Plan Referrals: Gerry Smith [Partnered Physician] - 01/31/18 10:00 am
[2018-01-25] MEDS: *HR* OxyCODONE/APAP 5/325 TABLET PO PRN ×3 (02:40→11:23)
[2018-01-25] MEDS: Ipratropium/Albuterol Neb 3 ML IH SCH ×2 (04:28→10:21)
[2018-01-25] MEDS: *HR* Enoxaparin 40 MG/0.4 ML SYRINGE SQ SCH (06:40)
[2018-01-25 09:26] LABS: Basophils % 0.2 %; Eosinophils % 0.3 %; Hematocrit 34.3 % (37.5-50.1); Lymphocytes % 18.9 %; Mean Corpuscular HGB Conc 32.1 g/dL (31.6-35.5); Mean Corpuscular Hemoglobin 27.5 pg (28.0-33.3); Mean Corpuscular Volume 85.8 fL (83.0-100.0); Mean Platelet Volume 8.4 fL (9.4-12.4); Monocytes # 1.5 K/mcL (0.0-1.3); Monocytes % 9.3 %; Neutrophils # 11.1 K/mcL (1.6-8.9); Platelet Count 302 K/mcL (140-400); Red Cell Distribution Width 13.2 % (11.5-14.5); Segmented Neutrophils % 70.3 %
[2018-01-25] MEDS: Insulin LISPRO 300 UNITS/3 ML VIAL SQ SCH ×2 (09:32→11:23)
[2018-01-25 09:50] LABS: BUN/Creatinine Ratio 30 (6-26); Blood Urea Nitrogen 24 mg/dL (8-23); Carbon Dioxide 35 mEq/L (23-29); Chloride 97 mEq/L (98-107); Glucose 81 mg/dL (70-105); Osmolality,Calculated 291 (280-300); Potassium 3.8 mEq/L (3.5-5.1); Sodium 139 mEq/L (136-145); eGFR For African Americans > 60 (> 60); eGFR For Non-African Americans > 60 (> 60)
[2018-01-25] MEDS: Aspirin Enteric Coated 81 MG Tablet PO SCH (10:04)
[2018-01-25] MEDS: Divalproex Sodium 125 MG CAPSULE PO SCH (10:05)
[2018-01-25] MEDS: predniSONE 20 MG TABLET PO SCH (10:05)
[2018-01-25] MEDS: levoFLOXacin 750 MG TABLET PO SCH (10:05)
[2018-01-25] MEDS: Gabapentin 300 MG CAPSULE PO SCH (10:05)
[2018-01-25] MEDS: Furosemide 20 MG TABLET PO SCH (10:05)
[2018-01-25] MEDS: Insulin DETEMIR 100 UNIT/ML X5UNITS SQ SCH (10:12)
[2018-01-25 11:20] VITALS: BP 116/55
--- NOTE | 2018-01-25 12:02 | Discharge Summary ---
Orders not resulted at time of discharge: Pending orders 01/22/18 20:40 Legionella Antigen [RM] Routine Respiratory Infection Panel [MOLMIC] Routine S. Pneumoniae Antigen [RM] Routine 01/22/18 21:17 Mycoplasma pneumoniae IgG IgM Routine 01/23/18 12:54 Procalcitonin Routine Date of Encounter: 01/25/18 Time of Encounter: 10:00 - Discharge Diagnosis (1) Community acquired pneumonia Priority: Primary Status: Suspected Qualifiers: Laterality: unspecified laterality Qualified Code(s): J18.9 - Pneumonia, unspecified organism (2) Acute exacerbation of chronic obstructive airways disease Priority: Secondary Status: Acute (3) CVA (cerebral vascular accident) Priority: Secondary Status: Chronic Qualifiers: CVA mechanism: thrombosis Precerebral and cerebral artery: unspecified cerebral artery Qualified Code(s): 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 (4) Chronic congestive heart failure Priority: Secondary Status: Chronic Qualifiers: Heart failure type: combined systolic and diastolic Qualified Code(s): I50.42 - Chronic combined systolic (congestive) and diastolic (congestive) heart failure (5) Chronic respiratory failure Priority: Secondary Status: Acute Qualifiers: Respiratory failure complication: hypoxia Qualified Code(s): J96.11 - Chronic respiratory failure with hypoxia (6) Bronchitis Priority: Secondary Status: Suspected Hospital course: Mr. Quinn is a 82 year old male with history of chronic congestive heart failure, COPD on chronic 2 L nasal cannula who presents with COPD exacerbation and pneumonia. He lives at home in the same property with his daughter. He follows with Dr. Rhodes of pulmonology and Dr. Santos - PCP. He was seen in the clinic by his PCP today and was found to be hypoxic with pulse ox in the 68% on 3 L oxygen and therefore sent to the ED for admission. Consult of symptoms she complained of 4-5 days of shortness of breath, worse on exertion, improved with rest. He has a history of smoking for 60 years but quit in 2004. Denies any fevers and chills but reported increase in yellow productive cough. Did not get better with time which was reason he visited his PCP today EKG personally reviewed with rate of 98, normal sinus rhythm 01/24: Patient states he feels short of breath today. Not much better. White blood cell count is increased but he has been started on steroids. He continues on oxygen of 4 L per nasal cannula. Remains afebrile. Vitals otherwise stable. He has a scant cough. No chest pain. No nausea, vomiting, diarrhea. No fevers or chills. 01/25: Patient continued to improve. Patient was treated for suspected aspiration pneumonia. CT findings of bilateral airspace disease with tree-in- bud opacities was concerning for aspiration. Patient does admit that he chokes from time to time. Did recommend a modified diet. Patient was on day of discharge day #4 of Levaquin of which she will complete a 5 day course. She will be to cover potential atypical pneumonia. He was also started on Augmentin to cover for aspiration for which he is now day 1 of a planned 10 day course. Patient will continue on steroid taper for COPD. Patient continued on oxygen at 2 L per nasal cannula as per his baseline. Pt otherwise was deemed stable for discharge. He will need a follow-up with his primary care provider next week. He will need to follow a modified dysphagia diet. He will need a follow-up chest x-ray in 4 weeks. Discharge discussed with: patient - Time Spent with Patient Total time spent providing and/or coordinating discharge services: Greater than 30 minutes (37) - Discharge Medications Home Medications: Aspirin [Lo-Dose Aspirin EC] 81 mg PO DAILY 09/28/16 [History] Ipratropium/Albuterol Neb [Duoneb] 3 ml IH Q6HR 09/28/16 [History] Lisinopril [Zestril] 10 mg PO BID 06/27/17 [History] Acetaminophen [Tylenol] 650 mg PO Q6HR PRN tablet 11/03/17 [Rx] Carvedilol [Coreg] 6.25 mg PO BIDWM tablet 11/03/17 [Rx] Divalproex Sodium [Depakote Sprinkle] 125 mg PO TID cap.sprink 11/03/17 [Rx] Furosemide [Lasix] 20 mg PO DAILY tablet 11/03/17 [Rx] Nitroglycerin 0.4 mg SL Q5MIN PRN tab.subl 11/03/17 [Rx] Omeprazole [PriLOSEC] 20 mg PO 0630 capsule. 11/03/17 [Rx] Quetiapine Fumarate [Seroquel] 25 mg PO BID tablet 11/03/17 [Rx] Albuterol Neb [Proventil Neb] 2.5 mg IH Q4HR PRN 11/11/17 [History] Glucagon,Human Recombinant [Glucagon Emergency Kit] 1 mg IJ AD 11/11/17 [History ] Amitriptyline [Elavil] 50 mg PO HS tablet 11/13/17 [Rx] Atorvastatin [Lipitor] 80 mg PO HS tablet 11/13/17 [Rx] Docusate [Colace] 100 mg PO BID #60 capsule 11/13/17 [Rx] Gabapentin [Neurontin] 300 mg PO TID 2 Days #6 capsule 11/13/17 [Rx] Oxycodone HCl/Acetaminophen [Endocet 5-325 Tablet] 1 tab PO Q4H PRN 2 Days #8 tablet 11/13/17 [Rx] Insulin DETEMIR [Levemir] 15 - 20 unit SQ DAILY 12/05/17 [History] Allergies/Adverse Reactions: 3 Allergy/AdvReac Type Severity Reaction Status Date / Time Erythromycin Base Allergy Hives Verified 12/05/17 09:44 Date of admission: 01/22/18 20:37 Primary care physician: Toney Santos Jr, MD Consults: 01/23/18 16:55 Consult to Speech Therapy [CONS] Routine Comment: Evaluate, develop and implement POC Reason for Consult: ?silent aspiration Time Notified: 16:55 Call Completed: Yes Discharging clinician: Alber Padilla Anticipated date of discharge: 01/25/18 - Constitutional Vitals: Temp Pulse Resp BP Pulse Ox 97.9 F 96 16 116/55 94 01/25/18 11:11 01/25/18 11:11 01/25/18 11:11 01/25/18 11:11 01/25/18 11:11 General appearance: Present: cooperative, A&O X 3, pleasant, answers questions appropriately - Head Head exam: Present: atraumatic, normocephalic - Eye Eye exam: Present: PERRL, conjuntiva pink, sclera anicteric Pupils: Present: PERRL - Neck Neck exam general surgery: Present: supple, trachea midline. Absent: lymphadenopathy - Respiratory Respiratory exam: Present: decreased breath sounds. Absent: accessory muscle use, rales, rhonchi, wheezes - Cardiovascular Cardiovascular exam: Present: RRR, +S1, +S2. Absent: diastolic murmur, gallop, rubs, systolic murmur - GI/Abdominal GI/Abdominal exam: Present: normal bowel sounds, soft, no peritoneal signs. Absent: distended, tenderness - Extremities Exam Extremities exam: Present: warm, radial pulses palpable and symmetrical. Absent : calf tenderness, cyanotic, pedal edema - Neurological Exam Neurological exam: Present: CN II-XII intact, oriented X3, no focal deficits. Absent: pronater drift, facial droop, speech deficit - Skin Skin exam: Present: dry, intact - Patient Status Disposition: Home, Self-Care Condition: Fair Overall status at discharge: patient is progressing back to baseline - Discharge Instructions Instructions: Aspiration Pneumonia (GEN) Follow Up With: Gerry Smith [Partnered Physician] - 01/31/18 10:00 am - Diet and Activity Activity: increase activity as tolerated, wear oxygen at all times Diet: advance to your usual diet
[2018-01-27 07:26] LABS: Mycoplasma pneumoniae IgG 0.17 U/L (<=0.09)
== END 2018-01-25 13:30 | disposition home or self-care (01) | DRG 871 ==
LOC: 3ANU 17:01 → EMEROO 17:01 → 3ANU 20:55
PROVIDERS: ADMIT Internal Medicine; ATTEND Internal Medicine

== ENCOUNTER 2018-03-03 23:13 | Inpatient (IN) ==
[2018-03-03] MEDS ORDERED: 0.9 % Sodium Chloride 1,000 ML ONE (23:33)
[2018-03-03] MEDS ORDERED: 0.9 % Sodium Chloride 1,000 ML IVC ONE (23:33)
[2018-03-03] MEDS ORDERED: Naloxone 0.4 MG/ML INJ IVP ONE (23:33)
[2018-03-03] MEDS ORDERED: Naloxone 0.4 MG/ML INJ ONE (23:33)
[2018-03-03 23:46] LABS: Basophils % 0.1 %; Eosinophils % 0.2 %; Hematocrit 28.2 % (37.5-50.1); Hemoglobin 9.2 g/dL (12.9-16.9); Immature Granulocytes % 0.7 % (0-4); Lymphocytes # 1.8 K/mcL (0.6-4.6); Lymphocytes % 9.8 %; Mean Corpuscular HGB Conc 32.6 g/dL (31.6-35.5); Mean Corpuscular Hemoglobin 29.1 pg (28.0-33.3); Mean Corpuscular Volume 89.2 fL (83.0-100.0); Mean Platelet Volume 8.5 fL (9.4-12.4); Monocytes # 1.5 K/mcL (0.0-1.3); Monocytes % 8.1 %; Neutrophils # 14.8 K/mcL (1.6-8.9); Platelet Count 199 K/mcL (140-400); Red Blood Count 3.16 M/mcL (4.19-5.50); Red Cell Distribution Width 14.3 % (11.5-14.5); Segmented Neutrophils % 81.1 %
[2018-03-03 23:56] LABS: INR 1.4; Prothrombin Time 15.3 Seconds (9.4-12.1)
[2018-03-03 23:58] LABS: Activated Partial Thrombo Time 32.4 Seconds (26.0-36.0)
[2018-03-03 23:59] LABS: Alanine Aminotransferase 7 Units/L (7-52); Albumin 3.1 g/dL (3.5-5.7); Albumin/Globulin Ratio 0.9 (1.1-2.2); Alkaline Phosphatase 36 Units/L (34-104); Aspartate Amino Transferase 17 Units/L (13-39); BUN/Creatinine Ratio 17 (6-26); Bilirubin,Direct 0.1 mg/dL (0.0-0.2); Bilirubin,Indirect 0.3 mg/dL (0.0-1.2); Bilirubin,Total 0.4 mg/dL (0.3-1.0); Blood Urea Nitrogen 34 mg/dL (8-23); Calcium 8.9 mg/dL (8.6-10.3); Carbon Dioxide 31 mEq/L (23-29); Chloride 94 mEq/L (98-107); Ethanol < 10 mg/dL (Less than 10); Globulin 3.4 g/dL (2.4-3.5); Glucose 137 mg/dL (70-105); Osmolality,Calculated 286 (280-300); Potassium 4.8 mEq/L (3.5-5.1); Sodium 133 mEq/L (136-145); Total Protein 6.5 g/dL (6.4-8.9); eGFR For African Americans 40 (> 60); eGFR For Non-African Americans 33 (> 60)
[2018-03-04 00:01] LABS: Troponin I 0.05 ng/mL (< 0.04)
[2018-03-04 00:09] LABS: ABG Base Excess 6 mEq/L (-2 to 3); ABG HCO3 32 mEq/L (21-27); ABG Oxygen Saturation 95 % (95-98); ABG PCO2 53 mmHg (35-45); ABG PH 7.39 pH Units (7.32-7.45); ABG PO2 79 mmHg (85-104); ABG TCO2 34 mEq/L (20-26)
[2018-03-04 00:36] LABS: Bilirubin,Urine Negative (Negative); Blood,Urine Small (Negative); Clarity,Urine Clear (Clear); Color,Urine Yellow (Yellow); Glucose,Urine (UA) Normal (Normal); Ketones,Urine Negative (Negative); Leukocyte Esterase,Urine Negative (Negative); Nitrite,Urine Negative (Negative); Protein,Urine Negative (Neg-Trace); Specific Gravity,Urine 1.011 (1.010-1.025); Urobilinogen,Urine Normal (Normal)
[2018-03-04 00:38] LABS: RBC,Urine 15-30 per hpf (0-3); Squamous Epithelial Cell,Urine Many per lpf (None-Few); WBC,Urine 0-3 per hpf (0-3)
[2018-03-04 00:50] LABS: Bacteria,Urine Few per hpf (None-Few)
[2018-03-04] MEDS ORDERED: Piperacillin/Tazobactam 3.375 GM in 0.9 % Sodium Chloride Mini Bag 100 ML IVPB ONE (00:54)
[2018-03-04] MEDS ORDERED: Levofloxacin 750 MG/150 ML 750 MG/150 ML BAG IVPB ONE (00:54)
[2018-03-04] MEDS ORDERED: 0.9 % Sodium Chloride 1,000 ML IVC ONE (00:56)
--- NOTE | 2018-03-04 01:09 | Emergency Department Note ---
Disposition Clinical Impression: Pneumonia Qualifiers: Pneumonia type: due to unspecified organism Laterality: left Lung location: upper lobe of lung Qualified Code(s): J18.1 - Lobar pneumonia, unspecified organism Sepsis Qualifiers: Sepsis type: sepsis due to unspecified organism Qualified Code(s): A41.9 - Sepsis, unspecified organism Disposition: Admitted As Inpatient Condition: Serious Referrals: Toney Santos Jr, MD [Primary Care Provider] - Forms: ED Satisfaction Letter Time of Disposition: :17 Altered Mental Status HPI - General Chief Complaint: ED Neuro Symptoms/Deficit Stated Complaint: poss stroke Time Seen by Provider: 03/03/18 23:32 Source: family, EMS Mode of arrival: EMS Limitations: no limitations Nursing Notes Reviewed: Yes Vital Signs Reviewed: Yes - History of Present Illness HPI Narrative: Patient is brought emergently from by EMS. He was at home and he had basically sound like an abrupt unresponsive episode and syncope. They were having normal conversation although they do report the patient has been coughing and has not been eating or drinking well today. Then this evening he got sweaty and pale and they essentially a scribe an abrupt change in level of consciousness. The patient is unable to provide any history to me. He arouses to painful stimuli but is not carrying on any coherent conversation. complaint: altered mental status Onset (ago): Just [employer] DEVEL[employer] Timing confirmed by: family member Consistency of Symptoms: waxing and waning Associated symptoms: Reports: cough, chills, other (Diaphoresis) Treatments prior to arrival: EMS treatment/medication - Related Data Home Medications Medication Instructions Recorded Confirmed Aspirin [Lo-Dose Aspirin EC] 81 mg PO DAILY 09/28/16 01/22/18 Ipratropium/Albuterol Neb [Duoneb] 3 ml IH Q6HR 09/28/16 01/22/18 Lisinopril [Zestril] 10 mg PO BID 06/27/17 01/22/18 Albuterol Neb [Proventil Neb] 2.5 mg IH Q4HR PRN 11/11/17 01/22/18 Glucagon,Human Recombinant 1 mg IJ AD 11/11/17 01/22/18 [Glucagon Emergency Kit] Insulin DETEMIR [Levemir] 15 - 20 unit SQ DAILY 12/05/17 01/22/18 Previous Rx's Medication Instructions Recorded Acetaminophen [Tylenol] 650 mg PO Q6HR PRN tablet 11/03/17 Carvedilol [Coreg] 6.25 mg PO BIDWM tablet 11/03/17 Divalproex Sodium [Depakote 125 mg PO TID cap.sprink 11/03/17 Sprinkle] Furosemide [Lasix] 20 mg PO DAILY tablet 11/03/17 Nitroglycerin 0.4 mg SL Q5MIN PRN tab.subl 11/03/17 Omeprazole [PriLOSEC] 20 mg PO 0630 capsule.dr 11/03/17 Quetiapine Fumarate [Seroquel] 25 mg PO BID tablet 11/03/17 Amitriptyline [Elavil] 50 mg PO HS tablet 11/13/17 Atorvastatin [Lipitor] 80 mg PO HS tablet 11/13/17 Docusate [Colace] 100 mg PO BID #60 capsule 11/13/17 Gabapentin [Neurontin] 300 mg PO TID 2 Days #6 capsule 11/13/17 Oxycodone HCl/Acetaminophen 1 tab PO Q4H PRN 2 Days #8 tablet 11/13/17 [Endocet 5-325 Tablet] Amoxicillin/Clavulanate [Augmentin] 875 mg PO BIDWM 10 Days #20 tablet 01/25/18 PredniSONE [Deltasone] 10 mg PO DAILY 9 Days #16 tablet 01/25/18 levoFLOXacin [Levaquin] 750 mg PO DAILY 2 Days #2 tablet 01/25/18 Allergies Allergy/AdvReac Type Severity Reaction Status Date / Time Erythromycin Base Allergy Hives Verified 12/05/17 09:44 Limitations: ROS unobtainable due to patients medical condition (What review of systems I do get comes from the family and not the patient) Constitutional: Reports: chills. Denies: fever ENT ED: Denies: congestion Respiratory: Reports: cough Gastrointestinal: Denies: vomiting, diarrhea Neurological: Reports: weakness (Generalized) Past Medical History - Past Medical History Source: old records reviewed, obtained from family, nursing notes reviewed Medical history: Reports: arthritis, COPD, diabetes, GERD, seizures, TIA Surgical history: Reports: orthopedic, other Psychiatric history: Reports: no psych history - Social History Smoking Status: Former smoker Smokeless Tobacco Status: No Alcohol use: Reports: none Drug use: Reports: none Physical Exam - General Limitations: no limitations General appearance: alert, in no apparent distress - Head Head exam: atraumatic, normocephalic, normal inspection - Eye Eye exam: Present: PERRL. Absent: scleral icterus, conjunctival injection - ENT ENT exam: mucous membranes dry, normal external ear exam - Neck Neck exam: Present: trachea midline. Absent: meningismus - Chest Chest inspection: Present: normal inspection, symmetric chest wall rise. Absent : tenderness - Respiratory Respiratory exam: Present: other (Course breath sounds bilaterally). Absent: respiratory distress - Cardiovascular Cardiovascular exam: Present: regular rate, normal rhythm, normal heart sounds - Abdominal Exam Abdominal exam: Present: soft, Non-Tender, normal bowel sounds - Extremities Exam Extremities exam: Present: normal inspection. Absent: pedal edema - Neurological Exam Neurological exam: Present: other (Patient is lying in the bed with eyes closed. Painful stimuli causes him to moan and tell us to stop. He moved both arms and both legs with no focal neurologic findings obvious) - Skin Skin exam: Present: warm, dry. Absent: rash Course Course Narrative: Patient arrives with altered mental status. I do not find any focal neurologic findings. I think this is a decreased level of consciousness issue. He arrives with hypotension and visibly looks dehydrated on physical exam. His sugar was fine and his rectal temperature was normal. He had no obvious acute infarct findings on his EKG when I compared the EKG to EKG from back in December. The presentations makes me believe that the patient is having sepsis. Family does report he is coughing. I ordered IV fluid bolus and a septic workup as well as a head CT. - Reevaluation(s) Reevaluation #1: Patient's blood pressure came up to 107 systolic with only 500 mL of fluid. We will finish the first liter and go onto the second liter as well. White count came back at 18,000 and a chest x-ray seems to be showing a left upper lobe infiltrate. Given the symptoms described and the cough and the abnormal lung sounds and the abnormal finding on chest x-ray and the elevated white count, I believe that sepsis and pneumonia would explain all of these presentation findings. He was anemic although his stool was guaiac negative. Troponin is elevated at 0.05 but that could be sepsis. At this point clearly needs to be admitted to the hospital. I ordered a sepsis antibiotics for pneumonia including Levaquin and Zosyn. I will page the hospitalist at this point. Time: 01:16 - Consultations Consultation #1: Dr. Blakely, hospitalist - I discussed the case and presentation and ER course and current status of the patient with the hospitalist. He is accepting the patient for admission. Time: 01:45 Vital Signs Temperature 97.8 F 03/03/18 23:16 Pulse Rate 67 03/03/18 23:16 Respiratory Rate 16 03/03/18 23:16 Blood Pressure 84/42 03/03/18 23:16 O2 Sat by Pulse Oximetry 97 03/03/18 23:16 Temperature 97.8 F 03/03/18 23:16 Pulse Rate 66 03/04/18 00:53 Respiratory Rate 16 03/04/18 00:53 Blood Pressure 102/48 03/04/18 00:53 O2 Sat by Pulse Oximetry 97 03/04/18 00:53 Oxygen Delivery Oxygen Delivery Nasal Cannula Altered Mental Status - Lab Data Result diagrams: 03/03/18 23:28 03/03/18 23:28 Lab Results 03/03/18 03/03/18 03/03/18 Range/Units 23:28 23:28 23:28 WBC 18.3 H (4.3-11.1) K/mcL RBC 3.16 L (4.19-5.50) M/mcL Hgb 9.2 L (12.9-16.9) g/dL Hct 28.2 L (37.5-50.1) % MCV 89.2 (83.0-100.0) fL MCH 29.1 (28.0-33.3) pg MCHC 32.6 (31.6-35.5) g/dL RDW 14.3 (11.5-14.5) % Plt Count 199 (140-400) K/mcL MPV 8.5 L (9.4-12.4) fL Immature Gran % 0.7 (0-4) % Seg Neutrophils % 81.1 % Lymphocytes % 9.8 % Monocytes % 8.1 % Eosinophils % 0.2 % Basophils % 0.1 % Neutrophils # 14.8 H (1.6-8.9) K/mcL Lymphocytes # 1.8 (0.6-4.6) K/mcL Monocytes # 1.5 H (0.0-1.3) K/mcL Eosinophils # 0.0 (0.0-0.6) K/mcL Basophils # 0.0 (0.0-0.2) K/mcL PT 15.3 H (9.4-12.1) Seconds INR 1.4 APTT 32.4 (26.0-36.0) Seconds Sample Site ABG pH (7.32-7.45) pH Units ABG pCO2 (35-45) mmHg ABG pO2 (85-104) mmHg ABG HCO3 (21-27) mEq/L ABG Total CO2 (20-26) mEq/L ABG O2 Saturation (95-98) % ABG Base Excess (-2 to 3) mEq/L Chadd Test O2 Delivery Device Inspired O2 (1-15=lpm [id number]=%) Sodium 133 L (136-145) mEq/L Potassium 4.8 (3.5-5.1) mEq/L Chloride 94 L (98-107) mEq/L Carbon Dioxide 31 H (23-29) mEq/L BUN 34 H (8-23) mg/dL Creatinine 1.98 H (0.70-1.30) mg/dL Est GFR ( Amer) 40 L (> 60) Est GFR (Non-Af Amer) 33 L (> 60) BUN/Creatinine Ratio 17 (6-26) Glucose 137 H (70-105) mg/dL Calculated Osmolality 286 (280-300) Lactic Acid (0.5-2.2) mmol/L Calcium 8.9 (8.6-10.3) mg/dL Total Bilirubin 0.4 (0.3-1.0) mg/dL Direct Bilirubin 0.1 (0.0-0.2) mg/dL Indirect Bilirubin 0.3 (0.0-1.2) mg/dL AST 17 (13-39) Units/L ALT 7 (7-52) Units/L Alkaline Phosphatase 36 (34-104) Units/L Ammonia (16-53) mcmol/L Troponin I 0.05 H* (< 0.04) ng/mL Serum Total Protein 6.5 (6.4-8.9) g/dL Albumin 3.1 L (3.5-5.7) g/dL Globulin 3.4 (2.4-3.5) g/dL Albumin/Globulin Ratio 0.9 L (1.1-2.2) Urine Color (Yellow) Urine Clarity (Clear) Urine pH (5.0-8.0) pH Units Ur Specific [place] (1.010-1.025) Urine Protein (Neg-Trace) mg/dL Urine Glucose (UA) (Normal) mg/dL Urine Ketones (Negative) mg/dL Urine Blood (Negative) Urine Nitrite (Negative) Urine Bilirubin (Negative) Urine Urobilinogen (Normal) mg/dL Ur Leukocyte Esterase (Negative) Urine Microscopic RBC (0-3) per hpf Urine Microscopic WBC (0-3) per hpf Ur Squamous Epith Cells (None-Few) per lpf Urine Bacteria (None-Few) per hpf Ur Culture Indicated? (NO) Ethyl Alcohol < 10 (Less than 10) mg/dL 03/03/18 03/03/18 03/04/18 Range/Units 23:28 23:28 00:05 WBC (4.3-11.1) K/mcL RBC (4.19-5.50) M/mcL Hgb (12.9-16.9) g/dL Hct (37.5-50.1) % MCV (83.0-100.0) fL MCH (28.0-33.3) pg MCHC (31.6-35.5) g/dL RDW (11.5-14.5) % Plt Count (140-400) K/mcL MPV (9.4-12.4) fL Immature Gran % (0-4) % Seg Neutrophils % % Lymphocytes % % Monocytes % % Eosinophils % % Basophils % % Neutrophils # (1.6-8.9) K/mcL Lymphocytes # (0.6-4.6) K/mcL Monocytes # (0.0-1.3) K/mcL Eosinophils # (0.0-0.6) K/mcL Basophils # (0.0-0.2) K/mcL PT (9.4-12.1) Seconds INR APTT (26.0-36.0) Seconds Sample Site R Radial ABG pH 7.39 (7.32-7.45) pH Units ABG pCO2 53 H (35-45) mmHg ABG pO2 79 L (85-104) mmHg ABG HCO3 32 H (21-27) mEq/L ABG Total CO2 34 H (20-26) mEq/L ABG O2 Saturation 95 (95-98) % ABG Base Excess 6 H (-2 to 3) mEq/L Chadd Test Positive O2 Delivery Device Cannula Inspired O2 32.0 (1-15=lpm [id number]=%) Sodium (136-145) mEq/L Potassium (3.5-5.1) mEq/L Chloride (98-107) mEq/L Carbon Dioxide (23-29) mEq/L BUN (8-23) mg/dL Creatinine (0.70-1.30) mg/dL Est GFR ( Amer) (> 60) Est GFR (Non-Af Amer) (> 60) BUN/Creatinine Ratio (6-26) Glucose (70-105) mg/dL Calculated Osmolality (280-300) Lactic Acid 1.2 (0.5-2.2) mmol/L Calcium (8.6-10.3) mg/dL Total Bilirubin (0.3-1.0) mg/dL Direct Bilirubin (0.0-0.2) mg/dL Indirect Bilirubin (0.0-1.2) mg/dL AST (13-39) Units/L ALT (7-52) Units/L Alkaline Phosphatase (34-104) Units/L Ammonia 18 (16-53) mcmol/L Troponin I (< 0.04) ng/mL Serum Total Protein (6.4-8.9) g/dL Albumin (3.5-5.7) g/dL Globulin (2.4-3.5) g/dL Albumin/Globulin Ratio (1.1-2.2) Urine Color (Yellow) Urine Clarity (Clear) Urine pH (5.0-8.0) pH Units Ur Specific [place] (1.010-1.025) Urine Protein (Neg-Trace) mg/dL Urine Glucose (UA) (Normal) mg/dL Urine Ketones (Negative) mg/dL Urine Blood (Negative) Urine Nitrite (Negative) Urine Bilirubin (Negative) Urine Urobilinogen (Normal) mg/dL Ur Leukocyte Esterase (Negative) Urine Microscopic RBC (0-3) per hpf Urine Microscopic WBC (0-3) per hpf Ur Squamous Epith Cells (None-Few) per lpf Urine Bacteria (None-Few) per hpf Ur Culture Indicated? (NO) Ethyl Alcohol (Less than 10) mg/dL 07/10/18 Range/Units 00:28 WBC (4.3-11.1) K/mcL RBC (4.19-5.50) M/mcL Hgb (12.9-16.9) g/dL Hct (37.5-50.1) % MCV (83.0-100.0) fL MCH (28.0-33.3) pg MCHC (31.6-35.5) g/dL RDW (11.5-14.5) % Plt Count (140-400) K/mcL MPV (9.4-12.4) fL Immature Gran % (0-4) % Seg Neutrophils % % Lymphocytes % % Monocytes % % Eosinophils % % Basophils % % Neutrophils # (1.6-8.9) K/mcL Lymphocytes # (0.6-4.6) K/mcL Monocytes # (0.0-1.3) K/mcL Eosinophils # (0.0-0.6) K/mcL Basophils # (0.0-0.2) K/mcL PT (9.4-12.1) Seconds INR APTT (26.0-36.0) Seconds Sample Site ABG pH (7.32-7.45) pH Units ABG pCO2 (35-45) mmHg ABG pO2 (85-104) mmHg ABG HCO3 (21-27) mEq/L ABG Total CO2 (20-26) mEq/L ABG O2 Saturation (95-98) % ABG Base Excess (-2 to 3) mEq/L Chadd Test O2 Delivery Device Inspired O2 (1-15=lpm [id number]=%) Sodium (136-145) mEq/L Potassium (3.5-5.1) mEq/L Chloride (98-107) mEq/L Carbon Dioxide (23-29) mEq/L BUN (8-23) mg/dL Creatinine (0.70-1.30) mg/dL Est GFR ( Amer) (> 60) Est GFR (Non-Af Amer) (> 60) BUN/Creatinine Ratio (6-26) Glucose (70-105) mg/dL Calculated Osmolality (280-300) Lactic Acid (0.5-2.2) mmol/L Calcium (8.6-10.3) mg/dL Total Bilirubin (0.3-1.0) mg/dL Direct Bilirubin (0.0-0.2) mg/dL Indirect Bilirubin (0.0-1.2) mg/dL AST (13-39) Units/L ALT (7-52) Units/L Alkaline Phosphatase (34-104) Units/L Ammonia (16-53) mcmol/L Troponin I (< 0.04) ng/mL Serum Total Protein (6.4-8.9) g/dL Albumin (3.5-5.7) g/dL Globulin (2.4-3.5) g/dL Albumin/Globulin Ratio (1.1-2.2) Urine Color Yellow (Yellow) Urine Clarity Clear (Clear) Urine pH 7.0 (5.0-8.0) pH Units Ur Specific [place] 1.011 (1.010-1.025) Urine Protein Negative (Neg-Trace) mg/dL Urine Glucose (UA) Normal (Normal) mg/dL Urine Ketones Negative (Negative) mg/dL Urine Blood Small H (Negative) Urine Nitrite Negative (Negative) Urine Bilirubin Negative (Negative) Urine Urobilinogen Normal (Normal) mg/dL Ur Leukocyte Esterase Negative (Negative) Urine Microscopic RBC 15-30 H (0-3) per hpf Urine Microscopic WBC 0-3 (0-3) per hpf Ur Squamous Epith Cells Many H (None-Few) per lpf Urine Bacteria Few (None-Few) per hpf Ur Culture Indicated? NO (NO) Ethyl Alcohol (Less than 10) mg/dL TPA Checklist - LKW: 3-4.5 hrs Add. Warnings/Precautions Patient/family understanding: The patient/family members have been counseled and understood the risk, benefit , and alternatives of treatment. Critical Care Time Critical Care Time: Yes Total Critical Care Time: 30 Attestation: Patient presented with altered mental status and hypotension. Potentially life- threatening issues requiring my urgent evaluation and intervention. I spent time do an H&P and doing serial examinations, gathering information from family. Reviewing old records, initiating treatments. I also documented and arranged admission.
--- NOTE | 2018-03-04 07:12 | Internal Med History&Physical ---
Date of Encounter: 03/04/18 Time of Encounter: 06:00 Internal Medicine - H&P: HPI Chief complaint: Loss of consciousness Admitted From: Emergency Dept History of present illness: Mr. Quinn is a 82 year old male with past medical history of seizure disorder , patient stated that lately because he does not have his lower denture, he had hard time showing meat stick. Many time he chock on his food. Over last 4 days patient had today dry cough with shortness of breath, left side chest pain with coughing or taking deep breaths Patient stated today while he was talking to friends he lost his consciousness, patient denies any chest pain or shortness of breath seizure, dizziness lightheadedness before his syncopal episodes. Patient stated she does not remember what happened exactly he wake up here in the hospital. Patient denies hematuria any blood in stool or any black stool. Patient is feeling slightly every 4 last 4 days decreased oral intake of fluid. Past Med Surg Social Fam HX - Past Medical History Medical history: arthritis, COPD, diabetes, GERD, seizures, TIA Additional medical history: emphysema Psychiatric history: no psych history - Past Surgical History Surgical History: orthopedic, other Additional surgical history: two back sx- discs removed from upper and lower back - Social History Smoking Status: Former smoker Smokeless Tobacco Status: No Alcohol use: none Drug use: none - Family History Father Adopted: No Family Member Ethnicity: Non- Living Status: Hx Family Cardiac Disorders: No Hx Family Respiratory Disorders: No Hx Family Cancer: Yes Hx Family GI Disorders: No Hx Family Endocrine Disorder: No Hx Family Neuromuscular Disorders: No Hx Family Neurologic Disorders: No Hx Family HEENT Disorders: No Hx Family Autoimmune Disorders: No Mother Adopted: No Family Member Ethnicity: Non- Living Status: Hx Family Cardiac Disorders: No Hx Family Respiratory Disorders: No Hx Family Cancer: No Hx Family GI Disorders: No Hx Family Endocrine Disorder: No Hx Family Neuromuscular Disorders: No Hx Family Neurologic Disorders: No Hx Family HEENT Disorders: No Hx Family Autoimmune Disorders: No Brother Family Member Ethnicity: Non- Living Status: Hx Family Cardiac Disorders: No Hx Family Respiratory Disorders: No Hx Family Cancer: Yes Hx Family GI Disorders: No Hx Family Endocrine Disorder: No Hx Family Neuromuscular Disorders: No Hx Family Neurologic Disorders: No Hx Family HEENT Disorders: No Hx Family Autoimmune Disorders: No Sister Family Member Ethnicity: Non- Living Status: Hx Family Cardiac Disorders: No Hx Family Cancer: Yes Hx Family GI Disorders: No Hx Family Endocrine Disorder: Yes (Type 2 diabetes) Hx Family Neuromuscular Disorders: No Hx Family Neurologic Disorders: No Hx Family HEENT Disorders: No Hx Family Autoimmune Disorders: No Internal Medicine - H&P: Meds Aspirin [Lo-Dose Aspirin EC] 81 mg PO DAILY 09/28/16 [History] Ipratropium/Albuterol Neb [Duoneb] 3 ml IH Q6HR 09/28/16 [History] Lisinopril [Zestril] 10 mg PO BID 06/27/17 [History] Acetaminophen [Tylenol] 650 mg PO Q6HR PRN tablet 11/03/17 [Rx] Carvedilol [Coreg] 6.25 mg PO BIDWM tablet 11/03/17 [Rx] Divalproex Sodium [Depakote Sprinkle] 125 mg PO TID cap.sprink 11/03/17 [Rx] Furosemide [Lasix] 20 mg PO DAILY tablet 11/03/17 [Rx] Nitroglycerin 0.4 mg SL Q5MIN PRN tab.subl 11/03/17 [Rx] Omeprazole [PriLOSEC] 20 mg PO 0630 capsule. 11/03/17 [Rx] Quetiapine Fumarate [Seroquel] 25 mg PO BID tablet 11/03/17 [Rx] Albuterol Neb [Proventil Neb] 2.5 mg IH Q4HR PRN 11/11/17 [History] Glucagon,Human Recombinant [Glucagon Emergency Kit] 1 mg IJ AD 11/11/17 [History ] Amitriptyline [Elavil] 50 mg PO HS tablet 11/13/17 [Rx] Atorvastatin [Lipitor] 80 mg PO HS tablet 11/13/17 [Rx] Docusate [Colace] 100 mg PO BID #60 capsule 11/13/17 [Rx] Gabapentin [Neurontin] 300 mg PO TID 2 Days #6 capsule 11/13/17 [Rx] Oxycodone HCl/Acetaminophen [Endocet 5-325 Tablet] 1 tab PO Q4H PRN 2 Days #8 tablet 11/13/17 [Rx] Insulin DETEMIR [Levemir] 15 - 20 unit SQ DAILY 04/12/18 [History] Amoxicillin/Clavulanate [Augmentin] 875 mg PO BIDWM 10 Days #20 tablet 01/25/18 [Rx] PredniSONE [Deltasone] 10 mg PO DAILY 9 Days #16 tablet 01/25/18 [Rx] levoFLOXacin [Levaquin] 750 mg PO DAILY 2 Days #2 tablet 01/25/18 [Rx] 3 Allergy/AdvReac Type Severity Reaction Status Date / Time Erythromycin Base Allergy Hives Verified 12/05/17 09:44 All Systems PM: A 10-system review of systems was performed and is negative for pertinent findings except as documented above in the HPI. - Constitutional Vitals: Temp Pulse Resp BP Pulse Ox 97.5 F L 75 18 122/59 98 03/04/18 04:40 03/04/18 04:40 03/04/18 04:40 03/04/18 04:40 03/04/18 04:40 General appearance: Present: A&O X 2, no acute distress - Neck Neck exam general surgery: Present: supple, trachea midline. Absent: lymphadenopathy - Respiratory Respiratory exam: Present: decreased breath sounds, CTAB, prolonged expiratory phase, rales (Left upper lobe). Absent: accessory muscle use, rhonchi, wheezes - Cardiovascular Cardiovascular exam: Present: RRR, +S1, +S2. Absent: diastolic murmur, gallop, rubs, systolic murmur - GI/Abdominal GI/Abdominal exam: Present: normal bowel sounds, soft, no peritoneal signs. Absent: distended, tenderness - Extremities Exam Extremities exam: Present: warm, radial pulses palpable and symmetrical. Absent : calf tenderness, cyanotic, pedal edema - Neurological Exam Neurological exam: Present: CN II-XII intact, oriented X3, no focal deficits. Absent: pronater drift, facial droop, speech deficit - Skin Skin exam: Present: dry, intact Internal Med - H&P Results - Labs CBC & Chem 7: 03/03/18 23:28 03/03/18 23:28 - Assessment and plan (1) Syncope Current Visit: Yes Status: Acute Assessment and plan: Possible vasovagal syncope secondary to volume depletion with his markedly diminished oral intake lately with his acute renal failure, cannot rule out SEPSIS with possible aspiration pneumonia. With his history of seizure. We will check valproic acid level, check EEG, EKG no acute changes with trend troponin rule out acute coronary syndrome with his risk factor check d-dimer screening for PE Qualifiers: Syncope type: unspecified Qualified Code(s): R55 - Syncope and collapse Code(s): R55 - Syncope and collapse SNOMED Code(s): 838307350 (2) Dysphagia Current Visit: Yes Status: Acute Assessment and plan: Speech Therapy evaluation, we will check MRI brain Qualifiers: Dysphagia type: oropharyngeal phase Qualified Code(s): R13.12 - Dysphagia, oropharyngeal phase (3) Aspiration pneumonia Current Visit: No Status: Acute Assessment and plan: Add Zosyn and azithromycin to cover for aspiration pneumonia close monitoring Qualifiers: Aspiration pneumonia type: unspecified Laterality: bilateral Lung location: lower lobe of lung Qualified Code(s): J69.0 - Pneumonitis due to inhalation of food and vomit (4) Constipation Current Visit: No Status: Acute Assessment and plan: Add laxative Qualifiers: Constipation type: unspecified constipation type Qualified Code(s): K59.00 - Constipation, unspecified (5) Acute renal failure Current Visit: Yes Status: Acute Assessment and plan: Possible secondary to volume depletion, IV fluid check bladder scan Qualifiers: Acute renal failure type: unspecified Qualified Code(s): N17.9 - Acute kidney failure, unspecified Code(s): N17.9 - Acute kidney failure, unspecified SNOMED Code(s): 41927745 (6) Elevated troponin Current Visit: No Status: Resolved Assessment and plan: Will trend troponin. Has been slightly 325, nitroglycerin as needed, if troponin trending up consider cardiology consult Code(s): R74.8 - Abnormal levels of other serum enzymes SNOMED Code(s): 705266843, 988531338, [id number] - Time Spent With Patient Total time spent is greater than 50% in coordination of care (as documented) at patient's floor/unit and/or counseling patient: Greater than 35 minutes
[2018-03-04] MEDS ORDERED: Insulin LISPRO 300 UNITS/3 ML VIAL SQ SCH (07:45)
[2018-03-04] MEDS ORDERED: Dextrose Gel 15 GM/37.5 ML TUBE PO PRN ×2 (07:50)
[2018-03-04] MEDS ORDERED: D5% in Water 1,000 ML IVC PRN (07:50)
[2018-03-04] MEDS ORDERED: *HR* Dextrose 50 % in Water (Syg) 50 ML SYRINGE IVP PRN (07:50)
[2018-03-04] MEDS: *HR* Heparin 5,000 UNIT/ML VIAL SQ SCH ×3 (08:48→23:31)
[2018-03-04] MEDS: 0.9 % Sodium Chloride 1,000 ML IVC SCH ×2 (08:52→23:29)
[2018-03-04] MEDS: Sennosides 8.6 MG TABLET PO SCH ×2 (08:53→23:30)
[2018-03-04] MEDS: Azithromycin 500 MG in D5% in Water 250 ML IVPB SCH (08:59)
[2018-03-04] MEDS: Piperacillin/Tazobactam 3.375 GM in 0.9 % Sodium Chloride Mini Bag 100 ML IVPB SCH ×3 (09:01→23:32)
[2018-03-04] MEDS ORDERED: Albuterol 2.5 MG/3 ML NEBULIZER IH PRN (10:28)
[2018-03-04] MEDS ORDERED: Nitroglycerin 0.4 MG TAB.SUBL SL PRN (10:28)
[2018-03-04] MEDS ORDERED: Acetaminophen 325 MG TABLET PO PRN (10:28)
--- NOTE | 2018-03-04 10:42 | Neurology - Consult Note ---
<Alfonzo Muñoz R - Last Filed: 03/04/18 11:38> Date of Encounter: 03/04/18 Time of Encounter: 10:37 History of Present Illness HPI: Mr. Quinn is a 82 year old male with a history of seizures, presented after witnessed syncopal event and altered mental status. Found to be hypotensive and altered in the ED. Patient complained of not feeling good for the last 2 days, not ambulating well, and complains of difficulty in eating certain foods. Pt doesn't remember the syncopal event. States he has been taking his seizure medication, depakote, and can't remember when his last seizure was. Patient admitted for pneumonia, sepsis, and possible stroke. Head CT reveals no acute process. Head MRI ordered and pending. Past Med Surg Social Fam HX - Past Medical History Medical history: arthritis, COPD, diabetes, GERD, seizures, TIA Additional medical history: emphysema Psychiatric history: no psych history - Past Surgical History Surgical History: orthopedic, other Additional surgical history: two back sx- discs removed from upper and lower back - Social History Smoking Status: Former smoker Smokeless Tobacco Status: No Alcohol use: none Drug use: none - Family History Father Adopted: No Family Member Ethnicity: Non- Living Status: Hx Family Cardiac Disorders: No Hx Family Respiratory Disorders: No Hx Family Cancer: Yes Hx Family GI Disorders: No Hx Family Endocrine Disorder: No Hx Family Neuromuscular Disorders: No Hx Family Neurologic Disorders: No Hx Family HEENT Disorders: No Hx Family Autoimmune Disorders: No Mother Adopted: No Family Member Ethnicity: Non- Living Status: Hx Family Cardiac Disorders: No Hx Family Respiratory Disorders: No Hx Family Cancer: No Hx Family GI Disorders: No Hx Family Endocrine Disorder: No Hx Family Neuromuscular Disorders: No Hx Family Neurologic Disorders: No Hx Family HEENT Disorders: No Hx Family Autoimmune Disorders: No Brother Family Member Ethnicity: Non- Living Status: Hx Family Cardiac Disorders: No Hx Family Respiratory Disorders: No Hx Family Cancer: Yes Hx Family GI Disorders: No Hx Family Endocrine Disorder: No Hx Family Neuromuscular Disorders: No Hx Family Neurologic Disorders: No Hx Family HEENT Disorders: No Hx Family Autoimmune Disorders: No Sister Family Member Ethnicity: Non- Living Status: Hx Family Cardiac Disorders: No Hx Family Cancer: Yes Hx Family GI Disorders: No Hx Family Endocrine Disorder: Yes (Type 2 diabetes) Hx Family Neuromuscular Disorders: No Hx Family Neurologic Disorders: No Hx Family HEENT Disorders: No Hx Family Autoimmune Disorders: No Medications and Allergies Aspirin [Lo-Dose Aspirin EC] 81 mg PO DAILY 09/28/16 [History] Ipratropium/Albuterol Neb [Duoneb] 3 ml IH Q6HR 09/28/16 [History] Lisinopril [Zestril] 10 mg PO BID 06/27/17 [History] Acetaminophen [Tylenol] 650 mg PO Q6HR PRN tablet 11/03/17 [Rx] Carvedilol [Coreg] 6.25 mg PO BIDWM tablet 11/03/17 [Rx] Divalproex Sodium [Depakote Sprinkle] 125 mg PO TID cap.sprink 11/03/17 [Rx] Furosemide [Lasix] 20 mg PO DAILY tablet 11/03/17 [Rx] Nitroglycerin 0.4 mg SL Q5MIN PRN tab.subl 11/03/17 [Rx] Omeprazole [PriLOSEC] 20 mg PO 0630 capsule. 11/03/17 [Rx] Quetiapine Fumarate [Seroquel] 25 mg PO BID tablet 11/03/17 [Rx] Albuterol Neb [Proventil Neb] 2.5 mg IH Q4HR PRN 11/11/17 [History] Glucagon,Human Recombinant [Glucagon Emergency Kit] 1 mg IJ AD 11/11/17 [History ] Amitriptyline [Elavil] 50 mg PO HS tablet 11/13/17 [Rx] Atorvastatin [Lipitor] 80 mg PO HS tablet 11/13/17 [Rx] Docusate [Colace] 100 mg PO BID #60 capsule 11/13/17 [Rx] Gabapentin [Neurontin] 300 mg PO TID 2 Days #6 capsule 11/13/17 [Rx] Oxycodone HCl/Acetaminophen [Endocet 5-325 Tablet] 1 tab PO Q4H PRN 2 Days #8 tablet 11/13/17 [Rx] Insulin DETEMIR [Levemir] 15 - 20 unit SQ DAILY 12/05/17 [History] Amoxicillin/Clavulanate [Augmentin] 875 mg PO BIDWM 10 Days #20 tablet 01/25/18 [Rx] PredniSONE [Deltasone] 10 mg PO DAILY 9 Days #16 tablet 01/25/18 [Rx] levoFLOXacin [Levaquin] 750 mg PO DAILY 2 Days #2 tablet 01/25/18 [Rx] 3 Allergy/AdvReac Type Severity Reaction Status Date / Time Erythromycin Base Allergy Hives Verified 12/05/17 09:44 All Systems: The remainder of the systems were reviewed and are negative Review of Systems: complaining of generalize pain, which he says is normal for him Physical Examination - Vital Signs Vital Signs: Initial Vital Signs Temp Pulse Resp BP Pulse Ox 97.8 F 67 16 84/42 97 03/03/18 23:16 03/03/18 23:16 03/03/18 23:16 03/03/18 23:16 03/03/18 23:16 - Exam Exam: Mental status: awake, alert and oriented to person, place, and time. Speech is appropriate, free and fluent. Cranial nerves: CN II-XII intact bilaterally, pupils equal, round and reactive to light. Upper extremity motor: 5/5 strength in bilateral deltoid, biceps, triceps, finger extensors and abductors Lower extremity motor: 5/5 strength in bilateral hip flexors, quadriceps, hamstrings, plantar flexors and extensors Sensory: sensation to light touch intact in all four extremities Cerebellar: Finger-nose and rapid alternating movement testing normal without sign of dysmetria or akinesia. Reflexes: 2+ reflex in biceps, triceps, brachioradialis, patella and achilles. Babinski is negative. Results - Laboratory Findings CBC and BMP: 03/03/18 23:28 03/03/18 23:28 Abnormal lab findings: Abnormal lab results WBC 18.3 K/mcL (4.3-11.1) H 03/03/18 23:28 RBC 3.16 M/mcL (4.19-5.50) L 03/03/18 23:28 Hgb 9.2 g/dL (12.9-16.9) L 03/03/18 23:28 Hct 28.2 % (37.5-50.1) L 03/03/18 23:28 MPV 8.5 fL (9.4-12.4) L 03/03/18 23:28 Neutrophils # 14.8 K/mcL (1.6-8.9) H 03/03/18 23:28 Monocytes # 1.5 K/mcL (0.0-1.3) H 03/03/18 23:28 PT 15.3 Seconds (9.4-12.1) H 03/03/18 23:28 D-Dimer 663 ng/mLFEU (0-500) H 03/04/18 07:40 ABG pCO2 53 mmHg (35-45) H 03/04/18 00:05 ABG pO2 79 mmHg (85-104) L 03/04/18 00:05 ABG HCO3 32 mEq/L (21-27) H 03/04/18 00:05 ABG Total CO2 34 mEq/L (20-26) H 03/04/18 00:05 ABG Base Excess 6 mEq/L (-2 to 3) H 03/04/18 00:05 Sodium 133 mEq/L (136-145) L 03/03/18 23:28 Chloride 94 mEq/L (98-107) L 03/03/18 23:28 Carbon Dioxide 31 mEq/L (23-29) H 03/03/18 23:28 BUN 34 mg/dL (8-23) H 03/03/18 23:28 Creatinine 1.98 mg/dL (0.70-1.30) H 03/03/18 23:28 Est GFR ( Amer) 40 (> 60) L 03/03/18 23:28 Est GFR (Non-Af Amer) 33 (> 60) L 03/03/18 23:28 Glucose 137 mg/dL (70-105) H 03/03/18 23:28 POC Glucose 162 mg/dL (70-99) H 03/03/18 23:18 Albumin 3.1 g/dL (3.5-5.7) L 03/03/18 23:28 Albumin/Globulin Ratio 0.9 (1.1-2.2) L 03/03/18 23:28 Urine Blood Small (Negative) H 03/04/18 00:28 Urine Microscopic RBC 15-30 per hpf (0-3) H 03/04/18 00:28 Ur Squamous Epith Cells Many per lpf (None-Few) H 03/04/18 00:28 Consult Discharge Plan - Plan Referrals: Toney Santos Jr, MD [Primary Care Provider] - <Elissa Garcia I - Last Filed: 03/04/18 17:52> Date of Encounter: 03/04/18 Assessment and Plan (1) Mental status change resolved Current Visit: Yes Status: Acute Pt was seen and examined, my medical decision was reviewed with the Resident Physician, I agree with the documented findings, disposition and treatment plas as described except to the extent set forth below This is a 82 years old male with a history of multiple medical conditions admitted with near syncopal episode and been complaining of some left thoracic pain with coughing found to have a pneumonia and is been getting treated was admitted earlier with this mental status changes noticed by the family. There was no history of any tonic-clonic activity and no history or exam findings to be suggestive of any focal motor weakness. 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 On examination he is alert awake and oriented no focal motor deficit. Suspect patient's symptoms were likely related to underlying infectious processes and with pneumonia that he is been treated for an likely has caused his symptoms no history symptoms or exam findings to be suggestive of stroke or a seizure. MRI of the brain already negative do not think that EEG is going to provide any new information. He is on valproic acid we will check the level to keep it therapeutic continue on the home dose. Other treatment is as per primary team Elissa Garcia MD History of Present Illness HPI: Mr. Quinn is a 82 year old male All Systems: The remainder of the systems were reviewed and are negative Physical Examination - Vital Signs Vital Signs: Initial Vital Signs Temp Pulse Resp BP Pulse Ox 97.8 F 67 16 84/42 97 03/03/18 23:16 03/03/18 23:16 03/03/18 23:16 03/03/18 23:16 03/03/18 23:16 Results - Laboratory Findings CBC and BMP: 03/03/18 23:28 03/03/18 23:28 Abnormal lab findings: Abnormal lab results WBC 18.3 K/mcL (4.3-11.1) H 03/03/18 23:28 RBC 3.16 M/mcL (4.19-5.50) L 03/03/18 23:28 Hgb 9.2 g/dL (12.9-16.9) L 03/03/18 23:28 Hct 28.2 % (37.5-50.1) L 03/03/18 23:28 MPV 8.5 fL (9.4-12.4) L 03/03/18 23:28 Neutrophils # 14.8 K/mcL (1.6-8.9) H 03/03/18 23: Monocytes # 1.5 K/mcL (0.0-1.3) H 03/03/18 23:28 PT 15.3 Seconds (9.4-12.1) H 03/03/18 23:28 D-Dimer 663 ng/mLFEU (0-500) H 03/04/18 07:40 ABG pCO2 53 mmHg (35-45) H 03/04/18 00:05 ABG pO2 79 mmHg (85-104) L 03/04/18 00:05 ABG HCO3 32 mEq/L (21-27) H 03/04/18 00:05 ABG Total CO2 34 mEq/L (20-26) H 03/04/18 00:05 ABG Base Excess 6 mEq/L (-2 to 3) H 03/04/18 00:05 Sodium 133 mEq/L (136-145) L 03/03/18 23:28 Chloride 94 mEq/L (98-107) L 03/03/18 23:28 Carbon Dioxide 31 mEq/L (23-29) H 03/03/18 23:28 BUN 34 mg/dL (8-23) H 03/03/18 23:28 Creatinine 1.98 mg/dL (0.70-1.30) H 03/03/18 23:28 Est GFR ( Amer) 40 (> 60) L 03/03/18 23:28 Est GFR (Non-Af Amer) 33 (> 60) L 03/03/18 23:28 Glucose 137 mg/dL (70-105) H 03/03/18 23:28 Albumin 3.1 g/dL (3.5-5.7) L 03/03/18 23:28 Albumin/Globulin Ratio 0.9 (1.1-2.2) L 03/03/18 23:28 Urine Blood Small (Negative) H 03/04/18 00:28 Urine Microscopic RBC 15-30 per hpf (0-3) H 03/04/18 00:28 Ur Squamous Epith Cells Many per lpf (None-Few) H 03/04/18 00:28 - Diagnostic Findings Additional findings: MRI BRAIN: 1. No acute intracranial abnormality. No acute infarct. 2. 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 3. Minimal global parenchymal volume loss with minimal chronic microvascular ischemic changes para 4. 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
[2018-03-04] MEDS: Gabapentin 300 MG CAPSULE PO SCH ×3 (11:03→23:30)
[2018-03-04] MEDS: *HR* OxyCODONE/APAP 5/325 TABLET PO PRN ×3 (11:39→23:39)
[2018-03-04] MEDS: Insulin LISPRO 300 UNITS/3 ML VIAL SQ SCH ×2 (12:12→16:51)
--- NOTE | 2018-03-04 12:37 | Internal Med Progress Note ---
Date of Encounter: 03/04/18 Time of Encounter: 09:20 - Assessment and plan (1) Syncope Current Visit: Yes Status: Acute Assessment and plan: Most likely vasovagal syncope. Awaiting workup including MRI of the head. Patient underwent 2-D echocardiogram and carotid Dopplers earlier this year. She has had poor ejection fraction of 25%. Neurology has also been consulted for evaluation. Qualifiers: Syncope type: unspecified Qualified Code(s): R55 - Syncope and collapse Code(s): R55 - Syncope and collapse SNOMED Code(s): 884423634 (2) Acute renal failure Current Visit: Yes Status: Acute Assessment and plan: Continue IV hydration. Follow renal function closely. Avoid nephrotoxic agents. Qualifiers: Acute renal failure type: unspecified Qualified Code(s): N17.9 - Acute kidney failure, unspecified Code(s): N17.9 - Acute kidney failure, unspecified SNOMED Code(s): 99059957 (3) Aspiration pneumonia Current Visit: Yes Status: Acute Assessment and plan: Continue IV antibiotics for now. Speech therapy evaluation for dietary changes. Moderate risk for complications. Qualifiers: Aspiration pneumonia type: unspecified Laterality: bilateral Lung location: lower lobe of lung Qualified Code(s): J69.0 - Pneumonitis due to inhalation of food and vomit (4) Elevated troponin Current Visit: Yes Status: Resolved Assessment and plan: Likely due to respiratory illness. No chest pain. Code(s): R74.8 - Abnormal levels of other serum enzymes SNOMED Code(s): 301235079, 394249179, 470555879 (5) Constipation Current Visit: Yes Status: Chronic Assessment and plan: Continue laxatives Qualifiers: Constipation type: unspecified constipation type Qualified Code(s): K59.00 - Constipation, unspecified (6) Dysphagia Current Visit: Yes Status: Acute Assessment and plan: Speech therapy consulted for further evaluation. We will follow the recommendation. Aspiration precautions. Qualifiers: Dysphagia type: oropharyngeal phase Qualified Code(s): R13.12 - Dysphagia, oropharyngeal phase - Time Spent With Patient Total time spent is greater than 50% in coordination of care (as documented) at patient's floor/unit and/or counseling patient: - Subjective Interval history: Patient is awake and alert. Feels very hungry. Denies any chest pain or palpitations. No shortness of breath. No fevers or chills reported overnight. - Constitutional Vitals: Temp Pulse Resp BP Pulse Ox 97.4 F L 102 20 110/46 91 03/04/18 11:19 03/04/18 11:19 03/04/18 11:19 03/04/18 11:19 03/04/18 11:19 General appearance: Present: A&O X 2, no acute distress - Neck Neck exam general surgery: Present: supple, trachea midline. Absent: lymphadenopathy - Respiratory Respiratory exam: Present: CTAB. Absent: accessory muscle use, rales, rhonchi - Cardiovascular Cardiovascular exam: Present: RRR, +S1, +S2. Absent: diastolic murmur, gallop, rubs, systolic murmur - GI/Abdominal GI/Abdominal exam: Present: normal bowel sounds, soft, no peritoneal signs. Absent: distended, tenderness - Extremities Exam Extremities exam: Present: warm, radial pulses palpable and symmetrical. Absent : calf tenderness, cyanotic, pedal edema - Neurological Exam Neurological exam: Present: alert, oriented X3, no focal deficits. Absent: facial droop, speech deficit - Skin Skin exam: Present: dry, intact Internal Medicine: Result - Labs CBC & Chem 7: 03/03/18 23:28 03/03/18 23:28 - ABG Interpretation ABG results: ABG ABG pH 7.39 pH Units (7.32-7.45) 03/04/18 00:05 ABG pCO2 53 mmHg (35-45) H 03/04/18 00:05 ABG pO2 79 mmHg (85-104) L 03/04/18 00:05 ABG O2 Saturation 95 % (95-98) 03/04/18 00:05 PT/INR, D-dimer PT 15.3 Seconds (9.4-12.1) H 03/03/18 23:28 D-Dimer 663 ng/mLFEU (0-500) H 03/04/18 07:40 Consult Discharge Plan - Plan Referrals: Toney Santos Jr, MD [Primary Care Provider] -
[2018-03-04] MEDS: Divalproex Sodium 125 MG CAPSULE PO SCH ×2 (14:30→23:30)
[2018-03-05] MEDS: Insulin LISPRO 300 UNITS/3 ML VIAL SQ SCH ×5 (01:27→20:58)
[2018-03-05 04:43] LABS: Basophils % 0.1 %; Eosinophils # 0.2 K/mcL (0.0-0.6); Eosinophils % 2.2 %; Hematocrit 26.3 % (37.5-50.1); Hemoglobin 8.3 g/dL (12.9-16.9); Immature Granulocytes % 0.5 % (0-4); Lymphocytes # 1.2 K/mcL (0.6-4.6); Lymphocytes % 12.3 %; Mean Corpuscular HGB Conc 31.6 g/dL (31.6-35.5); Mean Corpuscular Hemoglobin 27.9 pg (28.0-33.3); Mean Corpuscular Volume 88.6 fL (83.0-100.0); Mean Platelet Volume 8.8 fL (9.4-12.4); Monocytes # 0.8 K/mcL (0.0-1.3); Monocytes % 8.2 %; Neutrophils # 7.5 K/mcL (1.6-8.9); Platelet Count 154 K/mcL (140-400); Red Blood Count 2.97 M/mcL (4.19-5.50); Segmented Neutrophils % 76.7 %
[2018-03-05 05:02] LABS: BUN/Creatinine Ratio 21 (6-26); Blood Urea Nitrogen 21 mg/dL (8-23); Calcium 8.5 mg/dL (8.6-10.3); Carbon Dioxide 28 mEq/L (23-29); Chloride 101 mEq/L (98-107); Glucose 99 mg/dL (70-105); Osmolality,Calculated 287 (280-300); Potassium 4.3 mEq/L (3.5-5.1); Sodium 137 mEq/L (136-145); eGFR For African Americans > 60 (> 60); eGFR For Non-African Americans > 60 (> 60)
[2018-03-05] MEDS: *HR* Heparin 5,000 UNIT/ML VIAL SQ SCH ×3 (06:12→20:57)
[2018-03-05] MEDS: Gabapentin 300 MG CAPSULE PO SCH ×3 (08:37→20:56)
[2018-03-05] MEDS: Furosemide 20 MG TABLET PO SCH (08:38)
[2018-03-05] MEDS: Aspirin Enteric Coated 81 MG Tablet PO SCH (08:38)
[2018-03-05] MEDS: Divalproex Sodium 125 MG CAPSULE PO SCH ×3 (08:39→20:57)
[2018-03-05] MEDS: Azithromycin 500 MG in D5% in Water 250 ML IVPB SCH (08:41)
[2018-03-05] MEDS: *HR* OxyCODONE/APAP 5/325 TABLET PO PRN (08:48)
[2018-03-05] MEDS: Piperacillin/Tazobactam 3.375 GM in 0.9 % Sodium Chloride Mini Bag 100 ML IVPB SCH ×2 (08:49→17:45)
[2018-03-05 11:33] LABS: ABG Base Excess 3 mEq/L (-2 to 3); ABG HCO3 30 mEq/L (21-27); ABG Oxygen Saturation 95 % (95-98); ABG PCO2 59 mmHg (35-45); ABG PH 7.32 pH Units (7.32-7.45); ABG PO2 82 mmHg (85-104); ABG TCO2 32 mEq/L (20-26)
--- NOTE | 2018-03-05 17:10 | Internal Med Progress Note ---
Date of Encounter: 03/05/18 Time of Encounter: 09:35 - Assessment and plan (1) Aspiration pneumonia Current Visit: Yes Status: Acute Assessment and plan: With chronic respiratory failure. Continue IV antibiotics. WBC count is normal today. Speech therapy evaluated patient yesterday and recommended mechanically altered diet with thin liquids. Aspiration precautions. Repeat chest x-ray done today shows more prominent infiltrates in the left lung. ABG continues to show mild hypoxia and hypercapnia with normal pH. Will place patient on BiPAP as needed. Patient's daughter concerned that she is very sick at this time. Explained to the patient her that his vitals have remained stable and is oxygenating well at this time. We will continue to monitor him closely and watch for any decline in respiratory status and treat accordingly. He does remain at high risk for complications given his underlying COPD, chronic respiratory failure Qualifiers: Aspiration pneumonia type: unspecified Laterality: bilateral Lung location: lower lobe of lung Qualified Code(s): J69.0 - Pneumonitis due to inhalation of food and vomit (2) Syncope Current Visit: Yes Status: Acute Assessment and plan: evaluated by neurology. MRI of the brain was also done which did not any acute abnormalities. No signs of seizures. Valproic acid level ordered. We will follow results. No new episodes of syncope since hospitalization. Qualifiers: Syncope type: unspecified Qualified Code(s): R55 - Syncope and collapse Code(s): R55 - Syncope and collapse SNOMED Code(s): 282155717 (3) Acute renal failure Current Visit: Yes Status: Acute Assessment and plan: Improved with IV hydration. Creatinine is 1 today. Qualifiers: Acute renal failure type: unspecified Qualified Code(s): N17.9 - Acute kidney failure, unspecified Code(s): N17.9 - Acute kidney failure, unspecified SNOMED Code(s): 86825665 (4) Elevated troponin Current Visit: Yes Status: Resolved Code(s): R74.8 - Abnormal levels of other serum enzymes SNOMED Code(s): 523684134, 495020797, 565503221 (5) Constipation Current Visit: Yes Status: Chronic Assessment and plan: Treating with laxatives. Qualifiers: Constipation type: unspecified constipation type Qualified Code(s): K59.00 - Constipation, unspecified (6) Dysphagia Current Visit: Yes Status: Acute Assessment and plan: Evaluated by speech therapy. Diet adjusted according to their recommendations Qualifiers: Dysphagia type: oropharyngeal phase Qualified Code(s): R13.12 - Dysphagia, oropharyngeal phase - Time Spent With Patient Total time spent is greater than 50% in coordination of care (as documented) at patient's floor/unit and/or counseling patient: - Subjective Interval history: When I initially saw the patient today, he was sitting up in chair complaining of back pain and rib pain. Denied any respiratory distress or chest pain. No palpitations. He apparently had a coughing spell when he was drinking water with his breakfast. I was then asked to the patient's daughter to evaluate patient again about an hour later. She was concerned that he was less responsive and more confused. He was somnolent than as he received pain medication for his back pain. Did not appear to be in any respiratory distress. - Constitutional Vitals: Temp Pulse Resp BP Pulse Ox 100.6 F H 87 20 119/59 100 03/05/18 16:53 03/05/18 16:53 03/05/18 16:53 03/05/18 16:53 03/05/18 16:53 General appearance: Present: cooperative, A&O X 2, mild distress (due To back pain and rib pain), answers questions appropriately - Eye Eye exam: Present: PERRL, conjuntiva pink, sclera anicteric - Respiratory Respiratory exam: Absent: accessory muscle use, rales, rhonchi, wheezes Additional comments: coarse breath sounds bilaterally - Cardiovascular Cardiovascular exam: Present: RRR, +S1, +S2. Absent: diastolic murmur, gallop, rubs, systolic murmur - GI/Abdominal GI/Abdominal exam: Present: normal bowel sounds, soft, no peritoneal signs. Absent: distended, tenderness - Extremities Exam Extremities exam: Present: warm, radial pulses palpable and symmetrical. Absent : calf tenderness, cyanotic, pedal edema - Neurological Exam Neurological exam: Present: CN II-XII intact, oriented X3, no focal deficits. Absent: facial droop, speech deficit - Skin Skin exam: Present: dry, intact Internal Medicine: Result - Labs CBC & Chem 7: 03/05/18 04:04 03/05/18 04:04 Labs: Short CBC 03/05/18 Range/Units 04:04 WBC 9.8 (4.3-11.1) K/mcL Hgb 8.3 L (12.9-16.9) g/dL Hct 26.3 L (37.5-50.1) % Plt Count 154 (140-400) K/mcL Neutrophils # 7.5 (1.6-8.9) K/mcL BMP 03/05/18 04:04 Sodium 137 Potassium 4.3 Chloride 101 Carbon Dioxide 28 BUN 21 Creatinine 1.00 Glucose 99 Calcium 8.5 L - ABG Interpretation ABG results: ABG ABG pH 7.32 pH Units (7.32-7.45) 03/05/18 11:30 ABG pCO2 59 mmHg (35-45) H 03/05/18 11:30 ABG pO2 82 mmHg (85-104) L 03/05/18 11:30 ABG O2 Saturation 95 % (95-98) 03/05/18 11:30 PT/INR, D-dimer PT 15.3 Seconds (9.4-12.1) H 03/03/18 23:28 D-Dimer 663 ng/mLFEU (0-500) H 03/04/18 07:40 - Impressions Impressions Chest X-Ray 03/05/18 09:42 IMPRESSION: More extensive airspace disease in the left lung involving the left upper and left lower lobes. Findings suggest a multilobar pneumonia. D/ / 03/05/2018 10:17:47 Josh Lake MD / hardeep Interpreting Provider: Josh Lake MD Consult Discharge Plan - Plan Referrals: Toney Santos Jr, MD [Primary Care Provider] -
--- NOTE | 2018-03-05 19:04 | Electrocardiograph Report ---
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
[2018-03-05] MEDS: Sennosides 8.6 MG TABLET PO SCH (20:57)
[2018-03-06] MEDS: Piperacillin/Tazobactam 3.375 GM in 0.9 % Sodium Chloride Mini Bag 100 ML IVPB SCH ×3 (00:50→17:12)
[2018-03-06] MEDS: *HR* Heparin 5,000 UNIT/ML VIAL SQ SCH ×3 (06:22→22:48)
[2018-03-06] MEDS: *HR* OxyCODONE/APAP 5/325 TABLET PO PRN ×3 (06:36→17:12)
[2018-03-06] MEDS: Gabapentin 300 MG CAPSULE PO SCH ×3 (10:36→20:02)
[2018-03-06] MEDS: Furosemide 20 MG TABLET PO SCH (10:36)
[2018-03-06] MEDS: Divalproex Sodium 125 MG CAPSULE PO SCH ×3 (10:36→20:02)
[2018-03-06] MEDS: Aspirin Enteric Coated 81 MG Tablet PO SCH (10:36)
[2018-03-06] MEDS: Azithromycin 250 MG TABLET PO SCH (10:36)
[2018-03-06] MEDS: Insulin LISPRO 300 UNITS/3 ML VIAL SQ SCH ×4 (10:37→20:08)
[2018-03-06 10:43] LABS: Basophils % 0.2 %; Eosinophils # 0.2 K/mcL (0.0-0.6); Eosinophils % 2.3 %; Hematocrit 27.2 % (37.5-50.1); Hemoglobin 8.8 g/dL (12.9-16.9); Immature Granulocytes % 0.5 % (0-4); Lymphocytes # 1.3 K/mcL (0.6-4.6); Lymphocytes % 14.5 %; Mean Corpuscular HGB Conc 32.4 g/dL (31.6-35.5); Mean Corpuscular Hemoglobin 28.5 pg (28.0-33.3); Mean Platelet Volume 8.7 fL (9.4-12.4); Monocytes # 0.7 K/mcL (0.0-1.3); Monocytes % 7.9 %; Neutrophils # 6.8 K/mcL (1.6-8.9); Platelet Count 215 K/mcL (140-400); Red Blood Count 3.09 M/mcL (4.19-5.50); Red Cell Distribution Width 14.1 % (11.5-14.5); Segmented Neutrophils % 74.6 %
[2018-03-06 11:03] LABS: BUN/Creatinine Ratio 17 (6-26); Blood Urea Nitrogen 15 mg/dL (8-23); Calcium 8.8 mg/dL (8.6-10.3); Carbon Dioxide 30 mEq/L (23-29); Chloride 102 mEq/L (98-107); Glucose 151 mg/dL (70-105); Osmolality,Calculated 288 (280-300); Potassium 4.1 mEq/L (3.5-5.1); Sodium 137 mEq/L (136-145); eGFR For African Americans > 60 (> 60); eGFR For Non-African Americans > 60 (> 60)
[2018-03-06] MEDS: Albuterol 2.5 MG/3 ML NEBULIZER IH SCH ×4 (16:07→23:41)
--- NOTE | 2018-03-06 16:12 | Internal Med Progress Note ---
Date of Encounter: 03/06/18 Time of Encounter: 10:45 - Assessment and plan (1) Aspiration pneumonia Current Visit: Yes Status: Acute Assessment and plan: Clinically he continues to do better. WBC count is normal. Blood cultures are negative. We will complete 7-10 day antibiotic course. Currently on Zosyn and azithromycin. We will transition to oral antibiotics tomorrow. Sepsis ruled out. Qualifiers: Aspiration pneumonia type: unspecified Laterality: bilateral Lung location: lower lobe of lung Qualified Code(s): J69.0 - Pneumonitis due to inhalation of food and vomit (2) Syncope Current Visit: Yes Status: Acute Assessment and plan: Likely vasovagal/orthostatic syncope. Now improved. No new episodes since hospitalization. Qualifiers: Syncope type: unspecified Qualified Code(s): R55 - Syncope and collapse Code(s): R55 - Syncope and collapse SNOMED Code(s): 535677461 (3) Acute renal failure Current Visit: Yes Status: Resolved Assessment and plan: Now resolved. Creatinine 0.88 Qualifiers: Acute renal failure type: unspecified Qualified Code(s): N17.9 - Acute kidney failure, unspecified Code(s): N17.9 - Acute kidney failure, unspecified SNOMED Code(s): 66199116 (4) Elevated troponin Current Visit: Yes Status: Resolved Code(s): R74.8 - Abnormal levels of other serum enzymes SNOMED Code(s): 888850385, 097688494, 403926650 (5) Constipation Current Visit: Yes Status: Chronic Assessment and plan: Continue Colace. Qualifiers: Constipation type: unspecified constipation type Qualified Code(s): K59.00 - Constipation, unspecified (6) Dysphagia Current Visit: Yes Status: Acute Assessment and plan: continue soft diet Qualifiers: Dysphagia type: oropharyngeal phase Qualified Code(s): R13.12 - Dysphagia, oropharyngeal phase - Time Spent With Patient Total time spent is greater than 50% in coordination of care (as documented) at patient's floor/unit and/or counseling patient: - Subjective Interval history: Patient sitting up in chair at this time. Complains mainly of pain in his left upper back over his ribs when he takes deep breaths. Shortness of breath is much better today. He used BiPAP through last night. Has been on nasal cannula and is currently saturating at 96% on 4 L. No fever or chills reported overnight. - Constitutional Vitals: Temp Pulse Resp BP Pulse Ox 98.0 F 84 18 98/50 100 03/06/18 15:53 03/06/18 15:53 03/06/18 15:53 03/06/18 15:53 03/06/18 15:53 General appearance: Present: cooperative, A&O X 2, mild distress, answers questions appropriately - Respiratory Respiratory exam: Present: chest wall tenderness (Left upper back tenderness), decreased breath sounds (At both bases). Absent: accessory muscle use, rales, rhonchi, wheezes - Cardiovascular Cardiovascular exam: Present: RRR, +S1, +S2. Absent: diastolic murmur, gallop, rubs, systolic murmur - GI/Abdominal GI/Abdominal exam: Present: normal bowel sounds, soft, no peritoneal signs. Absent: distended, tenderness - Extremities Exam Extremities exam: Present: warm, radial pulses palpable and symmetrical. Absent : calf tenderness, cyanotic, pedal edema - Neurological Exam Neurological exam: Present: alert, oriented X3, no focal deficits. Absent: facial droop, speech deficit Internal Medicine: Result - Labs CBC & Chem 7: 03/06/18 10:25 03/06/18 10:25 Labs: Short CBC 03/06/18 Range/Units 10:25 WBC 9.1 (4.3-11.1) K/mcL Hgb 8.8 L (12.9-16.9) g/dL Hct 27.2 L (37.5-50.1) % Plt Count 215 (140-400) K/mcL Neutrophils # 6.8 (1.6-8.9) K/mcL BMP 03/06/18 10:25 Sodium 137 Potassium 4.1 Chloride 102 Carbon Dioxide 30 H BUN 15 Creatinine 0.88 Glucose 151 H Calcium 8.8 - ABG Interpretation ABG results: ABG ABG pH 7.32 pH Units (7.32-7.45) 03/05/18 11:30 ABG pCO2 59 mmHg (35-45) H 03/05/18 11:30 ABG pO2 82 mmHg (85-104) L 03/05/18 11:30 ABG O2 Saturation 95 % (95-98) 03/05/18 11:30 PT/INR, D-dimer PT 15.3 Seconds (9.4-12.1) H 03/03/18 23:28 D-Dimer 663 ng/mLFEU (0-500) H 03/04/18 07:40 - Impressions Impressions Chest X-Ray 03/05/18 09:42 IMPRESSION: More extensive airspace disease in the left lung involving the left upper and left lower lobes. Findings suggest a multilobar pneumonia. D/ / 03/05/2018 10:17:47 Josh Lake MD / hardeep Interpreting Provider: Josh Lake MD Consult Discharge Plan - Plan Referrals: Toney Sanots Jr, MD [Primary Care Provider] -
[2018-03-06] MEDS: Sennosides 8.6 MG TABLET PO SCH (20:02)
[2018-03-06 20:35] LABS: Valproate Free 8 ug/mL (7-23); Valproate Total 21 ug/mL (50-125)
[2018-03-07] MEDS: Piperacillin/Tazobactam 3.375 GM in 0.9 % Sodium Chloride Mini Bag 100 ML IVPB SCH ×3 (02:00→16:58)
[2018-03-07] MEDS: Albuterol 2.5 MG/3 ML NEBULIZER IH SCH ×5 (03:36→21:15)
[2018-03-07] MEDS: *HR* Heparin 5,000 UNIT/ML VIAL SQ SCH ×3 (05:36→20:19)
[2018-03-07 08:06] LABS: Valproate % Free 39 % (5-18)
[2018-03-07] MEDS: *HR* OxyCODONE/APAP 5/325 TABLET PO PRN ×3 (08:37→21:06)
[2018-03-07] MEDS: Furosemide 20 MG TABLET PO SCH (08:37)
[2018-03-07] MEDS: Azithromycin 250 MG TABLET PO SCH (08:37)
[2018-03-07] MEDS: Aspirin Enteric Coated 81 MG Tablet PO SCH (08:38)
[2018-03-07] MEDS: Divalproex Sodium 125 MG CAPSULE PO SCH ×3 (08:38→20:16)
[2018-03-07] MEDS: Gabapentin 300 MG CAPSULE PO SCH ×3 (08:47→20:15)
[2018-03-07] MEDS: Insulin LISPRO 300 UNITS/3 ML VIAL SQ SCH ×4 (08:47→20:09)
[2018-03-07] MEDS ORDERED: *HR* Metoprolol 5 MG/5 ML VIAL IVP ONE (09:32)
--- NOTE | 2018-03-07 14:07 | Internal Med Progress Note ---
Date of Encounter: 03/07/18 Time of Encounter: 09:30 - Assessment and plan (1) Aspiration pneumonia Current Visit: Yes Status: Acute Assessment and plan: We will transition to oral antibiotics. Monitor vital signs. Wean FiO2 as tolerated. Qualifiers: Aspiration pneumonia type: unspecified Laterality: bilateral Lung location: lower lobe of lung Qualified Code(s): J69.0 - Pneumonitis due to inhalation of food and vomit (2) Syncope Current Visit: Yes Status: Acute Assessment and plan: No new episodes of dizziness or lightheadedness. Qualifiers: Syncope type: unspecified Qualified Code(s): R55 - Syncope and collapse Code(s): R55 - Syncope and collapse SNOMED Code(s): 323933845 (3) Acute renal failure Current Visit: Yes Status: Resolved Qualifiers: Acute renal failure type: unspecified Qualified Code(s): N17.9 - Acute kidney failure, unspecified Code(s): N17.9 - Acute kidney failure, unspecified SNOMED Code(s): 89247907 (4) Elevated troponin Current Visit: Yes Status: Resolved Code(s): R74.8 - Abnormal levels of other serum enzymes SNOMED Code(s): 436866698, 293271296, 601951349 (5) Constipation Current Visit: Yes Status: Chronic Assessment and plan: Continue senna Qualifiers: Constipation type: unspecified constipation type Qualified Code(s): K59.00 - Constipation, unspecified (6) Dysphagia Current Visit: Yes Status: Acute Assessment and plan: Diet changed per speech therapy recommendations. Tolerating well so far. Qualifiers: Dysphagia type: oropharyngeal phase Qualified Code(s): R13.12 - Dysphagia, oropharyngeal phase (7) Frequent PVCs Current Visit: Yes Status: Acute Assessment and plan: Patient having recurrent episodes of PVCs and tachycardia. He did not receive carvedilol last night due to low blood pressure. Advised to give carvedilol now and also Lopressor intravenously to control heart rate. EKG shows frequent PVCs. No acute ST segment changes noted. Will follow response to Lopressor. Also admission is low. We will replete. - Time Spent With Patient Total time spent is greater than 50% in coordination of care (as documented) at patient's floor/unit and/or counseling patient: - Subjective Interval history: Patient continues to have back and rib pain. Did not receive his usual pain medications since last evening. Increased cough. Remains on 4 L O2 supplementation. Did use BiPAP last night. - Constitutional Vitals: Temp Pulse Resp BP Pulse Ox 99.9 F H 108 17 103/55 94 03/07/18 11:34 03/07/18 11:34 03/07/18 11:34 03/07/18 11:34 03/07/18 11:34 General appearance: Present: cooperative, A&O X 2, mild distress, answers questions appropriately - Respiratory Respiratory exam: Present: prolonged expiratory phase, wheezes. Absent: accessory muscle use, rales, rhonchi - Cardiovascular Cardiovascular exam: Present: RRR, +S1, +S2, tachycardia. Absent: diastolic murmur, gallop, rubs, systolic murmur - GI/Abdominal GI/Abdominal exam: Present: normal bowel sounds, soft, no peritoneal signs. Absent: distended, tenderness - Extremities Exam Extremities exam: Present: warm, radial pulses palpable and symmetrical. Absent : calf tenderness, cyanotic, pedal edema - Neurological Exam Neurological exam: Present: CN II-XII intact, oriented X3, no focal deficits. Absent: facial droop, speech deficit Internal Medicine: Result - Labs CBC & Chem 7: 03/06/18 10:25 03/06/18 10:25 - ABG Interpretation ABG results: ABG ABG pH 7.32 pH Units (7.32-7.45) 03/05/18 11:30 ABG pCO2 59 mmHg (35-45) H 03/05/18 11:30 ABG pO2 82 mmHg (85-104) L 03/05/18 11:30 ABG O2 Saturation 95 % (95-98) 03/05/18 11:30 PT/INR, D-dimer PT 15.3 Seconds (9.4-12.1) H 03/03/18 23:28 D-Dimer 663 ng/mLFEU (0-500) H 03/04/18 07:40 - VTE Documentation of Mechanical Device: Graduated compression elastic hosiery Consult Discharge Plan - Plan Referrals: Toney Santos Jr, MD [Primary Care Provider] -
--- NOTE | 2018-03-07 18:17 | Electrocardiograph Report ---
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
[2018-03-07] MEDS: Sennosides 8.6 MG TABLET PO SCH (20:16)
[2018-03-08] MEDS: Albuterol 2.5 MG/3 ML NEBULIZER IH SCH ×6 (00:17→19:56)
[2018-03-08] MEDS: *HR* Heparin 5,000 UNIT/ML VIAL SQ SCH ×3 (05:26→19:47)
[2018-03-08 05:28] LABS: Eosinophils % 3.3 %; Hematocrit 25.3 % (37.5-50.1); Immature Granulocytes % 0.8 % (0-4); Lymphocytes % 14.5 %; Mean Corpuscular HGB Conc 31.6 g/dL (31.6-35.5); Mean Corpuscular Hemoglobin 27.7 pg (28.0-33.3); Mean Corpuscular Volume 87.5 fL (83.0-100.0); Mean Platelet Volume 8.9 fL (9.4-12.4); Monocytes % 9.6 %; Platelet Count 197 K/mcL (140-400); Red Blood Count 2.89 M/mcL (4.19-5.50); Red Cell Distribution Width 14.1 % (11.5-14.5); Segmented Neutrophils % 71.5 %
[2018-03-08 05:29] LABS: Basophils % 0.3 %; Eosinophils # 0.2 K/mcL (0.0-0.6); Lymphocytes # 1.1 K/mcL (0.6-4.6); Monocytes # 0.7 K/mcL (0.0-1.3); Neutrophils # 5.2 K/mcL (1.6-8.9)
[2018-03-08] MEDS: *HR* OxyCODONE/APAP 5/325 TABLET PO PRN ×3 (05:37→21:46)
[2018-03-08 05:44] LABS: BUN/Creatinine Ratio 16 (6-26); Blood Urea Nitrogen 11 mg/dL (8-23); Calcium 8.6 mg/dL (8.6-10.3); Carbon Dioxide 31 mEq/L (23-29); Chloride 104 mEq/L (98-107); Glucose 118 mg/dL (70-105); Osmolality,Calculated 292 (280-300); Potassium 3.8 mEq/L (3.5-5.1); Sodium 141 mEq/L (136-145); eGFR For African Americans > 60 (> 60); eGFR For Non-African Americans > 60 (> 60)
[2018-03-08 08:08] LABS: ABG Base Excess 9 mEq/L (-2 to 3); ABG HCO3 35 mEq/L (21-27); ABG Oxygen Saturation 94 % (95-98); ABG PCO2 60 mmHg (35-45); ABG PH 7.38 pH Units (7.32-7.45); ABG PO2 75 mmHg (85-104); ABG TCO2 37 mEq/L (20-26)
[2018-03-08] MEDS: Divalproex Sodium 125 MG CAPSULE PO SCH ×3 (08:42→19:46)
[2018-03-08] MEDS: Azithromycin 250 MG TABLET PO SCH (08:42)
[2018-03-08] MEDS: Furosemide 20 MG TABLET PO SCH (08:42)
[2018-03-08] MEDS: Gabapentin 300 MG CAPSULE PO SCH ×3 (08:42→19:45)
[2018-03-08] MEDS: Aspirin Enteric Coated 81 MG Tablet PO SCH (08:42)
[2018-03-08] MEDS: Piperacillin/Tazobactam 3.375 GM in 0.9 % Sodium Chloride Mini Bag 100 ML IVPB SCH ×2 (08:44)
[2018-03-08] MEDS: Insulin LISPRO 300 UNITS/3 ML VIAL SQ SCH ×4 (11:52→19:51)
--- NOTE | 2018-03-08 15:33 | Internal Med Progress Note ---
Date of Encounter: 03/08/18 Time of Encounter: 09:25 - Assessment and plan (1) Aspiration pneumonia Current Visit: Yes Status: Acute Assessment and plan: Transition to oral antibiotics. Continues to have pleuritic pain in his back. Encouraged incentive spirometry. We will complete 5 more days of antibiotics. Qualifiers: Aspiration pneumonia type: unspecified Laterality: bilateral Lung location: lower lobe of lung Qualified Code(s): J69.0 - Pneumonitis due to inhalation of food and vomit (2) Syncope Current Visit: Yes Status: Acute Assessment and plan: No new episodes of syncope. Most likely due to pneumonia and dehydration. Qualifiers: Syncope type: unspecified Qualified Code(s): R55 - Syncope and collapse Code(s): R55 - Syncope and collapse SNOMED Code(s): 400007928 (3) Acute renal failure Current Visit: Yes Status: Resolved Assessment and plan: Resolved. Qualifiers: Acute renal failure type: unspecified Qualified Code(s): N17.9 - Acute kidney failure, unspecified Code(s): N17.9 - Acute kidney failure, unspecified SNOMED Code(s): 52458742 (4) Elevated troponin Current Visit: Yes Status: Resolved Code(s): R74.8 - Abnormal levels of other serum enzymes SNOMED Code(s): 550700069, 329185937, 260742663 (5) Constipation Current Visit: Yes Status: Chronic Assessment and plan: Continue laxatives. Qualifiers: Constipation type: unspecified constipation type Qualified Code(s): K59.00 - Constipation, unspecified (6) Dysphagia Current Visit: Yes Status: Acute Assessment and plan: Tolerating his current diet. Continue aspiration precautions. Qualifiers: Dysphagia type: oropharyngeal phase Qualified Code(s): R13.12 - Dysphagia, oropharyngeal phase (7) Frequent PVCs Current Visit: Yes Status: Acute Assessment and plan: Improved after receiving beta danielle again yesterday. Will continue. Blood pressure is well controlled. (8) Chronic respiratory failure Current Visit: Yes Status: Chronic Assessment and plan: With acute respiratory failure. We will continue to wean FiO2 as tolerated. Encouraged incentive spirometry. Patient would qualify for home BiPAP use but does not want to use BiPAP at home. Qualifiers: Respiratory failure complication: hypoxia Qualified Code(s): J96.11 - Chronic respiratory failure with hypoxia - Time Spent With Patient Total time spent is greater than 50% in coordination of care (as documented) at patient's floor/unit and/or counseling patient: - Subjective Interval history: Patient is awake and alert. Sitting up in chair. Continues to have pain in the back with deep breaths. Does have cough. Was placed on 5 L O2 supplementation overnight. He had apparently refused BiPAP. He continues to refuse BiPAP. Willing to use incentive spirometry. No episodes of fever overnight. - Constitutional Vitals: Temp Pulse Resp BP Pulse Ox 98 F 88 20 134/62 94 03/08/18 11:34 03/08/18 11:34 03/08/18 11:34 03/08/18 11:34 03/08/18 11:34 General appearance: Present: cooperative, A&O X 2, mild distress, answers questions appropriately - Neck Neck exam general surgery: Present: supple, trachea midline. Absent: lymphadenopathy - Respiratory Respiratory exam: Present: prolonged expiratory phase, wheezes. Absent: accessory muscle use, rales, rhonchi - Cardiovascular Cardiovascular exam: Present: RRR, +S1, +S2. Absent: diastolic murmur, gallop, rubs, systolic murmur - GI/Abdominal GI/Abdominal exam: Present: normal bowel sounds, soft, no peritoneal signs. Absent: distended, tenderness - Extremities Exam Extremities exam: Present: warm, radial pulses palpable and symmetrical. Absent : calf tenderness, cyanotic, pedal edema - Neurological Exam Neurological exam: Present: CN II-XII intact, oriented X3, no focal deficits. Absent: facial droop, speech deficit - Skin Skin exam: Present: dry, intact Internal Medicine: Result - Labs CBC & Chem 7: 03/08/18 04:32 03/08/18 04:32 Labs: Short CBC 03/08/18 Range/Units 04:32 WBC 7.3 (4.3-11.1) K/mcL Hgb 8.0 L (12.9-16.9) g/dL Hct 25.3 L (37.5-50.1) % Plt Count 197 (140-400) K/mcL Neutrophils # 5.2 (1.6-8.9) K/mcL BMP 03/08/18 04:32 Sodium 141 Potassium 3.8 Chloride 104 Carbon Dioxide 31 H BUN 11 Creatinine 0.69 L Glucose 118 H Calcium 8.6 - ABG Interpretation ABG results: ABG ABG pH 7.38 pH Units (7.32-7.45) 03/08/18 08:04 ABG pCO2 60 mmHg (35-45) H 03/08/18 08:04 ABG pO2 75 mmHg (85-104) L 03/08/18 08:04 ABG O2 Saturation 94 % (95-98) L 03/08/18 08:04 PT/INR, D-dimer PT 15.3 Seconds (9.4-12.1) H 03/03/18 23:28 D-Dimer 663 ng/mLFEU (0-500) H 03/04/18 07:40 - VTE Documentation of Mechanical Device: Graduated compression elastic hosiery Consult Discharge Plan - Plan Referrals: Toney Santos Jr, MD [Primary Care Provider] -
[2018-03-08] MEDS: Sennosides 8.6 MG TABLET PO SCH (19:54)
[2018-03-09] MEDS: Albuterol 2.5 MG/3 ML NEBULIZER IH SCH ×5 (00:14→16:37)
[2018-03-09] MEDS: *HR* Heparin 5,000 UNIT/ML VIAL SQ SCH ×2 (04:58→15:09)
[2018-03-09 06:07] LABS: Basophils % 0.3 %; Eosinophils # 0.3 K/mcL (0.0-0.6); Eosinophils % 4.3 %; Hematocrit 24.3 % (37.5-50.1); Hemoglobin 7.8 g/dL (12.9-16.9); Lymphocytes # 1.2 K/mcL (0.6-4.6); Lymphocytes % 19.6 %; Mean Corpuscular HGB Conc 32.1 g/dL (31.6-35.5); Mean Corpuscular Hemoglobin 28.7 pg (28.0-33.3); Mean Corpuscular Volume 89.3 fL (83.0-100.0); Mean Platelet Volume 8.6 fL (9.4-12.4); Monocytes # 0.6 K/mcL (0.0-1.3); Neutrophils # 4.1 K/mcL (1.6-8.9); Platelet Count 218 K/mcL (140-400); Red Blood Count 2.72 M/mcL (4.19-5.50); Red Cell Distribution Width 14.1 % (11.5-14.5); Segmented Neutrophils % 65.8 %
[2018-03-09 06:19] LABS: % Iron Saturation 8 % (20-55); BUN/Creatinine Ratio 15 (6-26); Blood Urea Nitrogen 9 mg/dL (8-23); Calcium 8.7 mg/dL (8.6-10.3); Carbon Dioxide 36 mEq/L (23-29); Chloride 99 mEq/L (98-107); Glucose 109 mg/dL (70-105); Iron 15 mcg/dL (65-175); Osmolality,Calculated 295 (280-300); Potassium 3.6 mEq/L (3.5-5.1); Sodium 143 mEq/L (136-145); Transferrin 133 mg/dL (203-362); eGFR For African Americans > 60 (> 60); eGFR For Non-African Americans > 60 (> 60)
[2018-03-09 06:37] LABS: Ferritin 330 ng/mL (20-250)
[2018-03-09 06:42] LABS: Folate 15.1 ng/mL (3.0-16.0)
[2018-03-09] MEDS ORDERED: Ferumoxytol 510 MG in 0.9 % Sodium Chloride 100 ML IVPB ONE (07:47)
[2018-03-09] MEDS ORDERED: Lactobacillus 1 EACH CAP.SPRINK PO SCH (09:00)
[2018-03-09] MEDS: Insulin LISPRO 300 UNITS/3 ML VIAL SQ SCH ×2 (09:04→12:22)
[2018-03-09] MEDS: Divalproex Sodium 125 MG CAPSULE PO SCH ×2 (09:05→15:09)
[2018-03-09] MEDS: *HR* OxyCODONE/APAP 5/325 TABLET PO PRN ×2 (09:05→15:09)
[2018-03-09] MEDS: Aspirin Enteric Coated 81 MG Tablet PO SCH (09:05)
[2018-03-09] MEDS: Gabapentin 300 MG CAPSULE PO SCH ×2 (09:05→15:09)
[2018-03-09] MEDS: Furosemide 20 MG TABLET PO SCH (09:05)
[2018-03-09 10:54] LABS: Hematocrit 26.8 % (37.5-50.1); Hemoglobin 8.4 g/dL (12.9-16.9)
--- NOTE | 2018-03-09 12:34 | Discharge Summary ---
- NOTES TO OUTPATIENT PROVIDER Notes to Outpatient Provider: Patient hospitalized for possible syncopal episode. He was diagnosed with aspiration pneumonia and acute on chronic respiratory failure. Treated with IV antibiotics. Underwent speech therapy evaluation and his diet has been changed to mechanical soft. Patient does have chronic anemia but this has been stable here. He did receive iron infusion today due to iron deficiency. Recommend outpatient follow-up for possible colonoscopy. Patient was recommended BiPAP use due to hypercapnia and decreased oxygen saturation at nighttime and while lying down. However he does not wish to take this at home. Will increase his nighttime oxygen supplementation to 5 L/m. Stable to be discharged home today on oral antibiotics. Date of Encounter: 03/09/18 Time of Encounter: 12:32 - Discharge Diagnosis (1) Aspiration pneumonia Priority: Primary Status: Acute Qualifiers: Aspiration pneumonia type: unspecified Laterality: bilateral Lung location: lower lobe of lung Qualified Code(s): J69.0 - Pneumonitis due to inhalation of food and vomit (2) Syncope Priority: Secondary Status: Acute Qualifiers: Syncope type: unspecified Qualified Code(s): R55 - Syncope and collapse Code(s): R55 - Syncope and collapse SNOMED Code(s): 907851636 (3) Acute renal failure Priority: Secondary Status: Resolved Qualifiers: Acute renal failure type: unspecified Qualified Code(s): N17.9 - Acute kidney failure, unspecified Code(s): N17.9 - Acute kidney failure, unspecified SNOMED Code(s): 34758726 (4) Elevated troponin Priority: Secondary Status: Resolved Code(s): R74.8 - Abnormal levels of other serum enzymes SNOMED Code(s): 648063316, 441316121, 194603795 (5) Constipation Priority: Secondary Status: Chronic Qualifiers: Constipation type: unspecified constipation type Qualified Code(s): K59.00 - Constipation, unspecified (6) Dysphagia Priority: Secondary Status: Acute Qualifiers: Dysphagia type: oropharyngeal phase Qualified Code(s): R13.12 - Dysphagia, oropharyngeal phase (7) Frequent PVCs Priority: Secondary Status: Acute (8) Chronic respiratory failure Priority: Secondary Status: Chronic Qualifiers: Respiratory failure complication: hypoxia Qualified Code(s): J96.11 - Chronic respiratory failure with hypoxia Hospital course: Mr. Quinn is a 82 year old male Patient history of seizure disorder, COPD, diabetes, gastroesophageal reflux disease hospitalized for possible syncopal episode. He was diagnosed with aspiration pneumonia and acute on chronic respiratory failure. Treated with IV antibiotics. He was also evaluated by neurology. His valproic acid levels were normal. They did not recommend any further evaluation. Patient has already had recent carotid Dopplers and 2-D echocardiogram. He has poor ejection fraction of 25%. He had bilateral nonstenotic carotid plaque. Underwent speech therapy evaluation here and his diet has been changed to mechanical soft. Which she is tolerating well. Patient does have chronic anemia but this has been stable here. He did receive iron infusion today due to iron deficiency. Recommend outpatient follow-up for possible colonoscopy. Patient was recommended BiPAP use due to hypercapnia and decreased oxygen saturation at nighttime and while lying down. However he does not wish to take this at home. Will increase his nighttime oxygen supplementation to 5 L/m. Stable to be discharged home today on oral antibiotics. Discharge discussed with: patient, family, nurse - Time Spent with Patient Total time spent providing and/or coordinating discharge services: Greater than 30 minutes (45 min) - Discharge Medications Prescriptions: Amoxicillin/Clavulanate [Augmentin] 875 mg PO BIDWM #10 tablet Lactobacillus [Culturelle] 1 each PO BID #20 cap.sprink Home Medications: Aspirin [Lo-Dose Aspirin EC] 81 mg PO DAILY 09/28/16 [History] Ipratropium/Albuterol Neb [Duoneb] 3 ml IH Q6HR 09/28/16 [History] Lisinopril [Zestril] 10 mg PO BID 06/27/17 [History] Carvedilol [Coreg] 6.25 mg PO BIDWM tablet 11/03/17 [Rx] Divalproex Sodium [Depakote Sprinkle] 125 mg PO TID cap.sprink 11/03/17 [Rx] Furosemide [Lasix] 20 mg PO DAILY tablet 11/03/17 [Rx] Nitroglycerin 0.4 mg SL Q5MIN PRN tab.subl 11/03/17 [Rx] Omeprazole [PriLOSEC] 20 mg PO 0630 capsule. 11/03/17 [Rx] Quetiapine Fumarate [Seroquel] 25 mg PO BID tablet 11/03/17 [Rx] Albuterol Neb [Proventil Neb] 2.5 mg IH Q4HR PRN 11/11/17 [History] Glucagon,Human Recombinant [Glucagon Emergency Kit] 1 mg IJ AD 11/11/17 [History ] Amitriptyline [Elavil] 50 mg PO HS tablet 11/13/17 [Rx] Docusate [Colace] 100 mg PO BID #60 capsule 11/13/17 [Rx] Gabapentin [Neurontin] 300 mg PO TID 2 Days #6 capsule 11/13/17 [Rx] Oxycodone HCl/Acetaminophen [Endocet 5-325 Tablet] 1 tab PO Q4H PRN 2 Days #8 tablet 11/13/17 [Rx] Insulin DETEMIR [Levemir] 15 - 20 unit SQ DAILY 12/05/17 [History] Atorvastatin Calcium [Lipitor] 20 mg PO DAILY 03/04/18 [History] Amoxicillin/Clavulanate [Augmentin] 875 mg PO BIDWM #10 tablet 03/09/18 [Rx] Lactobacillus [Culturelle] 1 each PO BID #20 cap.sprink 03/09/18 [Rx] Allergies/Adverse Reactions: 3 Allergy/AdvReac Type Severity Reaction Status Date / Time Erythromycin Base Allergy Hives Verified 12/05/17 09:44 Date of admission: 03/04/18 07:42 Primary care physician: Toney Santos Jr, MD Consults: 03/04/18 15:36 Consult to Occupational Therapy [CONS] Routine Comment: Evaluate, develop and implement POC Reason for Consult: eval due to syncope Does patient have active BEDREST order?: No Is patient medically & hemodynamically stable?: Yes Consult to Physical Therapy [CONS] Routine Comment: Evaluate, develop and implement POC Reason for Consult: eval due to syncope Does patient have active BEDREST order?: No Is patient medically & hemodynamically stable?: Yes 03/06/18 09:30 Consult to Pc Maintenance Technician [CONS] Routine Reason for SW Consult: needs ecf Discharging clinician: Issa Marquez Anticipated date of discharge: 03/09/18 - Constitutional Vitals: Temp Pulse Resp BP Pulse Ox 97.5 F L 72 16 105/55 94 03/09/18 11:25 03/09/18 11:25 03/09/18 11:25 03/09/18 11:25 07/15/18 11:25 General appearance: Present: cooperative, A&O X 2, mild distress, answers questions appropriately - Neck Neck exam general surgery: Present: supple, trachea midline. Absent: lymphadenopathy - Respiratory Respiratory exam: Present: prolonged expiratory phase. Absent: accessory muscle use, rales, rhonchi, wheezes - Cardiovascular Cardiovascular exam: Present: RRR, +S1, +S2. Absent: diastolic murmur, gallop, rubs, systolic murmur - GI/Abdominal GI/Abdominal exam: Present: normal bowel sounds, soft, no peritoneal signs. Absent: distended, tenderness - Extremities Exam Extremities exam: Present: warm, radial pulses palpable and symmetrical. Absent : calf tenderness, cyanotic, pedal edema - Neurological Exam Neurological exam: Present: alert, oriented X3, no focal deficits. Absent: facial droop, speech deficit - Patient Status Disposition: Home, Self-Care Condition: Fair Functional capacity at discharge: uses cane/walker Overall status at discharge: patient is progressing back to baseline - Discharge Instructions Instructions: Syncope (DC), Chronic Dysphagia (DC), Pneumonia (DC) Follow Up With: Toney Santos Jr, MD [Primary Care Provider] - (in 1-2 weeks web request sent on 03/09/18) - Diet and Activity Activity: increase activity as tolerated, wear oxygen at all times Diet: diabetic diet, low salt diet - VTE Documentation of Mechanical Device: Graduated compression elastic hosiery
[2018-03-09 15:38] VITALS: BP 179/55
== END 2018-03-09 18:14 | disposition home or self-care (01) | DRG 177 ==
LOC: EMEROO 23:13 → 2ANU 23:13 → SUATTDRO 03-04 02:51 → 2ANU 03-04 03:25
PROVIDERS: ADMIT Internal Medicine; ATTEND Internal Medicine

== ENCOUNTER 2018-05-03 02:26 | Observation (INO) ==
[2018-05-03] MEDS ORDERED: Naloxone 0.4 MG/ML INJ IVP PRN (07:43)
[2018-05-03] MEDS ORDERED: *HR* Dextrose 50 % in Water (Syg) 50 ML SYRINGE IVP PRN (07:46)
[2018-05-03] MEDS ORDERED: Dextrose Gel 15 GM/37.5 ML TUBE PO PRN ×2 (07:46)
[2018-05-03] MEDS ORDERED: D5% in Water 1,000 ML IVC PRN (07:46)
--- NOTE | 2018-05-03 07:53 | Internal Med History&Physical ---
Date of Encounter: 05/03/18 Time of Encounter: 08:28 Internal Medicine - H&P: HPI Chief complaint: Shortness of breath Admitted From: Hospital to Hospital Transfer Plans for Post Hospital Care: Home History of present illness: Mr. Quinn is a 82 year old male with past medical history of seizure disorder , COPD, diabetes, gastroesophageal reflux disease, chronic respiratory failure on home oxygen 4 L, CHF with reduced ejection fraction, dementia He is transferred to from an outside facility for management of COPD exacerbation. The patient reports being in his usual state of health, partially independent at home and ambulatory until about 4 days ago when he developed shortness of breath, worse with exertion and now at rest. He denies chest pain, he denies fever or chills, he has a cough nonproductive of sputum. He denies rhinorrhea, he denies sick contacts or recent travels. He denies dizziness, diaphoresis, palpitations or leg edema. Denies nausea, vomiting, no change in bowel or urinary habits. Workup at home was the ER showed a negative chest x-ray and ABG showed a PCO2 of 68. PH was Compensated by records. Chest x-ray was unremarkable. The patient refused to be on the BiPAP and accepted to be on an on nonrebreather was transferred here. At time of review, he is able to complete his sentences with minimal distress, and is alert and oriented. Repeat blood work done here showed no leukocytosis and Hb is at baseline he will be placed on observation for management of COPDE He is DNR-CCA Past Med Surg Social Fam HX - Past Medical History Medical history: arthritis, CHF, COPD, diabetes, GERD, seizures, TIA Additional medical history: emphysema Psychiatric history: no psych history - Past Surgical History Surgical History: orthopedic, other Additional surgical history: two back sx- discs removed from upper and lower back - Social History Smoking Status: Former smoker Smokeless Tobacco Status: No Alcohol use: none Drug use: none - Family History Father Adopted: No Family Member Ethnicity: Non- Living Status: Hx Family Cardiac Disorders: No Hx Family Respiratory Disorders: No Hx Family Cancer: Yes Hx Family GI Disorders: No Hx Family Endocrine Disorder: No Hx Family Neuromuscular Disorders: No Hx Family Neurologic Disorders: No Hx Family HEENT Disorders: No Hx Family Autoimmune Disorders: No Mother Adopted: No Family Member Ethnicity: Non- Living Status: Hx Family Cardiac Disorders: No Hx Family Respiratory Disorders: No Hx Family Cancer: No Hx Family GI Disorders: No Hx Family Endocrine Disorder: No Hx Family Neuromuscular Disorders: No Hx Family Neurologic Disorders: No Hx Family HEENT Disorders: No Hx Family Autoimmune Disorders: No Brother Family Member Ethnicity: Non- Living Status: Hx Family Cardiac Disorders: No Hx Family Respiratory Disorders: No Hx Family Cancer: Yes Hx Family GI Disorders: No Hx Family Endocrine Disorder: No Hx Family Neuromuscular Disorders: No Hx Family Neurologic Disorders: No Hx Family HEENT Disorders: No Hx Family Autoimmune Disorders: No Sister Family Member Ethnicity: Non- Living Status: Hx Family Cardiac Disorders: No Hx Family Cancer: Yes Hx Family GI Disorders: No Hx Family Endocrine Disorder: Yes (Type 2 diabetes) Hx Family Neuromuscular Disorders: No Hx Family Neurologic Disorders: No Hx Family HEENT Disorders: No Hx Family Autoimmune Disorders: No Internal Medicine - H&P: Meds Aspirin [Lo-Dose Aspirin EC] 81 mg PO DAILY 09/28/16 [History] Ipratropium/Albuterol Neb [Duoneb] 3 ml IH Q6HR 09/28/16 [History] Lisinopril [Zestril] 10 mg PO BID 06/27/17 [History] Carvedilol [Coreg] 6.25 mg PO BIDWM tablet 11/03/17 [Rx] Divalproex Sodium [Depakote Sprinkle] 125 mg PO TID cap.sprink 11/03/17 [Rx] Furosemide [Lasix] 20 mg PO DAILY tablet 11/03/17 [Rx] Nitroglycerin 0.4 mg SL Q5MIN PRN tab.subl 11/03/17 [Rx] Omeprazole [PriLOSEC] 20 mg PO 0630 capsule.dr 11/03/17 [Rx] Quetiapine Fumarate [Seroquel] 25 mg PO BID tablet 11/03/17 [Rx] Albuterol Neb [Proventil Neb] 2.5 mg IH Q4HR PRN 11/11/17 [History] Amitriptyline [Elavil] 50 mg PO HS tablet 11/13/17 [Rx] Docusate [Colace] 100 mg PO BID #60 capsule 11/13/17 [Rx] Oxycodone HCl/Acetaminophen [Endocet 5-325 Tablet] 1 tab PO Q4H PRN 2 Days #8 tablet 11/13/17 [Rx] Insulin DETEMIR [Levemir] 15 - 20 unit SQ DAILY 12/05/17 [History] Atorvastatin Calcium [Lipitor] 20 mg PO DAILY 03/04/18 [History] Lactobacillus [Culturelle] 1 each PO BID #20 cap.sprink 03/09/18 [Rx] Gabapentin [Neurontin] 300 mg PO BID 05/03/18 [History] 3 Allergy/AdvReac Type Severity Reaction Status Date / Time Erythromycin Base Allergy Hives Verified 12/05/17 09:44 All Systems PM: A 10-system review of systems was performed and is negative for pertinent findings except as documented above in the HPI. - Constitutional Constitutional: as per HPI - EENT Eyes: as per HPI Ears: as per HPI Nose, mouth and throat: as per HPI - Cardiovascular Cardiovascular ROS IM: as per HPI - Respiratory Respiratory: as per HPI - Gastrointestinal Gastrointestinal: as per HPI - Musculoskeletal Musculoskeletal ROS IM: as per HPI - Integumentary Integumentary IM: as per HPI - Neurological Neurological ROS: as per HPI - Hematologic/Lymphatic Hematologic/Lymphatic: as per HPI - Constitutional Vitals: Temp Pulse Resp BP Pulse Ox 98.3 F 118 20 168/71 95 05/03/18 04:22 05/03/18 04:22 05/03/18 04:22 05/03/18 04:22 05/03/18 04:22 General appearance: Present: mild distress, A&O X 3, pleasant Exam: see detailed exam below - Head Head exam: Present: atraumatic, normocephalic - Eye Eye exam: Present: PERRL, conjuntiva pink, sclera anicteric Pupils: Present: PERRL - Neck Neck exam general surgery: Present: supple, trachea midline. Absent: lymphadenopathy - Respiratory Respiratory exam: Present: decreased breath sounds, wheezes. Absent: rales, rhonchi - Cardiovascular Cardiovascular exam: Present: RRR, +S1, +S2. Absent: diastolic murmur, gallop, rubs, systolic murmur - GI/Abdominal GI/Abdominal exam: Present: normal bowel sounds, soft, no peritoneal signs. Absent: distended, tenderness - Extremities Exam Extremities exam: Present: warm, radial pulses palpable and symmetrical. Absent : calf tenderness, cyanotic, pedal edema - Neurological Exam Neurological exam: Present: alert, CN II-XII intact, oriented X3, no focal deficits. Absent: pronater drift, facial droop, speech deficit - Skin Skin exam: Present: dry, intact Internal Med - H&P Results - Labs CBC & Chem 7: 05/03/18 07:56 05/03/18 07:56 - Assessment and plan (1) Acute exacerbation of chronic obstructive airways disease Current Visit: Yes Status: Acute Assessment and plan: Continue O2, prednisone, duonebs, add levaquin Patient refusing BiPAP , PCO2 from outside facility 68 Repeat ABG in 4 hrs (2) Alzheimer's dementia Current Visit: Yes Status: Chronic Assessment and plan: continue to monitor Alert and oriented at this time High risk for delirium, continue orientation and reorientation Continue home meds Qualifiers: Alzheimer's disease onset: unspecified onset Dementia behavioral disturbance: without behavioral disturbance Qualified Code(s): G30.9 - Alzheimer's disease, unspecified; F02.80 - Dementia in other diseases classified elsewhere without behavioral disturbance (3) Anemia Current Visit: Yes Status: Chronic Assessment and plan: Hb is at baseline Continue to monitor Qualifiers: Anemia type: unspecified type Qualified Code(s): D64.9 - Anemia, unspecified (4) Chronic congestive heart failure Current Visit: Yes Status: Chronic Assessment and plan: Patient currently euvolemi, no pedal edema CXR from outside facility negative for edema or infiltrates However, BNP 402 Continue home dose of lasix Fluid restriction diet Continue home O2 Qualifiers: Heart failure type: combined systolic and diastolic Qualified Code(s): I50.42 - Chronic combined systolic (congestive) and diastolic (congestive) heart failure (5) Chronic respiratory failure Current Visit: Yes Status: Chronic Assessment and plan: chronic hypoxia and hypercapnea, with compensatory metabolic alkalosis Continue O2 by oxy mask Rpt ABG in 2-4 hrs Patient refusing BiPAP, he is DNRCCA Qualifiers: Respiratory failure complication: hypoxia and hypercapnia Qualified Code(s) : J96.11 - Chronic respiratory failure with hypoxia; J96.12 - Chronic respiratory failure with hypercapnia (6) Diabetes mellitus Current Visit: Yes Status: Chronic Assessment and plan: Continue insulin, ADA diet, FS ACHS Qualifiers: Diabetes mellitus type: type 2 Diabetes mellitus denture laboratory technician insulin use: with denture laboratory technician use Diabetes mellitus complication status: with unspecified complications Qualified Code(s): E11.8 - Type 2 diabetes mellitus with unspecified complications; Z79.4 - underwriting specialist (current) use of insulin (7) DVT prophylaxis Current Visit: Yes Status: Acute Assessment and plan: SQ heparin (8) History of CVA (cerebrovascular accident) Current Visit: Yes Status: Chronic Assessment and plan: no current deficits noted on exam Continue home ASA, Lipitor (9) HTN (hypertension) Current Visit: Yes Status: Chronic Assessment and plan: resume home meds Qualifiers: Hypertension type: essential hypertension Qualified Code(s): I10 - Essential (primary) hypertension - Time Spent With Patient Total time spent is greater than 50% in coordination of care (as documented) at patient's floor/unit and/or counseling patient:
[2018-05-03 08:17] LABS: Hematocrit 29.8 % (37.5-50.1); Hemoglobin 9.5 g/dL (12.9-16.9); Immature Granulocytes % 0.3 % (0-4); Immature Platelets 1.2 % (1.1-6.1); Lymphocytes # 0.4 K/mcL (0.6-4.6); Lymphocytes % 6.9 %; Mean Corpuscular HGB Conc 31.9 g/dL (31.6-35.5); Mean Corpuscular Hemoglobin 28.1 pg (28.0-33.3); Mean Corpuscular Volume 88.2 fL (83.0-100.0); Mean Platelet Volume 8.3 fL (9.4-12.4); Monocytes # 0.1 K/mcL (0.0-1.3); Neutrophils # 5.6 K/mcL (1.6-8.9); Platelet Count 335 K/mcL (140-400); Red Blood Count 3.38 M/mcL (4.19-5.50); Red Cell Distribution Width 13.5 % (11.5-14.5); Segmented Neutrophils % 91.8 %
[2018-05-03 08:26] LABS: BUN/Creatinine Ratio 25 (6-26); Blood Urea Nitrogen 14 mg/dL (8-23); Carbon Dioxide 36 mEq/L (23-29); Chloride 92 mEq/L (98-107); Glucose 183 mg/dL (70-105); Osmolality,Calculated 287 (280-300); Potassium 4.8 mEq/L (3.5-5.1); Sodium 136 mEq/L (136-145); eGFR For Non-African Americans > 60 (> 60)
[2018-05-03] MEDS ORDERED: predniSONE 20 MG TABLET PO SCH (09:00)
[2018-05-03] MEDS: Insulin LISPRO 300 UNITS/3 ML VIAL SQ SCH ×3 (09:04→18:24)
[2018-05-03] MEDS: Lactobacillus 1 EACH CAP.SPRINK PO SCH ×2 (10:08→23:45)
[2018-05-03] MEDS: levoFLOXacin 500 MG TABLET PO SCH (10:08)
[2018-05-03] MEDS: Aspirin Enteric Coated 81 MG Tablet PO SCH (10:09)
[2018-05-03] MEDS: Furosemide 20 MG TABLET PO SCH (10:09)
[2018-05-03] MEDS: Gabapentin 300 MG CAPSULE PO SCH ×2 (10:11→23:45)
[2018-05-03] MEDS: Divalproex Sodium 125 MG CAPSULE PO SCH ×3 (10:13→23:45)
[2018-05-03] MEDS: Ipratropium/Albuterol Neb 3 ML IH SCH ×4 (10:47→23:36)
[2018-05-03 10:50] LABS: ABG Base Excess 14 mEq/L (-2 to 3); ABG HCO3 41 mEq/L (21-27); ABG Oxygen Saturation 94 % (95-98); ABG PCO2 67 mmHg (35-45); ABG PO2 73 mmHg (85-104); ABG TCO2 43 mEq/L (20-26)
[2018-05-03] MEDS: *HR* Heparin 5,000 UNIT/ML VIAL SQ SCH (18:24)
[2018-05-03] MEDS: methylPREDNISolone 125 MG/2 ML VIAL IVP SCH (20:43)
[2018-05-03] MEDS: Insulin DETEMIR 100 UNIT/ML X5UNITS SQ SCH (23:45)
[2018-05-04 03:20] LABS: Adenovirus Not Detected (Not Detect); Bordetella Pertussis Not Detected (Not Detect); Chlamydophila pneumoniae Not Detected (Not Detect); Coronavirus 229E Not Detected (Not Detect); Coronavirus HKU1 Not Detected (Not Detect); Coronavirus NL63 Not Detected (Not Detect); Coronavirus OC43 Not Detected (Not Detect); Human Metapneumovirus Not Detected (Not Detect); Human Rhinovirus/Enterovirus Not Detected (Not Detect); Influenza A Subtype 2009 H1 Not Detected (Not Detect); Influenza A Untypeable Not Detected (Not Detect); Influenza B Not Detected (Not Detect); Mycoplasma pneumoniae Not Detected (Not Detect); Parainfluenza Virus 1 Not Detected (Not Detect); Parainfluenza Virus 2 Not Detected (Not Detect); Parainfluenza Virus 3 Not Detected (Not Detect); Parainfluenza Virus 4 Not Detected (Not Detect); Respiratory Syncytial Virus Not Detected (Not Detect)
[2018-05-04] MEDS: Ipratropium/Albuterol Neb 3 ML IH SCH ×7 (03:40→23:37)
[2018-05-04] MEDS: *HR* Heparin 5,000 UNIT/ML VIAL SQ SCH ×2 (05:26→18:17)
[2018-05-04] MEDS: methylPREDNISolone 125 MG/2 ML VIAL IVP SCH ×3 (05:27→21:43)
[2018-05-04 06:16] LABS: Basophils % 0.1 %; Hematocrit 29.5 % (37.5-50.1); Hemoglobin 9.4 g/dL (12.9-16.9); Immature Granulocytes % 0.3 % (0-4); Lymphocytes # 0.8 K/mcL (0.6-4.6); Lymphocytes % 6.4 %; Mean Corpuscular HGB Conc 31.9 g/dL (31.6-35.5); Mean Corpuscular Hemoglobin 27.9 pg (28.0-33.3); Mean Corpuscular Volume 87.5 fL (83.0-100.0); Mean Platelet Volume 8.5 fL (9.4-12.4); Monocytes # 0.4 K/mcL (0.0-1.3); Platelet Count 320 K/mcL (140-400); Red Blood Count 3.37 M/mcL (4.19-5.50); Red Cell Distribution Width 13.6 % (11.5-14.5); Segmented Neutrophils % 90.2 %
[2018-05-04 06:17] LABS: Neutrophils # 10.6 K/mcL (1.6-8.9)
[2018-05-04 06:43] LABS: BUN/Creatinine Ratio 26 (6-26); Blood Urea Nitrogen 16 mg/dL (8-23); Calcium 9.3 mg/dL (8.6-10.3); Carbon Dioxide 41 mEq/L (23-29); Chloride 90 mEq/L (98-107); Glucose 137 mg/dL (70-105); Osmolality,Calculated 283 (280-300); Potassium 4.5 mEq/L (3.5-5.1); Sodium 135 mEq/L (136-145); eGFR For Non-African Americans > 60 (> 60)
[2018-05-04 07:52] LABS: ABG Base Excess 17 mEq/L (-2 to 3); ABG HCO3 45 mEq/L (21-27); ABG Oxygen Saturation 95 % (95-98); ABG PCO2 74 mmHg (35-45); ABG PH 7.39 pH Units (7.32-7.45); ABG PO2 83 mmHg (85-104); ABG TCO2 47 mEq/L (20-26)
[2018-05-04] MEDS: Divalproex Sodium 125 MG CAPSULE PO SCH ×3 (08:49→21:44)
[2018-05-04] MEDS: levoFLOXacin 500 MG TABLET PO SCH (08:50)
[2018-05-04] MEDS: Gabapentin 300 MG CAPSULE PO SCH ×2 (08:51→21:44)
[2018-05-04] MEDS: Furosemide 20 MG TABLET PO SCH (08:51)
[2018-05-04] MEDS: Aspirin Enteric Coated 81 MG Tablet PO SCH (08:51)
[2018-05-04] MEDS: Lactobacillus 1 EACH CAP.SPRINK PO SCH (08:51)
[2018-05-04] MEDS: Insulin LISPRO 300 UNITS/3 ML VIAL SQ SCH ×3 (08:51→18:12)
--- NOTE | 2018-05-04 15:27 | Internal Med Progress Note ---
Hospitalist Progress Note - Encounter Date of Encounter: 05/04/18 Time of Encounter: 08:00 - Subjective Interval History: patient was seen ad examined at bedside denies respiratory distress, Chest pain, palpitations, wheezing, chest tightness , N/v/D, syncope, falls he does not want to be placed on bipap but does wish to keep it at his bedside to for when " I feel like " using it. he understands that not using Bipap can further result in respiratory failure. he does not want to be placed on bipap after seeing him in the morning he did agree to be placed on bipap but it was for one hour only before he took it off. his is being admitted to [facility] and he would like to see her. - Exam Vitals: Temp Pulse Resp BP Pulse Ox 97.9 F 96 20 118/66 98 05/04/18 10:53 05/04/18 10:53 05/04/18 11:35 05/04/18 10:53 05/04/18 11:35 Exam: General: Patient is alert, oriented, no acute distress, thin Head: atraumatic, normocephalic, Eye: normal appearance, PERRL, no scleral icterus, no conjunctival injection ENT: mucous membranes moist, normal external ear exam, adentolous Neck: normal inspection, trachea midline, full ROM, Chest: normal inspection, symmetric chest rise, increase in A/P diameter Respiratory: Good respiratory effort. decreased breath sounds bilaterally , occasional wheezing Cardiovascular: tachycardic. s1 and s2 No clicks, rubs, gallops, or murmors. Abdomen: Bowel sounds present normoactive x-4 quadrants. Abdomen is soft, nondistended. no Epigastric tenderness. No guarding or rebound. No organomegaly noted, obese musculoskeletal: Spontaneously moving all extremities. no edema, no calf tenderness Skin: warm, dry, intact. Neuro: Alert and oriented x3 ( person, place, time) Sensation light touch intact. Cranial nerves 2-12 is intact. Not aphasic, no focal deficit Psych: Patient's affect is normal - Assessment and Plan (1) Acute and chronic respiratory failure with hypercapnia Current Visit: Yes Status: Acute Assessment and Plan: acute on chronic hypoxemic and hypercapnic respiratory failure secondary to COPD exacerbation ABG PH 7.39/ CO2 74/ o2 83 - BMP bicarb 40 ( on oxymask 5L) continue bronchodilators patient is refusing BIPAP - understands that not using bipap can worsen respiratory failure code status is DNR CCA on Iv levaquin On IV steroids urine antigens are pending bcx obtained on 05/04- NGTD (2) Acute exacerbation of chronic obstructive airways disease Current Visit: Yes Status: Acute Assessment and Plan: management as per above (3) Chronic congestive heart failure Current Visit: Yes Status: Chronic Assessment and Plan: HFrEF 20% Patient currently euvolemi, no pedal edema CXR from outside facility negative for edema or infiltrates BNP 402 Continue home dose of lasix Fluid restriction diet Continue home O2 TTE Impressions: LVEF 25%. Mildly dilated left ventricle. Severe global left ventricular systolic dysfunction. Mild left ventricular diastolic dysfunction. Normal right ventricular structure and function. Mild mitral regurgitation. Mild pulmonary hypertension. Left Ventricular Wall Motion: Rest Echo Findings The apex, apical inferior, mid inferior, basal inferior, apical anterior, mid anterior, basal anterior, apical septal, mid inferior septal, basal inferior septal, apical lateral, mid anterior lateral, basal anterior lateral, mid anterior septal, mid inferior lateral, basal anterior septal and basal inferior lateral otero were hypokinetic. (4) Diabetes mellitus Current Visit: Yes Status: Chronic Assessment and Plan: Continue insulin ADA diet, FS ACHS (5) HTN (hypertension) Current Visit: Yes Status: Chronic Assessment and Plan: resume home meds (6) Alzheimer's dementia Current Visit: Yes Status: Chronic Assessment and Plan: continue to monitor Alert and oriented at this time High risk for delirium, continue orientation and reorientation Continue home meds (7) Anemia Current Visit: Yes Status: Chronic Assessment and Plan: Hb is at baseline Continue to monitor (8) DVT prophylaxis Current Visit: Yes Status: Acute Assessment and Plan: SQ heparin (9) History of CVA (cerebrovascular accident) Current Visit: Yes Status: Chronic Assessment and Plan: no current deficits noted on exam Continue home ASA, Lipitor (10) Goals of care, counseling/discussion Current Visit: Yes Status: Acute Assessment and Plan: code status as per last admission is DNR CCA i spoke to daughter and MPOA miss Felix, who confirms above and reports that her father did not ever want to be placed on mechanical ventilator we discussed patient's refusal of bipap and she understands and would liketo talk about hospice placement as he is continuing to decline [facility] will get palliative consult - Time Spent with Patient Total time spent is greater than 50% in coordination of care (as documented) at patient's floor/unit and/or counseling patient: Internal Medicine: Result - Labs CBC & Chem 7: 05/04/18 05:41 05/04/18 05:41 Labs: Short CBC 05/04/18 Range/Units 05:41 WBC 11.8 H D (4.3-11.1) K/mcL Hgb 9.4 L (12.9-16.9) g/dL Hct 29.5 L (37.5-50.1) % Plt Count 320 (140-400) K/mcL Neutrophils # 10.6 H (1.6-8.9) K/mcL BMP 05/04/18 05:41 Sodium 135 L Potassium 4.5 Chloride 90 L Carbon Dioxide 41 H* BUN 16 Creatinine 0.61 L Glucose 137 H Calcium 9.3 - ABG Interpretation ABG results: ABG ABG pH 7.39 pH Units (7.32-7.45) 05/04/18 07:41 ABG pCO2 74 mmHg (35-45) H* 05/04/18 07:41 ABG pO2 83 mmHg (85-104) L 05/04/18 07:41 ABG O2 Saturation 95 % (95-98) 05/04/18 07:41 Consult Discharge Plan - Plan Referrals: Toney Santos Jr, MD [Primary Care Provider] - (3) Chronic congestive heart failure Qualifiers: Heart failure type: combined systolic and diastolic Qualified Code(s): I50.42 - Chronic combined systolic (congestive) and diastolic (congestive) heart failure (4) Diabetes mellitus Qualifiers: Diabetes mellitus type: type 2 Diabetes mellitus ocean transportation intermediary insulin use: with residential use Diabetes mellitus complication status: with unspecified complications Qualified Code(s): E11.8 - Type 2 diabetes mellitus with unspecified complications; Z79.4 - manager intermediate (current) use of insulin (5) HTN (hypertension) Qualifiers: Hypertension type: essential hypertension Qualified Code(s): I10 - Essential (primary) hypertension (6) Alzheimer's dementia Qualifiers: Alzheimer's disease onset: unspecified onset Dementia behavioral disturbance : without behavioral disturbance Qualified Code(s): G30.9 - Alzheimer's disease , unspecified; F02.80 - Dementia in other diseases classified elsewhere without behavioral disturbance (7) Anemia Qualifiers: Anemia type: unspecified type Qualified Code(s): D64.9 - Anemia, unspecified
[2018-05-04] MEDS: *HR* OxyCODONE/APAP 5/325 TABLET PO PRN (21:45)
[2018-05-05] MEDS: Lactobacillus 1 EACH CAP.SPRINK PO SCH ×3 (00:41→22:07)
[2018-05-05] MEDS: Insulin DETEMIR 100 UNIT/ML X5UNITS SQ SCH ×2 (00:41→22:08)
[2018-05-05] MEDS: Ipratropium/Albuterol Neb 3 ML IH SCH ×6 (04:01→23:35)
[2018-05-05] MEDS: methylPREDNISolone 125 MG/2 ML VIAL IVP SCH ×2 (04:43→13:05)
[2018-05-05] MEDS: *HR* Heparin 5,000 UNIT/ML VIAL SQ SCH ×2 (04:43→18:48)
[2018-05-05 05:31] LABS: BUN/Creatinine Ratio 36 (6-26); Blood Urea Nitrogen 21 mg/dL (8-23); Carbon Dioxide 39 mEq/L (23-29); Chloride 92 mEq/L (98-107); Glucose 199 mg/dL (70-105); Osmolality,Calculated 289 (280-300); Potassium 4.7 mEq/L (3.5-5.1); Sodium 135 mEq/L (136-145); eGFR For Non-African Americans > 60 (> 60)
[2018-05-05] MEDS: *HR* OxyCODONE/APAP 5/325 TABLET PO PRN ×4 (06:09→18:32)
[2018-05-05 07:41] LABS: Hematocrit 29.3 % (37.5-50.1); Hemoglobin 9.2 g/dL (12.9-16.9); Mean Corpuscular HGB Conc 31.4 g/dL (31.6-35.5); Mean Corpuscular Volume 89.3 fL (83.0-100.0); Mean Platelet Volume 8.5 fL (9.4-12.4); Platelet Count 265 K/mcL (140-400); Red Blood Count 3.28 M/mcL (4.19-5.50); Red Cell Distribution Width 13.5 % (11.5-14.5)
[2018-05-05] MEDS ORDERED: Levofloxacin 500 MG/100 ML 500 MG/100 ML BAG IVPB SCH (09:00)
[2018-05-05] MEDS: Insulin LISPRO 300 UNITS/3 ML VIAL SQ SCH ×3 (10:17→18:31)
[2018-05-05] MEDS: Divalproex Sodium 125 MG CAPSULE PO SCH ×3 (10:17→22:06)
[2018-05-05] MEDS: Furosemide 20 MG TABLET PO SCH (10:18)
[2018-05-05] MEDS: Aspirin Enteric Coated 81 MG Tablet PO SCH (10:18)
[2018-05-05] MEDS: Gabapentin 300 MG CAPSULE PO SCH ×2 (10:18→22:08)
[2018-05-05] MEDS ORDERED: *HR* LORazepam Oral Conc 2 MG/ML SL PRN (11:47)
[2018-05-05] MEDS ORDERED: MORPHINE SUL Oral CONC 10 MG/0.5 ML ORAL.SYG SL PRN (11:48)
--- NOTE | 2018-05-05 14:00 | Palliative - Consult Note ---
Date of Encounter: 05/05/18 Time of Encounter: 09:15 - Assessment and Plan (1) Anxiety Current Visit: Yes Status: Acute Assessment and plan: Patient reports increased anxiety. Ordered Ativan SL PRN for comfort. (2) COPD (chronic obstructive pulmonary disease) Current Visit: No Status: Chronic Assessment and plan: Patient having increased dyspnea. Continue oxygen therapy and duoneb treatments. Ordered Morphine Sulfate SL PRN for dyspnea. CO2 74. Patient continues to refuse BiPAP. Qualifiers: COPD type: emphysema Emphysema type: unspecified Qualified Code(s): J43.9 - Emphysema, unspecified (3) Alzheimer's dementia Current Visit: Yes Status: Chronic Qualifiers: Alzheimer's disease onset: unspecified onset Dementia behavioral disturbance: without behavioral disturbance Qualified Code(s): G30.9 - Alzheimer's disease, unspecified; F02.80 - Dementia in other diseases classified elsewhere without behavioral disturbance (4) Chronic respiratory failure Current Visit: Yes Status: Chronic Qualifiers: Respiratory failure complication: hypoxia and hypercapnia Qualified Code(s) : J96.11 - Chronic respiratory failure with hypoxia; J96.12 - Chronic respiratory failure with hypercapnia (5) Goals of care, counseling/discussion Current Visit: No Status: Acute (6) Back pain Current Visit: No Status: Chronic Assessment and plan: Patient reports pain 8/10, describes as sharp ache. Has taken 3 doses of Percocet in last 24 hours. Continue PRN Percocet, reports works well. Qualifiers: Back pain location: back pain in unspecified location Back pain laterality : unspecified Qualified Code(s): M54.9 - Dorsalgia, unspecified; G89.29 - Other chronic pain (7) Goals of care, counseling/discussion Current Visit: Yes Status: Acute Assessment and plan: Conducted goals of care meeting with patient, patient's (Joao), patient' s daughter Elvira, and granddaughter (Jessika). When discussing goals of care, agreement found on bringing patient home with support for improved care as patient's cannot take care of him. Patient originally declined hospice as saying he was not ready. Patient's daughter re-presented hospice to patient with this flex o writer operator at bedside as a means to have the added care to bring him home ; patient agreed. Reviewed CODE STATUS discussion with patient, patient confirmed No CPR or Intubation; changed CODE STATUS to DNRCCA/DNI. Inquired whether wanted to transition to DNRCC and keep patient comfortable; patient declined. Patient's daughter requested Hospice care from [facility]; will need late afternoon discharge and needs portable oxygen (electronic machine) replaced. Notified Megan of portable oxygen need and time of day for discharge. Plan to discharge tomorrow. Notified Geeta LEAL of Plan of care. Family requested 3 pm return visit to complete MPOA forms; Geeta LEAL notified. Palliative-CN HPI - Data of Consult Patient: known to practice within the last 3 years Consult date: 05/04/18 Requesting Physician: Clara Gerber MD Primary Care Provider: Toney Santos Jr, MD - Consult Narrative Palliative Care/Comfort Measures: Palliative care Reason for consult: Hospice referral; patient refusing care and advancing COPD. History of present illness: Mr. Quinn is a 82 year old male Arrived to [facility] as hospital ([facility]) to hospital ([facility]) transfer on 05/03/18 for shortness of breath. PMH: seizure disorder, COPD, diabetes, gastroesophageal reflux disease, chronic respiratory failure on home oxygen 4L, CHF 20% EF, and dementia. Patient admitted for COPDE. Patient admitted and medically managed for Acute on Chronic Respiratory failure with hypercapnia, Acute exacerbation of chronic obstructive airways disease, Chronic congestive heart failure, DM, HTN, Alzheimers disease, Anemia , and history of CVA. Palliative care consult as family requested hospice services, recurrent admissions, refusing care, and advancing COPD. Hospital qualification: COPD: Has last 18# in the last 6 months, on 5L NC 91-95% oxygen saturation, frequent readmissions (6 this year), and CO2 74. CHF: EF 20% per heart cath on 10/24/17. Palliative Performance Scale (PPS): 30%. Patient lying back in bed with eyes open visiting granddaughter (Jessika) and sister in law (Angelica) upon arrival for assessment. Patient reports back pain 8/10 ; described as a sharp, ache; Percocet 5/325 mg ordered Q4H PRN, reports does help alleviate, has received 3 doses in the last 24 hours. Patient reports increased anxiety; takes nothing for normally. During initial examination, patient reported he was not ready to discuss hospice care and informed flex o writer operator to leave. Patient is alert and oriented times 3. Patient denied difficulty with nausea, vomiting, constipation, or diarrhea. 1130: Patient calmed down and daughter(MISBAH Felix, ) present at bedside and requested to discuss goals of care. Met with daughter and patient reported he was aggregable with hospice only if his agreed to it. Patient s admitted to [facility] as well, went to her bedside and patients agreeable with hospice care. Returned to patient and patient agreeable to hospice at home with [facility]. CC: Clara Gerber MD Past Med Surg Social Fam HX - Past Medical History Medical history: arthritis, CHF, COPD, diabetes, GERD, seizures, TIA Additional medical history: emphysema Psychiatric history: no psych history - Past Surgical History Surgical History: orthopedic, other Additional surgical history: two back sx- discs removed from upper and lower back - Social History Smoking Status: Former smoker Smokeless Tobacco Status: No Alcohol use: none Drug use: none - Family History Father Adopted: No Family Member Ethnicity: Non- Living Status: Hx Family Cardiac Disorders: No Hx Family Respiratory Disorders: No Hx Family Cancer: Yes Hx Family GI Disorders: No Hx Family Endocrine Disorder: No Hx Family Neuromuscular Disorders: No Hx Family Neurologic Disorders: No Hx Family HEENT Disorders: No Hx Family Autoimmune Disorders: No Mother Adopted: No Family Member Ethnicity: Non- Living Status: Hx Family Cardiac Disorders: No Hx Family Respiratory Disorders: No Hx Family Cancer: No Hx Family GI Disorders: No Hx Family Endocrine Disorder: No Hx Family Neuromuscular Disorders: No Hx Family Neurologic Disorders: No Hx Family HEENT Disorders: No Hx Family Autoimmune Disorders: No Brother Family Member Ethnicity: Non- Living Status: Hx Family Cardiac Disorders: No Hx Family Respiratory Disorders: No Hx Family Cancer: Yes Hx Family GI Disorders: No Hx Family Endocrine Disorder: No Hx Family Neuromuscular Disorders: No Hx Family Neurologic Disorders: No Hx Family HEENT Disorders: No Hx Family Autoimmune Disorders: No Sister Family Member Ethnicity: Non- Living Status: Hx Family Cardiac Disorders: No Hx Family Cancer: Yes Hx Family GI Disorders: No Hx Family Endocrine Disorder: Yes (Type 2 diabetes) Hx Family Neuromuscular Disorders: No Hx Family Neurologic Disorders: No Hx Family HEENT Disorders: No Hx Family Autoimmune Disorders: No Medications and Allergies Aspirin [Lo-Dose Aspirin EC] 81 mg PO DAILY 02/03/17 [History] Ipratropium/Albuterol Neb [Duoneb] 3 ml IH Q6HR 09/28/16 [History] Lisinopril [Zestril] 10 mg PO BID 06/27/17 [History] Carvedilol [Coreg] 6.25 mg PO BIDWM tablet 11/03/17 [Rx] Divalproex Sodium [Depakote Sprinkle] 125 mg PO TID cap.sprink 11/03/17 [Rx] Furosemide [Lasix] 20 mg PO DAILY tablet 11/03/17 [Rx] Nitroglycerin 0.4 mg SL Q5MIN PRN tab.subl 11/03/17 [Rx] Omeprazole [PriLOSEC] 20 mg PO 0630 capsule. 11/03/17 [Rx] Quetiapine Fumarate [Seroquel] 25 mg PO BID tablet 11/03/17 [Rx] Albuterol Neb [Proventil Neb] 2.5 mg IH Q4HR PRN 11/11/17 [History] Docusate [Colace] 100 mg PO BID #60 capsule 11/13/17 [Rx] Insulin DETEMIR [Levemir] 15 - 20 unit SQ HS 12/05/17 [History] Atorvastatin Calcium [Lipitor] 20 mg PO DAILY 03/04/18 [History] Lactobacillus [Culturelle] 1 each PO BID #20 cap.sprink 03/09/18 [Rx] Amitriptyline HCl 100 mg PO HS 05/03/18 [History] Gabapentin [Neurontin] 300 mg PO TID 05/03/18 [History] OxyCODONE/APAP 5/325 [Percocet 5/325 MG] 1 tab PO Q6HR PRN 05/03/18 [History] predniSONE [PredniSONE] 10 mg PO DAILY 05/03/18 [History] 3 Allergy/AdvReac Type Severity Reaction Status Date / Time Erythromycin Base Allergy Hives Verified 12/05/17 09:44 - Constitutional Constitutional ROS PAL: weight loss, no decreased appetite - Cardiovascular Cardiovascular ROS: dyspnea on exertion, no chest pain - Respiratory Respiratory: dyspnea - Gastrointestinal Gastrointestinal: no change in bowel habits - Genitourinary Genitourinary ROS male: difficulty urinating (ardon placed 05/04/18 for retention) - Musculoskeletal Musculoskeletal ROS IM: back pain - Psychiatric Psychiatric general PM: anxiety, memory loss Palliative Care-Exam - Constitutional Vitals: Temp Pulse Resp BP Pulse Ox 97.8 F 82 16 137/65 95 05/05/18 10:14 05/05/18 10:14 05/05/18 11:08 05/05/18 10:14 05/05/18 11:08 General appearance: Present: cooperative, disheveled, mild distress - Head Head Exam: Present: atraumatic, normal inspection - Eye Eye exam: Present: PERRL. Absent: periorbital swelling, periorbital tenderness Pupils: Present: normal accommodation, PERRL - ENT ENT exam: Present: mucous membranes dry - Expanded ENT Exam Mouth Exam: Absent: drooling - Neck Neck exam: Present: full ROM, normal inspection. Absent: tenderness - Respiratory Respiratory exam: Present: accessory muscle use, rhonchi - Cardiovascular Cardiovascular exam: Present: +S1, +S2 - Expanded Cardiovascular Exam Peripheral pulses: 2+: Radial (L), Radial (R), Posterior Tibialis (L), Posterior Tibialis (R), Dorsalis Pedis (L) PM, Dorsalis Pedis (R) PM - GI/Abdominal Exam GI/Abdominal exam: Present: normal bowel sounds, soft. Absent: tenderness - Expanded GI/Abdominal Exam GI/Abdominal exam: Absent: ascites - Rectal Rectal Exam: Present: deferred - Catheter Type: Urethral (Ardon) - Extremities Exam Extremities exam: Present: full ROM, normal inspection. Absent: calf tenderness , pedal edema - Back Exam Back exam: Present: full ROM - Neurological Exam Neurological exam: Present: alert, oriented X3, strengths equal and symetr throughout. Absent: altered - Expanded Neurological Exam Patient oriented to: Present: person, place, time Coma Scale Eye Opening: To Voice Coma Scale Motor Response: Obeys Commands Coma Scale Verbal Response: Oriented Coma Scale Total: 14 - Psychiatric Psychiatric exam: Present: normal affect, normal mood - Skin Skin exam: Present: dry, intact, normal color, warm Internal Medicine - CN: Reslt - Labs CBC & Chem 7: 05/05/18 06:59 05/05/18 04:25 Labs: Short CBC 05/05/18 Range/Units 06:59 WBC 9.9 (4.3-11.1) K/mcL Hgb 9.2 L (12.9-16.9) g/dL Hct 29.3 L (37.5-50.1) % Plt Count 265 (140-400) K/mcL BMP 05/05/18 04:25 Sodium 135 L Potassium 4.7 Chloride 92 L Carbon Dioxide 39 H BUN 21 Creatinine 0.58 L Glucose 199 H Calcium 9.0 - ABG Interpretation ABG results: ABG ABG pH 7.39 pH Units (7.32-7.45) 05/04/18 07:41 ABG pCO2 74 mmHg (35-45) H* 05/04/18 07:41 ABG pO2 83 mmHg (85-104) L 05/04/18 07:41 ABG O2 Saturation 95 % (95-98) 05/04/18 07:41 Consult Discharge Plan - Plan Referrals: Toney Santos Jr, MD [Primary Care Provider] - Palliative Quality Palliative Quality: Screen for Code Status: Yes, Screen for Goals of Care: Yes, Screen for Pain: Yes, If Pain Regimen Started, Initiate Bowel Regimen: Yes, Screen for Nausea/Vomitting: Yes Code Status: 05/03/18 07:43 Resuscitation Status: Active [RES] Routine Comment: Resuscitation Status: DNR-Comfort Care-Arrest Resuscitation Status: Active [RES] Routine Comment: Resuscitation Status: [id number]
[2018-05-05] MEDS ORDERED: Albuterol 2.5 MG/3 ML NEBULIZER IH PRN (14:38)
--- NOTE | 2018-05-05 17:07 | Internal Med Progress Note ---
Hospitalist Progress Note - Encounter Date of Encounter: 05/05/18 Time of Encounter: 17:05 - Subjective Interval History: patient was seen ad examined at bedside denies respiratory distress, Chest pain, palpitations, wheezing, chest tightness , N/v/D, syncope, falls he does not want to be placed on bipap. - Exam Vitals: Temp Pulse Resp BP Pulse Ox 97.6 F 102 14 134/69 96 05/05/18 14:10 05/05/18 14:10 05/05/18 14:10 05/05/18 14:10 05/05/18 14:10 Exam: General: Patient is alert, oriented, no acute distress, thin Head: atraumatic, normocephalic, Eye: normal appearance, PERRL, no scleral icterus, no conjunctival injection ENT: mucous membranes moist, normal external ear exam, adentolous Neck: normal inspection, trachea midline, full ROM, Chest: normal inspection, symmetric chest rise, increase in A/P diameter Respiratory: Good respiratory effort. decreased breath sounds bilaterally , occasional wheezing Cardiovascular: tachycardic. s1 and s2 No clicks, rubs, gallops, or murmors. Abdomen: Bowel sounds present normoactive x-4 quadrants. Abdomen is soft, nondistended. no Epigastric tenderness. No guarding or rebound. No organomegaly noted, obese musculoskeletal: Spontaneously moving all extremities. no edema, no calf tenderness Skin: warm, dry, intact. Neuro: Alert and oriented x3 ( person, place, time) Sensation light touch intact. Cranial nerves 2-12 is intact. Not aphasic, no focal deficit Psych: Patient's affect is normal - Assessment and Plan (1) Acute and chronic respiratory failure with hypercapnia Current Visit: Yes Status: Acute Assessment and Plan: acute on chronic hypoxemic and hypercapnic respiratory failure secondary to COPD exacerbation ABG PH 7.39/ CO2 74/ o2 83 - BMP bicarb 40 ( on oxymask 5L) continue bronchodilators patient is refusing BIPAP - understands that not using bipap can worsen respiratory failure code status is DNR CCA DNI levaquin On IV steroids bcx obtained on 05/04- [facility] palliative was consulted for hospice in the AM (2) Acute exacerbation of chronic obstructive airways disease Current Visit: Yes Status: Acute Assessment and Plan: management as per above (3) Chronic congestive heart failure Current Visit: Yes Status: Chronic Assessment and Plan: HFrEF 20% Patient currently euvolemi, no pedal edema CXR from outside facility negative for edema or infiltrates BNP 402 Continue home dose of lasix Fluid restriction diet Continue home O2 TTE Impressions: LVEF 25%. Mildly dilated left ventricle. Severe global left ventricular systolic dysfunction. Mild left ventricular diastolic dysfunction. Normal right ventricular structure and function. Mild mitral regurgitation. Mild pulmonary hypertension. Left Ventricular Wall Motion: Rest Echo Findings The apex, apical inferior, mid inferior, basal inferior, apical anterior, mid anterior, basal anterior, apical septal, mid inferior septal, basal inferior septal, apical lateral, mid anterior lateral, basal anterior lateral, mid anterior septal, mid inferior lateral, basal anterior septal and basal inferior lateral otero were hypokinetic. (4) Diabetes mellitus Current Visit: Yes Status: Chronic Assessment and Plan: Continue insulin ADA diet, FS ACHS (5) HTN (hypertension) Current Visit: Yes Status: Chronic Assessment and Plan: resume home meds (6) Alzheimer's dementia Current Visit: Yes Status: Chronic Assessment and Plan: continue to monitor Alert and oriented at this time High risk for delirium, continue orientation and reorientation Continue home meds (7) Anemia Current Visit: Yes Status: Chronic Assessment and Plan: Hb is at baseline Continue to monitor (8) DVT prophylaxis Current Visit: Yes Status: Acute Assessment and Plan: SQ heparin (9) History of CVA (cerebrovascular accident) Current Visit: Yes Status: Chronic Assessment and Plan: no current deficits noted on exam Continue home ASA, Lipitor (10) Goals of care, counseling/discussion Current Visit: Yes Status: Acute Assessment and Plan: code status as per last admission is DNR CCA i spoke to daughter and MPOA miss Felix, who confirms above and reports that her father did not ever want to be placed on mechanical ventilator we discussed patient's refusal of bipap and she understands and would liketo talk about hospice placement as he is continuing to decline [facility] palliative on board for DC for Hospice in the AM - Time Spent with Patient Total time spent is greater than 50% in coordination of care (as documented) at patient's floor/unit and/or counseling patient: Internal Medicine: Result - Labs CBC & Chem 7: 05/05/18 06:59 05/05/18 04:25 Labs: Short CBC 05/05/18 Range/Units 06:59 WBC 9.9 (4.3-11.1) K/mcL Hgb 9.2 L (12.9-16.9) g/dL Hct 29.3 L (37.5-50.1) % Plt Count 265 (140-400) K/mcL BMP 05/05/18 04:25 Sodium 135 L Potassium 4.7 Chloride 92 L Carbon Dioxide 39 H BUN 21 Creatinine 0.58 L Glucose 199 H Calcium 9.0 - ABG Interpretation ABG results: ABG ABG pH 7.39 pH Units (7.32-7.45) 05/04/18 07:41 ABG pCO2 74 mmHg (35-45) H* 05/04/18 07:41 ABG pO2 83 mmHg (85-104) L 05/04/18 07:41 ABG O2 Saturation 95 % (95-98) 05/04/18 07:41 Consult Discharge Plan - Plan Referrals: Toney Santos Jr, MD [Primary Care Provider] - (3) Chronic congestive heart failure Qualifiers: Heart failure type: combined systolic and diastolic Qualified Code(s): I50.42 - Chronic combined systolic (congestive) and diastolic (congestive) heart failure (4) Diabetes mellitus Qualifiers: Diabetes mellitus type: type 2 Diabetes mellitus custodial insulin use: with longshore equipment operator use Diabetes mellitus complication status: with unspecified complications Qualified Code(s): E11.8 - Type 2 diabetes mellitus with unspecified complications; Z79.4 - buttermaker helper (current) use of insulin (5) HTN (hypertension) Qualifiers: Hypertension type: essential hypertension Qualified Code(s): I10 - Essential (primary) hypertension (6) Alzheimer's dementia Qualifiers: Alzheimer's disease onset: unspecified onset Dementia behavioral disturbance : without behavioral disturbance Qualified Code(s): G30.9 - Alzheimer's disease , unspecified; F02.80 - Dementia in other diseases classified elsewhere without behavioral disturbance (7) Anemia Qualifiers: Anemia type: unspecified type Qualified Code(s): D64.9 - Anemia, unspecified
[2018-05-06] MEDS: Ipratropium/Albuterol Neb 3 ML IH SCH ×3 (04:00→10:55)
[2018-05-06] MEDS: *HR* OxyCODONE/APAP 5/325 TABLET PO PRN ×2 (04:15→08:18)
[2018-05-06 05:09] LABS: Hematocrit 27.7 % (37.5-50.1); Hemoglobin 8.5 g/dL (12.9-16.9); Mean Corpuscular HGB Conc 30.7 g/dL (31.6-35.5); Mean Corpuscular Hemoglobin 27.1 pg (28.0-33.3); Mean Corpuscular Volume 88.2 fL (83.0-100.0); Mean Platelet Volume 8.4 fL (9.4-12.4); Platelet Count 237 K/mcL (140-400); Red Blood Count 3.14 M/mcL (4.19-5.50); Red Cell Distribution Width 13.7 % (11.5-14.5)
[2018-05-06 05:34] LABS: BUN/Creatinine Ratio 42 (6-26); Blood Urea Nitrogen 25 mg/dL (8-23); Calcium 8.7 mg/dL (8.6-10.3); Carbon Dioxide 42 mEq/L (23-29); Chloride 92 mEq/L (98-107); Glucose 70 mg/dL (70-105); Osmolality,Calculated 283 (280-300); Potassium 4.5 mEq/L (3.5-5.1); Sodium 135 mEq/L (136-145); eGFR For Non-African Americans > 60 (> 60)
[2018-05-06] MEDS ORDERED: MethylPREDNISolone 40 MG/ML VIAL IVP SCH (06:00)
[2018-05-06] MEDS: *HR* Heparin 5,000 UNIT/ML VIAL SQ SCH (06:03)
[2018-05-06] MEDS ORDERED: levoFLOXacin 500 MG TABLET PO SCH (09:00)
[2018-05-06] MEDS: Furosemide 20 MG TABLET PO SCH (09:24)
[2018-05-06] MEDS: Divalproex Sodium 125 MG CAPSULE PO SCH (09:24)
[2018-05-06] MEDS: Gabapentin 300 MG CAPSULE PO SCH (09:24)
[2018-05-06] MEDS: Aspirin Enteric Coated 81 MG Tablet PO SCH (09:25)
[2018-05-06] MEDS: Lactobacillus 1 EACH CAP.SPRINK PO SCH (09:25)
[2018-05-06] MEDS: Insulin LISPRO 300 UNITS/3 ML VIAL SQ SCH (09:25)
[2018-05-06 10:39] VITALS: BP 122/66
--- NOTE | 2018-05-06 11:16 | Palliative Progress Note ---
Date of Encounter: 05/06/18 Time of Encounter: 09:00 - Assessment and plan (1) Anxiety Current Visit: Yes Status: Acute Assessment and plan: Patient denies anxiety during assessment. Patient has taken 0 doses of PRN Ativan in last 24 hours. Prescription written and sent to pharmacy for discharge. (2) COPD (chronic obstructive pulmonary disease) Current Visit: No Status: Chronic Assessment and plan: Patient reports breathing has improved over the last 24 hours. Has taken 2 doses of PRN Roxanol; prescription written for discharge. Qualifiers: COPD type: emphysema Emphysema type: unspecified Qualified Code(s): J43.9 - Emphysema, unspecified (3) Alzheimer's dementia Current Visit: Yes Status: Chronic Qualifiers: Alzheimer's disease onset: unspecified onset Dementia behavioral disturbance: without behavioral disturbance Qualified Code(s): G30.9 - Alzheimer's disease, unspecified; F02.80 - Dementia in other diseases classified elsewhere without behavioral disturbance (4) Chronic respiratory failure Current Visit: Yes Status: Chronic Qualifiers: Respiratory failure complication: hypoxia and hypercapnia Qualified Code(s) : J96.11 - Chronic respiratory failure with hypoxia; J96.12 - Chronic respiratory failure with hypercapnia (5) Goals of care, counseling/discussion Current Visit: No Status: Acute Assessment and plan: Spoke with patient regarding goals of care and CODE STATUS. CODE STATUS confirmed as DNRCC; status changed as patient wants "what order I had last time. " Patient expressed desire to stay home and comfortable, does not want to return to hospital. OARRS reviewed; patient already ordered Percocet with sufficient supply for next 10 days. Prescriptions written for Roxanol for dyspnea and Ativan for anxiety/agitation. Patient plans to discharge home this afternoon with [facility] after Elvira gets home from work. Notified RN Edwige of need to contact [facility] at discharge to notify patient is leaving. Spoke with Dr. Gerber yesterday evening whom reported patient would be discharged today. (6) Back pain Current Visit: No Status: Chronic Qualifiers: Back pain location: back pain in unspecified location Back pain laterality : unspecified Qualified Code(s): M54.9 - Dorsalgia, unspecified; G89.29 - Other chronic pain - Time Spent With Patient Total time spent is greater than 50% in coordination of care (as documented) at patient's floor/unit and/or counseling patient: - Subjective Interval history: Patient sitting up and eating breakfast upon arrival for assessment. Patient alert and oriented times 3. No family present at bedside. Reports having "some pain, not enough to talk about, but I took Percocet and it's getting better;" per patient report. Patient has taken 4 doses of Percocet and 2 doses of Roxanol PRN in the last 24 hours; continue as prescribed. Patient denies anxiety ; zero doses of Ativan in the last 24 hours. Patient denies nausea, vomiting, and diarrhea. Patient reports breathing has been easier since taking Roxanol. Patient reports ready to go home today. - Constitutional Vitals: Abnormal lab results WBC 11.2 K/mcL (4.3-11.1) H 05/06/18 04:37 RBC 3.14 M/mcL (4.19-5.50) L 05/06/18 04:37 Hgb 8.5 g/dL (12.9-16.9) L 05/06/18 04:37 Hct 27.7 % (37.5-50.1) L 05/06/18 04:37 MCH 27.1 pg (28.0-33.3) L 05/06/18 04:37 MCHC 30.7 g/dL (31.6-35.5) L 05/06/18 04:37 MPV 8.4 fL (9.4-12.4) L 05/06/18 04:37 Neutrophils # 10.6 K/mcL (1.6-8.9) H 05/04/18 05:41 ABG pCO2 74 mmHg (35-45) H* 05/04/18 07:41 ABG pO2 83 mmHg (85-104) L 05/04/18 07:41 ABG HCO3 45 mEq/L (21-27) H 05/04/18 07:41 ABG Total CO2 47 mEq/L (20-26) H 05/04/18 07:41 ABG Base Excess 17 mEq/L (-2 to 3) H 05/04/18 07:41 Sodium 135 mEq/L (136-145) L 05/06/18 04:37 Chloride 92 mEq/L (98-107) L 05/06/18 04:37 Carbon Dioxide 42 mEq/L (23-29) H* 05/06/18 04:37 BUN 25 mg/dL (8-23) H 05/06/18 04:37 Creatinine 0.60 mg/dL (0.70-1.30) L 05/06/18 04:37 BUN/Creatinine Ratio 42 (6-26) H 05/06/18 04:37 POC Glucose 219 mg/dL (70-99) H 05/05/18 07:38 B-Natriuretic Peptide 402 pg/mL (Less than 100) H 05/03/18 07:56 General appearance: Present: cooperative, no acute distress - Head Head exam: Present: atraumatic, normal inspection - Eye Eye exam: Present: normal appearance, PERRL. Absent: periorbital swelling, periorbital tenderness Pupils: Present: normal accommodation, PERRL - ENT ENT exam: Present: mucous membranes moist, normal external ear exam - Neck Neck exam: Present: full ROM, normal inspection - Respiratory Respiratory exam: Present: rhonchi. Absent: accessory muscle use - Cardiovascular Cardiovascular exam: Present: +S1, +S2 - GI/Abdominal GI/Abdominal exam: Present: hypoactive bowel sounds, soft. Absent: tenderness - Rectal Rectal exam: Present: deferred - Additional comments: Leung catheter remains in place, unsure if family wants to bring patient home with catheter. - Extremities Exam Extremities exam: Present: full ROM, normal inspection. Absent: pedal edema - Back Exam Back exam: Present: full ROM, normal inspection - Neurological Exam Neurological exam: Present: alert, oriented X3, strengths equal and symetr throughout - Psychiatric Psychiatric exam: Present: normal affect, normal mood - Skin Skin exam: Present: dry, pallor, warm Palliative Quality Palliative Quality: Screen for Code Status: Yes, Screen for Goals of Care: Yes, Screen for Pain: Yes, If Pain Regimen Started, Initiate Bowel Regimen: Yes, Screen for Nausea/Vomitting: Yes Code Status: 05/03/18 07:43 Resuscitation Status: Active [RES] Routine Comment: Resuscitation Status: DNR-Comfort Care-Arrest Resuscitation Status: Active [RES] Routine Comment: Resuscitation Status: [id number] 05/06/18 09:52 DNR [Resuscitation Status: Active] [RES] Routine Comment: state form from prev. admission. Resuscitation Status: DNR-Comfort Care - Labs CBC & Chem 7: 05/06/18 04:37 05/06/18 04:37 Labs: Laboratory Results - last 24 hr 05/06/18 05/06/18 04:37 04:37 WBC 11.2 H RBC 3.14 L Hgb 8.5 L Hct 27.7 L MCV 88.2 MCH 27.1 L MCHC 30.7 L RDW 13.7 Plt Count 237 MPV 8.4 L Sodium 135 L Potassium 4.5 Chloride 92 L Carbon Dioxide 42 H* BUN 25 H Creatinine 0.60 L Est GFR ( Amer) > 60 Est GFR (Non-Af Amer) > 60 BUN/Creatinine Ratio 42 H Glucose 70 Calculated Osmolality 283 Calcium 8.7 - ABG Interpretation ABG results: ABG ABG pH 7.39 pH Units (7.32-7.45) 05/04/18 07:41 ABG pCO2 74 mmHg (35-45) H* 05/04/18 07:41 ABG pO2 83 mmHg (85-104) L 05/04/18 07:41 ABG O2 Saturation 95 % (95-98) 05/04/18 07:41 Consult Discharge Plan - Plan Referrals: Toney Santos Jr, MD [Primary Care Provider] - Prescriptions: LORazepam Oral Conc [Ativan Oral Conc] 1 mg PO Q4HR PRN 4 Days #15 mls PRN Reason: anxiety/agitation MORPHINE SUL Oral CONC [Roxanol Oral Conc] 5 mg SL Q4H PRN 4 Days #15 ml PRN Reason: Dyspnea/Severe pain
[2018-05-06] MEDS ORDERED: MORPHINE SUL Oral CONC 10 MG/0.5 ML ORAL.SYG SL PRN (11:31)
--- NOTE | 2018-05-06 11:53 | Discharge Summary ---
- NOTES TO OUTPATIENT PROVIDER Notes to Outpatient Provider: Patient has a history of chronic respiratory failure secondary to heart failure with reduced EF and advanced COPD. He was admitted for acute on chronic respiratory failure secondary to COPD exacerbation. Marginal improvement in his symptoms with Levaquin and steroids. After discussing the palliative care, he was discharged home with [facility]. He is to complete total of 7 days of abx and 5 more days of PO predisone. Orders not resulted at time of discharge: Pending orders 05/04/18 07:47 Culture,Sputum with Gram Stain [RM] Stat 05/04/18 08:26 Culture,Blood [BC] Stat 05/07/18 04:00 BMP [Basic Metabolic Panel] AM 0400 Complete Blood Count w/o Diff [HEME] AM 0400 05/08/18 04:00 BMP [Basic Metabolic Panel] AM 0400 Complete Blood Count w/o Diff [HEME] AM 0400 Date of Encounter: 05/06/18 Time of Encounter: 09:00 - Discharge Diagnosis (1) Diabetes mellitus Priority: Secondary Status: Chronic Qualifiers: Diabetes mellitus type: type 2 Diabetes mellitus mcfp insulin use: with mcfp use Diabetes mellitus complication status: with unspecified complications Qualified Code(s): E11.8 - Type 2 diabetes mellitus with unspecified complications; 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 (2) HTN (hypertension) Priority: Secondary Status: Chronic Qualifiers: Hypertension type: essential hypertension Qualified Code(s): I10 - Essential (primary) hypertension (3) Alzheimer's dementia Priority: Secondary Status: Chronic Qualifiers: Alzheimer's disease onset: unspecified onset Dementia behavioral disturbance: without behavioral disturbance Qualified Code(s): G30.9 - Alzheimer's disease, unspecified; F02.80 - Dementia in other diseases classified elsewhere without behavioral disturbance (4) Anemia Priority: Secondary Status: Chronic Qualifiers: Anemia type: unspecified type Qualified Code(s): D64.9 - Anemia, unspecified (5) DVT prophylaxis Priority: Secondary Status: Acute (6) Chronic congestive heart failure Priority: Secondary Status: Chronic Qualifiers: Heart failure type: combined systolic and diastolic Qualified Code(s): I50.42 - Chronic combined systolic (congestive) and diastolic (congestive) heart failure (7) History of CVA (cerebrovascular accident) Priority: Secondary Status: Chronic (8) Acute exacerbation of chronic obstructive airways disease Priority: Secondary Status: Acute (9) Acute and chronic respiratory failure with hypercapnia Priority: Primary Status: Acute (10) Goals of care, counseling/discussion Priority: Secondary Status: Acute Hospital course: Mr. Quinn is a 82 year old male with history of chronic respiratory failure secondary to heart failure with reduced EF (EF 25%) and advanced COPD, was admitted for acute on chronic respiratory failure secondary to COPD exacerbation. Marginal improvement in his symptoms with Levaquin and steroids. After discussing the palliative care, he was discharged home with [facility]. He is to complete total of 7 days of abx and 5 more days of PO prednisone. Discharge discussed with: patient, case management - Time Spent with Patient Total time spent providing and/or coordinating discharge services: Greater than 30 minutes - Discharge Medications Prescriptions: LORazepam Oral Conc [Ativan Oral Conc] 1 mg PO Q4HR PRN 4 Days #15 mls PRN Reason: anxiety/agitation levoFLOXacin [Levaquin] 500 mg PO DAILY #3 tablet MORPHINE SUL Oral CONC [Roxanol Oral Conc] 5 mg SL Q4H PRN 4 Days #15 ml PRN Reason: Dyspnea/Severe pain predniSONE [PredniSONE] 40 mg PO DAILY #10 tablet Home Medications: Aspirin [Lo-Dose Aspirin EC] 81 mg PO DAILY 09/28/16 [History] Ipratropium/Albuterol Neb [Duoneb] 3 ml IH Q6HR 09/28/16 [History] Lisinopril [Zestril] 10 mg PO BID 06/27/17 [History] Carvedilol [Coreg] 6.25 mg PO BIDWM tablet 11/03/17 [Rx] Divalproex Sodium [Depakote Sprinkle] 125 mg PO TID cap.sprink 11/03/17 [Rx] Furosemide [Lasix] 20 mg PO DAILY tablet 11/03/17 [Rx] Nitroglycerin 0.4 mg SL Q5MIN PRN tab.subl 11/03/17 [Rx] Omeprazole [PriLOSEC] 20 mg PO 0630 capsule. 11/03/17 [Rx] Albuterol Neb [Proventil Neb] 2.5 mg IH Q4HR PRN 11/11/17 [History] Docusate [Colace] 100 mg PO BID #60 capsule 11/13/17 [Rx] Insulin DETEMIR [Levemir] 15 - 20 unit SQ HS 12/05/17 [History] Atorvastatin Calcium [Lipitor] 20 mg PO DAILY 03/04/18 [History] Lactobacillus [Culturelle] 1 each PO BID #20 cap.sprink 03/09/18 [Rx] Amitriptyline HCl 100 mg PO HS 05/03/18 [History] Gabapentin [Neurontin] 300 mg PO TID 05/03/18 [History] OxyCODONE/APAP 5/325 [Percocet 5/325 MG] 1 tab PO Q6HR PRN 05/03/18 [History] LORazepam Oral Conc [Ativan Oral Conc] 1 mg PO Q4HR PRN 4 Days #15 mls 05/06/18 [Rx] MORPHINE SUL Oral CONC [Roxanol Oral Conc] 5 mg SL Q4H PRN 4 Days #15 ml [Rx] levoFLOXacin [Levaquin] 500 mg PO DAILY #3 tablet 05/06/18 [Rx] predniSONE [PredniSONE] 40 mg PO DAILY #10 tablet 05/06/18 [Rx] Allergies/Adverse Reactions: 3 Allergy/AdvReac Type Severity Reaction Status Date / Time Erythromycin Base Allergy Hives Verified 12/05/17 09:44 Date of admission: 05/03/18 03:44 Primary care physician: Toney Santos Jr, MD Consults: 05/03/18 04:18 Consult to Attendance Clerk [CONS] Routine Reason for SW Consult: Possible need for ECF Or Assisted Living 05/03/18 06:09 Consult to Nurse Navigator [CONS] Routine Comment: 05/04/18 07:51 Consult to Palliative Care [CONS] Routine Comment: Consulting Provider: [facility] [place] Reason for Consult: Family requesting hospice placement, recurrent admissions , refusing care, advanced COPD Call Completed: No - Constitutional Vitals: Temp Pulse Resp BP Pulse Ox 97.6 F 98 16 122/66 95 05/06/18 10:38 05/06/18 10:38 05/06/18 10:55 05/06/18 10:38 05/06/18 10:55 General appearance: Present: mild distress, A&O X 3, pleasant Exam: General: Patient is alert, oriented, no acute distress, cachetic Respiratory: Decreased breath sounds bilaterally , occasional wheezing Cardiovascular: S1S2, no rubs/gallops Abdomen: soft, non-tender Skin: warm, dry, intact. - Patient Status Disposition: Hospice - Home Condition: Undetermined - Discharge Instructions Instructions: Acute Respiratory Distress Syndrome (DC), Chronic Obstructive Pulmonary Disease (DC), Anxiety (DC), Heart Failure (DC), Diabetes Mellitus Type 2 in Adults (DC), Chronic Hypertension (DC) Follow Up With: Toney Santos Jr, MD [Primary Care Provider] - - Diet and Activity Activity: as per physical therapy Diet: diabetic diet
--- NOTE | 2018-05-06 12:03 | Physician Discharge Referral ---
Home Health/Hosp Referral Info Transfer to: Hospice - Diagnosis (1) Diabetes mellitus Priority: Secondary Status: Chronic (2) HTN (hypertension) Priority: Secondary Status: Chronic (3) Alzheimer's dementia Priority: Secondary Status: Chronic (4) Anemia Priority: Secondary Status: Chronic (5) DVT prophylaxis Priority: Secondary Status: Acute (6) Chronic congestive heart failure Priority: Secondary Status: Chronic (7) History of CVA (cerebrovascular accident) Priority: Secondary Status: Chronic (8) Acute exacerbation of chronic obstructive airways disease Priority: Secondary Status: Acute (9) Acute and chronic respiratory failure with hypercapnia Priority: Primary Status: Acute (10) Goals of care, counseling/discussion Priority: Secondary Status: Acute - Respiratory Orders Smoking Cessation: Smoking cessation has been advised. For more information, call the [employer] Quit Line at [phone]. - Transfer Medications Prescriptions: LORazepam Oral Conc [Ativan Oral Conc] 1 mg PO Q4HR PRN 4 Days #15 mls PRN Reason: anxiety/agitation levoFLOXacin [Levaquin] 500 mg PO DAILY #3 tablet MORPHINE SUL Oral CONC [Roxanol Oral Conc] 5 mg SL Q4H PRN 4 Days #15 ml PRN Reason: Dyspnea/Severe pain predniSONE [PredniSONE] 40 mg PO DAILY #10 tablet Home Medications: Aspirin [Lo-Dose Aspirin EC] 81 mg PO DAILY 09/28/16 [History] Ipratropium/Albuterol Neb [Duoneb] 3 ml IH Q6HR 09/28/16 [History] Lisinopril [Zestril] 10 mg PO BID 06/27/17 [History] Carvedilol [Coreg] 6.25 mg PO BIDWM tablet 11/03/17 [Rx] Divalproex Sodium [Depakote Sprinkle] 125 mg PO TID cap.sprink 11/03/17 [Rx] Furosemide [Lasix] 20 mg PO DAILY tablet 11/03/17 [Rx] Nitroglycerin 0.4 mg SL Q5MIN PRN tab.subl 11/03/17 [Rx] Omeprazole [PriLOSEC] 20 mg PO 0630 capsule. 11/03/17 [Rx] Albuterol Neb [Proventil Neb] 2.5 mg IH Q4HR PRN 11/11/17 [History] Docusate [Colace] 100 mg PO BID #60 capsule 11/13/17 [Rx] Insulin DETEMIR [Levemir] 15 - 20 unit SQ HS 12/05/17 [History] Atorvastatin Calcium [Lipitor] 20 mg PO DAILY 03/04/18 [History] Lactobacillus [Culturelle] 1 each PO BID #20 cap.sprink 03/09/18 [Rx] Amitriptyline HCl 100 mg PO HS 05/03/18 [History] Gabapentin [Neurontin] 300 mg PO TID 05/03/18 [History] OxyCODONE/APAP 5/325 [Percocet 5/325 MG] 1 tab PO Q6HR PRN 05/03/18 [History] LORazepam Oral Conc [Ativan Oral Conc] 1 mg PO Q4HR PRN 4 Days #15 mls 05/06/18 [Rx] MORPHINE SUL Oral CONC [Roxanol Oral Conc] 5 mg SL Q4H PRN 4 Days #15 ml [Rx] levoFLOXacin [Levaquin] 500 mg PO DAILY #3 tablet 05/06/18 [Rx] predniSONE [PredniSONE] 40 mg PO DAILY #10 tablet 05/06/18 [Rx] Allergies/Adverse Reactions: 3 Allergy/AdvReac Type Severity Reaction Status Date / Time Erythromycin Base Allergy Hives Verified 12/05/17 09:44 Certification: Further, I certify that my clinical findings support that this patient is homebound (i.e. absences from home require considerable and taxing effort and are for medical reasons or confucianism services or infrequently or short duration when for other reasons) because: Homebound Reason: Severity of cardiac or pulmonary status limits activity tolerance Attestation: My signature below is to certify that this patient is under my care and that I, or nurse practitioner, or a physician's call center assistant working with me, has a face-to -face encounter with this patient.
[2018-05-07] MEDS ORDERED: predniSONE 20 MG TABLET PO SCH (09:00)
== END 2018-05-06 14:05 | disposition hospice, home (50) ==
LOC: 3ANU → SUATTDRO 03:44
PROVIDERS: ADMIT Family Medicine; ATTEND Internal Medicine